=== PATIENT | male | born 1970 | race Caucasian/White ===

== ENCOUNTER → 2017-11-24 | Outpatient (CLI) | payer OTHER ==
--- NOTE | 2017-11-24 09:59 | CT ---
EXAMINATION TYPE: CT sinus wo con DATE OF EXAM: 11/24/2017 COMPARISON: NONE HISTORY: chronic sinusitis CT DLP: 610 mGycm CONTRAST: 0 mL of Omnipaque 350 The paranasal sinuses are examined in the axial plane at 2 mm thick sections. Reconstructed images i n the coronal plane were obtained. There is dental amalgam scatter artifact The maxillary sinuses are clear. There is very minimal mucosal thickening within an anterior left et hmoid air cell. The sphenoid sinuses are clear. The frontal sinuses are clear. The septum is evaluated. There is septal deviation to the left. The ostiomeatal units are patent. IMPRESSIONS: 1. Very minimal mucosal thickening within an anterior left ethmoid air cell. Paranasal sinuses are o therwise clear. 2. Left septal deviation.
== END | disposition home or self-care (01) ==
LOC: RADCTMAIN 08:39
PROVIDERS: ATTEND Otolaryngology
DX: J34.2 Deviated nasal septum (principal); J34.89 Other specified disorders of nose and nasal sinuses
CPT/HCPCS: 70486

== ENCOUNTER → 2019-01-30 | Outpatient (CLI) | payer OTHER ==
--- NOTE | 2019-01-30 08:45 | US ---
EXAMINATION TYPE: US liver DATE OF EXAM: 01/30/2019 COMPARISON: NONE CLINICAL HISTORY: R79.89 Other specified abnormal findings of blood. patient states pain under ribs, states weight gain EXAM MEASUREMENTS: Liver Length: 17.0 cm Gallbladder Wall: 0.3 cm CBD: 0.4 cm Right Kidney: 11.4 x 6.5 x 6.8 cm Pancreas: limited views Liver: coarse, difficult to penetrate, possible focal fatty sparing near vini hepatis = 1.8cm Gallbladder: wall appeared slightly contracted, patient states he took vitamins prior to exam only Evidence for sonographic Leung's sign: no CBD: wnl Right Kidney: medial cortical cyst seen 1.0cm IMPRESSION: 1. Coarsened echo pattern to the liver is nonspecific and be seen with fatty infiltration or hepatic steatosis. Hepatitis or diffuse hepatocellular disease in the differential diagnosis. 2 gallbladder wall measures 3 mm within the gallbladder is nondistended. This likely accounts for the finding. No definite gallstones. 3. Hypoechoic nodule right kidney too small to characterize.
== END | disposition home or self-care (01) ==
LOC: RADUSWWP 07:27
DX: R93.2 Abnormal findings on diagnostic imaging of liver and biliary tract (principal); R79.89 Other specified abnormal findings of blood chemistry; Z88.5 Allergy status to narcotic agent
CPT/HCPCS: 76705

== ENCOUNTER 2019-02-15 17:12 | Emergency (ER) | payer OTHER ==
[2019-02-15 17:32] VITALS: RESP 18
--- NOTE | 2019-02-15 18:08 | XR ---
EXAMINATION TYPE: XR elbow complete RT DATE OF EXAM: 02/15/2019 COMPARISON: NONE HISTORY: Pain and swelling TECHNIQUE: 3 views FINDINGS: There is soft tissue swelling over the olecranon process of the ulna. There is no sign of e lbow joint effusion. I see no fracture nor dislocation. There is some mild spurring on the coronoid p rocess of the ulna and of the distal humerus. IMPRESSION: Mild osteoarthritis. No fracture. Posterior moderate soft tissue swelling. This could rel ate to olecranon bursitis.
[2019-02-15 19:22] LABS: Basophils % (A) 1 %; Eosinophils # (A) 0.1 k/uL (0-0.7); Eosinophils % (A) 1 %; HCT 41.5 % (39.0-53.0); HGB 13.7 gm/dL (13.0-17.5); Lymphocytes # (A) 1.4 k/uL (1.0-4.8); Lymphocytes % (A) 19 %; MCH 28.6 pg (25.0-35.0); MCHC 32.9 g/dL (31.0-37.0); MCV 87.1 fL (80.0-100.0); Mean Platelet Volume 7.3; Monocytes # (A) 0.5 k/uL (0-1.0); Monocytes % (A) 7 %; Neutrophils # (A) 5.1 k/uL (1.3-7.7); Neutrophils % (A) 68 %; Platelet Count 246 k/uL (150-450); RBC 4.77 m/uL (4.30-5.90); RDW 15.3 % (11.5-15.5); WBC 7.5 k/uL (3.8-10.6)
--- NOTE | 2019-02-15 19:25 | ED ---
Extremity Problem HPI - General Chief complaint: Extremity Problem,Nontraumatic Stated complaint: R Elbow Pain Time Seen by Provider: 02/15/19 17:40 Source: patient Mode of arrival: ambulatory Limitations: no limitations - History of Present Illness Initial comments: 49-year-old male with no significant past nuchal history presents today for chief complaint of right elbow pain. Patient states he was working on building shelves over the weekend he states he was leaning on and using his right elbow a lot. Patient states he noticed some pain Wednesday and Wednesday as well as some mild swelling, patient states the pain and swelling increased after playing horseshoes yesterday. Patient has a fever chills night sweats. He denies any inability to range at the elbow. He states the swelling is mostly at the point. Remaining review of system negative, upon arrival patient appears well. - Related Data Previous Rx's Medication Instructions Recorded Sulfamethox-Tmp 800-160Mg [Bactrim 2 tab PO Q12HR 14 Days #56 tab 02/15/19 DS 800-160 mg] Allergies Allergy/AdvReac Type Severity Reaction Status Date / Time morphine Allergy Hallucinati Verified 02/15/19 17:32 ons Review of Systems ROS Statement: Those systems with pertinent positive or pertinent negative responses have been documented in the HPI. ROS Other: All systems not noted in ROS Statement are negative. Past Medical History Past Medical History: No Reported History History of Any Multi-Drug Resistant Organisms: None Reported Past Surgical History: Orthopedic Surgery Past Psychological History: No Psychological Hx Reported Smoking Status: Never smoker Past Alcohol Use History: Daily Past Drug Use History: None Reported General Exam - General Exam Comments Initial Comments: General: The patient is awake and alert, in no distress, and does not appear acutely ill. Eye: Pupils are equal, round and reactive to light, extra-ocular movements are intact. No nystagmus. There is normal conjunctiva bilaterally. No signs of icterus. Ears, nose, mouth and throat: There are moist mucous membranes and no oral les ions. Neck: The neck is supple, there is no tenderness or JVD. Cardiovascular: There is a regular rate and rhythm. No murmur, rub or gallop is appreciated. Respiratory: Lungs are clear to auscultation, respirations are non-labored, breath sounds are equal. No wheezes, stridor, rales, or rhonchi. Musculoskeletal: Upon inspection of the right elbow there is soft tissue swelling over the olecranon process. Normal ROM both actively and passively, no tenderness. Strength 5/5. Sensation intact both proximal and distal to injury site. Radial pulses equal bilaterally 2+. Neurological: A&O x 3. CN II-XII intact, There are no obvious motor or sensory deficits. Coordination appears grossly intact. Speech is normal. Skin: Skin is warm and dry and no rashes or lesions are noted. Psychiatric: Cooperative, appropriate mood & affect, normal judgment. Limitations: no limitations Course Vital Signs 02/15/19 02/15/19 02/15/19 17:29 18:30 20:06 Temperature 99.0 F 98.7 F Pulse Rate 95 87 83 Respiratory 18 18 Rate Blood Pressure 163/105 140/108 174/99 O2 Sat by Pulse 98 99 Oximetry Medical Decision Making - Medical Decision Making 49-year-old male presented for right elbow pain and swelling. Obvious or chronic bursitis. Mild warmth to palpation. Mild erythema. Patient states has been improving throughout the day today. He states he noticed the pain had increased after playing horseshoes. Patient has no significant leukocytosis on laboratory studies denies any constitutional symptoms. Patient appears well. He has no limitations in either active or passive range of motion. Mild tenderness to palpation. At this time I have low suspicion for septic bursitis however this is identical to diagnoses. There is no circumferential swelling or pain consistent with a septic joint. Patient was given antibiotics as there is possibility of infected olecranon bursitis. [facility] patient to follow up closely with orthopedic surgery for further recommendation and treatment. Patient is instructed to ice and elevate the area. As well as take NSAIDs. Patient's critical care plan. Return parameters which included any worsening of the redness pain or limitation to range of motion fever chills or night sweats--patient is to immediately return to the emergency department. Patient verbalizes understanding. Patient was discharged appearing well after I discussed the case with attending provider Dr. Somers. - Lab Data Result diagrams: 02/15/19 18:51 02/15/19 18:51 Lab Results 02/15/19 02/15/19 Range/Units 18:51 18:51 WBC 7.5 (3.8-10.6) k/uL RBC 4.77 (4.30-5.90) m/uL Hgb 13.7 (13.0-17.5) gm/dL Hct 41.5 (39.0-53.0) % MCV 87.1 (80.0-100.0) fL MCH 28.6 (25.0-35.0) pg MCHC 32.9 (31.0-37.0) g/dL RDW 15.3 (11.5-15.5) % Plt Count 246 (150-450) k/uL Neutrophils % 68 % Lymphocytes % 19 % Monocytes % 7 % Eosinophils % 1 % Basophils % 1 % Neutrophils # 5.1 (1.3-7.7) k/uL Lymphocytes # 1.4 (1.0-4.8) k/uL Monocytes # 0.5 (0-1.0) k/uL Eosinophils # 0.1 (0-0.7) k/uL Basophils # 0.0 (0-0.2) k/uL Sodium 141 (137-145) mmol/L Potassium 3.8 (3.5-5.1) mmol/L Chloride 108 H (98-107) mmol/L Carbon Dioxide 26 (22-30) mmol/L Anion Gap 7 mmol/L BUN 21 H (9-20) mg/dL Creatinine 0.84 (0.66-1.25) mg/dL Est GFR (CKD-EPI)AfAm >90 (>60 ml/min/1.73 sqM) Est GFR (CKD-EPI)NonAf >90 (>60 ml/min/1.73 sqM) Glucose 108 H (74-99) mg/dL Calcium 9.4 (8.4-10.2) mg/dL Total Bilirubin 0.9 (0.2-1.3) mg/dL AST 94 H (17-59) U/L ALT 163 H (21-72) U/L Alkaline Phosphatase 118 (38-126) U/L Total Protein 7.6 (6.3-8.2) g/dL Albumin 4.2 (3.5-5.0) g/dL Disposition Clinical Impression: Bursitis of elbow Disposition: HOME SELF-CARE Condition: Good Instructions (If sedation given, give patient instructions): Elbow Bursitis (ED) Additional Instructions: Please use medication as discussed. Please follow-up with orthopedic surgery within the next 2-3 days. Please follow-up with her primary care provider for elevated blood pressure. Please return to emergency room if the symptoms increase or worsen or for any other concerns. Prescriptions: Sulfamethox-Tmp 800-160Mg [Bactrim DS 800-160 mg] 2 tab PO Q12HR 14 Days #56 tab Is patient prescribed a controlled substance at d/c from ED?: No Referrals: [facility],Clinic [Primary Care Provider] - 1-2 days Jasper Craft DO [Doctor of Osteopathic Medicine] - 1-2 days Time of Disposition: 19:41
[2019-02-15 19:34] LABS: ALT 163 U/L (21-72); AST 94 U/L (17-59); Albumin 4.2 g/dL (3.5-5.0); Alkaline Phosphatase 118 U/L (38-126); Anion Gap 7 mmol/L; Blood Urea Nitrogen 21 mg/dL (9-20); Calcium 9.4 mg/dL (8.4-10.2); Carbon Dioxide 26 mmol/L (22-30); Chloride 108 mmol/L (98-107); Glucose 108 mg/dL (74-99); Potassium 3.8 mmol/L (3.5-5.1); Sodium 141 mmol/L (137-145); Total Bilirubin 0.9 mg/dL (0.2-1.3); Total Protein 7.6 g/dL (6.3-8.2)
[2019-02-15 20:08] VITALS: BP 174/99; PULSE 83; TEMP 98.7
== END 2019-02-15 20:08 | disposition home or self-care (01) ==
LOC: EC 17:12
DX: M70.31 Other bursitis of elbow, right elbow (principal); Z88.5 Allergy status to narcotic agent
CPT/HCPCS: 36415; 80053; 85025; 87040; 99283

== ENCOUNTER → 2019-03-23 | Outpatient (CLI) | payer OTHER ==
--- NOTE | 2019-03-23 09:49 | NM ---
EXAMINATION TYPE: NM hepatobiliary w EF DATE OF EXAM: 03/23/2019 COMPARISON: Liver ultrasound dated 01/30/2019 HISTORY: Abdominal pain TECHNIQUE: After the intravenous administration of 4.9 mCi Tc 99m Mebrofenin hepatobiliary scintigrap hy is performed. Immediate images post injection. FINDINGS: There is satisfactory initial accumulation of tracer by the liver. The gallbladder is visualized wit hin 24 minutes definitively. The small bowel activity is noted within 10 minutes. At one hour 8 oun vianey of oral ensure plus is given to mimic CCK and gallbladder ejection fraction is calculated at 62 % , in the normal range. Therefore there is no scintigraphic evidence of cystic or common bile duct ob struction to suggest acute cholecystitis or gallbladder dyskinesia. IMPRESSION: No scintigraphic evidence of acute cholecystitis, chronic cholecystitis nor biliary dyski nesia.
== END | disposition home or self-care (01) ==
LOC: RADNMMAIN 06:50
DX: R10.84 Generalized abdominal pain (principal)
CPT/HCPCS: 78226

== ENCOUNTER → 2019-06-05 | Outpatient (CLI) | payer OTHER ==
--- NOTE | 2019-06-05 12:18 | CT ---
EXAMINATION TYPE: CT sinus wo con DATE OF EXAM: 06/05/2019 COMPARISON: 11/24/2017 HISTORY: Sinus congestion and headaches. CT DLP: 679.3 mGycm CONTRAST: None The paranasal sinuses are examined in the axial plane at 2 mm thick sections. Reconstructed images i n the coronal plane were obtained. There is dental amalgam scatter artifact The maxillary sinuses are clear. The ethmoid air cells are clear. The sphenoid sinuses are clear. The frontal sinuses are clear. The septum is evaluated. There is septal deviation to the left. The ostiomeatal units are patent. IMPRESSIONS: 1. Normal paranasal sinus study
== END | disposition home or self-care (01) ==
LOC: RADCTMAIN 11:56
DX: J01.91 Acute recurrent sinusitis, unspecified (principal)
CPT/HCPCS: 70486

== ENCOUNTER 2019-06-07 07:48 | Day surgery (SDC) | payer OTHER ==
[2019-06-05 14:51] VITALS: BMI 32.3
[~2019-06-07 07:48] MED LIST: LACTATED RINGERS 1,000 ML IV SCH; LIDOCAINE 1% 20 ML VIAL (10MG/ML) FOR IV START INTRADERMA PRN
[2019-06-07 08:10] VITALS: RESP 16; TEMP 97.8
[2019-06-07] MEDS ORDERED: PROPOFOL 10 MG/ML 20 ML VIAL IV ONE (08:35)
[2019-06-07] MEDS ORDERED: LIDOCAINE 1% INJ 10MG/ML (20 ML MDV) ONE (08:35)
--- NOTE | 2019-06-07 09:04 | P.PCN ---
Date of Procedure: 06/07/19 Procedure(s) Performed: Brief history: Patient is a pleasant 49-year-old white male scheduled for an elective upper endoscopy as well as colonoscopy as a part of evaluation of epigastric pain for the last 6 months duration. He is also scheduled for a screening colonoscopy today. Procedure performed: Esophagogastroduodenoscopy with biopsy Colonoscopy Preoperative diagnosis: Epigastric pain and abdominal bloating Screening for colon cancer Anesthesia: MAC Procedure: After informed consent was obtained from the patient was brought into the endoscopy unit and IV sedation was administered by anesthesia under continuous monitoring. Initial digital rectal examination was normal. Olympus CF 160 video colonoscope was then inserted into the rectum and gradually advanced to the cecum without any difficulty. Careful examination was performed as the scope was gradually being withdrawn. The prep was excellent. The cecum, ascending colon, transverse colon, descending colon, sigmoid colon and rectum appeared normal. The left sided diverticulosis seen. Retroflexion was performed in the rectum and no lesions were noted. Patient tolerated the procedure well. Patient continued to remain sedated. At this time the Olympus GF 160 video endoscope was inserted inserted into the mouth and esophagus intubated without any difficulty and was gradually advanced into the stomach and duodenum and carefully examined. The bulb and second part of the duodenum appeared normal. The scope was then withdrawn into the stomach adequately insufflated with air and upon careful examination the antrum had mild gastritis and biopsies were done from this area. The body, cardia and fundus appeared normal. The scope was then withdrawn into the esophagus. small sliding type hiatal hernia noted. The GE junction was located at 40 cm to the incisors. It appeared regular but there were 2 superficial erosions consistent with LA grade B reflux esophagitis. . Rest of the esophagus appeared normal. Patient tolerated the procedure well. Impression: 1. Colonoscopy revealed scattered sigmoidal diverticulosis and no evidence of colitis or colorectal neoplasia 2. Upper endoscopy revealed mild antral gastritis, small hiatal hernia and LA grade B reflux esophagitis. Recommendations: Findings of this examination were discussed with the patient as well as his family. He was advised to follow with the biopsy results. he was advised to start on Prilosec 20 mg daily and follow antrum reflux measures. He can have a repeat screening colonoscopy in 10 years
[2019-06-07 09:22] VITALS: BP 124/90; PULSE 94
== END 2019-06-07 09:47 | disposition home or self-care (01) ==
LOC: ORWHC2ENDO 07:48
PROVIDERS: ATTEND Internal Medicine Gastroenterology
DX: Z12.11 Encounter for screening for malignant neoplasm of colon (principal); K44.9 Diaphragmatic hernia without obstruction or gangrene; K21.0 Gastro-esophageal reflux disease with esophagitis; K57.30 Diverticulosis of large intestine without perforation or abscess without bleeding; K29.50 Unspecified chronic gastritis without bleeding; Z88.5 Allergy status to narcotic agent
CPT/HCPCS: 88305; 43239; J2001; J2704; G0121

== ENCOUNTER 2019-07-21 09:02 | Emergency (ER) | payer OTHER ==
[2019-07-21] MEDS ORDERED: SODIUM CHLORIDE 0.9% 1,000 ML IV STA (09:33)
[2019-07-21] MEDS ORDERED: FAMOTIDINE 20 MG/2 ML VIAL IV STA (09:33)
[2019-07-21] MEDS ORDERED: methylPREDNISolone SOD SUCCI 125 MG/2 ML VIAL IV STA (09:33)
[2019-07-21] MEDS ORDERED: diphenhydrAMINE 50 MG/ML 1 ML VIAL IVP STA (09:33)
--- NOTE | 2019-07-21 09:37 | ED ---
Allergic Reaction HPI - General Chief complaint: Allergic Reaction Stated complaint: FACIAL SWELLING Time Seen by Provider: 07/21/19 09:11 Source: patient, family, RN notes reviewed Mode of arrival: ambulatory Limitations: no limitations - History of Present Illness Initial Comments: This is a 49-year-old male who presents with complaints of sudden onset of facial swelling with erythema some itching also he does have some of this happening to his hands. Medications no new foods oh Environmental encounters. He does state he's been recently evaluated for elevated liver enzymes some gallbladder disease or hiatal hernia. He states that 3 weeks ago also started developing some dizziness. The dizziness gets worse when he moves his head and especially looks up. He does have chronic sinus problems he does not have any other ears any runny nose cough sore throat at this time. No other modifying factors no trouble swallowing. Patient does state also has some abdominal bloating and some mild suprapubic and epigastric right upper quadrant tenderness. MD Complaint: hives, facial swelling - Related Data Home Medications Medication Instructions Recorded Confirmed Ibuprofen [Motrin Ib] 1,200 mg PO BID PRN 07/21/19 07/21/19 Omeprazole [PriLOSEC] 10 mg PO BID 07/21/19 07/21/19 Total-T Otc Supplement 1 tab PO DAILY 07/21/19 07/21/19 Previous Rx's Medication Instructions Recorded Famotidine [Pepcid] 20 mg PO BID #10 tablet 07/21/19 diphenhydrAMINE [Benadryl] 25 mg PO QID PRN #20 capsule 07/21/19 methylPREDNISolone Dose Pack 4 mg PO DIRECTED #21 package 07/21/19 [Medrol Dose Pack] Allergies Allergy/AdvReac Type Severity Reaction Status Date / Time morphine Allergy Rash/Hives Verified 07/21/19 09:22 Review of Systems ROS Statement: Those systems with pertinent positive or pertinent negative responses have been documented in the HPI. ROS Other: All systems not noted in ROS Statement are negative. Past Medical History Past Medical History: No Reported History History of Any Multi-Drug Resistant Organisms: None Reported Past Surgical History: Orthopedic Surgery Past Psychological History: No Psychological Hx Reported Smoking Status: Never smoker Past Alcohol Use History: Daily Past Drug Use History: None Reported General Exam - General Exam Comments Initial Comments: This is a well-developed well-nourished awake alert oriented times female who does demonstrate angioedema of the face bilaterally including the lips Limitations: no limitations General appearance: alert, in no apparent distress Head exam: Present: atraumatic, normocephalic, normal inspection Eye exam: Present: PERRL, EOMI, other (Some periorbital edema with erythematous skin noted also does include the face and lips). Absent: scleral icterus, conjunctival injection, periorbital swelling ENT exam: Present: normal exam, mucous membranes moist Neck exam: Present: normal inspection, full ROM, other (No stridor JVD or bruits). Absent: tenderness, meningismus, lymphadenopathy Respiratory exam: Present: normal lung sounds bilaterally. Absent: respiratory distress, wheezes, rales, rhonchi, stridor Cardiovascular Exam: Present: regular rate, normal rhythm, normal heart sounds. Absent: systolic murmur, diastolic murmur, rubs, gallop, clicks GI/Abdominal exam: Present: soft, distended, normal bowel sounds. Absent: tenderness, guarding, rebound, rigid, bruit, pulsatile mass Extremities exam: Present: normal inspection, full ROM, normal capillary refill. Absent: tenderness, pedal edema, joint swelling, calf tenderness Back exam: Present: normal inspection Neurological exam: Present: alert, oriented X3, CN II-XII intact Psychiatric exam: Present: normal affect, normal mood Skin exam: Present: warm, dry, intact, other (Erythema noted to the face and hands). Absent: rash Course Vital Signs 07/21/19 09:06 Temperature 97.8 F Pulse Rate 103 H Respiratory 20 Rate Blood Pressure 143/90 O2 Sat by Pulse 99 Oximetry Medical Decision Making - Medical Decision Making Patient is getting improvement after the medications were rendered. We did discuss his lab values she does have an appointment to see Dr. Avitia in 3 days in the office. Patient will return. I did caution him about exposure to heat he will be given prescriptions. - Lab Data Result diagrams: 07/21/19 09:42 07/21/19 09:42 Lab Results 07/21/19 07/21/19 07/21/19 Range/Units 09:42 09:42 11:30 WBC 5.7 (3.8-10.6) k/uL RBC 4.52 (4.30-5.90) m/uL Hgb 13.4 (13.0-17.5) gm/dL Hct 40.6 (39.0-53.0) % MCV 89.9 (80.0-100.0) fL MCH 29.7 (25.0-35.0) pg MCHC 33.1 (31.0-37.0) g/dL RDW 12.8 (11.5-15.5) % Plt Count 255 (150-450) k/uL Neutrophils % 67 % Lymphocytes % 20 % Monocytes % 6 % Eosinophils % 3 % Basophils % 1 % Neutrophils # 3.8 (1.3-7.7) k/uL Lymphocytes # 1.2 (1.0-4.8) k/uL Monocytes # 0.3 (0-1.0) k/uL Eosinophils # 0.1 (0-0.7) k/uL Basophils # 0.1 (0-0.2) k/uL Poikilocytosis Slight Sodium 141 (137-145) mmol/L Potassium 4.3 (3.5-5.1) mmol/L Chloride 108 H (98-107) mmol/L Carbon Dioxide 23 (22-30) mmol/L Anion Gap 10 mmol/L BUN 15 (9-20) mg/dL Creatinine 0.87 (0.66-1.25) mg/dL Est GFR (CKD-EPI)AfAm >90 (>60 ml/min/1.73 sqM) Est GFR (CKD-EPI)NonAf >90 (>60 ml/min/1.73 sqM) Glucose 125 H (74-99) mg/dL Calcium 8.9 (8.4-10.2) mg/dL Magnesium 1.9 (1.6-2.3) mg/dL Total Bilirubin 1.1 (0.2-1.3) mg/dL AST 152 H (17-59) U/L ALT 216 H (21-72) U/L Alkaline Phosphatase 94 (38-126) U/L Total Protein 7.5 (6.3-8.2) g/dL Albumin 4.0 (3.5-5.0) g/dL Urine Color Yellow Urine Appearance Clear (Clear) Urine pH 6.5 (5.0-8.0) Ur Specific [place] 1.014 (1.001-1.035) Urine Protein Negative (Negative) Urine Glucose (UA) Negative (Negative) Urine Ketones Negative (Negative) Urine Blood Negative (Negative) Urine Nitrite Negative (Negative) Urine Bilirubin Negative (Negative) Urine Urobilinogen <2.0 (<2.0) mg/dL Ur Leukocyte Esterase Negative (Negative) Disposition Clinical Impression: Urticaria, Angioedema Disposition: HOME SELF-CARE Condition: Good Instructions (If sedation given, give patient instructions): Urticaria (ED), Angioedema (ED) Additional Instructions: Medications prescription sent to your preferred pharmacy Prescriptions: diphenhydrAMINE [Benadryl] 25 mg PO QID PRN #20 capsule PRN Reason: Rash methylPREDNISolone Dose Pack [Medrol Dose Pack] 4 mg PO DIRECTED #21 package Famotidine [Pepcid] 20 mg PO BID #10 tablet Is patient prescribed a controlled substance at d/c from ED?: No Referrals: [facility],Clinic [Primary Care Provider] - 1-2 days
[2019-07-21 10:23] LABS: Basophils # (A) 0.1 k/uL (0-0.2); Basophils % (A) 1 %; Eosinophils # (A) 0.1 k/uL (0-0.7); Eosinophils % (A) 3 %; HCT 40.6 % (39.0-53.0); HGB 13.4 gm/dL (13.0-17.5); Lymphocytes # (A) 1.2 k/uL (1.0-4.8); Lymphocytes % (A) 20 %; MCH 29.7 pg (25.0-35.0); MCHC 33.1 g/dL (31.0-37.0); MCV 89.9 fL (80.0-100.0); Mean Platelet Volume 6.7; Monocytes # (A) 0.3 k/uL (0-1.0); Monocytes % (A) 6 %; Neutrophils # (A) 3.8 k/uL (1.3-7.7); Neutrophils % (A) 67 %; Platelet Count 255 k/uL (150-450); Poikilocytosis Slight; RBC 4.52 m/uL (4.30-5.90); RDW 12.8 % (11.5-15.5); WBC 5.7 k/uL (3.8-10.6)
[2019-07-21 10:33] LABS: ALT 216 U/L (21-72); AST 152 U/L (17-59); African American GFR (CKD) >90 (>60 ml/min/1.73 sqM); Alkaline Phosphatase 94 U/L (38-126); Anion Gap 10 mmol/L; Blood Urea Nitrogen 15 mg/dL (9-20); Calcium 8.9 mg/dL (8.4-10.2); Carbon Dioxide 23 mmol/L (22-30); Chloride 108 mmol/L (98-107); Glucose 125 mg/dL (74-99); Magnesium 1.9 mg/dL (1.6-2.3); Potassium 4.3 mmol/L (3.5-5.1); Sodium 141 mmol/L (137-145); Total Bilirubin 1.1 mg/dL (0.2-1.3); Total Protein 7.5 g/dL (6.3-8.2)
[2019-07-21 11:47] LABS: Appearance,Urine Clear (Clear); Bilirubin,Urine Negative (Negative); Blood,Urine Negative (Negative); Color,Urine Yellow; Glucose,Urine (UA) Negative (Negative); Ketones,Urine Negative (Negative); Leukocyte Esterase,Urine Negative (Negative); Nitrite,Urine Negative (Negative); PH, Urine 6.5 (5.0-8.0); Protein,Urine Negative (Negative); Specific Gravity,Urine 1.014 (1.001-1.035); Urobilinogen,Urine <2.0 mg/dL (<2.0)
[2019-07-21 12:22] VITALS: BP 146/98; PULSE 94; RESP 18; TEMP 98.9
== END 2019-07-21 12:21 | disposition home or self-care (01) ==
LOC: EC 09:02
DX: T78.3XXA Angioneurotic edema, initial encounter (principal); Z88.5 Allergy status to narcotic agent
CPT/HCPCS: 36415; 80053; 83735; 85025; 81003; 99284; 96374; 96375 ×2; 96361 ×3; J1200; J2930

== ENCOUNTER 2019-07-23 10:19 | Inpatient (IN) | payer OTHER ==
[2019-07-23] MEDS ORDERED: SODIUM CHLORIDE 0.9% 1,000 ML IV STA ×2 (10:38→11:51)
[2019-07-23] MEDS ORDERED: ONDANSETRON 4 MG/2 ML VIAL IVP STA (10:38)
[2019-07-23] MEDS ORDERED: KETOROLAC 30 MG/ML 1 ML VIAL IVP STA (10:38)
--- NOTE | 2019-07-23 10:51 | ED ---
Abdominal Pain HPI <SrinivasaYunior Aubree - Last Filed: 07/23/19 12:01> - General Source: patient Mode of arrival: ambulatory Limitations: no limitations <Alyssa Garcia - Last Filed: 07/23/19 12:39> - General Chief Complaint: Abdominal Pain Stated Complaint: hernia? Time Seen by Provider: 07/23/19 10:28 - History of Present Illness Initial Comments: Patient is a 49-year-old male presenting to the emergency Department with complaints of severe abdominal pain that started yesterday. Patient states he was moving a lot of boxes and items around and when he was through, he started having significant right lower quadrant pain. Patient states that pain has now progressed to his entire upper abdomen as well as the entire right abdomen. Patient states the pain is severe, constant and sharp in nature. There are no alleviating factors. Patient has history of small hiatal hernia as well as a f atty liver. Patient states he also had a mild temperature of 99.5 this morning which made him come in. Patient states he has tried to wait out the pain however the pain has been increasing. Patient denies any history of abdominal surgeries. Patient does admit to nausea, no vomiting, no diarrhea. Patient is also complaining of mid sternum pain that is radiating to his right shoulder. Patient states this pain started today. Patient does have an appointment with Dr. Avitia tomorrow regarding his elevated liver enzymes. Patient has had a recent HIDA scan as well as liver ultrasound with no acute findings. Patient has taken no pain medication today. Patient is currently on steroids for A LLERGIC reaction he had 2 days ago. Patient did not take the steroids this morning. Patient has no other complaints at this time. Upon arrival to the ER, temp is 99.0, pulse is 119, respiratory rate 18, BP is 149/89, 96% on room air. (Alyssa Garcia) - Related Data Home Medications Medication Instructions Recorded Confirmed Omeprazole [PriLOSEC] 10 mg PO BID 07/21/19 07/21/19 Allergies Allergy/AdvReac Type Severity Reaction Status Date / Time morphine Allergy Rash/Hives Verified 07/23/19 12:10 Review of Systems ROS Other: All systems not noted in ROS Statement are negative. <Yunior Bernabe - Last Filed: 07/23/19 12:01> ROS Other: All systems not noted in ROS Statement are negative. <Alyssa Garcia - Last Filed: 07/23/19 12:39> ROS Statement: Those systems with pertinent positive or pertinent negative responses have been documented in the HPI. Past Medical History Past Medical History: No Reported History Additional Past Medical History / Comment(s): hiatal hernia History of Any Multi-Drug Resistant Organisms: None Reported Past Surgical History: Orthopedic Surgery Past Psychological History: No Psychological Hx Reported Smoking Status: Never smoker Past Alcohol Use History: Daily Past Drug Use History: None Reported <Alyssa Garcia - Last Filed: 07/23/19 12:39> General Exam Limitations: no limitations <Alyssa Garcia - Last Filed: 07/23/19 12:39> - General Exam Comments Initial Comments: GENERAL: Well-nourished, in mild distress secondary to severe abdominal pain. Patient is slightly diaphoretic. HEAD: Atraumatic, normocephalic. EYES: Pupils equal round and reactive to light, extraocular movements intact, sclera anicteric, conjunctiva are normal. ENT: Nares patent, oropharynx clear without exudates. Moist mucous membranes. NECK: Normal range of motion, supple without lymphadenopathy or JVD. LUNGS: Breath sounds clear to auscultation bilaterally and equal. No wheezes rales or rhonchi. HEART: Tachycardic rate and rhythm without murmurs, rubs or gallops. ABDOMEN: Tenderness to palpation of the the entire upper and right side of abdomen. More severe in the right lower quadrant, right upper quadrant and epigastric area. Positive guarding and rebound. Normoactive bowel sounds. No masses appreciated. : Deferred EXTREMITIES: Normal range of motion, no pitting or edema. No clubbing or cyanosis. NEUROLOGICAL: Cranial nerves II through XII grossly intact. Normal speech. PSYCH: Normal mood, normal affect. SKIN: Warm, Dry, normal turgor, no rashes or lesions noted. (Alyssa Garcia) Course Vital Signs 07/23/19 07/23/19 10:22 12:17 Temperature 99.0 F 100.8 F H Pulse Rate 119 H 116 H Respiratory 18 16 Rate Blood Pressure 149/89 148/97 O2 Sat by Pulse 96 95 Oximetry Medical Decision Making - Lab Data Result diagrams: 07/23/19 10:53 11/10/19 10:53 <Yunior Bernabe - Last Filed: 07/23/19 12:01> - Lab Data Result diagrams: 07/23/19 10:53 07/23/19 10:53 <Alyssa Garcia - Last Filed: 07/23/19 12:39> - Medical Decision Making 49-year-old male with abdominal pain is probably generalized however he has focal tenderness in the right lower quadrant. CT is performed, shows diverticulitis with intra-abdominal free air. This is discussed with general surgery on-call Dr. Rosario, patient will be admitted for IV antibiotics IV fluids, urgent surgical evaluation. Admitted to internal medicine. Patient is kept nothing by mouth. (Yunior Bernabe) 49-year-old male presenting with severe abdominal pain [address] reveals acute diverticulitis with perforation. Patient will be admitted for IV fluids, antibiotics and surgical consultation. Case discussed with Dr. Bernabe. Patient will be admitted under Dr. hood with consult to Dr. Rosario. Patient is in agreement with this plan of care. (Alyssa Garcia) - Lab Data Lab Results 07/23/19 07/23/19 07/23/19 Range/Units 10:53 10:53 10:53 WBC 18.1 H (3.8-10.6) k/uL RBC 4.22 L (4.30-5.90) m/uL Hgb 12.7 L (13.0-17.5) gm/dL Hct 38.2 L (39.0-53.0) % MCV 90.4 (80.0-100.0) fL MCH 30.2 (25.0-35.0) pg MCHC 33.4 (31.0-37.0) g/dL RDW 13.3 (11.5-15.5) % Plt Count 244 (150-450) k/uL Neutrophils % 87 % Lymphocytes % 6 % Monocytes % 5 % Eosinophils % 0 % Basophils % 1 % Neutrophils # 15.8 H (1.3-7.7) k/uL Lymphocytes # 1.1 (1.0-4.8) k/uL Monocytes # 0.8 (0-1.0) k/uL Eosinophils # 0.0 (0-0.7) k/uL Basophils # 0.1 (0-0.2) k/uL PT (9.0-12.0) sec INR (<1.2) APTT (22.0-30.0) sec Sodium 141 (137-145) mmol/L Potassium 3.9 (3.5-5.1) mmol/L Chloride 107 (98-107) mmol/L Carbon Dioxide 27 (22-30) mmol/L Anion Gap 7 mmol/L BUN 16 (9-20) mg/dL Creatinine 0.87 (0.66-1.25) mg/dL Est GFR (CKD-EPI)AfAm >90 (>60 ml/min/1.73 sqM) Est GFR (CKD-EPI)NonAf >90 (>60 ml/min/1.73 sqM) Glucose 121 H (74-99) mg/dL Plasma Lactic Acid Eric 1.6 (0.7-2.0) mmol/L Calcium 8.8 (8.4-10.2) mg/dL Total Bilirubin 1.9 H (0.2-1.3) mg/dL AST 54 (17-59) U/L ALT 129 H (21-72) U/L Alkaline Phosphatase 90 (38-126) U/L Troponin I (0.000-0.034) ng/mL Total Protein 7.5 (6.3-8.2) g/dL Albumin 4.1 (3.5-5.0) g/dL Amylase 50 (30-110) U/L Lipase 56 (23-300) U/L 07/23/19 07/23/19 Range/Units 10:53 10:53 WBC (3.8-10.6) k/uL RBC (4.30-5.90) m/uL Hgb (13.0-17.5) gm/dL Hct (39.0-53.0) % MCV (80.0-100.0) fL MCH (25.0-35.0) pg MCHC (31.0-37.0) g/dL RDW (11.5-15.5) % Plt Count (150-450) k/uL Neutrophils % % Lymphocytes % % Monocytes % % Eosinophils % % Basophils % % Neutrophils # (1.3-7.7) k/uL Lymphocytes # (1.0-4.8) k/uL Monocytes # (0-1.0) k/uL Eosinophils # (0-0.7) k/uL Basophils # (0-0.2) k/uL PT 10.7 (9.0-12.0) sec INR 1.0 (<1.2) APTT 22.2 (22.0-30.0) sec Sodium (137-145) mmol/L Potassium (3.5-5.1) mmol/L Chloride (98-107) mmol/L Carbon Dioxide (22-30) mmol/L Anion Gap mmol/L BUN (9-20) mg/dL Creatinine (0.66-1.25) mg/dL Est GFR (CKD-EPI)AfAm (>60 ml/min/1.73 sqM) Est GFR (CKD-EPI)NonAf (>60 ml/min/1.73 sqM) Glucose (74-99) mg/dL Plasma Lactic Acid Eric (0.7-2.0) mmol/L Calcium (8.4-10.2) mg/dL Total Bilirubin (0.2-1.3) mg/dL AST (17-59) U/L ALT (21-72) U/L Alkaline Phosphatase (38-126) U/L Troponin I <0.012 (0.000-0.034) ng/mL Total Protein (6.3-8.2) g/dL Albumin (3.5-5.0) g/dL Amylase (30-110) U/L Lipase (23-300) U/L - EKG Data EKG Comments: Ventricular rate 118, P interval 144, QTC 445. Sinus tachycardia. Inferior infarct, age undetermined. Abnormal EKG. No acute ST segment changes. (Alyssa Garcia) Disposition <Yunior Bernabe - Last Filed: 07/23/19 12:01> Is patient prescribed a controlled substance at d/c from ED?: No Decision Date: 07/23/19 Decision Time: 11:55 <Alyssa Garcia - Last Filed: 07/23/19 12:39> Clinical Impression: Acute diverticulitis, Perforated bowel Disposition: ADMITTED IP TO THIS HOSP Condition: Stable Referrals: [facility],Clinic [Primary Care Provider] - 1-2 days
[2019-07-23 11:07] LABS: Basophils # (A) 0.1 k/uL (0-0.2); Basophils % (A) 1 %; Eosinophils % (A) 0 %; HCT 38.2 % (39.0-53.0); HGB 12.7 gm/dL (13.0-17.5); Lymphocytes # (A) 1.1 k/uL (1.0-4.8); Lymphocytes % (A) 6 %; MCH 30.2 pg (25.0-35.0); MCHC 33.4 g/dL (31.0-37.0); MCV 90.4 fL (80.0-100.0); Mean Platelet Volume 6.6; Monocytes # (A) 0.8 k/uL (0-1.0); Monocytes % (A) 5 %; Neutrophils # (A) 15.8 k/uL (1.3-7.7); Neutrophils % (A) 87 %; Platelet Count 244 k/uL (150-450); RBC 4.22 m/uL (4.30-5.90); RDW 13.3 % (11.5-15.5); WBC 18.1 k/uL (3.8-10.6)
[2019-07-23 11:19] LABS: ALT 129 U/L (21-72); AST 54 U/L (17-59); African American GFR (CKD) >90 (>60 ml/min/1.73 sqM); Albumin 4.1 g/dL (3.5-5.0); Alkaline Phosphatase 90 U/L (38-126); Amylase 50 U/L (30-110); Anion Gap 7 mmol/L; Blood Urea Nitrogen 16 mg/dL (9-20); Calcium 8.8 mg/dL (8.4-10.2); Carbon Dioxide 27 mmol/L (22-30); Chloride 107 mmol/L (98-107); Glucose 121 mg/dL (74-99); Potassium 3.9 mmol/L (3.5-5.1); Sodium 141 mmol/L (137-145); Total Bilirubin 1.9 mg/dL (0.2-1.3); Total Protein 7.5 g/dL (6.3-8.2)
[2019-07-23 11:22] LABS: Partial Thromboplastin Time 22.2 sec (22.0-30.0); Prothrombin Time 10.7 sec (9.0-12.0)
[2019-07-23] MEDS ORDERED: HYDROmorphone 0.5 MG/0.5 ML SYRINGE IVP STA (11:28)
--- NOTE | 2019-07-23 11:46 | CT ---
EXAMINATION TYPE: CT abdomen pelvis w con DATE OF EXAM: 07/23/2019 REFERENCE: NONE HISTORY: abdominal pain, hx of hiatal hernia HISTORY: Abdominal pain, hiatal hernia CT DLP: 1982.2 mGy Automated exposure control for dose reduction was used. TECHNIQUE: Helical acquisition through the abdomen and pelvis was obtained following the oral ingesti on of without Oral Contrast and following intravenous administration of 100 mL of Isovue 300. The timothy a was reformatted in axial, coronal and sagittal projections. FINDINGS: There is dependent atelectasis in the dependent portions of both lungs. There is a scant a mount of pleural fluid. There is no pericardial fluid. The heart is upper limits of normal in size. Within the abdomen, there are numerous small bubbles of free air particularly along the dome of the l iver. The liver is normal in size. The gallbladder is contracted. The spleen is normal. Both adrenal glands are normal. Both kidneys demonstrate function. There is a small, 1 cm hypodensity in the mid polar region of the right kidney. This likely represents a small cyst. The pancreas is unremarkable. There is a tiny hiatal hernia. There is no significant retroperitoneal, iliac or inguinal adenopathy. The bladder is unremarkable. There is inflammatory change adjacent to the proximal sigmoid colon and there is a: of air adjacent t o the colon in this region. No abscess is seen. The appendix is unremarkable. The middle portion of the small bowel is somewhat fluid-filled. This may be a reaction to the colonic inflammatory change. No definite free fluid is seen. There is degenerative disc disease throughout the lumbar spine. IMPRESSION: 1. EVIDENCE OF ACUTE DIVERTICULITIS WITH SOME FREE AIR OUTSIDE OF THE BOWEL SUGGESTING PERFORATION. 2. SMALL, BILATERAL PLEURAL EFFUSIONS. 3. MILDLY DILATED AND FLUID-FILLED LOOPS OF BOWEL ADJACENT TO THE SIGMOID. THIS MAY BE SECONDARY TO T HE SURROUNDING INFLAMMATION. 4. SMALL, SLIDING HIATAL HERNIA. 5. DEGENERATIVE CHANGES WITHIN THE SPINE.
[2019-07-23] MEDS ORDERED: PIPERACILLIN-TAZOBACTAM 3.375 GM in SODIUM CHLORIDE 0.9% 100 ML IVPB STA (11:52)
[2019-07-23] MEDS ORDERED: NALOXONE 0.4 MG/ML 1 ML VIAL IV PRN (11:54)
[2019-07-23] MEDS ORDERED: ACETAMINOPHEN TAB 325 MG TAB PO PRN (11:54)
[2019-07-23] MEDS ORDERED: traMADol 50 MG TAB PO PRN (11:54)
[2019-07-23] MEDS ORDERED: SODIUM CHLORIDE 0.9% 1,000 ML IV SCH ×2 (12:00→22:15)
--- NOTE | 2019-07-23 12:34 | P.HPIM ---
History of Present Illness This is a pleasant 49 years old male with past medical history of hiatal hernia. Presents because of abdominal pain. Patient states that yesterday he was lifting some heavy objects at his house upstairs like a dresser, he started having lower abdominal pain, mainly in the middle with separate to the surrounding area including the upper abdomen and to the left side. Hep-Lock shooting pains very severe 10/10, today he has to sit an incline or. With no associated nausea vomiting, he has about 3 bowel movement this morning they were dark and sticky as per patient. He has some chest tightness but no chest pain or dyspnea. He has right shoulder pain, could be from the irritation as there is some air bubbles found around the liver. He denies dizziness, no coughing, no respiratory difficulty. No back pain. He denies smoking and illicit drugs however he drinks about 2-3 cups of whiskey daily. Vitas looks stable except for tachycardia with heart rate of 119. WBC is showing 18.1 K, hemoglobin is 12.7, INR is within normal limits, BMP is unremarkable with normal electrolytes and creatinine 0.8, bilirubin is 1.9, ALT 129, however her AST is within normal limits. Troponin is negative. EKG showing sinus tachycardia at 118 with QTC of [address]-T changes CT of the abdomen and pelvis showing acute diverticulitis with some free air outside the bowel suggesting perforation with a small bilateral pleural effusion with mildly dilated sigmoid,, degenerative spinal disease And small hiatal hernia Surgical team has been contacted by ED staff, they recommended to admit the patient and her medicine and will see the patient on consult. Patient was started on Zosyn and Dilaudid and normal saline at 75 mg Per hour, also received 2 L of normal saline Review of Systems CONSTITUTIONAL: No fever, no malaise, no fatigue. HEENT: No recent visual problems or hearing problems. Denied any sore throat. CARDIOVASCULAR: No orthopnea, PND, no palpitations, no syncope. PULMONARY: No shortness of breath, no cough, no hemoptysis. GASTROINTESTINAL: No diarrhea, no nausea, no vomiting. NEUROLOGICAL: No headaches, no weakness, no numbness. HEMATOLOGICAL: Denies any bleeding or petechiae. GENITOURINARY: Denies any burning micturition, frequency, or urgency. MUSCULOSKELETAL/RHEUMATOLOGICAL: Denies any joint pain, swelling, or any muscle pain. ENDOCRINE: Denies any polyuria or polydipsia. Past Medical History Past Medical History: No Reported History Additional Past Medical History / Comment(s): hiatal hernia History of Any Multi-Drug Resistant Organisms: None Reported Past Surgical History: Orthopedic Surgery Past Psychological History: No Psychological Hx Reported Smoking Status: Never smoker Past Alcohol Use History: Daily Past Drug Use History: None Reported Medications and Allergies Home Medications Medication Instructions Recorded Confirmed Type Omeprazole [PriLOSEC] 10 mg PO BID 07/21/19 07/23/19 History Allergies Allergy/AdvReac Type Severity Reaction Status Date / Time morphine Allergy Rash/Hives Verified 07/23/19 12:10 Physical Exam Vitals: Vital Signs Temp Pulse Resp BP Pulse Ox 07/23/19 10:22 99.0 F 119 H 18 149/89 96 Intake and Output 07/22/19 07/23/19 07/23/19 22:59 06:59 14:59 Other: Weight 108.862 kg GENERAL: The patient is alert and oriented x3, not in any acute distress. Well developed, well nourished. HEENT: Pupils are round and equally reacting to light. EOMI. No scleral icterus. No conjunctival pallor. Normocephalic, atraumatic. No pharyngeal erythema. No thyromegaly. CARDIOVASCULAR: S1 and S2 present. No murmurs, rubs, or gallops. PULMONARY: Chest is clear to auscultation, no wheezing or crackles. -ABDOMEN: Soft, central lower abdominal tenderness with mild guarding but no rebound and tenderness, nondistended, normoactive bowel sounds. No palpable organomegaly. MUSCULOSKELETAL: No joint swelling or deformity. EXTREMITIES: No cyanosis, clubbing, or pedal edema. NEUROLOGICAL: Gross neurological examination did not reveal any focal deficits. SKIN: No rashes. No petechiae Results CBC & Chem 7: 07/23/19 10:53 07/23/19 10:53 Labs: Abnormal Lab Results - Last 24 Hours (Table) 07/23/19 07/23/19 Range/Units 10:53 10:53 WBC 18.1 H (3.8-10.6) k/uL RBC 4.22 L (4.30-5.90) m/uL Hgb 12.7 L (13.0-17.5) gm/dL Hct 38.2 L (39.0-53.0) % Neutrophils # 15.8 H (1.3-7.7) k/uL Glucose 121 H (74-99) mg/dL Total Bilirubin 1.9 H (0.2-1.3) mg/dL ALT 129 H (21-72) U/L Assessment and Plan Assessment: Acute diverticulitis with possible perforation Sigmoid colon Ileus, secondary to above Daily alcohol drinking at-risk of residual Small bilateral pleural effusion Degenerative spinal disease Small hiatal hernia Plan: This is a pleasant 49 years old male who presents with acute diverticulitis and possible perforation. We'll start and continue the patient on antibiotics with Zosyn. Continue with IV hydration. Keep nothing by mouth. Pain management. Surgical team consult and further recommendation. Possible place the patient on CIWA protocol and IV thiamine Labs and medication were reviewed.. Continue same treatment. Continue with symptomatic treatment. Resume home medication. Monitor lytes and vitals. DVT and GI prophylaxis. Further recommendations of the clinical course of the patient DVT prophylaxis: Subcutaneous heparin GI Prophylaxis: Pepcid Prognosis is guarded
[2019-07-23] MEDS ORDERED: LORazepam 2 MG/ML INJ IV PRN ×3 (13:22)
--- NOTE | 2019-07-23 13:46 | P.GSCN ---
History of Present Illness Consult date: 07/23/19 History of present illness: HPI: The patient is a 49-year-old male who reports over a 5+ year history of bilateral upper abdominal pain, epigastric abdominal pain. In fact, he recently had upper and lower endoscopy done by Dr. Avitia air tube releaser. He reports having multiple bowel movements more than 4 daily. He reports chronic abdominal distention. He has a strong family history of gallbladder disease in his mother including siblings. Recently he had a HIDA scan which was within normal limits. He reports fatty food intolerance. Earlier yesterday, he developed acute onset lower abdominal pain change after eating popcorn. As result of the moderate to severe lower abdominal pain, he presented to the emergency room with findings consistent with diverticulitis. General surgery is consulted for diverticulitis. FAMILY: History consistent with gallbladder disease in mother and siblings. ABDOMEN: Mildly distended. Soft. Tender along the lower abdomen above the bladder, left greater than right. Has pain with motion. Has reducible fat- containing STUDIES: CT of the abdomen and pelvis independently reviewed with patient and family at bedside demonstrates a large liver. The gallbladder severely contracted. Punctate free air identified along the anterior liver and left upper quadrant. Inflammation of the sigmoid colon and diverticulitis larry ntified. Features of pandiverticulosis also identified. Umbilical hernia fat- containing also identified. LABS: WBC elevated over 18,000. ASSESSMENT: 1. Perforated diverticulitis PLAN: 1. CT findings were reviewed with the patient including clinical features of abdominal pain and perforated diverticulitis. Possibility of surgical intervention was also reviewed with him including sigmoid colectomy colostomy creation. At this time he does not want surgical intervention. 2. Alternatively, IV antibiotics for at least 24 hours was reviewed to seal his perforation. I did review with him any clinical deterioration would warrant surgical exploration. 3. IV fluid hydration advised. Past Medical History Past Medical History: No Reported History Additional Past Medical History / Comment(s): hiatal hernia,colonoscopy History of Any Multi-Drug Resistant Organisms: None Reported Past Surgical History: Orthopedic Surgery Additional Past Surgical History / Comment(s): left foot Past Anesthesia/Blood Transfusion Reactions: No Reported Reaction Additional Past Anesthesia/Blood Transfusion Reaction / Comm: never had a blood transfusion Past Psychological History: No Psychological Hx Reported Smoking Status: Never smoker Past Alcohol Use History: Daily Past Drug Use History: None Reported - Past Family History Mother Family Medical History: No Reported History Medications and Allergies Home Medications Medication Instructions Recorded Confirmed Type Omeprazole [PriLOSEC] 10 mg PO BID 07/21/19 07/23/19 History Allergies Allergy/AdvReac Type Severity Reaction Status Date / Time morphine Allergy Rash/Hives Verified 07/23/19 12:10 Surgical - Exam Vital Signs Temp Pulse Resp BP Pulse Ox 99.0 F 119 H 18 149/89 96 07/23/19 10:22 07/23/19 10:22 07/23/19 10:22 07/23/19 10:22 07/23/19 10:22 Results - Labs 07/23/19 10:53 07/23/19 10:53 Abnormal Lab Results - Last 24 Hours (Table) 07/23/19 07/23/19 Range/Units 10:53 10:53 WBC 18.1 H (3.8-10.6) k/uL RBC 4.22 L (4.30-5.90) m/uL Hgb 12.7 L (13.0-17.5) gm/dL Hct 38.2 L (39.0-53.0) % Neutrophils # 15.8 H (1.3-7.7) k/uL Glucose 121 H (74-99) mg/dL Total Bilirubin 1.9 H (0.2-1.3) mg/dL ALT 129 H (21-72) U/L Diabetes panel 07/23/19 Range/Units 10:53 Sodium 141 (137-145) mmol/L Potassium 3.9 (3.5-5.1) mmol/L Chloride 107 (98-107) mmol/L Carbon Dioxide 27 (22-30) mmol/L BUN 16 (9-20) mg/dL Creatinine 0.87 (0.66-1.25) mg/dL Glucose 121 H (74-99) mg/dL Calcium 8.8 (8.4-10.2) mg/dL AST 54 (17-59) U/L ALT 129 H (21-72) U/L Alkaline Phosphatase 90 (38-126) U/L Total Protein 7.5 (6.3-8.2) g/dL Albumin 4.1 (3.5-5.0) g/dL Calcium panel 07/23/19 Range/Units 10:53 Calcium 8.8 (8.4-10.2) mg/dL Albumin 4.1 (3.5-5.0) g/dL Pituitary panel 07/23/19 Range/Units 10:53 Sodium 141 (137-145) mmol/L Potassium 3.9 (3.5-5.1) mmol/L Chloride 107 (98-107) mmol/L Carbon Dioxide 27 (22-30) mmol/L BUN 16 (9-20) mg/dL Creatinine 0.87 (0.66-1.25) mg/dL Glucose 121 H (74-99) mg/dL Calcium 8.8 (8.4-10.2) mg/dL Adrenal panel 07/23/19 Range/Units 10:53 Sodium 141 (137-145) mmol/L Potassium 3.9 (3.5-5.1) mmol/L Chloride 107 (98-107) mmol/L Carbon Dioxide 27 (22-30) mmol/L BUN 16 (9-20) mg/dL Creatinine 0.87 (0.66-1.25) mg/dL Glucose 121 H (74-99) mg/dL Calcium 8.8 (8.4-10.2) mg/dL Total Bilirubin 1.9 H (0.2-1.3) mg/dL AST 54 (17-59) U/L ALT 129 H (21-72) U/L Alkaline Phosphatase 90 (38-126) U/L Total Protein 7.5 (6.3-8.2) g/dL Albumin 4.1 (3.5-5.0) g/dL
[2019-07-23] MEDS ORDERED: SODIUM CHLORIDE 0.9% 1,000 ML IV ONE (13:48)
[2019-07-23 14:27] LABS: Appearance,Urine Clear (Clear); Bilirubin,Urine Negative (Negative); Blood,Urine Negative (Negative); Color,Urine Yellow; Glucose,Urine (UA) Negative (Negative); Ketones,Urine Negative (Negative); Leukocyte Esterase,Urine Negative (Negative); Nitrite,Urine Negative (Negative); Protein,Urine Trace (Negative)
[2019-07-23 14:38] LABS: Specific Gravity,Urine >1.050 (1.001-1.035)
[2019-07-23] MEDS: HYDROmorphone 1 MG/ML 1 ML SYRINGE IVP PRN ×3 (14:57→21:30)
[2019-07-23] MEDS: metroNIDAZOLE-NS PMX 500 MG in SALINE 1 100ML.BAG IVPB SCH ×2 (15:01→20:12)
--- NOTE | 2019-07-23 21:23 | XR ---
EXAMINATION TYPE: XR chest 1V portable DATE OF EXAM: 07/23/2019 COMPARISON: 12/05/2014 INDICATION: Congestion and cough TECHNIQUE: Single frontal view of the chest is obtained. FINDINGS: The heart size is normal. The pulmonary vasculature is normal. There is some streak opacity at the left base. Correlate for atelectasis. Developing pneumonia could be considered. Follow-up can be performed IMPRESSION: 1. Left basilar infiltrate most likely streak atelectasis but pneumonia is within the differential. F ollow-up exams can be performed.
[2019-07-23] MEDS: PIPERACILLIN-TAZOBACTAM 3.375 GM in SODIUM CHLORIDE 0.9% 100 ML IVPB SCH (21:29)
[2019-07-23] MEDS: HEPARIN SODIUM,PORCINE 5,000 UNIT/ML 1 ML VIAL SQ SCH (21:29)
[2019-07-23] MEDS: FAMOTIDINE 20 MG/2 ML VIAL IV SCH (21:30)
--- NOTE | 2019-07-23 22:45 | P.CONS ---
History of Present Illness - Reason for Consult Consult date: 07/23/19 Acute sigmoid diverticulitis with microperforation Requesting physician: Valentine Rosario - Chief Complaint Abdominal pain 1 day duration - History of Present Illness Patient is a 49 year old male presenting to the ER at [facility] with chief complaints of abdominal pain patient pain has been mostly in the right lower abdominal area going on for about a day before he presented to hospital. This time the pain to be almost 10 out of 10 in severity and sharp in nature and no significant radiation some associated nausea but no vomiting denies having any diarrhea or constipation patient did have some fever and chills with asymptomatic the patient was evaluated by the ER physician on arrival to the ER patient did have low-grade fever 100.8 white count was elevated at 18,000 patient had did have a CT of abdominal pelvis completed with evidence of sigmoid diverticulitis with microperforation but no evidence of any drainable abscess patient had been started on Zosyn and Flagyl admitted to the hospital surgery has seen the patient infectious disease was consulted for further recommendation regarding antibiotic therapy Review of Systems Positive point has been mentioned in the HPI rest of the systems are negative Past Medical History Past Medical History: No Reported History Additional Past Medical History / Comment(s): hiatal hernia,colonoscopy History of Any Multi-Drug Resistant Organisms: None Reported Past Surgical History: Orthopedic Surgery Additional Past Surgical History / Comment(s): left foot Past Anesthesia/Blood Transfusion Reactions: No Reported Reaction Additional Past Anesthesia/Blood Transfusion Reaction / Comm: never had a blood transfusion Past Psychological History: No Psychological Hx Reported Smoking Status: Never smoker Past Alcohol Use History: Daily Past Drug Use History: None Reported - Past Family History Mother Family Medical History: No Reported History Medications and Allergies Home Medications Medication Instructions Recorded Confirmed Type Omeprazole [PriLOSEC] 10 mg PO BID 07/21/19 07/23/19 History Allergies Allergy/AdvReac Type Severity Reaction Status Date / Time morphine Allergy Rash/Hives Verified 07/23/19 12:10 Physical Exam Vitals: Vital Signs Temp Pulse Pulse Resp BP BP Pulse Ox 07/23/19 15:00 98.5 F 111 H 19 138/84 07/23/19 12:48 99.0 F 115 H 20 147/93 94 L 07/23/19 12:17 100.8 F H 116 H 16 148/97 95 07/23/19 10:22 99.0 F 119 H 18 149/89 96 Intake and Output 07/23/19 07/23/19 07/23/19 06:59 14:59 22:59 Other: Voiding Method Urinal # Voids 1 Weight 108.862 kg GENERAL DESCRIPTION: Middle-aged male lying in bed, no distress. No tachypnea or accessory muscle of respiration use. HEENT: Shows Pallor , no scleral icterus. Oral mucous membrane is dry. No pharyngeal erythema or thrush NECK: Trachea central, no thyromegaly. LUNGS: Unlabored breathing. Clear to auscultation anteriorly. No wheeze or crackle. HEART: S1, S2, regular rate and rhythm. No loud murmur ABDOMEN: Soft, mild distention and right lower quadrant tenderness , no guarding or rigidity, no organomegaly EXTREMITIES: No edema of feet. SKIN: No rash, no masses palpable. NEUROLOGICAL: The patient is awake, alert, oriented x3, mood and affect normal. Results CBC & Chem 7: 07/23/19 10:53 07/23/19 10:53 Labs: Abnormal Lab Results - Last 24 Hours (Table) 07/23/19 07/23/19 07/23/19 Range/Units 10:53 10:53 13:10 WBC 18.1 H (3.8-10.6) k/uL RBC 4.22 L (4.30-5.90) m/uL Hgb 12.7 L (13.0-17.5) gm/dL Hct 38.2 L (39.0-53.0) % Neutrophils # 15.8 H (1.3-7.7) k/uL Glucose 121 H (74-99) mg/dL Total Bilirubin 1.9 H (0.2-1.3) mg/dL ALT 129 H (21-72) U/L Ur Specific [place] >1.050 H (1.001-1.035) Urine Protein Trace H (Negative) Assessment and Plan Assessment: 1-patient presented to the hospital with sepsis in this patient who did have a fever and elevated white count and tachycardia sources acute sigmoid diverticulitis with microperforation the likely organism that we need to cover will be enteric gram-negative both aerobes and anaerobes (1) Sepsis Current Visit: Yes Status: Acute Code(s): A41.9 - SEPSIS, UNSPECIFIED ORGANISM SNOMED Code(s): 47529970 (2) Acute diverticulitis Current Visit: Yes Status: Acute Code(s): K57.92 - DVTRCLI OF INTEST, PART UNSP, W/O PERF OR ABSCESS W/O BLEED SNOMED Code(s): 629717298 (3) Perforated bowel Current Visit: Yes Status: Acute Code(s): K63.1 - PERFORATION OF INTESTINE (NONTRAUMATIC) SNOMED Code(s): 47966264 Plan: 1-Zosyn 3.375 g every 8 hours report continued coverage for his underlying pathogen 2-and by mouth and IV fluids Depending upon his clinical response the next day or 2 will determine his discharge antibiotics We will follow on clinical condition and cultures to further adjust medication if needed Thank you for this consultation will follow this patient with you Time with Patient: Greater than 30
[2019-07-24] MEDS: metroNIDAZOLE-NS PMX 500 MG in SALINE 1 100ML.BAG IVPB SCH ×4 (01:45→19:50)
[2019-07-24] MEDS: PIPERACILLIN-TAZOBACTAM 3.375 GM in SODIUM CHLORIDE 0.9% 100 ML IVPB SCH ×3 (03:23→21:44)
[2019-07-24 06:55] LABS: Basophils # (A) 0.1 k/uL (0-0.2); Basophils % (A) 0 %; Eosinophils # (A) 0.1 k/uL (0-0.7); Eosinophils % (A) 0 %; HCT 37.3 % (39.0-53.0); HGB 11.8 gm/dL (13.0-17.5); Hypochromasia Slight; Lymphocytes # (A) 1.1 k/uL (1.0-4.8); Lymphocytes % (A) 7 %; MCH 29.3 pg (25.0-35.0); MCHC 31.6 g/dL (31.0-37.0); MCV 92.7 fL (80.0-100.0); Mean Platelet Volume 6.7; Monocytes # (A) 0.7 k/uL (0-1.0); Monocytes % (A) 4 %; Neutrophils # (A) 13.6 k/uL (1.3-7.7); Neutrophils % (A) 86 %; Platelet Count 208 k/uL (150-450); RBC 4.02 m/uL (4.30-5.90); WBC 15.7 k/uL (3.8-10.6)
[2019-07-24 07:05] LABS: ALT 96 U/L (21-72); AST 36 U/L (17-59); African American GFR (CKD) >90 (>60 ml/min/1.73 sqM); Albumin 3.6 g/dL (3.5-5.0); Alkaline Phosphatase 90 U/L (38-126); Anion Gap 7 mmol/L; Bilirubin, Delta 0.3 mg/dL (0.0-0.2); Blood Urea Nitrogen 17 mg/dL (9-20); Calcium 8.7 mg/dL (8.4-10.2); Carbon Dioxide 28 mmol/L (22-30); Chloride 103 mmol/L (98-107); Glucose 126 mg/dL (74-99); Potassium 4.2 mmol/L (3.5-5.1); Sodium 138 mmol/L (137-145); Total Bilirubin 2.3 mg/dL (0.2-1.3)
[2019-07-24] MEDS: SODIUM CHLORIDE 0.9% 1,000 ML IV SCH ×5 (07:15→19:52)
[2019-07-24] MEDS: HEPARIN SODIUM,PORCINE 5,000 UNIT/ML 1 ML VIAL SQ SCH ×2 (07:22→19:52)
[2019-07-24] MEDS: FAMOTIDINE 20 MG/2 ML VIAL IV SCH ×2 (07:22→19:52)
[2019-07-24] MEDS: KETOROLAC 30 MG/ML 1 ML VIAL IVP SCH ×3 (07:23→17:02)
--- NOTE | 2019-07-24 07:50 | P.PN ---
Subjective This is a pleasant 49 years old male with past medical history of hiatal hernia. Presents because of abdominal pain. Patient states that yesterday he was lifting some heavy objects at his house upstairs like a dresser, he started having lower abdominal pain, mainly in the middle with separate to the surrounding area including the upper abdomen and to the left side. Hep-Lock shooting pains very severe 10/10, today he has to sit an incline or. With no associated nausea vomiting, he has about 3 bowel movement this morning they were dark and sticky as per patient. He has some chest tightness but no chest pain or dyspnea. He has right shoulder pain, could be from the irritation as there is some air bubbles found around the liver. He denies dizziness, no coughing, no respiratory difficulty. No back pain. He denies smoking and illicit drugs however he drinks about 2-3 cups of whiskey daily. Vitas looks stable except for tachycardia with heart rate of 119. WBC is showing 18.1 K, hemoglobin is 12.7, INR is within normal limits, BMP is unremarkable with normal electrolytes and creatinine 0.8, bilirubin is 1.9, ALT 129, however her AST is within normal limits. Troponin is negative. EKG showing sinus tachycardia at 118 with QTC of [address]-T changes CT of the abdomen and pelvis showing acute diverticulitis with some free air outside the bowel suggesting perforation with a small bilateral pleural effusion with mildly dilated sigmoid,, degenerative spinal disease And small hiatal hernia Surgical team has been contacted by ED staff, they recommended to admit the patient and her medicine and will see the patient on consult. Patient was started on Zosyn and Dilaudid and normal saline at 75 mg Per hour, also received 2 L of normal saline 07/24/2019 Patient was fully awake and oriented, lying in bed with little movement which aggravates his abdominal pain. His pain looks controlled including lower ab dominal pain and right shoulder pain. Patient denies chest pain or dyspnea. No bowel movement, no vomiting. Patient is nothing by mouth. Yesterday he is been evaluated by surgical service but patient declined surgery and wants to continue with medical therapy. Vitas looks stable and patient is afebrile since yesterday. Leukocytosis is slightly improved from 18.1 down to 15.7 K, hemoglobin is stable as well as electrolytes. Review of systems CONSTITUTIONAL: No fever, no malaise, no fatigue. HEENT: No recent visual problems or hearing problems. Denied any sore throat. CARDIOVASCULAR: No orthopnea, PND, no palpitations, no syncope. PULMONARY: No shortness of breath, no cough, no hemoptysis. GASTROINTESTINAL: No diarrhea, no nausea, no vomiting. NEUROLOGICAL: No headaches, no weakness, no numbness. HEMATOLOGICAL: Denies any bleeding or petechiae. GENITOURINARY: Denies any burning micturition, frequency, or urgency. MUSCULOSKELETAL/RHEUMATOLOGICAL: Denies any joint pain, swelling, or any muscle pain. ENDOCRINE: Denies any polyuria or polydipsia. Objective - Vital Signs Vital signs: Vital Signs Temp 98.4 F 07/24/19 01:40 Pulse 106 H 07/24/19 01:40 Resp 18 07/24/19 03:38 BP 160/92 07/24/19 01:40 Pulse Ox 94 L 07/24/19 01:40 Intake & Output 07/23/19 07/24/19 07/24/19 18:59 06:59 18:59 Intake Total 1320 Balance 1320 Weight 108.862 kg Intake: Intake, IV Titration 1300 Amount Piperacillin-Tazobactam 3 200 .375 gm In Sodium Chloride 0.9% 100 ml @ 25 mls/hr IVPB Q8H [facility] Rx#: [id number] Sodium Chloride 0.9% 1, 900 000 ml @ 75 mls/hr IV . [id number] [facility] Rx#:[id number] metroNIDAZOLE-NS PMX 500 200 mg In Saline 1 100ml.bag @ 100 mls/hr IVPB Q6H [facility] Rx#:[id number] Oral 20 Other: Voiding Method Urinal Urinal # Voids 1 1 - Exam GENERAL: The patient is alert and oriented x3, not in any acute distress. Well developed, well nourished. HEENT: Pupils are round and equally reacting to light. EOMI. No scleral icterus. No conjunctival pallor. Normocephalic, atraumatic. No pharyngeal erythema. No thyromegaly. CARDIOVASCULAR: S1 and S2 present. No murmurs, rubs, or gallops. PULMONARY: Chest is clear to auscultation, no wheezing or crackles. -ABDOMEN: Soft, central lower abdominal tenderness with mild guarding but no rebound tenderness, nondistended, normoactive bowel sounds. No palpable organome miguelito. MUSCULOSKELETAL: No joint swelling or deformity. EXTREMITIES: No cyanosis, clubbing, or pedal edema. NEUROLOGICAL: Gross neurological examination did not reveal any focal deficits. SKIN: No rashes. No petechiae - Labs CBC & Chem 7: 07/24/19 06:32 07/24/19 06:32 Labs: Abnormal Lab Results - Last 24 Hours (Table) 07/23/19 07/23/19 07/23/19 Range/Units 10:53 10:53 13:10 WBC 18.1 H (3.8-10.6) k/uL RBC 4.22 L (4.30-5.90) m/uL Hgb 12.7 L (13.0-17.5) gm/dL Hct 38.2 L (39.0-53.0) % Neutrophils # 15.8 H (1.3-7.7) k/uL Glucose 121 H (74-99) mg/dL Total Bilirubin 1.9 H (0.2-1.3) mg/dL Unconjugated Bilirubin (0.0-1.1) mg/dL Delta Bilirubin (0.0-0.2) mg/dL ALT 129 H (21-72) U/L Ur Specific [place] >1.050 H (1.001-1.035) Urine Protein Trace H (Negative) 07/24/19 07/24/19 Range/Units 06:32 06:32 WBC 15.7 H (3.8-10.6) k/uL RBC 4.02 L (4.30-5.90) m/uL Hgb 11.8 L (13.0-17.5) gm/dL Hct 37.3 L (39.0-53.0) % Neutrophils # 13.6 H (1.3-7.7) k/uL Glucose 126 H (74-99) mg/dL Total Bilirubin 2.3 H (0.2-1.3) mg/dL Unconjugated Bilirubin 2.0 H (0.0-1.1) mg/dL Delta Bilirubin 0.3 H (0.0-0.2) mg/dL ALT 96 H (21-72) U/L Ur Specific [place] (1.001-1.035) Urine Protein (Negative) Assessment and Plan Assessment: Acute diverticulitis with possible perforation systemic inflammatory response with leukocytosis and fever and tachycardia. With sepsis secondary to both Sigmoid colon Ileus, secondary to above Daily alcohol drinking at-risk of residual Small bilateral pleural effusion Degenerative spinal disease Small hiatal hernia Plan: This is a pleasant 49 years old male who presents with acute diverticulitis and possible perforation. Appreciate input from ID team and will continue with Zosyn. Continue with IV hydration. Keep nothing by mouth. Pain management. Patient does not want surgery for now and surgical team are following the patient closely. recommendation. Continue with CIWA protocol and IV thiamine Labs and medication were reviewed.. Continue same treatment. Continue with symptomatic treatment. Resume home medication. Monitor lytes and vitals. DVT and GI prophylaxis. Further recommendations of the clinical course of the patient DVT prophylaxis: Subcutaneous heparin GI Prophylaxis: Pepcid Prognosis is guarded
[2019-07-24] MEDS ORDERED: HEPARIN SODIUM,PORCINE 5,000 UNIT/ML 1 ML VIAL SQ SCH (09:00)
[2019-07-24] MEDS: THIAMINE 100 MG in SODIUM CHLORIDE 0.9% 50 ML IVPB SCH (09:40)
--- NOTE | 2019-07-24 11:49 | P.PN ---
Subjective Progress Note Date: 07/24/19 CHIEF COMPLAINT: Abdominal pain HISTORY OF PRESENT ILLNESS: 49-year-old male who is in the hospital secondary to perforated diverticulitis. Patient examined this morning at the bedside. Spouse present. He appears to be feeling unwell. However, he reports improved abdominal pain. He is complaining of bilateral lower quadrant abdominal pain. He states he is tired because he did not sleep well overnight and is complaining of neck pain. He has ambulated to the bathroom but not in the hallways. Passing flatus. Reports BM yesterday. Denies abdominal bloating or distention. WBC 15.7 today. PHYSICAL EXAM: VITAL SIGNS: Currently stable. GENERAL: Well-developed in no acute distress. HEENT: No sclera icterus. Extraocular movements grossly intact. Moist buccal mucosa. Head is atraumatic, normocephalic. Hears conversational speech. No nasal drainage. NECK: Supple without lymphadenopathy. CHEST: Non-labored respirations and equal bilateral excursions. CARDIOVASCULAR: Regular rate with regular rhythm. Palpable 2+ radial pulses. ABDOMEN: Soft. Nondistended. Tenderness upon palpation of bilateral lower quadrants. MUSCULOSKELETAL: No clubbing, cyanosis or edema. NEUROLOGIC: No focal or lateralizing signs. Cranial nerves II through XII grossly intact. PSYCH: Appropriate affect. Alert and oriented to person, place and time. SKIN: Well perfused. Good skin turgor. ASSESSMENT: 1. Perforated diverticulitis PLAN: Continue NPO except for ice chips and popsicles Pain control Activity as tolerated Monitor WBC. Continue IV antibiotics Continue with conservative management. If patients condition declines, surgical intervention will be recommended. Nurse practitioner note has been reviewed by physician. Signing provider agrees with the documented findings, assessment, and plan of care. Objective - Vital Signs Vital signs: Vital Signs Temp 97.8 F 07/24/19 07:21 Pulse 68 07/24/19 07:21 Resp 18 07/24/19 07:21 BP 162/95 07/24/19 07:21 Pulse Ox 98 07/24/19 07:21 Intake & Output 07/23/19 07/24/19 07/24/19 18:59 06:59 18:59 Intake Total 1320 Balance 1320 Weight 108.862 kg Intake: Intake, IV Titration 1300 Amount Piperacillin-Tazobactam 3 200 .375 gm In Sodium Chloride 0.9% 100 ml @ 25 mls/hr IVPB Q8H [facility] Rx#: [id number] Sodium Chloride 0.9% 1, 900 000 ml @ 75 mls/hr IV . [id number] [facility] Rx#:[id number] metroNIDAZOLE-NS PMX 500 200 mg In Saline 1 100ml.bag @ 100 mls/hr IVPB Q6H [facility] Rx#:[id number] Oral 20 Other: Voiding Method Urinal Urinal # Voids 1 1 - Labs CBC & Chem 7: 07/24/19 06:32 07/24/19 06:32 Labs: Abnormal Lab Results - Last 24 Hours (Table) 07/23/19 07/24/19 07/24/19 Range/Units 13:10 06:32 06:32 WBC 15.7 H (3.8-10.6) k/uL RBC 4.02 L (4.30-5.90) m/uL Hgb 11.8 L (13.0-17.5) gm/dL Hct 37.3 L (39.0-53.0) % Neutrophils # 13.6 H (1.3-7.7) k/uL Glucose 126 H (74-99) mg/dL Total Bilirubin 2.3 H (0.2-1.3) mg/dL Unconjugated Bilirubin 2.0 H (0.0-1.1) mg/dL Delta Bilirubin 0.3 H (0.0-0.2) mg/dL ALT 96 H (21-72) U/L Ur Specific [place] >1.050 H (1.001-1.035) Urine Protein Trace H (Negative)
[2019-07-24] MEDS ORDERED: SUMAtriptan SUCCINATE 6 MG/0.5 ML VIAL SQ STA (15:02)
[2019-07-24] MEDS: DEXAMETHASONE SOD PHOSPHATE 4 MG/ML 1 ML VIAL IV SCH (17:02)
[2019-07-24] MEDS: ONDANSETRON 4 MG/2 ML VIAL IVP PRN (19:51)
--- NOTE | 2019-07-24 22:13 | PN ---
PROGRESS NOTE DATE OF SERVICE: 07/24/2019 REASON FOR FOLLOWUP: Acute sigmoid diverticulitis with microperforation. INTERVAL HISTORY: The patient is currently afebrile. The patient has been breathing comfortably. The patient has been complaining of feeling weak and tired; no energy. Abdominal pain has slightly decreased in intensity. No nausea, no vomiting and no diarrhea. PHYSICAL EXAMINATION: Blood pressure 152/94 with a pulse of 91, temperature 97.8. He is 99% on 2 L nasal cannula. General description is a middle-aged male up in the chair in no distress. RESPIRATORY SYSTEM: Unlabored breathing. Clear to auscultation anteriorly. HEART: S1, S2. Regular rate and rhythm. ABDOMEN: Soft. Mildly distended. No guarding or rigidity. EXTREMITIES: No edema of the feet. LABS: Hemoglobin 11.8, white count 15.7. Blood culture has been negative so far. DIAGNOSTIC IMPRESSION AND PLAN: Patient with sigmoid diverticulitis with microperforation. Patient is currently covered with Zosyn; to continue. White count has shown a downward trend. Will monitor the patient closely and continue supportive care. MMODL / IJN: [id number] /
[2019-07-25] MEDS: KETOROLAC 30 MG/ML 1 ML VIAL IVP SCH ×5 (00:16→23:42)
[2019-07-25] MEDS: DEXAMETHASONE SOD PHOSPHATE 4 MG/ML 1 ML VIAL IV SCH ×5 (00:16→23:43)
[2019-07-25] MEDS: metroNIDAZOLE-NS PMX 500 MG in SALINE 1 100ML.BAG IVPB SCH ×4 (02:53→21:00)
[2019-07-25] MEDS: PIPERACILLIN-TAZOBACTAM 3.375 GM in SODIUM CHLORIDE 0.9% 100 ML IVPB SCH ×3 (04:54→21:00)
[2019-07-25] MEDS: SODIUM CHLORIDE 0.9% 1,000 ML IV SCH ×2 (04:57→17:04)
[2019-07-25 06:55] LABS: ALT 77 U/L (21-72); AST 28 U/L (17-59); African American GFR (CKD) >90 (>60 ml/min/1.73 sqM); Albumin 3.3 g/dL (3.5-5.0); Alkaline Phosphatase 85 U/L (38-126); Anion Gap 9 mmol/L; Bilirubin, Delta 0.2 mg/dL (0.0-0.2); Bilirubin,Unconjugated 1.3 mg/dL (0.0-1.1); Blood Urea Nitrogen 18 mg/dL (9-20); Calcium 8.9 mg/dL (8.4-10.2); Carbon Dioxide 25 mmol/L (22-30); Chloride 106 mmol/L (98-107); Glucose 146 mg/dL (74-99); Potassium 4.3 mmol/L (3.5-5.1); Sodium 140 mmol/L (137-145); Total Bilirubin 1.5 mg/dL (0.2-1.3); Total Protein 6.5 g/dL (6.3-8.2)
[2019-07-25 07:15] LABS: Basophils # (A) 0.2 k/uL (0-0.2); Basophils % (A) 1 %; Eosinophils % (A) 0 %; HCT 36.4 % (39.0-53.0); HGB 11.5 gm/dL (13.0-17.5); Hypochromasia Slight; Lymphocytes # (A) 0.6 k/uL (1.0-4.8); Lymphocytes % (A) 5 %; MCH 28.8 pg (25.0-35.0); MCHC 31.5 g/dL (31.0-37.0); MCV 91.3 fL (80.0-100.0); Mean Platelet Volume 6.8; Monocytes # (A) 0.3 k/uL (0-1.0); Monocytes % (A) 3 %; Neutrophils # (A) 10.4 k/uL (1.3-7.7); Neutrophils % (A) 90 %; Platelet Count 212 k/uL (150-450); RBC 3.99 m/uL (4.30-5.90); RDW 12.7 % (11.5-15.5); WBC 11.5 k/uL (3.8-10.6)
[2019-07-25] MEDS: ONDANSETRON 4 MG/2 ML VIAL IVP PRN (07:40)
[2019-07-25] MEDS: FAMOTIDINE 20 MG/2 ML VIAL IV SCH ×2 (09:04→20:57)
[2019-07-25] MEDS: HEPARIN SODIUM,PORCINE 5,000 UNIT/ML 1 ML VIAL SQ SCH ×2 (09:05→20:59)
[2019-07-25] MEDS: THIAMINE 100 MG in SODIUM CHLORIDE 0.9% 50 ML IVPB SCH (10:41)
--- NOTE | 2019-07-25 11:58 | P.PN ---
Subjective Progress Note Date: 07/25/19 CHIEF COMPLAINT: Abdominal pain HISTORY OF PRESENT ILLNESS: Patient examined this morning at the bedside. He continues to report left lower quadrant abdominal pain. Tolerating ice chips and popsicles. WBC 11.5. Hemoglobin 11.5. PHYSICAL EXAM: VITAL SIGNS: Currently stable. GENERAL: Well-developed in no acute distress. HEENT: No sclera icterus. Extraocular movements grossly intact. Moist buccal mucosa. Head is atraumatic, normocephalic. Hears conversational speech. No nasal drainage. NECK: Supple without lymphadenopathy. CHEST: Non-labored respirations and equal bilateral excursions. CARDIOVASCULAR: Regular rate with regular rhythm. Palpable 2+ radial pulses. ABDOMEN: Soft. Nondistended. Tenderness upon palpation of bilateral lower quadrants. MUSCULOSKELETAL: No clubbing, cyanosis or edema. NEUROLOGIC: No focal or lateralizing signs. Cranial nerves II through XII grossly intact. PSYCH: Appropriate affect. Alert and oriented to person, place and time. SKIN: Well perfused. Good skin turgor. ASSESSMENT: 1. Perforated diverticulitis PLAN: Continue NPO except for ice chips and popsicles Pain control Activity as tolerated Monitor WBC. Continue IV antibiotics Continue with conservative management. If patients condition declines, surgical intervention will be recommended. Consult dietitian for diverticulitis education Anticipate starting clear liquid diet tomorrow. Possible discharge home within 24-48 hours Nurse practitioner note has been reviewed by physician. Signing provider agrees with the documented findings, assessment, and plan of care. Objective - Vital Signs Vital signs: Vital Signs Temp 98.1 F 07/25/19 07:00 Pulse 87 07/25/19 07:00 Resp 18 07/25/19 07:00 BP 150/93 07/25/19 07:00 Pulse Ox 95 07/25/19 07:00 Intake & Output 07/24/19 07/25/19 07/25/19 18:59 06:59 18:59 Intake Total 20 Balance 20 Intake: Oral 20 Other: Voiding Method Urinal Urinal # Voids 2 1 - Labs CBC & Chem 7: 07/25/19 06:13 07/25/19 06:13 Labs: Abnormal Lab Results - Last 24 Hours (Table) 07/25/19 07/25/19 Range/Units 06:13 06:13 WBC 11.5 H (3.8-10.6) k/uL RBC 3.99 L (4.30-5.90) m/uL Hgb 11.5 L (13.0-17.5) gm/dL Hct 36.4 L (39.0-53.0) % Neutrophils # 10.4 H (1.3-7.7) k/uL Lymphocytes # 0.6 L (1.0-4.8) k/uL Glucose 146 H (74-99) mg/dL Total Bilirubin 1.5 H (0.2-1.3) mg/dL Unconjugated Bilirubin 1.3 H (0.0-1.1) mg/dL ALT 77 H (21-72) U/L Albumin 3.3 L (3.5-5.0) g/dL Microbiology - Last 24 Hours (Table) 07/23/19 12:30 Blood Culture - Preliminary Blood No Growth after 24 hours
[2019-07-25 14:39] VITALS: BMI 31.6
--- NOTE | 2019-07-25 19:21 | P.PN ---
Subjective This is a pleasant 49 years old male with past medical history of hiatal hernia. Presents because of abdominal pain. Patient states that yesterday he was lifting some heavy objects at his house upstairs like a dresser, he started having lower abdominal pain, mainly in the middle with separate to the surrounding area including the upper abdomen and to the left side. Hep-Lock shooting pains very severe 10/10, today he has to sit an incline or. With no associated nausea vomiting, he has about 3 bowel movement this morning they were dark and sticky as per patient. He has some chest tightness but no chest pain or dyspnea. He has right shoulder pain, could be from the irritation as there is some air bubbles found around the liver. He denies dizziness, no coughing, no respiratory difficulty. No back pain. He denies smoking and illicit drugs however he drinks about 2-3 cups of whiskey daily. Vitas looks stable except for tachycardia with heart rate of 119. WBC is showing 18.1 K, hemoglobin is 12.7, INR is within normal limits, BMP is unremarkable with normal electrolytes and creatinine 0.8, bilirubin is 1.9, ALT 129, however her AST is within normal limits. Troponin is negative. EKG showing sinus tachycardia at 118 with QTC of [address]-T changes CT of the abdomen and pelvis showing acute diverticulitis with some free air outside the bowel suggesting perforation with a small bilateral pleural effusion with mildly dilated sigmoid,, degenerative spinal disease And small hiatal hernia Surgical team has been contacted by ED staff, they recommended to admit the patient and her medicine and will see the patient on consult. Patient was started on Zosyn and Dilaudid and normal saline at 75 mg Per hour, also received 2 L of normal saline 07/24/2019 Patient was fully awake and oriented, lying in bed with little movement which aggravates his abdominal pain. His pain looks controlled including lower ab dominal pain and right shoulder pain. Patient denies chest pain or dyspnea. No bowel movement, no vomiting. Patient is nothing by mouth. Yesterday he is been evaluated by surgical service but patient declined surgery and wants to continue with medical therapy. Vitas looks stable and patient is afebrile since yesterday. Leukocytosis is slightly improved from 18.1 down to 15.7 K, hemoglobin is stable as well as electrolytes. 07/25/2019 pt is awake , no new complaint, his abdominal pain is improving gradually , no bowel movement yet. he is still NPO except for ice chips and popsicles. no n/v. pt white cell count is trending down to 11.5k,bilirubin is coming down and liver enz as well. pt is overall looks stable and improving . we will keep monitoring . at bed and their questions were answered Objective - Vital Signs Vital signs: Vital Signs Temp 97.8 F 07/25/19 19:11 Pulse 76 07/25/19 19:11 Resp 18 07/25/19 19:11 BP 142/86 07/25/19 19:11 Pulse Ox 96 07/25/19 19:11 Intake & Output 07/25/19 07/25/19 07/26/19 06:59 18:59 06:59 Intake Total 20 Balance 20 Weight 108.862 kg Intake: Oral 20 Other: Voiding Method Urinal Urinal # Voids 1 1 - Exam GENERAL: The patient is alert and oriented x3, not in any acute distress. Well developed, well nourished. HEENT: Pupils are round and equally reacting to light. EOMI. No scleral icterus. No conjunctival pallor. Normocephalic, atraumatic. No pharyngeal erythema. No thyromegaly. CARDIOVASCULAR: S1 and S2 present. No murmurs, rubs, or gallops. PULMONARY: Chest is clear to auscultation, no wheezing or crackles. -ABDOMEN: Soft, central lower abdominal tenderness with mild guarding but no rebound tenderness, nondistended, normoactive bowel sounds. No palpable organomegaly. MUSCULOSKELETAL: No joint swelling or deformity. EXTREMITIES: No cyanosis, clubbing, or pedal edema. NEUROLOGICAL: Gross neurological examination did not reveal any focal deficits. SKIN: No rashes. No petechiae - Labs CBC & Chem 7: 07/25/19 06:13 07/25/19 06:13 Labs: Abnormal Lab Results - Last 24 Hours (Table) 07/25/19 07/25/19 Range/Units 06:13 06:13 WBC 11.5 H (3.8-10.6) k/uL RBC 3.99 L (4.30-5.90) m/uL Hgb 11.5 L (13.0-17.5) gm/dL Hct 36.4 L (39.0-53.0) % Neutrophils # 10.4 H (1.3-7.7) k/uL Lymphocytes # 0.6 L (1.0-4.8) k/uL Glucose 146 H (74-99) mg/dL Total Bilirubin 1.5 H (0.2-1.3) mg/dL Unconjugated Bilirubin 1.3 H (0.0-1.1) mg/dL ALT 77 H (21-72) U/L Albumin 3.3 L (3.5-5.0) g/dL Microbiology - Last 24 Hours (Table) 07/23/19 12:30 Blood Culture - Preliminary Blood No Growth after 48 hours Assessment and Plan Assessment: Acute diverticulitis with possible perforation systemic inflammatory response with leukocytosis and fever and tachycardia. With sepsis secondary to both Sigmoid colon Ileus, secondary to above Daily alcohol drinking at-risk of residual Small bilateral pleural effusion Degenerative spinal disease Small hiatal hernia Plan: This is a pleasant 49 years old male who presents with acute diverticulitis and possible perforation. Appreciate input from ID team and will continue with Z osyn. Continue with IV hydration. Keep nothing by mouth. Pain management. Patient does not want surgery for now and surgical team are following the patient closely. recommendation. Continue with CIWA protocol and IV thiamine Labs and medication were reviewed.. Continue same treatment. Continue with symptomatic treatment. Resume home medication. Monitor lytes and vitals. DVT and GI prophylaxis. Further recommendations of the clinical course of the patient DVT prophylaxis: Subcutaneous heparin GI Prophylaxis: Pepcid Prognosis is guarded
--- NOTE | 2019-07-25 23:32 | PN ---
PROGRESS NOTE DATE OF SERVICE: 07/25/2019 REASON FOR FOLLOWUP: Diverticulitis with microperforation. INTERVAL HISTORY: The patient is currently afebrile. The patient is breathing comfortably. The patient denies having any chest pain. No cough. No nausea, no vomiting. Abdominal pain has improved. No diarrhea. PHYSICAL EXAMINATION: Blood pressure 142/86 with a pulse of 76, temperature 97.8. He is 96% on room air. General description is a middle-aged male lying in chair in no distress. RESPIRATORY SYSTEM: Unlabored breathing. Clear to auscultation anteriorly. HEART: S1, S2. Regular rate and rhythm. ABDOMEN: Soft. No tenderness. EXTREMITIES: No edema of the feet. LABS: Hemoglobin is 11.5, white count 11.5. BUN of 18, creatinine 0.78. DIAGNOSTIC IMPRESSION AND PLAN: Patient with acute complicated sigmoid diverticulitis with microperforation. Patient at this time is covered with Zosyn. We will check his coverage for home IV antibiotic which, if positive, to get a midline for outpatient IV Rocephin in addition to the Flagyl for discharge. Monitor his clinical course closely. Continue with supportive care. MMODL / IJN: [id number] /
[2019-07-26] MEDS: metroNIDAZOLE-NS PMX 500 MG in SALINE 1 100ML.BAG IVPB SCH ×4 (03:01→19:17)
[2019-07-26] MEDS: SODIUM CHLORIDE 0.9% 1,000 ML IV SCH ×3 (03:04→16:33)
[2019-07-26] MEDS: PIPERACILLIN-TAZOBACTAM 3.375 GM in SODIUM CHLORIDE 0.9% 100 ML IVPB SCH ×3 (04:11→19:17)
[2019-07-26] MEDS: DEXAMETHASONE SOD PHOSPHATE 4 MG/ML 1 ML VIAL IV SCH ×3 (05:12→16:53)
[2019-07-26] MEDS: KETOROLAC 30 MG/ML 1 ML VIAL IVP SCH ×3 (05:12→16:54)
[2019-07-26 07:18] LABS: Basophils % (A) 0 %; Eosinophils % (A) 0 %; HCT 35.8 % (39.0-53.0); HGB 11.9 gm/dL (13.0-17.5); Lymphocytes # (A) 0.8 k/uL (1.0-4.8); Lymphocytes % (A) 7 %; MCH 29.9 pg (25.0-35.0); MCHC 33.2 g/dL (31.0-37.0); MCV 90.2 fL (80.0-100.0); Mean Platelet Volume 7.1; Monocytes # (A) 0.4 k/uL (0-1.0); Monocytes % (A) 3 %; Neutrophils % (A) 89 %; Platelet Count 272 k/uL (150-450); RBC 3.97 m/uL (4.30-5.90); RDW 12.9 % (11.5-15.5); WBC 12.3 k/uL (3.8-10.6)
[2019-07-26 07:27] LABS: ALT 64 U/L (21-72); AST 24 U/L (17-59); African American GFR (CKD) >90 (>60 ml/min/1.73 sqM); Albumin 3.3 g/dL (3.5-5.0); Alkaline Phosphatase 80 U/L (38-126); Anion Gap 8 mmol/L; Bilirubin, Delta 0.2 mg/dL (0.0-0.2); Bilirubin,Unconjugated 0.8 mg/dL (0.0-1.1); Blood Urea Nitrogen 28 mg/dL (9-20); Calcium 8.9 mg/dL (8.4-10.2); Carbon Dioxide 25 mmol/L (22-30); Chloride 107 mmol/L (98-107); Glucose 131 mg/dL (74-99); Potassium 4.4 mmol/L (3.5-5.1); Sodium 140 mmol/L (137-145); Total Protein 6.6 g/dL (6.3-8.2)
[2019-07-26] MEDS: FAMOTIDINE 20 MG/2 ML VIAL IV SCH ×2 (08:56→19:16)
[2019-07-26] MEDS: HEPARIN SODIUM,PORCINE 5,000 UNIT/ML 1 ML VIAL SQ SCH ×2 (08:56→19:16)
[2019-07-26] MEDS: THIAMINE 100 MG in SODIUM CHLORIDE 0.9% 50 ML IVPB SCH (10:42)
--- NOTE | 2019-07-26 12:56 | P.PN ---
<Sujatha King - Last Filed: 07/26/19 12:56> Subjective Progress Note Date: 07/26/19 CHIEF COMPLAINT: Abdominal pain HISTORY OF PRESENT ILLNESS: Patient examined this morning at the bedside. Patient reports improvement in abdominal pain. He is tolerating ice chips and popsicles. WBC 12.3. Patient has been afebrile. PHYSICAL EXAM: VITAL SIGNS: Currently stable. GENERAL: Well-developed in no acute distress. HEENT: No sclera icterus. Extraocular movements grossly intact. Moist buccal mucosa. Head is atraumatic, normocephalic. Hears conversational speech. No nasal drainage. NECK: Supple without lymphadenopathy. CHEST: Non-labored respirations and equal bilateral excursions. CARDIOVASCULAR: Regular rate with regular rhythm. Palpable 2+ radial pulses. ABDOMEN: Soft. Nondistended. Minimal enderness upon palpation of bilateral lower quadrants. MUSCULOSKELETAL: No clubbing, cyanosis or edema. NEUROLOGIC: No focal or lateralizing signs. Cranial nerves II through XII grossly intact. PSYCH: Appropriate affect. Alert and oriented to person, place and time. SKIN: Well perfused. Good skin turgor. ASSESSMENT: 1. Perforated diverticulitis PLAN: Begin clear liquid diet Pain control Activity as tolerated Monitor WBC. Continue IV antibiotics Patient may be discharged home today from a surgical standpoint if he tolerates clear liquid diet Patient to follow up with Dr. Rosario in 2 weeks Patient to continue full liquid diet at discharge for 24-48 hours Nurse practitioner note has been reviewed by physician. Signing provider agrees with the documented findings, assessment, and plan of care. Objective - Vital Signs Vital signs: Vital Signs Temp 97.9 F 07/26/19 07:20 Pulse 81 07/25/19 23:00 Resp 18 07/26/19 07:20 BP 153/99 07/26/19 07:20 Pulse Ox 97 07/26/19 07:20 Intake & Output 07/25/19 07/26/19 07/26/19 18:59 06:59 18:59 Intake Total 120 Balance 120 Weight 108.862 kg Intake: Oral 120 Other: Voiding Method Urinal Toilet Toilet Urinal Urinal # Voids 1 2 - Labs CBC & Chem 7: 07/26/19 06:32 07/26/19 06:32 Labs: Abnormal Lab Results - Last 24 Hours (Table) 07/26/19 07/26/19 Range/Units 06:32 06:32 WBC 12.3 H (3.8-10.6) k/uL RBC 3.97 L (4.30-5.90) m/uL Hgb 11.9 L (13.0-17.5) gm/dL Hct 35.8 L (39.0-53.0) % Neutrophils # 11.0 H (1.3-7.7) k/uL Lymphocytes # 0.8 L (1.0-4.8) k/uL BUN 28 H (9-20) mg/dL Glucose 131 H (74-99) mg/dL Albumin 3.3 L (3.5-5.0) g/dL Microbiology - Last 24 Hours (Table) 07/23/19 12:30 Blood Culture - Preliminary Blood No Growth after 48 hours <Valentine Rosario - Last Filed: 07/27/19 18:54> Subjective As above. Patient comes in with initially moderate abdominal pain now resolved. Recommend liquid diet upon discharge. Will need prolonged IV antibiotics per recommendations of infectious disease. Objective - Vital Signs Vital signs: Vital Signs Temp 98 F 07/27/19 07:00 Pulse 79 07/27/19 07:00 Resp 12 07/27/19 07:00 BP 154/100 07/27/19 07:00 Pulse Ox 97 07/27/19 07:00 Intake & Output 07/26/19 07/27/19 07/27/19 18:59 06:59 18:59 Weight 108.862 kg Other: Voiding Method Toilet Toilet Urinal Urinal # Voids 3 1 # Bowel Movements 1 - Labs CBC & Chem 7: 07/27/19 09:37 07/26/19 06:32 Labs: Abnormal Lab Results - Last 24 Hours (Table) 07/27/19 Range/Units 09:37 WBC 10.9 H (3.8-10.6) k/uL RBC 4.20 L (4.30-5.90) m/uL Hgb 12.3 L (13.0-17.5) gm/dL Hct 38.1 L (39.0-53.0) % Neutrophils # 9.4 H (1.3-7.7) k/uL Lymphocytes # 0.8 L (1.0-4.8) k/uL Microbiology - Last 24 Hours (Table) 07/23/19 12:30 Blood Culture - Preliminary Blood No Growth after 96 hours
--- NOTE | 2019-07-26 14:51 | PN ---
PROGRESS NOTE DATE OF SERVICE: 07/26/2019 REASON FOR FOLLOWUP: Acute sigmoid diverticulitis with microperforation. INTERVAL HISTORY: The patient is currently afebrile. The patient is breathing comfortably. The patient's abdominal pain has improved. Has been tolerating his ice chips. No nausea, vomiting and no diarrhea. PHYSICAL EXAMINATION: Blood pressure is 153/99 with a pulse of 81, temperature is 97.9, he is 97% on room air. General description is a middle-aged male, lying in bed in no distress. RESPIRATORY SYSTEM: Unlabored breathing, clear to auscultation anteriorly. HEART: S1, S2. Regular rate and rhythm. ABDOMEN: Soft, mildly distended. No guarding, no rigidity. LABS: Hemoglobin is 11.8, white count 12.3 with a BUN of 28, creatinine 0.84. DIAGNOSTIC IMPRESSION AND PLAN: Patient with acute sigmoid diverticulitis likely perforation. Patient did have slight jump in his white count today that will need to monitor very closely. Keep the patient on Zosyn at this point, adjusting further by clinical response. Continue supportive care. MMODL / IJN: [id number] /
[2019-07-27] MEDS: DEXAMETHASONE SOD PHOSPHATE 4 MG/ML 1 ML VIAL IV SCH ×3 (00:01→12:39)
[2019-07-27] MEDS: KETOROLAC 30 MG/ML 1 ML VIAL IVP SCH ×3 (00:02→12:39)
[2019-07-27] MEDS: metroNIDAZOLE-NS PMX 500 MG in SALINE 1 100ML.BAG IVPB SCH ×2 (03:06→07:42)
[2019-07-27] MEDS: PIPERACILLIN-TAZOBACTAM 3.375 GM in SODIUM CHLORIDE 0.9% 100 ML IVPB SCH ×2 (03:07→12:39)
[2019-07-27] MEDS: SODIUM CHLORIDE 0.9% 1,000 ML IV SCH ×2 (03:08→09:53)
[2019-07-27] MEDS: FAMOTIDINE 20 MG/2 ML VIAL IV SCH (07:42)
[2019-07-27] MEDS: HEPARIN SODIUM,PORCINE 5,000 UNIT/ML 1 ML VIAL SQ SCH (07:42)
[2019-07-27 07:48] VITALS: BP 154/100; PULSE 79; RESP 12; TEMP 98
--- NOTE | 2019-07-27 08:32 | P.PN ---
Subjective Progress Note Date: 07/26/19 Principal diagnosis: This is a pleasant 49 years old male with past medical history of hiatal hernia. Presents because of abdominal pain. Patient states that yesterday he was lif ting some heavy objects at his house upstairs like a dresser, he started having lower abdominal pain, mainly in the middle with separate to the surrounding area including the upper abdomen and to the left side. Hep-Lock shooting pains very severe 06/22, today he has to sit an incline or. With no associated nausea vomiting, he has about 3 bowel movement this morning they were dark and sticky as per patient. He has some chest tightness but no chest pain or dyspnea. He has right shoulder pain, could be from the irritation as there is some air bubbles found around the liver. He denies dizziness, no coughing, no respiratory difficulty. No back pain. He denies smoking and illicit drugs however he drinks about 2-3 cups of whiskey daily. Vitas looks stable except for tachycardia with heart rate of 119. WBC is showing 18.1 K, hemoglobin is 12.7, INR is within normal limits, BMP is unremarkable with normal electrolytes and creatinine 0.8, bilirubin is 1.9, ALT 129, however her AST is within normal limits. Troponin is negative. EKG showing sinus tachycardia at 118 with QTC of [address]-T changes CT of the abdomen and pelvis showing acute diverticulitis with some free air outside the bowel suggesting perforation with a small bilateral pleural effusion with mildly dilated sigmoid,, degenerative spinal disease And small hiatal hernia Surgical team has been contacted by ED staff, they recommended to admit the patient and her medicine and will see the patient on consult. Patient was started on Zosyn and Dilaudid and normal saline at 75 mg Per hour, also received 2 L of normal saline 07/24/2019 Patient was fully awake and oriented, lying in bed with little movement which aggravates his abdominal pain. His pain looks controlled including lower abdominal pain and right shoulder pain. Patient denies chest pain or dyspnea. No bowel movement, no vomiting. Patient is nothing by mouth. Yesterday he is been evaluated by surgical service but patient declined surgery and wants to continue with medical therapy. Vitas looks stable and patient is afebrile since yesterday. Leukocytosis is slightly improved from 18.1 down to 15.7 K, hemoglobin is stable as well as electrolytes. 07/25/2019 pt is awake , no new complaint, his abdominal pain is improving gradually , no bowel movement yet. he is still NPO except for ice chips and popsicles. no n/v. pt white cell count is trending down to 11.5k,bilirubin is coming down and liver enz as well. pt is overall looks stable and improving . we will keep monitoring . at bed and their questions were answered 07/26/2019 Patient is sitting up at the side of the bed in no acute distress. No acute overnight issues. Per nursing staff it was noted on his telemetry that he had two brief moments of a pause. Patient denies any chest pain, shortness of breath, or palpitations. Patient denies any nausea or vomiting and is been tolerating diet. Patient was started on clear liquids today. Patient states that he has been going to the bathroom with no issues and is passing gas. Patient states that he had a bowel movement today. Patient states that his pain of the right mid to lower abdomen has slightly improved and is manageable. He should has been afebrile. Patient is awaiting for [place] authorization to receive a midline to have IV antibiotics in the outpatient setting. Infectious disease is following. Will continue to monitor closely. Objective - Vital Signs Vital signs: Vital Signs Temp 97.6 F 07/26/19 15:00 Pulse 77 07/26/19 15:00 Resp 16 07/26/19 15:00 BP 163/92 07/26/19 15:00 Pulse Ox 95 07/26/19 15:00 Intake & Output 07/25/19 07/26/19 07/26/19 18:59 06:59 18:59 Intake Total 120 Balance 120 Weight 108.862 kg Intake: Oral 120 Other: Voiding Method Urinal Toilet Toilet Urinal Urinal # Voids 1 2 3 - Exam GENERAL: The patient is alert and oriented x3, not in any acute distress. Well developed, well nourished. HEENT: Pupils are round and equally reacting to light. EOMI. No scleral icterus. No conjunctival pallor. Normocephalic, atraumatic. No pharyngeal erythema. No thyromegaly. CARDIOVASCULAR: S1 and S2 present. No murmurs, rubs, or gallops. PULMONARY: Chest is clear to auscultation, no wheezing or crackles. -ABDOMEN: Soft, central lower abdominal tenderness with mild guarding but no rebound tenderness has slightly improved, nondistended, normoactive bowel sounds. No palpable organomegaly. MUSCULOSKELETAL: No joint swelling or deformity. EXTREMITIES: No cyanosis, clubbing, or pedal edema. NEUROLOGICAL: Gross neurological examination did not reveal any focal deficits. SKIN: No rashes. No petechiae - Labs CBC & Chem 7: 07/26/19 06:32 07/26/19 06:32 Labs: Abnormal Lab Results - Last 24 Hours (Table) 07/26/19 07/26/19 Range/Units 06:32 06:32 WBC 12.3 H (3.8-10.6) k/uL RBC 3.97 L (4.30-5.90) m/uL Hgb 11.9 L (13.0-17.5) gm/dL Hct 35.8 L (39.0-53.0) % Neutrophils # 11.0 H (1.3-7.7) k/uL Lymphocytes # 0.8 L (1.0-4.8) k/uL BUN 28 H (9-20) mg/dL Glucose 131 H (74-99) mg/dL Albumin 3.3 L (3.5-5.0) g/dL Microbiology - Last 24 Hours (Table) 07/23/19 12:30 Blood Culture - Preliminary Blood No Growth after 72 hours Assessment and Plan Assessment: -Acute diverticulitis with possible perforation -systemic inflammatory response with leukocytosis and fever and tachycardia. With sepsis secondary to both -Sigmoid colon Ileus, secondary to above -Daily alcohol drinking at-risk of residual -Small bilateral pleural effusion -Degenerative spinal disease -Small hiatal hernia -DVT prophylaxis: sub q heparin -GI prophylaxis: Pepcid Recommendations and discussion: Recommend to continue current medications, management, and symptomatic treatment. Will continue to monitor closely. Patient is awaiting a midline today continued IV antibiotic therapy in the outpatient setting. Patient was started on clear liquids today and tolerating thus far. Will continue to monitor closely. Case management and social work are following and arranging for home care in the outpatient setting. Guarded prognosis. Further recommendations to follow. Possible discharge in 24-48 hours.
[2019-07-27] MEDS: THIAMINE 100 MG in SODIUM CHLORIDE 0.9% 50 ML IVPB SCH (09:25)
[2019-07-27 11:13] LABS: Basophils % (A) 0 %; Eosinophils % (A) 0 %; HCT 38.1 % (39.0-53.0); HGB 12.3 gm/dL (13.0-17.5); Lymphocytes # (A) 0.8 k/uL (1.0-4.8); Lymphocytes % (A) 8 %; MCH 29.2 pg (25.0-35.0); MCHC 32.2 g/dL (31.0-37.0); MCV 90.6 fL (80.0-100.0); Mean Platelet Volume 7.2; Monocytes # (A) 0.5 k/uL (0-1.0); Monocytes % (A) 4 %; Neutrophils # (A) 9.4 k/uL (1.3-7.7); Neutrophils % (A) 87 %; Platelet Count 302 k/uL (150-450); RDW 12.9 % (11.5-15.5); WBC 10.9 k/uL (3.8-10.6)
--- NOTE | 2019-07-27 12:02 | PN ---
PROGRESS NOTE DATE OF SERVICE: 07/27/2019. REASON FOR FOLLOWUP: Sigmoid diverticulitis with mild perforation. INTERVAL HISTORY: The patient is currently afebrile. Patient is breathing comfortably. Patient denies having any chest pain, shortness of breath or cough. No nausea, no vomiting. No abdominal pain. Did have a bowel movement yesterday. On examination, his white count has been stable with a T-max of 98. General description is a middle-aged male, lying in bed in no distress. RESPIRATORY SYSTEM: Unlabored breathing and is clear to auscultation anteriorly. HEART: S1, S2. Regular rate and rhythm. ABDOMEN: Soft, no tenderness. LABS: White count normal at 10.90. DIAGNOSTIC IMPRESSION AND PLAN: Patient include sigmoid diverticulitis with microperforation. The patient did have some clinical response to the medical therapy. White count has normalized and his pain has resolved. We will finish therapy with Rocephin 2 g daily in addition to oral Flagyl for 2 weeks with close outpatient followup. MMODL / IJN: [id number] /
--- NOTE | 2019-07-27 12:04 | P.PN ---
<Sujatha King Barbi - Last Filed: 07/27/19 12:00> Subjective Progress Note Date: 07/27/19 CHIEF COMPLAINT: Abdominal pain HISTORY OF PRESENT ILLNESS: Patient examined this morning at the bedside this morning Dr. Rosario. Patient denies abdominal pain. He is tolerating liquid diet. Denies nausea or vomiting. WBC 10.9. PHYSICAL EXAM: VITAL SIGNS: Currently stable. GENERAL: Well-developed in no acute distress. HEENT: No sclera icterus. Extraocular movements grossly intact. Moist buccal mucosa. Head is atraumatic, normocephalic. Hears conversational speech. No nasal drainage. NECK: Supple without lymphadenopathy. CHEST: Non-labored respirations and equal bilateral excursions. CARDIOVASCULAR: Regular rate with regular rhythm. Palpable 2+ radial pulses. ABDOMEN: Soft. Nondistended. Nontender. No peritoneal signs. MUSCULOSKELETAL: No clubbing, cyanosis or edema. NEUROLOGIC: No focal or lateralizing signs. Cranial nerves II through XII grossly intact. PSYCH: Appropriate affect. Alert and oriented to person, place and time. SKIN: Well perfused. Good skin turgor. ASSESSMENT: 1. Perforated diverticulitis PLAN: Advanced to full liquids Continue antibiotics Patient is stable for discharge home today from a surgical standpoint. Nurse practitioner note has been reviewed by physician. Signing provider agrees with the documented findings, assessment, and plan of care. Objective - Vital Signs Vital signs: Vital Signs Temp 98 F 07/27/19 07:00 Pulse 79 07/27/19 07:00 Resp 12 07/27/19 07:00 BP 154/100 07/27/19 07:00 Pulse Ox 97 07/27/19 07:00 Intake & Output 07/26/19 07/27/19 07/27/19 18:59 06:59 18:59 Weight 108.862 kg Other: Voiding Method Toilet Toilet Urinal Urinal # Voids 3 1 # Bowel Movements 1 - Labs CBC & Chem 7: 07/27/19 09:37 07/26/19 06:32 Labs: Abnormal Lab Results - Last 24 Hours (Table) 07/27/19 Range/Units 09:37 WBC 10.9 H (3.8-10.6) k/uL RBC 4.20 L (4.30-5.90) m/uL Hgb 12.3 L (13.0-17.5) gm/dL Hct 38.1 L (39.0-53.0) % Neutrophils # 9.4 H (1.3-7.7) k/uL Lymphocytes # 0.8 L (1.0-4.8) k/uL Microbiology - Last 24 Hours (Table) 07/23/19 12:30 Blood Culture - Preliminary Blood No Growth after 72 hours <Valentine Rosario - Last Filed: 07/27/19 18:55> Subjective As above. Patient to follow-up in the office in 2 weeks regarding diverticulitis in the surgical office recommend liquid diet for 2 more days prior to low fiber diet. Objective - Vital Signs Vital signs: Vital Signs Temp 98 F 07/27/19 07:00 Pulse 79 07/27/19 07:00 Resp 12 07/27/19 07:00 BP 154/100 07/27/19 07:00 Pulse Ox 97 07/27/19 07:00 Intake & Output 07/26/19 07/27/19 07/27/19 18:59 06:59 18:59 Weight 108.862 kg Other: Voiding Method Toilet Toilet Urinal Urinal # Voids 3 1 # Bowel Movements 1 - Labs CBC & Chem 7: 07/27/19 09:37 07/26/19 06:32 Labs: Abnormal Lab Results - Last 24 Hours (Table) 07/27/19 Range/Units 09:37 WBC 10.9 H (3.8-10.6) k/uL RBC 4.20 L (4.30-5.90) m/uL Hgb 12.3 L (13.0-17.5) gm/dL Hct 38.1 L (39.0-53.0) % Neutrophils # 9.4 H (1.3-7.7) k/uL Lymphocytes # 0.8 L (1.0-4.8) k/uL Microbiology - Last 24 Hours (Table) 07/23/19 12:30 Blood Culture - Preliminary Blood No Growth after 96 hours
--- NOTE | 2019-07-27 15:47 | P.DS ---
Providers Date of admission: 07/23/19 11:58 Expected date of discharge: 07/27/19 Attending physician: Domenic Orozco MD Consults: 07/23/19 11:59 Consult Physician Stat Consulting Provider: Valentine Rosario Consult Reason/Comments: Acute diverticulitis with perforation Do you want consulting provider notified?: Already Contacted 07/23/19 15:41 Consult Physician Urgent Consulting Provider: Yenni Avila Consult Reason/Comments: diverticulitis Do you want consulting provider notified?: Yes Primary care physician: [facility] Course: Final diagnosis -Acute diverticulitis with possible perforation -systemic inflammatory response with leukocytosis and fever and tachycardia. With sepsis secondary to both -Sigmoid colon Ileus, secondary to above -Daily alcohol drinking at-risk of residual -Small bilateral pleural effusion -Degenerative spinal disease -Small hiatal hernia -DVT prophylaxis -GI prophylaxis Discharge disposition Patient is being discharged in a stable condition with guarded prognosis to home and will follow up with home care and infectious disease in the outpatient setting in one week. Patient will continue on IV antibiotics upon discharge. Patient will also follow-up with surgery in the outpatient setting in 1-2 weeks. Total time taken is 35 minutes. History of present illness This is a 49-year-old male with a past medical history of a hiatal hernia and was recently admitted for abdominal pain and was being closely monitored. Patient continued to have severe pain in the abdomen and a CT of the abdomen was done showing acute diverticulitis with some free air outside the bowel suggesting a perforation with a small bilateral pleural effusion with mildly dilated sigmoid diverticula, degenerative spinal disease, and a small hiatal hernia. Surgery is following. Patient will follow with surgery in the outpatient setting in 1-2 weeks. Infectious disease was following as well and has arranged for outpatient IV antibiotic therapy to be given by home care upon discharge. Patient received a midline prior to discharge. Currently patient's condition is stable with much improvement and would like to go home today. Patient denies any chest pain, shortness of breath, or palpitations at this time. Patient is afebrile. Patient denies any nausea or vomiting and has been tolerating a clear liquid diet. Patient was instructed to continue with full liquid diet for at least 24-48 hours and advance as tolerated. Patient states that his abdominal pain has subsided and there is no tenderness upon palpation. Patient will follow-up with primary care provider as well and the outpatient setting upon discharge. Patient will need repeat labs in 2-3 days to monitor the white blood count. Guarded prognosis. On exam vital signs are stable. Temp is 98 F, pulse is 79, respirations are 12, blood pressure 154/100, oxygen saturation is 97 % on room air. Cardio S1, S2 are present. Respiratory system shows diminished breath sounds at the bases with no wheezing or crackles noted. Abdomen is soft, obese, non-tender. Nervous system shows no focal deficits. Please refer to medication reconciliation sheet for a list of medications. Patient Condition at Discharge: Fair Plan - Discharge Summary Discharge Rx Participant: Yes New Discharge Prescriptions: New cefTRIAXone [Rocephin] 2,000 mg IVP Q24HR #14 vial metroNIDAZOLE [Flagyl] 500 mg PO TID #42 tab traMADol HCl [Ultram] 50 mg PO Q6H PRN #12 tab PRN Reason: Moderate Pain Continue Omeprazole [PriLOSEC] 10 mg PO BID Discharge Medication List Omeprazole [PriLOSEC] 10 mg PO BID 07/21/19 [History] cefTRIAXone [Rocephin] 2,000 mg IVP Q24HR #14 vial 07/25/19 [Rx] metroNIDAZOLE [Flagyl] 500 mg PO TID #42 tab 07/27/19 [Rx] traMADol HCl [Ultram] 50 mg PO Q6H PRN #12 tab 07/27/19 [Rx] Follow up Appointment(s)/Referral(s): Valentine Rosario MD [STAFF PHYSICIAN] - 08/08/19 9:00 am Yenni Avila MD [STAFF PHYSICIAN] - 08/07/19 10:15 am [facility] [Primary Care Provider] - 08/08/19 3:00 pm Ambulatory/Diagnostic Orders: Complete Blood Count w/diff [LAB.AMB] Time Frame: 2 Days, Location: None Selected Patient Instructions/Handouts: Diverticulitis (DC), Perforated Bowel (DC) Activity/Diet/Wound Care/Special Instructions: [facility] will meet patient on 07/28/19 to initiate at home IV antibiotics. Their phone #[phone]. [facility] will deliver supplies on: 07/28/19 by noon. Their phone #[phone]. Continue full liquid/soft diet for 48 hours then slowly advance as tolerated Follow-up with primary care provider upon discharge Follow-up with surgery in 1-2 weeks as discussed Repeat labs in 2-3 days Activity Limited until follow-up Discharge Disposition: HOME WITH HOME HEALTH SERVICES
== END 2019-07-27 12:45 | disposition home health service (06) | DRG 872 ==
LOC: EC 10:19 → 4SSUR 11:58
PROVIDERS: ADMIT Internal Medicine; ATTEND Internal Medicine
PROC: 05HD33Z Insertion of Infusion Device into Right Cephalic Vein, Percutaneous Approach (ICD-10-PCS; principal; 2019-07-26 08:25)
DX: A41.9 Sepsis, unspecified organism (principal); K56.7 Ileus, unspecified; K57.20 Diverticulitis of large intestine with perforation and abscess without bleeding; J90 Pleural effusion, not elsewhere classified; E66.9 Obesity, unspecified; K44.9 Diaphragmatic hernia without obstruction or gangrene; K76.0 Fatty (change of) liver, not elsewhere classified; Z68.31 Body mass index [BMI] 31.0-31.9, adult; Z88.5 Allergy status to narcotic agent
CPT/HCPCS: 36410; 36415; 71045; 74177; 76937; 80048; 80053; 80076; 81003; 82150; 83605; 83690; 84484; 85025; 85610; 85730; 87040; 93005; 96361; 96365; 96375; 99285

== ENCOUNTER → 2019-08-08 | Outpatient (CLI) | payer OTHER ==
--- NOTE | 2019-08-08 11:26 | CT ---
EXAMINATION TYPE: CT abdomen pelvis w con DATE OF EXAM: 08/08/2019 COMPARISON: 07/23/2019 HISTORY: 49-year-old male follow-up Diverticulitis TECHNIQUE: Contiguous axial scanning of the abdomen and pelvis following administration of 100 ml Iso ramona 300 IV contrast. Delayed images through the kidneys and coronal/sagittal reconstructions perform ed. CT DLP: 1692.6 mGycm Automated exposure control for dose reduction was used. FINDINGS: Heart normal size without pericardial effusion. Some mild strandy dependent atelectasis at the lung b ases without pleural effusion. Tiny hiatal hernia. Stable 7 mm hypodensity posterior right liver lobe too small for accurate CT characterization, likely cyst. No other focal liver lesion. No biliary ductal dilatation. Portal venous system is patent. Gallbladder, adrenal glands, left kidney, spleen, and pancreas appear within normal limits. A couple of subcentimeter hypodensities within the right kidney, too small fracture CT characterization, stabl e recent prior, likely tiny cortical cysts. Prominent 6 mm aortocaval lymph node unchanged. A few scattered prominent mesenteric lymph nodes mese nteric measuring up to 6 mm, unchanged. 1.1 cm soft tissue nodule within the anterior seventh cutaneous adipose right lower quadrant likely s econdary to injections. Normal appendix. No significant return. Contrast progressed to the rectum. No circumferential wall thickening with moderate surrounding inflammatory fat stranding along the mid sigmoid colon with early organizing abscess along the midline just above the level of the mid 6. Kathia sures 3.5 cm AP by 2.0 cm wide by 3.4 cm craniocaudal. The additional 6 scattered foci of free air have resolved. Sigmoid diverticulosis. Bladder partially distended. Mild circumferential bladder wall thickening. No pelvic lymphadenopathy. Bones: Degenerative changes of the hips. Focal area with some adjacent sclerosis along the posterior weightbearing aspect of the right femoral head. No subarticular collapse. Degenerative changes of SI joints. Mild multilevel degenerative disc disease in the lumbar spine. IMPRESSION: 1. ACUTE SIGMOID DIVERTICULITIS REDEMONSTRATED WITH SIMILAR MILD RESIDUAL INFLAMMATION. 2. AT THE SITE OF PREVIOUSLY SEEN LOCAL PERFORATION, ANTERIOR MID ABDOMEN JUST ABOVE THE LEVEL OF THE SIGMOID, THERE IS EARLY ORGANIZING ABSCESS MEASURING 3.5 X 2.0 X 3.4 CM. 3. INTERVAL RESOLUTION OF THE PREVIOUS GENERALIZED ILEUS AND ADDITIONAL SCATTERED FOCI OF FREE AIR. 4. MILD CIRCUMFERENTIAL BLADDER WALL THICKENING. CORRELATE TO EXCLUDE CYSTITIS.
== END | disposition home or self-care (01) ==
LOC: RADCTMAIN 09:09
PROVIDERS: ATTEND Internal Medicine Infectious Disease
DX: K57.20 Diverticulitis of large intestine with perforation and abscess without bleeding (principal); K52.9 Noninfective gastroenteritis and colitis, unspecified; R93.41 Abnormal radiologic findings on diagnostic imaging of renal pelvis, ureter, or bladder; Z88.5 Allergy status to narcotic agent
CPT/HCPCS: 74177; Q9967

== ENCOUNTER → 2019-09-09 | Outpatient (CLI) | payer OTHER ==
--- NOTE | 2019-09-09 12:00 | CT ---
EXAMINATION TYPE: CT abdomen pelvis w con DATE OF EXAM: 09/09/2019 COMPARISON: CT abdomen and pelvis August 08, 2019 and older studies. HISTORY: Follow up from diverticular abscess. Patient also having right lower quadrant pain. CT DLP: 1608.2 mGycm, Automated Exposure Control for Dose Reduction was Utilized. CONTRAST: CT scan of the abdomen and pelvis is performed with oral and with IV Contrast, patient injected with 100 mL of Isovue 300. FINDINGS: LUNG BASES: No significant abnormality is appreciated. LIVER/GB: Liver remains diffusely low dense consistent with diffuse fatty infiltration. PANCREAS: No significant abnormality is seen. SPLEEN: No significant abnormality is seen. ADRENALS: No significant abnormality is seen. KIDNEYS: No significant abnormality is seen. BOWEL: Oral contrast reaches sigmoid rectal colon. There is no suspicious small or large bowel dilata tion on current study. There is mild wall thickening distal one half of the left colon. This extends into the proximal two thirds of the sigmoid colon. There are some diverticula in the proximal one marino f sigmoid colon. There is persistent abnormal outpouching along the anterior aspect measuring 1.4 cm significantly improved from most recent prior. No new suspicious fluid collections.. PROSTATE/SEMINAL VESICLES: No gross abnormality seen. LYMPH NODES: No greater than 1cm abdominal or pelvic lymph nodes are appreciated. OSSEOUS STRUCTURES: Straightening of spine with mild multilevel spurring. OTHER: No significant additional abnormality is seen. IMPRESSION: Interval near complete resolution of ill-defined fluid and fat stranding proximal to mid sigmoid colon extending anteriorly. Marked improvement in abnormal irregular fluid collection with ti ny residual collection containing intraluminal air consistent with improving abscess. No new inflamma tion noted.
== END | disposition home or self-care (01) ==
LOC: RADCTMAIN 09:26
PROVIDERS: ATTEND Internal Medicine Infectious Disease
DX: K65.1 Peritoneal abscess (principal)
CPT/HCPCS: 74177; Q9967 ×2

== ENCOUNTER 2019-10-12 11:13 | Day surgery (SDC) | payer OTHER ==
[2019-10-09 13:22] VITALS: BMI 32.3
[~2019-10-12 11:13] MED LIST changes: +DEXAMETHASONE SOD PHOSPHATE 10 MG/ML 1 ML VIAL IV ONE; +HEPARIN SODIUM,PORCINE 5,000 UNIT/ML 1 ML VIAL SQ ONE; +ONDANSETRON 4 MG/2 ML VIAL IVP ONE; +SCOPOLAMINE 1.5MG/72HR PATCH TRANSDERM ONE
[2019-10-12] MEDS ORDERED: GABAPENTIN 300 MG CAP PO STA (12:05)
[2019-10-12] MEDS ORDERED: ACETAMINOPHEN TAB 500 MG TAB PO STA (12:05)
[2019-10-12] MEDS ORDERED: TAMSULOSIN 0.4 MG CAP.ER.24H PO STA (12:06)
--- NOTE | 2019-10-12 12:10 | P.GSHP ---
History of Present Illness H&P Date: 10/12/19 CHIEF COMPLAINT: Cholecystitis HISTORY OF PRESENT ILLNESS: The patient is a 49-year-old male who presents with history of epigastric including right upper quadrant abdominal pain. He underwent diagnostic studies for the gallbladder. Separately his clinical picture was consistent with cholecystitis. Now he presents for surgical intervention. PAST MEDICAL HISTORY: Please see list PAST SURGICAL HISTORY: Please see list MEDICATIONS: Please see list ALLERGIES: Please see list SOCIAL HISTORY: Please see list FAMILY HISTORY: Pertinent for gallbladder disease REVIEW OF ORGAN SYSTEMS: CONSTITUTIONAL: No reports of fevers or chills. HEENT: Denies any troubles with the vision or hearing. PHYSICAL EXAM: VITAL SIGNS: Afebrile vital signs stable GENERAL: Well-developed pleasant male in no acute distress. HEENT: No scleral icterus. Extraocular movements grossly intact. Moist buccal mucosa. NECK: Supple without lymphadenopathy. CHEST: Unlabored respirations. Equal bilateral excursions. CARDIOVASCULAR: Regular rate regular rhythm rhythm. Distal 2+ pulses. ABDOMEN: Soft, nondistended. Tender along the epigastrium and right upper quadrant. MUSCULOSKELETAL: No clubbing, cyanosis, or edema. NEURO : No focal or lateralizing signs. Cranial nerves II-12 within normal [place]a its. PSYCH: Alert and oriented to person, place and time. SKIN: Well perfused. Good skin turgor. ASSESSMENT: 1. Epigastric and right upper quadrant abdominal pain 2. Chronic cholecystitis PLAN: 1. Will need a robotic cholecystectomy possible open. Benefits and risks were described. 2. Heparin for DVT prophylaxis 5000 units. 3. Antibiotic prophylaxis. Past Medical History Past Medical History: GERD/Reflux Additional Past Medical History / Comment(s): hiatal hernia, diverticulitis, History of Any Multi-Drug Resistant Organisms: None Reported Past Surgical History: Orthopedic Surgery Additional Past Surgical History / Comment(s): surgeries for rt elbow, rt wrist and left foot fractures Past Anesthesia/Blood Transfusion Reactions: No Reported Reaction Additional Past Anesthesia/Blood Transfusion Reaction / Comment(s): never had a blood transfusion Smoking Status: Never smoker - Past Family History Mother Family Medical History: No Reported History Medications and Allergies Home Medications Medication Instructions Recorded Confirmed Type Omeprazole [PriLOSEC] 10 mg PO BID PRN 07/21/19 10/12/19 History Calcium Carbonate [Tums] 500 mg PO DAILY PRN 10/09/19 10/12/19 History Ibuprofen [Advil] 1,200 mg PO DIRECTED PRN 10/09/19 10/12/19 History Multivitamins, Thera [Multivitamin 1 tab PO DAILY 10/09/19 10/12/19 History (formulary)] Allergies Allergy/AdvReac Type Severity Reaction Status Date / Time morphine Allergy Itching Verified 10/12/19 11:28 Surgical - Exam Vital Signs Temp Pulse Resp BP Pulse Ox 97.4 F L 84 18 149/98 99 10/12/19 11:45 10/12/19 11:45 10/12/19 11:45 10/12/19 11:45 10/12/19 11:45
[2019-10-12] MEDS ORDERED: INDOCYANINE GREEN 25 MG VIAL IV STA (12:34)
[2019-10-12] MEDS ORDERED: NEOSTIGMINE 1 MG/ML 10 ML VIAL ONE (12:54)
[2019-10-12] MEDS ORDERED: fentaNYL (PF) 50 MCG/ML 2 ML AMP ONE (12:54)
[2019-10-12] MEDS ORDERED: GLYCOPYRROLATE 0.2 MG/ML 2 ML VIAL ONE (12:54)
[2019-10-12] MEDS ORDERED: ROCURONIUM BROMIDE 10 MG/ML 10 ML VIAL IV ONE (12:54)
[2019-10-12] MEDS ORDERED: PROPOFOL 10 MG/ML 20 ML VIAL IV ONE (12:54)
[2019-10-12] MEDS ORDERED: SUCCINYLCHOLINE CHLORIDE 100 MG/5 ML SYR IV ONE (12:54)
[2019-10-12] MEDS ORDERED: LIDOCAINE 1% INJ 10MG/ML (20 ML MDV) ONE (12:54)
[2019-10-12] MEDS ORDERED: KETOROLAC 30 MG/ML 1 ML VIAL ONE (12:54)
[2019-10-12] MEDS ORDERED: MIDAZOLAM 2 MG/2 ML VIAL ONE (12:54)
[2019-10-12] MEDS ORDERED: LIDOCAINE 1%-EPI 1:100,000 20 ML VIAL SQ ONE (13:24)
[2019-10-12] MEDS ORDERED: LACTATED RINGERS 1,000 ML IV ONE (14:12)
[2019-10-12 14:29] VITALS: TEMP 97.2
--- NOTE | 2019-10-12 14:42 | P.OP ---
Date of Procedure: 10/12/19 Description of Procedure: SURGEON: VALENTINE ROSARIO MD PREOPERATIVE DIAGNOSES: 1. Chronic cholecystitis 2. Family history gallbladder cancer 3. History of perforated diverticulitis 4. Obesity due to excess calories, BMI 33.1 5. Gastroesophageal reflux disease POSTOPERATIVE DIAGNOSES: 1. Chronic cholecystitis 2. Family history gallbladder cancer 3. History of perforated diverticulitis 4. Obesity due to excess calories, BMI 33.1 5. Gastroesophageal reflux disease 6. Fatty liver disease OPERATION: Robotic-assisted da Tammi Xi laparoscopic cholecystectomy, multiport with FIREFLY ESTIMATED BLOOD LOSS: 5 mL. SPECIMENS REMOVED: Gallbladder. COMPLICATIONS: None. OPERATIVE FINDINGS: 1. Chronic cholecystitis 2. Console time 26 minutes INDICATIONS: The patient is a 49-year-old male who presents with cholelcystitis. Surgical intervention with a laparoscopic cholecystectomy was described at length including injury to the biliary tree, bleeding, infection, need for further surgery. Informed consent was obtained. Robotic assisted laparoscopic approach was described. Benefits and risks of the procedure including but not limited to bleeding, infection, injury to the biliary tree was described. Informed consent was obtained. DESCRIPTION OF PROCEDURE: Patient was brought to the operating room, placed in supine position. After general induction, the abdomen had been prepped and draped in standard sterile fashion. The robotic da Tammi XI system was primed. After a timeout protocol was performed, the patient had been prepped and draped in standard sterile fashion. The patient was injected with indocyanine green. A 5 mm 0 degrees laparoscopic trocar entry was performed along the left upper quadrant. The abdomen insufflated to 15 mmHg pressure which was tolerated well. Diagnostic laparoscopy demonstrated no injury to bowel viscera or mesentery. The liver surface was unremarkable. Next, two 8 mm robotic ports were placed along the right upper abdomen. The camera 8-mm port was maintained along the epigastrium. Another 8 mm port was placed along the left upper abdominal wall after exchanging the 5 mm port. Please note that the ports were placed at least 10 to 15 cm away from the target anatomy of the gallbladder. The robot was docked along the left lateral abdomen. The patient was repositioned in reverse Trendelenburg position. Using a grasper for arm 3, a grasper for arm 4, including hook cautery for arm 1, the robotic system was docked and primed as described. Instruments were interchanged by the child development assistant including hook cautery, Bovie cautery and clip appliers. I had sat at the console. The gallbladder fundus was retracted over the dome of the liver. Initial attention was brought to the infundibulum which was gently retracted in the inferior lateral approach. Using a grasper, the cystic duct including the cystic artery was carefully skeletonized. FIREFLY was used to identify the cystic artery and cystic structures. A critical view of safety was obtained. Large PLASTIC clips were used throughout the entire case. Using a clip fashion illustrator 2 clips were placed proximally, and 1 clip was placed between the infundibulum and cystic duct and divided using cautery. Next, the cystic artery was similarly clipped and cauterized. Electro-Bovie cautery was used to remove the gallbladder from the hepatic fossa. Hemostasis was checked and found to be adequate. The robot was undocked. I re-scrubbed into the case. Using a 10 mm Endo Catch bag via the left upper quadrant incision, the specimen was removed from the abdominal cavity. The incision was widened and oversewn using 0 Vicryl and Jorge Oliver. All pneumoperitoneum instruments were evacuated from the abdominal cavity. The incisions were reapproximated using 4-0 Monocryl in an interrupted subcuticular fashion. Fascial defects were less than 8 mm in size. Please note along the trocar sites, local anesthetic was placed as a field block prior to insertion of all instruments. Liquid glue was applied to the skin. At the end of the procedure needle, sponge, and instrument count had been verified correct by the electronics repair technician. The patient was transferred to postanesthesia care unit in stable condition. Intraoperative films were shared with the patient's family who were very pleased with the level of care. Plan - Discharge Summary New Discharge Prescriptions: New Naproxen [Naprosyn] 500 mg PO Q12HR PRN #30 tab PRN Reason: Pain Omeprazole [PriLOSEC] 40 mg PO DAILY #30 cap Discontinued Omeprazole [PriLOSEC] 10 mg PO BID PRN PRN Reason: Heartburn Ibuprofen [Advil] 1,200 mg PO DIRECTED PRN PRN Reason: Pain No Action Multivitamins, Thera [Multivitamin (formulary)] 1 tab PO DAILY Calcium Carbonate [Tums] 500 mg PO DAILY PRN PRN Reason: Heartburn Discharge Medication List Calcium Carbonate [Tums] 500 mg PO DAILY PRN 10/09/19 [History] Multivitamins, Thera [Multivitamin (formulary)] 1 tab PO DAILY 10/09/19 [History] Naproxen [Naprosyn] 500 mg PO Q12HR PRN #30 tab 10/12/19 [Rx] Omeprazole [PriLOSEC] 40 mg PO DAILY #30 cap 10/12/19 [Rx] Follow up Appointment(s)/Referral(s): Valentine Rosario MD [STAFF PHYSICIAN] - 10/17/19 Patient Instructions/Handouts: Laparoscopic Cholecystectomy (DC) Activity/Diet/Wound Care/Special Instructions: No lifting over 10 pounds in 2 weeks until Oct 26. May shower. No bath tub soaks for two weeks until Oct 26 Diet as tolerated. Use Tylenol and ibuprofen or Aleve scheduled for the next 24-48 hours for best pain relief. Use ice along incisions for the today to prevent swelling. Discharge Disposition: HOME SELF-CARE
[2019-10-12] MEDS: fentaNYL (PF) 50 MCG/ML 2 ML AMP IV PRN ×2 (14:55→15:05)
[2019-10-12] MEDS ORDERED: hydrALAZINE HCL 20 MG/ML 1 ML VIAL IVP ONE (15:39)
[2019-10-12 16:03] VITALS: RESP 16
[2019-10-12 16:30] VITALS: BP 139/92; PULSE 100
== END 2019-10-12 17:07 | disposition home or self-care (01) ==
LOC: OR 11:13
PROVIDERS: ATTEND Surgery Plastic and Reconstructive Surgery
DX: K81.1 Chronic cholecystitis (principal); K76.0 Fatty (change of) liver, not elsewhere classified; K21.9 Gastro-esophageal reflux disease without esophagitis; E66.09 Other obesity due to excess calories; Z87.19 Personal history of other diseases of the digestive system; Z88.5 Allergy status to narcotic agent; Z68.33 Body mass index [BMI] 33.0-33.9, adult; Z91.018 Allergy to other foods; Z98.890 Other specified postprocedural states; Z80.0 Family history of malignant neoplasm of digestive organs
CPT/HCPCS: 47562; J2250; J0360; J1644; J1100; J2710; J0690; J2405; J2001; J3010; J1885; J0330; J2704; 88304

== ENCOUNTER 2019-11-06 10:05 | Emergency (ER) | payer OTHER ==
[2019-11-06 10:30] VITALS: TEMP 98.5
[2019-11-06 10:52] LABS: Basophils % (A) 0 %; Eosinophils # (A) 0.1 k/uL (0-0.7); Eosinophils % (A) 1 %; HCT 45.6 % (39.0-53.0); HGB 15.1 gm/dL (13.0-17.5); Lymphocytes # (A) 2.1 k/uL (1.0-4.8); Lymphocytes % (A) 22 %; MCH 28.1 pg (25.0-35.0); MCV 85.1 fL (80.0-100.0); Mean Platelet Volume 7.3; Monocytes # (A) 0.7 k/uL (0-1.0); Monocytes % (A) 7 %; Neutrophils # (A) 6.4 k/uL (1.3-7.7); Neutrophils % (A) 67 %; Platelet Count 226 k/uL (150-450); RBC 5.36 m/uL (4.30-5.90); RDW 15.4 % (11.5-15.5); WBC 9.6 k/uL (3.8-10.6)
[2019-11-06 10:53] LABS: Appearance,Urine Clear (Clear); Bilirubin,Urine Negative (Negative); Blood,Urine Negative (Negative); Color,Urine Yellow; Glucose,Urine (UA) Negative (Negative); Ketones,Urine Negative (Negative); Leukocyte Esterase,Urine Negative (Negative); Nitrite,Urine Negative (Negative); Protein,Urine Negative (Negative); Specific Gravity,Urine 1.017 (1.001-1.035); Urobilinogen,Urine <2.0 mg/dL (<2.0)
--- NOTE | 2019-11-06 10:55 | ED ---
General Adult HPI - General Chief complaint: Abdominal Pain Stated complaint: hx burst colon, pain Time Seen by Provider: 11/06/19 10:33 Source: patient, RN notes reviewed, old records reviewed Mode of arrival: ambulatory Limitations: no limitations - History of Present Illness Initial comments: 49-year-old male presents for evaluation of left lower quadrant abdominal pain. Pain is been present for 3 days. He has previous history of colonic perforation and is concerned that he may be developing a perforation. He has had normal bowel movements, passing gas. No vomiting. No fever. Pain localized to the left lower quadrant. Patient had robotic-assisted laparoscopic cholecystectomy 3 weeks ago. He denies right upper quadrant pain. - Related Data Home Medications Medication Instructions Recorded Confirmed Calcium Carbonate [Tums] 500 mg PO DAILY PRN 10/09/19 10/12/19 Multivitamins, Thera [Multivitamin 1 tab PO DAILY 10/09/19 10/12/19 (formulary)] Previous Rx's Medication Instructions Recorded Naproxen [Naprosyn] 500 mg PO Q12HR PRN #30 tab 10/12/19 Omeprazole [PriLOSEC] 40 mg PO DAILY #30 cap 10/12/19 Ciprofloxacin [Cipro Susp] 500 mg PO BID #20 ml 11/06/19 metroNIDAZOLE [Flagyl] 500 mg PO TID #30 tab 11/06/19 Allergies Allergy/AdvReac Type Severity Reaction Status Date / Time morphine Allergy Itching Verified 11/06/19 10:27 Review of Systems ROS Statement: Those systems with pertinent positive or pertinent negative responses have been documented in the HPI. ROS Other: All systems not noted in ROS Statement are negative. Past Medical History Past Medical History: No Reported History Additional Past Medical History / Comment(s): hiatal hernia,colonoscopy History of Any Multi-Drug Resistant Organisms: None Reported Past Surgical History: Cholecystectomy Additional Past Surgical History / Comment(s): left foot surgery Past Anesthesia/Blood Transfusion Reactions: No Reported Reaction Additional Past Anesthesia/Blood Transfusion Reaction / Comment(s): never had a blood transfusion Past Psychological History: No Psychological Hx Reported Smoking Status: Never smoker Past Alcohol Use History: Daily Past Drug Use History: None Reported - Past Family History Mother Family Medical History: No Reported History General Exam Limitations: no limitations General appearance: alert, in no apparent distress Head exam: Present: atraumatic, normocephalic Eye exam: Present: normal appearance, PERRL ENT exam: Present: normal exam Neck exam: Present: normal inspection. Absent: tenderness Respiratory exam: Present: normal lung sounds bilaterally. Absent: respiratory distress, wheezes Cardiovascular Exam: Present: regular rate, normal rhythm GI/Abdominal exam: Present: soft, tenderness (Minimal left lower quadrant tenderness). Absent: distended, guarding, rebound Extremities exam: Present: normal inspection, normal capillary refill. Absent: pedal edema Neurological exam: Present: alert, oriented X3, CN II-XII intact. Absent: motor sensory deficit Psychiatric exam: Present: normal affect, normal mood Skin exam: Present: warm, dry, intact. Absent: cyanosis, diaphoretic Course Vital Signs 11/06/19 11/06/19 10:27 11:55 Temperature 98.5 F Pulse Rate 92 80 Respiratory 18 19 Rate Blood Pressure 133/91 134/89 O2 Sat by Pulse 98 97 Oximetry Medical Decision Making - Medical Decision Making CT shows on [facility] diverticulitis. Patient given a dose of Zosyn emergency department. He is evaluated by his surgeon Dr. Rosario who is very familiar with this patient. She recommends Cipro Flagyl and outpatient follow-up. He has an appointment on Wednesday of next week. Patient comfortable with discharge and will return with worsening or changing symptoms. Laboratory studies are within normal limits, no leukocytosis, normal lactic, no signs of urinary infection. - Lab Data Result diagrams: 11/06/19 10:40 11/06/19 10:40 Lab Results 11/06/19 11/06/19 11/06/19 Range/Units 10:40 10:40 10:40 WBC 9.6 (3.8-10.6) k/uL RBC 5.36 (4.30-5.90) m/uL Hgb 15.1 (13.0-17.5) gm/dL Hct 45.6 (39.0-53.0) % MCV 85.1 (80.0-100.0) fL MCH 28.1 (25.0-35.0) pg MCHC 33.0 (31.0-37.0) g/dL RDW 15.4 (11.5-15.5) % Plt Count 226 (150-450) k/uL Neutrophils % 67 % Lymphocytes % 22 % Monocytes % 7 % Eosinophils % 1 % Basophils % 0 % Neutrophils # 6.4 (1.3-7.7) k/uL Lymphocytes # 2.1 (1.0-4.8) k/uL Monocytes # 0.7 (0-1.0) k/uL Eosinophils # 0.1 (0-0.7) k/uL Basophils # 0.0 (0-0.2) k/uL Sodium 139 (137-145) mmol/L Potassium 4.4 (3.5-5.1) mmol/L Chloride 106 (98-107) mmol/L Carbon Dioxide 24 (22-30) mmol/L Anion Gap 9 mmol/L BUN 22 H (9-20) mg/dL Creatinine 0.85 (0.66-1.25) mg/dL Est GFR (CKD-EPI)AfAm >90 (>60 ml/min/1.73 sqM) Est GFR (CKD-EPI)NonAf >90 (>60 ml/min/1.73 sqM) Glucose 120 H (74-99) mg/dL Plasma Lactic Acid Eric (0.7-2.0) mmol/L Calcium 9.5 (8.4-10.2) mg/dL Total Bilirubin 1.5 H (0.2-1.3) mg/dL AST 37 (17-59) U/L ALT 43 (4-49) U/L Alkaline Phosphatase 103 (38-126) U/L Total Protein 7.8 (6.3-8.2) g/dL Albumin 4.5 (3.5-5.0) g/dL Amylase 64 (30-110) U/L Lipase 95 (23-300) U/L Urine Color Yellow Urine Appearance Clear (Clear) Urine pH 6.0 (5.0-8.0) Ur Specific [place] 1.017 (1.001-1.035) Urine Protein Negative (Negative) Urine Glucose (UA) Negative (Negative) Urine Ketones Negative (Negative) Urine Blood Negative (Negative) Urine Nitrite Negative (Negative) Urine Bilirubin Negative (Negative) Urine Urobilinogen <2.0 (<2.0) mg/dL Ur Leukocyte Esterase Negative (Negative) 11/06/19 Range/Units 10:40 WBC (3.8-10.6) k/uL RBC (4.30-5.90) m/uL Hgb (13.0-17.5) gm/dL Hct (39.0-53.0) % MCV (80.0-100.0) fL MCH (25.0-35.0) pg MCHC (31.0-37.0) g/dL RDW (11.5-15.5) % Plt Count (150-450) k/uL Neutrophils % % Lymphocytes % % Monocytes % % Eosinophils % % Basophils % % Neutrophils # (1.3-7.7) k/uL Lymphocytes # (1.0-4.8) k/uL Monocytes # (0-1.0) k/uL Eosinophils # (0-0.7) k/uL Basophils # (0-0.2) k/uL Sodium (137-145) mmol/L Potassium (3.5-5.1) mmol/L Chloride (98-107) mmol/L Carbon Dioxide (22-30) mmol/L Anion Gap mmol/L BUN (9-20) mg/dL Creatinine (0.66-1.25) mg/dL Est GFR (CKD-EPI)AfAm (>60 ml/min/1.73 sqM) Est GFR (CKD-EPI)NonAf (>60 ml/min/1.73 sqM) Glucose (74-99) mg/dL Plasma Lactic Acid Eric 0.8 (0.7-2.0) mmol/L Calcium (8.4-10.2) mg/dL Total Bilirubin (0.2-1.3) mg/dL AST (17-59) U/L ALT (4-49) U/L Alkaline Phosphatase (38-126) U/L Total Protein (6.3-8.2) g/dL Albumin (3.5-5.0) g/dL Amylase (30-110) U/L Lipase (23-300) U/L Urine Color Urine Appearance (Clear) Urine pH (5.0-8.0) Ur Specific [place] (1.001-1.035) Urine Protein (Negative) Urine Glucose (UA) (Negative) Urine Ketones (Negative) Urine Blood (Negative) Urine Nitrite (Negative) Urine Bilirubin (Negative) Urine Urobilinogen (<2.0) mg/dL Ur Leukocyte Esterase (Negative) Disposition Clinical Impression: Acute diverticulitis Disposition: HOME SELF-CARE Condition: Good Instructions (If sedation given, give patient instructions): Diverticulitis (ED) Prescriptions: Ciprofloxacin [Cipro Susp] 500 mg PO BID #20 ml metroNIDAZOLE [Flagyl] 500 mg PO TID #30 tab Is patient prescribed a controlled substance at d/c from ED?: No Referrals: [facility]inic [Primary Care Provider] - 1-2 days Valentine Rosario MD [STAFF PHYSICIAN] - 1-2 days Time of Disposition: 12:10
[2019-11-06 11:02] LABS: ALT 43 U/L (4-49); AST 37 U/L (17-59); African American GFR (CKD) >90 (>60 ml/min/1.73 sqM); Albumin 4.5 g/dL (3.5-5.0); Alkaline Phosphatase 103 U/L (38-126); Amylase 64 U/L (30-110); Anion Gap 9 mmol/L; Blood Urea Nitrogen 22 mg/dL (9-20); Calcium 9.5 mg/dL (8.4-10.2); Carbon Dioxide 24 mmol/L (22-30); Chloride 106 mmol/L (98-107); Glucose 120 mg/dL (74-99); Non-African American GFR(CKD) >90 (>60 ml/min/1.73 sqM); Potassium 4.4 mmol/L (3.5-5.1); Sodium 139 mmol/L (137-145); Total Bilirubin 1.5 mg/dL (0.2-1.3); Total Protein 7.8 g/dL (6.3-8.2)
--- NOTE | 2019-11-06 11:40 | CT ---
EXAMINATION TYPE: CT abdomen pelvis w con DATE OF EXAM: 11/06/2019 COMPARISON: 09/09/2019 HISTORY: Left sided abdominal pain CT DLP: 1684.5 mGycm CONTRAST: CT scan of the abdomen and pelvis is performed without Oral Contrast and with IV Contrast, patient in jected with 100 mL of Isovue 300. FINDINGS: LUNG BASES-: No visible nodule. No infiltrate. LIVER/GB: No calcified gallstones. No space occupying hepatic lesion. Biliary tree is of normal ca liber. PANCREAS: No inflammation. No distinct mass. SPLEEN: No splenic enlargement. No lesion seen. ADRENALS: No nodule. No thickening. KIDNEYS/BLADDER: No hydronephrosis. No nephrolithiasis. No distinct renal mass. Urinary bladder g rossly unremarkable. BOWEL: Normal appendix. Normal bowel caliber. Mild inflammatory change noted at the descending colon ic/sigmoid colonic junction compatible with mild diverticulitis. No evidence for abscess or perforati on. GENITAL ORGANS: No gross abnormality. LYMPH NODES: No greater than 1cm abdominal or pelvic lymph nodes are appreciated. AORTA: No significant abnormality. OSSEOUS STRUCTURES: No significant abnormality is seen. OTHER: No significant additional abnormality is seen. IMPRESSION: 1. Mild uncomplicated diverticulitis of the descending colonic/sigmoid colonic junction.
[2019-11-06] MEDS ORDERED: PIPERACILLIN-TAZOBACTAM 3.375 GM in SODIUM CHLORIDE 0.9% 100 ML IVPB STA (11:45)
[2019-11-06 11:56] VITALS: BP 134/89; PULSE 80; RESP 19
--- NOTE | 2019-11-06 12:52 | P.CONS ---
History of Present Illness - History of Present Illness 49-year-old pleasant gentleman with history of multiple episodes of diabetic c olitis and the daughter liver abscess in the past and perforation the past came in with complaints of similar abdominal pain left lower quadrant denied any fever chills denied any nausea vomiting. Patient doesn't have any fever. I evaluated the patient in ER subsequently ER physician discussed the patient with urgent surgery and they recommended Cipro and Flagyl and patient will be discharged. Patient is wishing to go home. I believe this is appropriate since patient doesn't have any significant fever. Minimal tenderness in the left lower quadrant. Probably to watch him on oral antibiotics and patient was asked to come back to hospital if his symptoms get worse. Review of Systems REVIEW OF SYSTEMS: CONSTITUTIONAL: No fever, no malaise, no fatigue. HEENT: No recent visual problems or hearing problems. Denied any sore throat. CARDIOVASCULAR: No chest pain, orthopnea, PND, no palpitations, no syncope. PULMONARY: No shortness of breath, no cough, no hemoptysis. GASTROINTESTINAL: As mentioned in HPI NEUROLOGICAL: No headaches, no weakness, no numbness. HEMATOLOGICAL: Denies any bleeding or petechiae. GENITOURINARY: Denies any burning micturition, frequency, or urgency. MUSCULOSKELETAL/RHEUMATOLOGICAL: Denies any joint pain, swelling, or any muscle pain. ENDOCRINE: Denies any polyuria or polydipsia. The rest of the 14-point review of systems is negative. Past Medical History Past Medical History: No Reported History Additional Past Medical History / Comment(s): hiatal hernia,colonoscopy History of Any Multi-Drug Resistant Organisms: None Reported Past Surgical History: Cholecystectomy Additional Past Surgical History / Comment(s): left foot surgery Past Anesthesia/Blood Transfusion Reactions: No Reported Reaction Additional Past Anesthesia/Blood Transfusion Reaction / Comm: never had a blood transfusion Past Psychological History: No Psychological Hx Reported Smoking Status: Never smoker Past Alcohol Use History: Daily Past Drug Use History: None Reported - Past Family History Mother Family Medical History: No Reported History Medications and Allergies Home Medications Medication Instructions Recorded Confirmed Type Calcium Carbonate [Tums] 500 mg PO DAILY PRN 10/09/19 11/06/19 History Multivitamins, Thera [Multivitamin 1 tab PO DAILY 10/09/19 11/06/19 History (formulary)] Naproxen [Naprosyn] 500 mg PO Q12HR PRN #30 tab 10/12/19 11/06/19 Rx Ciprofloxacin [Cipro Susp] 500 mg PO BID #20 ml 11/06/19 Rx Liver Md Supplement 1 tab PO DAILY 11/06/19 11/06/19 History Nugenix Total T Supplement 1 tab PO DAILY 11/06/19 11/06/19 History metroNIDAZOLE [Flagyl] 500 mg PO TID #30 tab 11/06/19 Rx Allergies Allergy/AdvReac Type Severity Reaction Status Date / Time morphine Allergy Itching Verified 11/06/19 10:27 Physical Exam Vitals: Vital Signs Temp Pulse Resp BP Pulse Ox 11/06/19 11:55 80 19 134/89 97 11/06/19 10:27 98.5 F 92 18 133/91 98 Intake and Output 11/05/19 11/06/19 11/06/19 22:59 06:59 14:59 Other: Weight 111.13 kg PHYSICAL EXAMINATION: GENERAL: The patient is alert and oriented x3, not in any acute distress. Obese HEENT: Pupils are round and equally reacting to light. EOMI. No scleral icterus. No conjunctival pallor. Normocephalic, atraumatic. No pharyngeal erythema. No thyromegaly. CARDIOVASCULAR: S1 and S2 present. No murmurs, rubs, or gallops. PULMONARY: Chest is clear to auscultation, no wheezing or crackles. ABDOMEN: Soft, very minimal tenderness in the left lower quadrant, nondistended, normoactive bowel sounds. No palpable organomegaly. MUSCULOSKELETAL: No joint swelling or deformity. EXTREMITIES: No cyanosis, clubbing, or pedal edema. NEUROLOGICAL: Gross neurological examination did not reveal any focal deficits. SKIN: No rashes. Results CBC & Chem 7: 11/06/19 10:40 11/06/19 10:40 Labs: Abnormal Lab Results - Last 24 Hours (Table) 11/06/19 Range/Units 10:40 BUN 22 H (9-20) mg/dL Glucose 120 H (74-99) mg/dL Total Bilirubin 1.5 H (0.2-1.3) mg/dL Assessment and Plan Plan: -Mild uncomplicated recurrent sigmoid diverticulitis: Since patient is afebrile and since patient is not septic. Appropriate the patient the is discharged from ER with oral antibiotics. Patient is being discharged on Cipro and Flagyl at this time.
--- NOTE | 2019-11-06 15:02 | P.GSCN ---
History of Present Illness Consult date: 11/06/19 History of present illness: CHIEF COMPLAINT: Left lower quadrant abdominal pain HISTORY OF PRESENT ILLNESS: The patient is a 49-year-old male who presents with history of diverticulitis. His last diverticulitis attack was less than 6 months ago warranting inpatient hospitalization for presentation of sepsis. He is 3 weeks status post laparoscopic cholecystectomy for which he had done well. He reports developing new constipation over the weekend. He also had chili including chips and sausages. He reports progressive left lower quadrant abdominal pain starting yesterday hence his presentation today. General surgery is consulted for diverticulitis. PAST MEDICAL HISTORY: See list. PAST SURGICAL HISTORY: See list. MEDICATIONS: See list. ALLERGIES: See list. SOCIAL HISTORY: See list. FAMILY HISTORY: See list. REVIEW OF ORGAN SYSTEMS: CONSTITUTIONAL: No fevers or chills. No recent weight loss. EYES: Denies any trouble with vision. No glasses. HEENT: No difficulties with hearing. No nosebleeds. No difficulty swallowing. RESPIRATORY: Denies pneumonia. Denies any troubles with breathing or dyspnea on exertion. CARDIOVASCULAR: Denies any chest pain, palpitations, or recent heart attacks. GASTROINTESTINAL: Last colonoscopy over year ago. Previous history of diverticulitis attack 6 months ago. Status post cholecystectomy 3 weeks ago. GENITOURINARY: Denies any blood in urine or increased urinary frequency. NEUROLOGICAL: Denies any numbness or tingling along the distal extremities. No seizure disorders or headaches. MUSCULOSKELETAL: Has back pain, stiffness or joint arthritis. SKIN: No current skin cancer. No rash. PSYCHIATRIC: Denies current depression or suicidal thoughts. ENDOCRINE: Denies current thyroid disorders. Denies any blood sugar glucose intolerance. HEME/LYMPHATIC: Denies any lumps and bumps around the neck. No recent deep venous thrombosis. ALLERGY/IMMUNOLOGY: No immunoglobulin therapy. No immune deficiencies. BREAST: Denies current breast lumps, pain or nipple discharge. PHYSICAL EXAM: VITALS: Reviewed CONSTITUTIONAL: Well developed and in no acute distress. EYES: Conjuctivae without sclera icterus. Pupils are equally round and reactive to light. Extraocular movements grossly intact. HEAD, EARS, NOSE, THROAT: Moist buccal mucosa. Head is atraumatic, normocephalic. Hears conversational speech. No nasal drainage. NECK: Supple. No JV distention. No thyroidomegaly. RESPIRATORY: Non-labored respirations and equal bilateral excursions. No gross wheezes. CARDIOVASCULAR: Regular rate and rhythm. Extremities without moderate edema. Palpable 2+ radial pulses. ABDOMEN: Soft. Tender left lower quadrant. No peritonitis. LYMPH: No neck lymphadenopathy. No axillary lymphadenopathy. MUSCULOSKELETAL: Nail and fingers with good capillary refill. SKIN: Warm and well perfused with good skin turgor. NEUROLOGIC: Cranial nerves I through XII grossly intact. Sensation upper and extremities intact. No focal or lateralizing signs. PSYCH: Appropriate affect. Alert and oriented to person, place and time. Displays appropriate insight. CLINCAL LABS: Reviewed. WBC normal. IMAGING: Independently reviewed demonstrating inflammatory changes along the sigmoid colon without diffuse free air. No small bowel obstruction. RADIOLOGY: Report reviewed. Consistent with inflammation localized diverticulitis of the sigmoid colon ASSESSMENT: 1. Sigmoid diverticulitis PLAN: 1. Overall, patient had not started antibiotics for which he was advised to take for another diverticulitis attack. Recommend oral ciprofloxacin including Flagyl for at least 7 days with refill. 2. Follow-up in the office in one week or sooner. Thank you for this kind consultation. Past Medical History Past Medical History: No Reported History Additional Past Medical History / Comment(s): hiatal hernia,colonoscopy History of Any Multi-Drug Resistant Organisms: None Reported Past Surgical History: Cholecystectomy Additional Past Surgical History / Comment(s): left foot surgery Past Anesthesia/Blood Transfusion Reactions: No Reported Reaction Additional Past Anesthesia/Blood Transfusion Reaction / Comm: never had a blood transfusion Past Psychological History: No Psychological Hx Reported Smoking Status: Never smoker Past Alcohol Use History: Daily Past Drug Use History: None Reported - Past Family History Mother Family Medical History: No Reported History Medications and Allergies Home Medications Medication Instructions Recorded Confirmed Type Calcium Carbonate [Tums] 500 mg PO DAILY PRN 10/09/19 11/06/19 History Multivitamins, Thera [Multivitamin 1 tab PO DAILY 10/09/19 11/06/19 History (formulary)] Naproxen [Naprosyn] 500 mg PO Q12HR PRN #30 tab 10/12/19 11/06/19 Rx Ciprofloxacin [Cipro Susp] 500 mg PO BID #20 ml 11/06/19 Rx Liver Md Supplement 1 tab PO DAILY 11/06/19 11/06/19 History Nugenix Total T Supplement 1 tab PO DAILY 11/06/19 11/06/19 History metroNIDAZOLE [Flagyl] 500 mg PO TID #30 tab 11/06/19 Rx Allergies Allergy/AdvReac Type Severity Reaction Status Date / Time morphine Allergy Itching Verified 11/06/19 10:27 Surgical - Exam Vital Signs Temp Pulse Resp BP Pulse Ox 98.5 F 92 18 133/91 98 11/06/19 10:27 11/06/19 10:27 11/06/19 10:27 11/06/19 10:27 11/06/19 10:27 Results - Labs 11/06/19 10:40 11/06/19 10:40 Abnormal Lab Results - Last 24 Hours (Table) 11/06/19 Range/Units 10:40 BUN 22 H (9-20) mg/dL Glucose 120 H (74-99) mg/dL Total Bilirubin 1.5 H (0.2-1.3) mg/dL Diabetes panel 11/06/19 Range/Units 10:40 Sodium 139 (137-145) mmol/L Potassium 4.4 (3.5-5.1) mmol/L Chloride 106 (98-107) mmol/L Carbon Dioxide 24 (22-30) mmol/L BUN 22 H (9-20) mg/dL Creatinine 0.85 (0.66-1.25) mg/dL Glucose 120 H (74-99) mg/dL Calcium 9.5 (8.4-10.2) mg/dL AST 37 (17-59) U/L ALT 43 (4-49) U/L Alkaline Phosphatase 103 (38-126) U/L Total Protein 7.8 (6.3-8.2) g/dL Albumin 4.5 (3.5-5.0) g/dL Calcium panel 11/06/19 Range/Units 10:40 Calcium 9.5 (8.4-10.2) mg/dL Albumin 4.5 (3.5-5.0) g/dL Pituitary panel 11/06/19 Range/Units 10:40 Sodium 139 (137-145) mmol/L Potassium 4.4 (3.5-5.1) mmol/L Chloride 106 (98-107) mmol/L Carbon Dioxide 24 (22-30) mmol/L BUN 22 H (9-20) mg/dL Creatinine 0.85 (0.66-1.25) mg/dL Glucose 120 H (74-99) mg/dL Calcium 9.5 (8.4-10.2) mg/dL Adrenal panel 11/06/19 Range/Units 10:40 Sodium 139 (137-145) mmol/L Potassium 4.4 (3.5-5.1) mmol/L Chloride 106 (98-107) mmol/L Carbon Dioxide 24 (22-30) mmol/L BUN 22 H (9-20) mg/dL Creatinine 0.85 (0.66-1.25) mg/dL Glucose 120 H (74-99) mg/dL Calcium 9.5 (8.4-10.2) mg/dL Total Bilirubin 1.5 H (0.2-1.3) mg/dL AST 37 (17-59) U/L ALT 43 (4-49) U/L Alkaline Phosphatase 103 (38-126) U/L Total Protein 7.8 (6.3-8.2) g/dL Albumin 4.5 (3.5-5.0) g/dL Assessment and Plan (1) Sigmoid diverticulitis Status: Acute Code(s): K57.32 - DVTRCLI OF LG INT W/O PERFORATION OR ABSCESS W/O BLEEDING SNOMED Code(s): 966185227 (2) Acute diverticulitis Status: Acute Code(s): K57.92 - DVTRCLI OF INTEST, PART UNSP, W/O PERF OR ABSCESS W/O BLEED SNOMED Code(s): 974685636
== END 2019-11-06 12:30 | disposition home or self-care (01) ==
LOC: EC 10:05
DX: K57.32 Diverticulitis of large intestine without perforation or abscess without bleeding (principal); Z88.5 Allergy status to narcotic agent; Z87.19 Personal history of other diseases of the digestive system; Z90.49 Acquired absence of other specified parts of digestive tract
CPT/HCPCS: 36415; 80053; 82150; 83605; 83690; 85025; 81003; 74177; 99285; 96365; J2543; Q9967

== ENCOUNTER → 2020-01-26 | Outpatient (CLI) | payer OTHER | END | disposition home or self-care (01) | LOC: LABWHC1 10:27 | PROVIDERS: ATTEND Surgery Plastic and Reconstructive Surgery | DX: Z01.818 Encounter for other preprocedural examination (principal) | CPT/HCPCS: 36415; 80053; 85027; 86850; 86900; 86901; 87635 ==

== ENCOUNTER 2020-01-29 07:30 | Inpatient (IN) | payer OTHER ==
[2020-01-25 11:51] VITALS: BMI 32.3
[2020-01-26 11:43] LABS: HCT 48.6 % (39.0-53.0); HGB 15.8 gm/dL (13.0-17.5); MCH 29.6 pg (25.0-35.0); MCHC 32.5 g/dL (31.0-37.0); MCV 91.3 fL (80.0-100.0); Mean Platelet Volume 7.4; Platelet Count 237 k/uL (150-450); RBC 5.32 m/uL (4.30-5.90); RDW 13.9 % (11.5-15.5); WBC 7.5 k/uL (3.8-10.6)
[2020-01-26 15:45] LABS: African American GFR (CKD) 119.9 (60.0-200.0); Albumin 4.4 g/dL (3.80-4.90); Albumin/Globulin Ratio 1.69 (1.60-3.17); Anion Gap 8.1 mmol/L (4.00-12.00); BUN/Creat Ratio 28.75 Ratio (12.00-20.00); Calcium 9.5 mg/dL (8.7-10.3); Carbon Dioxide 21.9 mmol/L (21.6-31.8); Globulin 2.6 g/dL (1.6-3.3); Non-African American GFR(CKD) 103.4 (60.0-200.0); Potassium 4.5 mmol/L (3.5-5.5); Total Bilirubin 1.6 mg/dL (0.2-1.2)
--- NOTE | 2020-01-28 21:26 | P.GSHP ---
History of Present Illness H&P Date: 01/29/20 CHIEF COMPLAINT: History of sigmoid diverticulitis HISTORY OF PRESENT ILLNESS: The patient is a 49-year-old male with long-standing history of sigmoid diverticulitis. He completed a colonoscopy which excluded underlying neoplasm. Now he presents for sigmoid colon resection. PAST MEDICAL HISTORY: Please see list. PAST SURGICAL HISTORY: Please see list. MEDICATIONS: Please see list. ALLERGIES: Please see list. SOCIAL HISTORY: No illicit drug use FAMILY HISTORY: No reports of Crohn disease or ulcerative colitis. REVIEW OF ORGAN SYSTEMS: Additionally reports: CONSTITUTIONAL: No fevers or chills. No recent weight loss. EYES: Denies any trouble with vision. No glasses. HEENT: No difficulties with hearing. No nosebleeds. No difficulty swallowing. RESPIRATORY: Denies pneumonia. Denies any troubles with breathing or dyspnea on exertion. Has asthma. CARDIOVASCULAR: Denies any chest pain, palpitations, or recent heart attacks. GASTROINTESTINAL: Has fatty food intolerance. Has change in bowel habits and gas bloat. Has gastroesophageal reflux disease. GENITOURINARY: Denies any blood in urine or increased urinary frequency. NEUROLOGICAL: Denies any numbness or tingling along the distal extremities. No seizure disorders or headaches. MUSCULOSKELETAL: Denies any back pain, stiffness or joint arthritis. SKIN: No current skin cancer. No rash. PSYCHIATRIC: Denies current depression or suicidal thoughts. ENDOCRINE: Denies current thyroid disorders. Denies any blood sugar glucose intolerance. HEME/LYMPHATIC: Denies any lumps and bumps around the neck. No recent deep venous thrombosis. ALLERGY/IMMUNOLOGY: No immunoglobulin therapy. No immune deficiencies. BREAST: Denies current breast lumps, pain or nipple discharge. PHYSICAL EXAM: Patient is a 49-year-old male. CONSTITUTIONAL: Well developed and in no acute distress. Vitals reviewed. EYES: Conjuctivae without sclera icterus. Pupils are equally round and reactive to light. Extraocular movements grossly intact. HEAD, EARS, NOSE, THROAT: Moist buccal mucosa. Head is atraumatic, normocephalic. Hears conversational speech. No nasal drainage. NECK: Supple. No JV distention. No thyroidomegaly. RESPIRATORY: Non-labored respirations and equal bilateral excursions. No gross wheezes. CARDIOVASCULAR: Regular rate and rhythm. Extremities without moderate edema. Palpable 2+ radial pulses. ABDOMEN: No hepatomegaly. Soft. Non-tender. Nondistended. LYMPH: No neck lymphadenopathy. No axillary lymphadenopathy. MUSCULOSKELETAL: Nail and fingers with good capillary refill. SKIN: Warm and well perfused with good skin turgor. NEUROLOGIC: Cranial nerves I through XII grossly intact. Sensation upper and extremities intact. No focal or lateralizing signs. PSYCH: Appropriate affect. Alert and oriented to person, place and time. Displays appropriate insight. STUDIES: CT scan of the abdomen/pelvis from the ER was reviewed in detail and showed consistent focal area of inflammation along the sigmoid colon of the left lower quadrant. No diffuse free air. ASSESSMENT: 1. Recurrent diverticulitis. PLAN: 1. Prescription for Cipro and Flagyl were written on his behalf for any future attacks. 2. Recommend robotic sigmoid colectomy. Possibility of colostomy creation was described as he has history of recurrent diverticulitis. 3. Inpatient hospitalization over 2-3 nights was reviewed. 4. Enhanced colon recovery program was described. 5. Low carb/high protein diet was reviewed. 6. Suprep as a prep kit was also described. Past Medical History Past Medical History: Hearing Disorder / Deafness, Musculoskeletal Disorder Additional Past Medical History / Comment(s): Sinus issues. Hx diverticulitis; Hiatal hernia. Pain in knees, hx injuries. Varicose veins. History of Any Multi-Drug Resistant Organisms: None Reported Past Surgical History: Cholecystectomy, Orthopedic Surgery Additional Past Surgical History / Comment(s): Rt Elbow dislocation procedure. Left foot surgery. Colonoscopy. Past Anesthesia/Blood Transfusion Reactions: No Reported Reaction Additional Past Anesthesia/Blood Transfusion Reaction / Comment(s): never had a blood transfusion Smoking Status: Never smoker - Past Family History Mother Family Medical History: No Reported History Medications and Allergies Home Medications Medication Instructions Recorded Confirmed Type Multivitamins, Thera [Multivitamin 1 tab PO DAILY 10/09/19 01/25/20 History (formulary)] Liver Md Supplement 1 tab PO DAILY 11/06/19 01/25/20 History Nugenix Total T Supplement 1 tab PO BID 11/06/19 01/25/20 History Ibuprofen [Motrin Ib] 1,000 mg PO Q8H PRN 01/25/20 01/25/20 History Allergies Allergy/AdvReac Type Severity Reaction Status Date / Time morphine Allergy Itching Verified 01/25/20 11:14 Results - Labs 01/26/20 10:51
[~2020-01-29 07:30] MED LIST changes: +ACETAMINOPHEN TAB 500 MG TAB PO ONE; +ALVIMOPAN 12 MG CAPSULE PO ONE; +Antibiotics per Pharmacy 1 EACH MISC MISCELLANE PRN; +GABAPENTIN 300 MG CAP PO STA; +HYDROmorphone 0.5 MG/0.5 ML SYRINGE IVP PRN; -LACTATED RINGERS 1,000 ML IV SCH; -LIDOCAINE 1% 20 ML VIAL (10MG/ML) FOR IV START INTRADERMA PRN; +MELOXICAM 7.5 MG TAB PO ONE; -ONDANSETRON 4 MG/2 ML VIAL IVP ONE; -SCOPOLAMINE 1.5MG/72HR PATCH TRANSDERM ONE; +TAMSULOSIN 0.4 MG CAP.ER.24H PO STA; +metroNIDAZOLE-NS PMX 500 MG in SALINE 1 100ML.BAG IVPB ONE
[2020-01-29] MEDS: LACTATED RINGERS 1,000 ML IV SCH (10:47)
[2020-01-29 10:56] LABS: Basophils % (A) 0 %; Eosinophils # (A) 0.1 k/uL (0-0.7); Eosinophils % (A) 1 %; HGB 15.4 gm/dL (13.0-17.5); Lymphocytes % (A) 18 %; MCH 30.6 pg (25.0-35.0); MCHC 34.3 g/dL (31.0-37.0); MCV 89.3 fL (80.0-100.0); Mean Platelet Volume 7.6; Monocytes # (A) 0.4 k/uL (0-1.0); Monocytes % (A) 7 %; Neutrophils % (A) 71 %; Platelet Count 199 k/uL (150-450); RBC 5.04 m/uL (4.30-5.90); RDW 13.5 % (11.5-15.5); WBC 5.6 k/uL (3.8-10.6)
[2020-01-29] MEDS ORDERED: ONDANSETRON 4 MG/2 ML VIAL IVP ONE (10:58)
[2020-01-29 11:05] LABS: ALT 72 U/L (4-49); AST 56 U/L (17-59); African American GFR (CKD) >90 (>60 ml/min/1.73 sqM); Albumin 4.3 g/dL (3.5-5.0); Alkaline Phosphatase 96 U/L (38-126); Anion Gap 12 mmol/L; Blood Urea Nitrogen 17 mg/dL (9-20); Calcium 9.3 mg/dL (8.4-10.2); Carbon Dioxide 22 mmol/L (22-30); Chloride 104 mmol/L (98-107); Glucose 165 mg/dL (74-99); Non-African American GFR(CKD) >90 (>60 ml/min/1.73 sqM); Potassium 4.3 mmol/L (3.5-5.1); Sodium 138 mmol/L (137-145); Total Bilirubin 1.7 mg/dL (0.2-1.3); Total Protein 7.7 g/dL (6.3-8.2)
[2020-01-29 11:09] LABS: INR 1.1 (<1.2); Prothrombin Time 11.3 sec (9.0-12.0)
[2020-01-29] MEDS ORDERED: NALOXONE 0.4 MG/ML 1 ML VIAL IV PRN (11:44)
[2020-01-29] MEDS ORDERED: diphenhydrAMINE 50 MG/ML 1 ML VIAL IVP PRN (11:44)
[2020-01-29] MEDS ORDERED: ONDANSETRON 4 MG/2 ML VIAL IVP PRN ×2 (11:44→18:09)
[2020-01-29] MEDS ORDERED: HYDROmorphone 0.5 MG/0.5 ML SYRINGE IVP PRN (11:47)
[2020-01-29] MEDS ORDERED: ROPIVACAINE 250 MG, fentaNYL (PF) 1,250 MCG in SODIUM CHLORIDE 0.9% 175 ML EPIDURAL PRN (12:00)
[2020-01-29] MEDS ORDERED: NEOSTIGMINE 1 MG/ML 10 ML VIAL ONE (13:12)
[2020-01-29] MEDS ORDERED: HYDROmorphone (PF) 1 MG/ML ONE (13:12)
[2020-01-29] MEDS ORDERED: KETAMINE 10 MG/ML 20 ML VIAL ONE (13:12)
[2020-01-29] MEDS ORDERED: LIDOCAINE 1% INJ 10MG/ML (20 ML MDV) ONE (13:12)
[2020-01-29] MEDS ORDERED: fentaNYL (PF) 50 MCG/ML 2 ML AMP ONE (13:12)
[2020-01-29] MEDS ORDERED: GLYCOPYRROLATE 0.2 MG/ML 2 ML VIAL ONE (13:12)
[2020-01-29] MEDS ORDERED: MIDAZOLAM 2 MG/2 ML VIAL ONE (13:12)
[2020-01-29] MEDS ORDERED: ROCURONIUM BROMIDE 10 MG/ML 5 ML VIAL IV ONE (13:12)
[2020-01-29] MEDS ORDERED: PROPOFOL 10 MG/ML 20 ML VIAL IV ONE (13:12)
[2020-01-29] MEDS ORDERED: SUCCINYLCHOLINE CHLORIDE 100 MG/5 ML SYR IV ONE (13:12)
[2020-01-29] MEDS ORDERED: BUPIVACAIN-EPI 0.25%-1:200,000 30 ML VIAL SQ ONE (13:55)
[2020-01-29] MEDS ORDERED: LACTATED RINGERS 1,000 ML IV ONE ×3 (14:11→16:45)
[2020-01-29] MEDS ORDERED: SODIUM CHLORIDE 0.9% 1,000 ML IV ONE (18:11)
--- NOTE | 2020-01-29 18:21 | P.OP ---
Date of Procedure: 01/29/20 Description of Procedure: SURGEON: MAYKEL CHAVES MD PREOPERATIVE DIAGNOSES: 1. Sigmoid diverticulitis 2. Left lower quadrant abdominal pain 3. Obesity due to excess calories, BMI 32.4 POSTOPERATIVE DIAGNOSES: 1. Sigmoid diverticulitis 2. Left lower quadrant abdominal pain 3. Obesity due to excess calories, BMI 32.4 OPERATION: 1. Robotic-assisted daVinci Xi sigmoid colectomy with low anterior resection using Ethicon powered 29 mm ILS 2. Placement of round #19 drain pelvis 3. Intraoperative colonoscopy for sigmoidoscope Anesthesia: GETA, local, epidural Estimated Blood Loss (ml): 20 Pathology: other (Sigmoid diverticulitis) Condition: stable Disposition: floor COMPLICATIONS: None. Operative Findings: 1. Sigmoid diverticulitis with adhesion of the sigmoid colon to the dome of bladder 2. Anastomosis with EEA stapler 29 mm 3. No tension or torsion along the anastomosis 4. Negative leak test INDICATIONS: The patient is a 49-year-old male who presents with symptomatic sigmoid diverticulitis. Additionally he reports left lower quadrant abdominal pain. Benefits and risks of surgical intervention was described in detail including infection, injury to the ureter, colostomy creation, possibility for additional surgery was discussed at length. Informed consent was obtained. All questions of the patient and family were answered. DESCRIPTION: Earlier the patient had undergone a bowel prep using the enhanced colon recovery program. The patient was transferred to the operating room and placed supine. After general induction, the abdomen was prepped and draped in standard sterile fashion. Ioban was placed along the abdomen to minimize any contamination of skin floor. A Thacker catheter was placed. After a timeout protocol was performed, attention was then brought to the left upper quadrant whereby a 0 degree 5 mm laparoscopic trocar entry was performed. The abdominal cavity was entered and insufflated to 15 mmHg pressure, which she tolerated well. Diagnostic laparoscopy confirmed moderately adhesion to the dome of the bladder by the colon. The liver surface was unremarkable. The small bowel was unremarkable. Next a robotic 12-mm trocar was placed along the right lateral abdominal wall 20 cm superior from the pelvis including along the left lateral abdominal wall. Two 8 mm ports were placed along the upper abdomen after exchanging the 5 mm trocar at the left upper quadrant. Ports were placed 8 to 10 cm apart from each other including 15-20 cm away from the target anatomy of the left pelvis. The robot was docked along the left lateral abdomen. The patient was positioned in steep Trendelenburg position. Using atraumatic graspers and vessel sealer, the robotic system was docked and primed as described. Instruments were interchanged by the professional nursing assistant including scissors, needle hydraulic lift driver, robotic stapler and vessel sealer. The robot stapler was prepared along the right lateral abdominal wall. The stapler 12-mm port was arranged along the right lateral abdominal wall. Next, attention was brought to identify the sigmoid colon. A stay suture using 3- 0 silk was placed along the anterior serosa of the sigmoid colon. Additional adhesions were taken down from the dome of the liver without injury. The sigmoid mesentery was mobilized using a vessel sealer whereby the descending colon was marked and tagged. Using multiple fires of the robot stapler 60 mm black load, the distal sigmoid colon was divided. The mesentery of the sigmoid colon was mobilized towards the pelvic brim and sacral promontory using a vessel sealer. Next, the sigmoid colon was divided using the robotic stapler 60 mm black load. The rest of the sigmoid colon mesentery was mobilized using vessel sealer. Additionally, the sigmoid colon was mobilized onto the colon to minimize injury to the ureters. I re-scrubbed into the case. The robotic arms were undocked. A 29-mm anvil was positioned after placing a suture along the anvil head batcher. The shaft of the anvil was exited via the staple line and the anvil head batcher was removed. I went to the foot of the bed to place the ILS stapler via the rectum. The anvil and stapler were mated for 1 minute. The doughnuts were thick on the proximal side and thin at the rectal side. I went to the foot of the bed where a colonoscope was inserted along the rectum. At bedside, normal saline was placed in the pelvis by the professional nursing assistant. The scope was advanced beyond the anastomosis which was intact without leaks. The scope was discontinued. All needles were removed from the abdominal cavity. The robot was undocked. I re-scrubbed into the case. Via the left upper quadrant port, the sigmoid colon was removed using a 10-mm Endo Catch bag. All sponges were removed from the abdominal cavity. The left upper quadrant incision was widened to 3-cm. No contamination had occurred throughout the case. The fascial defect was oversewn using 0 Vicryl and a Jorge Oliver. A round #19 drain was placed anterior to the anastomosis along the pelvis and exited via the right lateral abdominal wall. A 2-0 nylon stitch was placed. Next all pneumoperitoneum was evacuated from the abdominal cavity. The 8-mm trocar sites were reapproximated using 4-0 Monocryl in an interrupted subcuticular fashion. Local anesthetic was infiltrated to all wounds for postop analgesia. All incisions were also cleansed with diluted hydrogen peroxide. An Optifoam surgical dressing was placed over the epigastrium of the colon extraction site and drain site. A suction bulb was placed along the tubing. Liquid glue was applied to the rest of the skin incisions. The patient had tolerated the procedure well. The patient was extubated successfully. Intraoperative photos were reviewed with the patient's family who were overall pleased with the level of care. The patient was transferred to the postanesthesia care unit in stable condition.
[2020-01-29] MEDS: metroNIDAZOLE-NS PMX 500 MG in SALINE 1 100ML.BAG IVPB SCH (21:08)
[2020-01-29] MEDS: HEPARIN SODIUM,PORCINE 5,000 UNIT/ML 1 ML VIAL SQ SCH (22:05)
[2020-01-29] MEDS: TAMSULOSIN 0.4 MG CAP.ER.24H PO SCH (22:05)
[2020-01-29] MEDS: SODIUM CHLORIDE 0.9% 1,000 ML IV SCH (22:16)
[2020-01-29] MEDS: diphenhydrAMINE 50 MG/ML 1 ML VIAL IVP PRN (23:33)
[2020-01-29] MEDS: METOCLOPRAMIDE 5 MG/ML 2 ML VIAL IVP SCH (23:36)
[2020-01-30] MEDS: metroNIDAZOLE-NS PMX 500 MG in SALINE 1 100ML.BAG IVPB SCH ×3 (03:12→13:18)
[2020-01-30] MEDS: SODIUM CHLORIDE 0.9% 1,000 ML IV SCH ×3 (03:13→17:34)
[2020-01-30] MEDS: LACTATED RINGERS 1,000 ML IV SCH (05:07)
[2020-01-30] MEDS: METOCLOPRAMIDE 5 MG/ML 2 ML VIAL IVP SCH ×3 (05:27→17:33)
[2020-01-30] MEDS: diphenhydrAMINE 50 MG/ML 1 ML VIAL IVP PRN (06:05)
[2020-01-30 07:22] LABS: Basophils % (A) 0 %; Eosinophils % (A) 0 %; HCT 37.6 % (39.0-53.0); HGB 12.7 gm/dL (13.0-17.5); Lymphocytes # (A) 1.1 k/uL (1.0-4.8); Lymphocytes % (A) 13 %; MCH 30.9 pg (25.0-35.0); MCHC 33.8 g/dL (31.0-37.0); MCV 91.3 fL (80.0-100.0); Mean Platelet Volume 7.8; Monocytes # (A) 0.5 k/uL (0-1.0); Monocytes % (A) 6 %; Neutrophils # (A) 6.7 k/uL (1.3-7.7); Neutrophils % (A) 79 %; Platelet Count 175 k/uL (150-450); RBC 4.12 m/uL (4.30-5.90); RDW 13.5 % (11.5-15.5); WBC 8.4 k/uL (3.8-10.6)
[2020-01-30] MEDS: HEPARIN SODIUM,PORCINE 5,000 UNIT/ML 1 ML VIAL SQ SCH ×2 (08:39→20:05)
[2020-01-30] MEDS: ALVIMOPAN 12 MG CAPSULE PO SCH ×2 (08:39→20:06)
--- NOTE | 2020-01-30 10:35 | P.PN ---
Subjective Progress Note Date: 01/30/20 CHIEF COMPLAINT: Diverticulitis HISTORY OF PRESENT ILLNESS: 49-year-old male who is status post robotic- assisted sigmoid colectomy with low anterior resection with Dr. Rosario. Postop day #1. Patient examined this morning at the bedside. Epidural is currently infusing. Patient states his pain is tolerable. Tolerating clear liquid diet. Denies nausea or vomiting. Denies passing flatus. PHYSICAL EXAM: VITAL SIGNS: Reviewed GENERAL: Well-developed in no acute distress. HEENT: No sclera icterus. Extraocular movements grossly intact. Moist buccal mucosa. Head is atraumatic, normocephalic. Hears conversational speech. No nasal drainage. NECK: Supple without lymphadenopathy. CHEST: Non-labored respirations and equal bilateral excursions. CARDIOVASCULAR: Regular rate with regular rhythm. Palpable 2+ radial pulses. ABDOMEN: Soft. Nondistended. Appropriate surgical tenderness. Surgical sites clean dry and intact without drainage or erythema. ZANDRA drain to right lower quadrant with serosanguineous drainage. MUSCULOSKELETAL: No clubbing or cyanosis. NEUROLOGIC: No focal or lateralizing signs. Cranial nerves II through XII grossly intact. PSYCH: Appropriate affect. Alert and oriented to person, place and time. SKIN: Well perfused. Good skin turgor. ASSESSMENT: 1. Sigmoid diverticulitis, status post robotic-assisted sigmoid colectomy with low anterior resection PLAN: -Continue clear liquid diet. Await bowel function -Continue epidural -Incentive spirometer every -Increase activity as tolerated. Patient encouraged to be up in the chair today. Nurse practitioner note has been reviewed by physician. Signing provider agrees with the documented findings, assessment, and plan of care. Objective - Vital Signs Vital signs: Vital Signs Temp 98.5 F 01/30/20 05:01 Pulse 100 01/30/20 05:01 Resp 20 01/30/20 05:01 BP 111/68 01/30/20 05:01 Pulse Ox 97 01/30/20 05:01 Intake & Output 01/29/20 01/30/20 01/30/20 18:59 06:59 18:59 Intake Total 4850 990 Output Total 280 1250 Balance 4570 -260 Weight 111.5 kg Intake: IV 4850 Intake, IV Titration 990 Amount Lactated Ringers 1,000 ml 40 @ 20 mls/hr IV .Q24H [facility] Rx#:[id number] Sodium Chloride 0.9% 1, 650 000 ml @ 130 mls/hr IV . Q7H42M [facility] Rx#:[id number] ceFAZolin 2 gm In Sodium 100 Chloride 0.9% 50 ml @ 100 mls/hr IVPB Q8H [facility] Rx#: [id number] metroNIDAZOLE-NS PMX 500 200 mg In Saline 1 100ml.bag @ 100 mls/hr IVPB Q6H [facility] Rx#:[id number] Output: Drainage 50 Abdomen 50 Urine 260 1200 Stool 0 0 Estimated Blood Loss 20 Other: Voiding Method Indwelling Catheter # Voids 0 # Bowel Movements 0 0 - Labs CBC & Chem 7: 01/30/20 06:31 01/29/20 10:40 Labs: Abnormal Lab Results - Last 24 Hours (Table) 01/26/20 01/29/20 01/30/20 Range/Units 10:51 10:40 06:31 RBC 4.12 L (4.30-5.90) m/uL Hgb 12.7 L (13.0-17.5) gm/dL Hct 37.6 L (39.0-53.0) % BUN/Creatinine Ratio 28.75 H (12.00-20.00) Ratio Glucose 115 H 165 H (70-110) mg/dL Total Bilirubin 1.6 H 1.7 H (0.2-1.2) mg/dL AST 57 H (14-35) U/L ALT 90 H 72 H (10-49) U/L
[2020-01-30 10:42] LABS: ALT 45 U/L (4-49); AST 33 U/L (17-59); African American GFR (CKD) >90 (>60 ml/min/1.73 sqM); Alkaline Phosphatase 73 U/L (38-126); Anion Gap 8 mmol/L; Blood Urea Nitrogen 11 mg/dL (9-20); Calcium 8.1 mg/dL (8.4-10.2); Carbon Dioxide 23 mmol/L (22-30); Chloride 105 mmol/L (98-107); Glucose 101 mg/dL (74-99); Non-African American GFR(CKD) >90 (>60 ml/min/1.73 sqM); Potassium 4.1 mmol/L (3.5-5.1); Sodium 136 mmol/L (137-145); Total Protein 5.9 g/dL (6.3-8.2)
[2020-01-30] MEDS: HYDROmorphone 1 MG/ML 1 ML SYRINGE IVP PRN ×3 (11:47→19:21)
--- NOTE | 2020-01-30 12:46 | P.PN ---
Progress Note - Text Progress Note Date: 01/30/20 Status post postoperative day 1 : Robotic-assisted daVinci Xi sigmoid colectomy with low anterior resection. RN called to evaluate the epidural catheter was disconnected at the alligator clamp area. Patient was seen and evaluated at bedside. The catheter tip was touching the bed. " Epidural catheter removed in total. Sterile dressing applied over the catheter entry area. Patient has no weakness in his lower extremities, no tenderness over the epidural insertion area. Patient is hemo dynamically stable. Plan: Patient had Dilaudid 1 mg IV every 3 hours as needed when the patient VAS 8-10/ 10 in severity recommended RN to continue Dilaudid 0.5 mg IV every 3 hours as needed when the patient VAS 5-7 /10 in severity recommended RN to continue [place] 10/325 by mouth every 4 hours as needed. Do not give combined Dilaudid and [place] medication within 1 hour duration. Please call anesthesia as needed.
[2020-01-30] MEDS: HYDROcodone/APAP 10-325MG 1 EACH TAB PO PRN ×2 (13:19→17:33)
[2020-01-30] MEDS: TAMSULOSIN 0.4 MG CAP.ER.24H PO SCH (17:33)
[2020-01-30] MEDS ORDERED: PANTOPRAZOLE 40 MG/10 ML VIAL IVP SCH (19:30)
[2020-01-30] MEDS: KETOROLAC 30 MG/ML 1 ML VIAL IVP SCH (20:03)
[2020-01-30] MEDS: ACETAMINOPHEN TAB 500 MG TAB PO SCH (20:05)
[2020-01-30 21:06] VITALS: RESP 18
[2020-01-31] MEDS: ACETAMINOPHEN TAB 500 MG TAB PO SCH ×2 (00:49→05:35)
[2020-01-31] MEDS: METOCLOPRAMIDE 5 MG/ML 2 ML VIAL IVP SCH ×2 (00:49→05:35)
[2020-01-31] MEDS: KETOROLAC 30 MG/ML 1 ML VIAL IVP SCH ×2 (00:50→05:35)
[2020-01-31] MEDS: SODIUM CHLORIDE 0.9% 1,000 ML IV SCH ×2 (00:55→10:05)
[2020-01-31 04:46] VITALS: BP 116/78; PULSE 93; TEMP 98.4
[2020-01-31 06:13] LABS: Basophils % (A) 0 %; Eosinophils # (A) 0.1 k/uL (0-0.7); Eosinophils % (A) 2 %; HCT 38.8 % (39.0-53.0); HGB 12.8 gm/dL (13.0-17.5); Lymphocytes # (A) 1.3 k/uL (1.0-4.8); Lymphocytes % (A) 20 %; MCH 30.6 pg (25.0-35.0); MCV 92.7 fL (80.0-100.0); Monocytes # (A) 0.4 k/uL (0-1.0); Monocytes % (A) 6 %; Neutrophils # (A) 4.6 k/uL (1.3-7.7); Neutrophils % (A) 71 %; Platelet Count 155 k/uL (150-450); RBC 4.19 m/uL (4.30-5.90); RDW 13.7 % (11.5-15.5); WBC 6.6 k/uL (3.8-10.6)
[2020-01-31] MEDS: HEPARIN SODIUM,PORCINE 5,000 UNIT/ML 1 ML VIAL SQ SCH (08:46)
[2020-01-31] MEDS: ALVIMOPAN 12 MG CAPSULE PO SCH (08:46)
[2020-01-31] MEDS: LACTATED RINGERS 1,000 ML IV SCH (09:18)
--- NOTE | 2020-01-31 10:16 | P.DS ---
Providers Date of admission: 01/29/20 10:11 Expected date of discharge: 01/31/20 Attending physician: Valentine Rosario Primary care physician: [facility] Hospital Course: 49-year-old male who underwent robotic-assisted sigmoid colectomy with low anterior resection with Dr. Rosario. Patient is doing well postoperatively without any immediate complications. He is tolerating liquid diet. Passing flatus and having bowel movements. Pain is controlled on oral medications. Vital signs are stable. He was deemed stable for discharge home today with ZANDRA drain per Dr. Rosario. Please see EMR for further hospital course details. Discharge Diagnosis: 1. Sigmoid diverticulitis, status post robotic-assisted sigmoid colectomy with low anterior resection Nurse practitioner note has been reviewed by physician. Signing provider agrees with the documented findings, assessment, and plan of care. Plan - Discharge Summary Discharge Rx Participant: No New Discharge Prescriptions: New Ibuprofen [Motrin] 600 mg PO Q8HR PRN #30 tab PRN Reason: Pain Acetaminophen Tab [Tylenol Tab] 650 mg PO Q4H PRN #30 tablet PRN Reason: Pain No Action Multivitamins, Thera [Multivitamin (formulary)] 1 tab PO DAILY Nugenix Total T Supplement 1 tab PO BID Liver Md Supplement 1 tab PO DAILY Ibuprofen [Motrin Ib] 1,000 mg PO Q8H PRN PRN Reason: Pain Discharge Medication List Multivitamins, Thera [Multivitamin (formulary)] 1 tab PO DAILY 10/09/19 [History] Liver Md Supplement 1 tab PO DAILY 11/06/19 [History] Nugenix Total T Supplement 1 tab PO BID 11/06/19 [History] Ibuprofen [Motrin Ib] 1,000 mg PO Q8H PRN 01/25/20 [History] Acetaminophen Tab [Tylenol Tab] 650 mg PO Q4H PRN #30 tablet 01/31/20 [Rx] Ibuprofen [Motrin] 600 mg PO Q8HR PRN #30 tab 01/31/20 [Rx] Follow up Appointment(s)/Referral(s): Valentine Rosario MD [STAFF PHYSICIAN] - 02/13/20 Activity/Diet/Wound Care/Special Instructions: Alternate Tylenol and Motrin for pain as needed No lifting over 10 pounds You may shower. No soaking or tub baths Very light activity until you are reevaluated at your follow up appointment with your surgeon Keep a log of ZANDRA drain output and bring with you to your follow-up appointment You may remove left-sided abdominal dressing on 02/03/2020 Continue full liquid diet until you see Dr. Rosario at your follow-up appointment Attempt to consume 70-90 g of protein a day
== END 2020-01-31 11:53 | disposition home or self-care (01) | DRG 331 ==
LOC: 2ORMAIN 10:11 → 5NMEDONC 18:20
PROVIDERS: ADMIT Surgery Plastic and Reconstructive Surgery; ATTEND Surgery Plastic and Reconstructive Surgery
PROC: 0DTN0ZZ Resection of Sigmoid Colon, Open Approach (ICD-10-PCS; principal; 2020-01-29 12:10)
PROC: 0DJD8ZZ Inspection of Lower Intestinal Tract, Via Natural or Artificial Opening Endoscopic (ICD-10-PCS; principal; 2020-01-29 12:10)
PROC: 8E0W4CZ Robotic Assisted Procedure of Trunk Region, Percutaneous Endoscopic Approach (ICD-10-PCS; principal; 2020-01-29 12:10)
DX: K57.32 Diverticulitis of large intestine without perforation or abscess without bleeding (principal); E66.09 Other obesity due to excess calories; Z11.59 Encounter for screening for other viral diseases; K66.0 Peritoneal adhesions (postprocedural) (postinfection); J45.909 Unspecified asthma, uncomplicated; K21.9 Gastro-esophageal reflux disease without esophagitis; H91.90 Unspecified hearing loss, unspecified ear; K44.9 Diaphragmatic hernia without obstruction or gangrene; I83.90 Asymptomatic varicose veins of unspecified lower extremity; Z68.32 Body mass index [BMI] 32.0-32.9, adult; Z79.899 Other long term (current) drug therapy; Z90.49 Acquired absence of other specified parts of digestive tract; Z98.890 Other specified postprocedural states; Z88.5 Allergy status to narcotic agent
CPT/HCPCS: 36415; 80053; 85025; 85027; 85610; 86850; 86900; 86901; 87635; 88307; 94760

== ENCOUNTER 2021-08-06 22:09 | Inpatient (IN) | payer OTHER ==
[2021-08-06] MEDS ORDERED: ACETAMINOPHEN TAB 500 MG TAB PO STA (22:29)
[2021-08-06] MEDS ORDERED: ALBUTEROL HFA INHALER INHALATION STA (22:29)
[2021-08-06] MEDS ORDERED: DEXAMETHASONE SOD PHOSPHATE 10 MG/ML 1 ML VIAL IVP STA (22:29)
[2021-08-06] MEDS ORDERED: SODIUM CHLORIDE 0.9% 1,000 ML IV STA ×2 (22:29)
[2021-08-06] MEDS ORDERED: KETOROLAC 30 MG/ML 1 ML VIAL IVP STA (22:29)
--- NOTE | 2021-08-06 22:31 | ED ---
SOB HPI - General Chief Complaint: Shortness of Breath Stated Complaint: Diff Breathing Time Seen by Provider: 08/06/21 22:20 Source: patient, RN notes reviewed, old records reviewed Mode of arrival: wheelchair Limitations: no limitations - History of Present Illness Initial Comments: This is a 51-year-old male to the emergency room today. Patient presents today for evaluation of severe and significant shortness of breath. Patient as well as that without the recently right upper respiratory infection patient symptoms are progressively worsened with significant cough and congestion fever weakness bodyaches and pains. MD Complaint: shortness of breath, cough, chest pain, anxiety -: days(s) Severity: severe Severity scale (1-10): 9 Quality: dull, aching Consistency: constant Improves With: nothing Worsens With: nothing Context: recent URI, recent illness Associated Symptoms: chest pain Treatments Prior to Arrival: none - Related Data Home Medications Medication Instructions Recorded Confirmed Ibuprofen [Motrin Ib] 800 mg PO Q8H PRN 01/25/20 08/06/21 Albuterol Sulfate [Ventolin HFA] 1 - 2 puff INHALATION RT-Q6H PRN 08/06/21 Cholecalciferol [Vitamin D3 (25 50 mcg PO DAILY 08/06/21 08/06/21 Mcg = 1000 Iu)] Fluticasone Nasal [place] [Flonase 1 spray EA NOSTRIL DAILY 08/06/21 08/06/21 Nasal [place]] Montelukast [Singulair] 10 mg PO DAILY 08/06/21 08/06/21 Zinc 50 mg PO DAILY 08/06/21 08/06/21 Allergies Allergy/AdvReac Type Severity Reaction Status Date / Time morphine Allergy Itching Verified 01/25/20 11:14 Review of Systems ROS Statement: Those systems with pertinent positive or pertinent negative responses have been documented in the HPI. ROS Other: All systems not noted in ROS Statement are negative. Past Medical History Past Medical History: Hearing Disorder / Deafness, Musculoskeletal Disorder Additional Past Medical History / Comment(s): Sinus issues. Hx diverticulitis; Hiatal hernia. Pain in knees, hx injuries. Varicose veins. History of Any Multi-Drug Resistant Organisms: None Reported Past Surgical History: Cholecystectomy, Orthopedic Surgery Additional Past Surgical History / Comment(s): Rt Elbow dislocation procedure. Left foot surgery. Colonoscopy. Past Anesthesia/Blood Transfusion Reactions: No Reported Reaction Additional Past Anesthesia/Blood Transfusion Reaction / Comment(s): never had a blood transfusion Past Psychological History: No Psychological Hx Reported Smoking Status: Never smoker Past Alcohol Use History: Occasional Past Drug Use History: None Reported - Past Family History Mother Family Medical History: No Reported History General Exam Limitations: no limitations General appearance: anxious, in distress Head exam: Present: atraumatic, normocephalic, normal inspection Eye exam: Present: normal appearance, PERRL, EOMI. Absent: scleral icterus, conjunctival injection, periorbital swelling ENT exam: Present: normal exam, mucous membranes moist Neck exam: Present: normal inspection. Absent: tenderness, meningismus, lymphadenopathy Respiratory exam: Present: respiratory distress, wheezes, rhonchi, decreased breath sounds, prolonged expiratory. Absent: rales, stridor Cardiovascular Exam: Present: normal rhythm, tachycardia, normal heart sounds. Absent: systolic murmur, diastolic murmur, rubs, gallop, clicks GI/Abdominal exam: Present: soft, normal bowel sounds. Absent: distended, tenderness, guarding, rebound, rigid Extremities exam: Present: normal inspection, full ROM, normal capillary refill. Absent: tenderness, pedal edema, joint swelling, calf tenderness Back exam: Present: normal inspection Neurological exam: Present: alert, oriented X3, CN II-XII intact Psychiatric exam: Present: normal affect, normal mood Skin exam: Present: warm, dry, intact, normal color. Absent: rash Course Vital Signs 08/06/21 08/06/21 08/06/21 22:11 22:15 22:48 Temperature 99.3 F 101.9 F H Pulse Rate 131 H 124 H Respiratory 28 H 30 H Rate Blood Pressure 130/74 132/85 O2 Sat by Pulse 82 L 67 L 91 L Oximetry 08/06/21 08/06/21 08/06/21 22:50 23:00 23:54 Temperature Pulse Rate 113 H Respiratory 36 H 25 H Rate Blood Pressure 146/86 O2 Sat by Pulse 88 L 92 L Oximetry 08/07/21 08/07/21 08/07/21 00:00 01:02 06:00 Temperature 99.0 F Pulse Rate 92 Respiratory 30 H Rate Blood Pressure 138/58 O2 Sat by Pulse 92 L 89 L Oximetry 08/07/21 09:37 Temperature 98.7 F Pulse Rate 92 Respiratory 22 Rate Blood Pressure 147/89 O2 Sat by Pulse 89 L Oximetry - Reevaluation(s) Reevaluation #1: 08/07/21 03:08 Medical record is reviewed Reevaluation #2: 08/07/21 03:08 Patient has no significant improvement in symptoms Reevaluation #3: 08/07/21 03:08 Patient informed results and questions answered - Consultations Consultation #1: Spoke with [facility] will agree to admit this patient Medical Decision Making - Medical Decision Making 51 male with severe shortness of breath significant COPD with hypoxia. Patient to be admitted for significant cardiopulmonary support - Lab Data Result diagrams: 08/07/21 15:33 08/07/21 15:33 Lab Results 08/06/21 08/06/21 08/06/21 Range/Units 22:17 22:35 22:35 WBC 5.5 (3.8-10.6) k/uL RBC 5.22 (4.30-5.90) m/uL Hgb 16.2 (13.0-17.5) gm/dL Hct 47.8 (39.0-53.0) % MCV 91.5 (80.0-100.0) fL MCH 31.1 (25.0-35.0) pg MCHC 34.0 (31.0-37.0) g/dL RDW 12.5 (11.5-15.5) % Plt Count 133 L (150-450) k/uL MPV 8.0 Neutrophils % 83 % Lymphocytes % 10 % Monocytes % 5 % Eosinophils % 0 % Basophils % 0 % Neutrophils # 4.6 (1.3-7.7) k/uL Lymphocytes # 0.6 L (1.0-4.8) k/uL Monocytes # 0.3 (0-1.0) k/uL Eosinophils # 0.0 (0-0.7) k/uL Basophils # 0.0 (0-0.2) k/uL PT 10.4 (9.0-12.0) sec INR 1.0 (<1.2) APTT 26.0 (22.0-30.0) sec Sodium (137-145) mmol/L Potassium (3.5-5.1) mmol/L Chloride (98-107) mmol/L Carbon Dioxide (22-30) mmol/L Anion Gap mmol/L BUN (9-20) mg/dL Creatinine (0.66-1.25) mg/dL Est GFR (CKD-EPI)AfAm (>60 ml/min/1.73 sqM) Est GFR (CKD-EPI)NonAf (>60 ml/min/1.73 sqM) Glucose (74-99) mg/dL Plasma Lactic Acid Eric (0.7-2.0) mmol/L Calcium (8.4-10.2) mg/dL Magnesium (1.6-2.3) mg/dL Ferritin (22.0-322.0) ng/mL Total Bilirubin (0.2-1.3) mg/dL AST (17-59) U/L ALT (4-49) U/L Alkaline Phosphatase (38-126) U/L Lactate Dehydrogenase (313-618) U/L Troponin I (0.000-0.034) ng/mL C-Reactive Protein (<1.0) mg/dL NT-Pro-B Natriuret Pep pg/mL Total Protein (6.3-8.2) g/dL Albumin (3.5-5.0) g/dL Coronavirus (PCR) Detected A (Not Detectd) 08/06/21 08/06/21 08/06/21 Range/Units 22:35 22:35 22:35 WBC (3.8-10.6) k/uL RBC (4.30-5.90) m/uL Hgb (13.0-17.5) gm/dL Hct (39.0-53.0) % MCV (80.0-100.0) fL MCH (25.0-35.0) pg MCHC (31.0-37.0) g/dL RDW (11.5-15.5) % Plt Count (150-450) k/uL MPV Neutrophils % % Lymphocytes % % Monocytes % % Eosinophils % % Basophils % % Neutrophils # (1.3-7.7) k/uL Lymphocytes # (1.0-4.8) k/uL Monocytes # (0-1.0) k/uL Eosinophils # (0-0.7) k/uL Basophils # (0-0.2) k/uL PT (9.0-12.0) sec INR (<1.2) APTT (22.0-30.0) sec Sodium 137 (137-145) mmol/L Potassium 3.6 (3.5-5.1) mmol/L Chloride 105 (98-107) mmol/L Carbon Dioxide 19 L (22-30) mmol/L Anion Gap 13 mmol/L BUN 23 H (9-20) mg/dL Creatinine 1.16 (0.66-1.25) mg/dL Est GFR (CKD-EPI)AfAm 83 (>60 ml/min/1.73 sqM) Est GFR (CKD-EPI)NonAf 72 (>60 ml/min/1.73 sqM) Glucose 155 H (74-99) mg/dL Plasma Lactic Acid Eric (0.7-2.0) mmol/L Calcium 8.8 (8.4-10.2) mg/dL Magnesium 1.7 (1.6-2.3) mg/dL Ferritin 546.0 H (22.0-322.0) ng/mL Total Bilirubin 1.1 (0.2-1.3) mg/dL AST 275 H (17-59) U/L ALT 192 H (4-49) U/L Alkaline Phosphatase 214 H (38-126) U/L Lactate Dehydrogenase 1508 H (313-618) U/L Troponin I <0.012 (0.000-0.034) ng/mL C-Reactive Protein 6.9 H (<1.0) mg/dL NT-Pro-B Natriuret Pep 23 pg/mL Total Protein 7.7 (6.3-8.2) g/dL Albumin 4.0 (3.5-5.0) g/dL Coronavirus (PCR) (Not Detectd) 08/06/21 Range/Units 23:45 WBC (3.8-10.6) k/uL RBC (4.30-5.90) m/uL Hgb (13.0-17.5) gm/dL Hct (39.0-53.0) % MCV (80.0-100.0) fL MCH (25.0-35.0) pg MCHC (31.0-37.0) g/dL RDW (11.5-15.5) % Plt Count (150-450) k/uL MPV Neutrophils % % Lymphocytes % % Monocytes % % Eosinophils % % Basophils % % Neutrophils # (1.3-7.7) k/uL Lymphocytes # (1.0-4.8) k/uL Monocytes # (0-1.0) k/uL Eosinophils # (0-0.7) k/uL Basophils # (0-0.2) k/uL PT (9.0-12.0) sec INR (<1.2) APTT (22.0-30.0) sec Sodium (137-145) mmol/L Potassium (3.5-5.1) mmol/L Chloride (98-107) mmol/L Carbon Dioxide (22-30) mmol/L Anion Gap mmol/L BUN (9-20) mg/dL Creatinine (0.66-1.25) mg/dL Est GFR (CKD-EPI)AfAm (>60 ml/min/1.73 sqM) Est GFR (CKD-EPI)NonAf (>60 ml/min/1.73 sqM) Glucose (74-99) mg/dL Plasma Lactic Acid Eric 1.2 (0.7-2.0) mmol/L Calcium (8.4-10.2) mg/dL Magnesium (1.6-2.3) mg/dL Ferritin (22.0-322.0) ng/mL Total Bilirubin (0.2-1.3) mg/dL AST (17-59) U/L ALT (4-49) U/L Alkaline Phosphatase (38-126) U/L Lactate Dehydrogenase (313-618) U/L Troponin I (0.000-0.034) ng/mL C-Reactive Protein (<1.0) mg/dL NT-Pro-B Natriuret Pep pg/mL Total Protein (6.3-8.2) g/dL Albumin (3.5-5.0) g/dL Coronavirus (PCR) (Not Detectd) - Radiology Data Radiology results: report reviewed (Chest x-rays positive for coronavirus with pneumonia), image reviewed Critical Care Time Critical Care Time: Yes Total Critical Care Time: 31 Disposition Clinical Impression: Acute respiratory failure with hypoxia, Coronavirus infection, Fever, COVID-19 Disposition: ADMITTED IP TO THIS HOSP Condition: Serious Is patient prescribed a controlled substance at d/c from ED?: No
[2021-08-06 23:01] LABS: Basophils % (A) 0 %; Eosinophils % (A) 0 %; HCT 47.8 % (39.0-53.0); HGB 16.2 gm/dL (13.0-17.5); Lymphocytes # (A) 0.6 k/uL (1.0-4.8); Lymphocytes % (A) 10 %; MCH 31.1 pg (25.0-35.0); MCV 91.5 fL (80.0-100.0); Monocytes # (A) 0.3 k/uL (0-1.0); Monocytes % (A) 5 %; Neutrophils # (A) 4.6 k/uL (1.3-7.7); Neutrophils % (A) 83 %; Platelet Count 133 k/uL (150-450); RBC 5.22 m/uL (4.30-5.90); RDW 12.5 % (11.5-15.5); WBC 5.5 k/uL (3.8-10.6)
--- NOTE | 2021-08-06 23:04 | XR ---
EXAMINATION TYPE: XR chest 1V portable DATE OF EXAM: 08/06/2021 COMPARISON: 07/23/2019 HISTORY: Cough and congestion. Pneumonia. TECHNIQUE: Single view FINDINGS: There is some bilateral interstitial infiltrate in the mid and lower lung antonio. Heart siz e is fairly normal. There is no obvious heart failure. There are chest leads. IMPRESSION: There is new Pulmonary interstitial infiltrates in the mid and lower lung antonio compared to old exam and consiste nt with pneumonia.
[2021-08-06 23:09] LABS: Prothrombin Time 10.4 sec (9.0-12.0)
[2021-08-06 23:32] LABS: C Reactive Protein 6.9 mg/dL (<1.0); Calcium 8.8 mg/dL (8.4-10.2); Magnesium 1.7 mg/dL (1.6-2.3); Potassium 3.6 mmol/L (3.5-5.1); Total Bilirubin 1.1 mg/dL (0.2-1.3); Total Protein 7.7 g/dL (6.3-8.2)
[2021-08-06] MEDS ORDERED: ONDANSETRON 4 MG/2 ML VIAL IVP PRN (23:57)
[2021-08-06] MEDS ORDERED: LORazepam 2 MG/ML INJ IV PRN (23:57)
[2021-08-06] MEDS ORDERED: NALOXONE 0.4 MG/ML 1 ML VIAL IV PRN (23:57)
[2021-08-06] MEDS ORDERED: IBUPROFEN 400 MG TAB PO PRN (23:57)
[2021-08-07] MEDS ORDERED: HYDROmorphone 1 MG/ML 1 ML SYRINGE IVP STA
[2021-08-07] MEDS: DEXAMETHASONE SOD PHOSPHATE 4 MG/ML 1 ML VIAL IVP SCH ×2 (00:07→06:44)
[2021-08-07] MEDS: SODIUM CHLORIDE 0.9% 1,000 ML IV SCH ×4 (06:01→19:56)
--- NOTE | 2021-08-07 07:44 | XR ---
EXAMINATION TYPE: XR chest 1V DATE OF EXAM: 08/07/2021 CLINICAL HISTORY: Difficulty breathing and hypoxia progress study. TECHNIQUE: Single AP portable upright view of the chest is obtained. COMPARISON: Chest x-ray from one day earlier and older studies FINDINGS: Persistent low lung volumes with reticular increased markings bilaterally and more conflue nt left greater than right bibasilar opacities. Cardiac blood size stable and upper limits of normal. Osseous structures are intact. Lateral left lung base not entirely imaged on current study. IMPRESSION: Low lung volumes with mild bilateral diffuse interstitial edema and/or infiltrates and mo re focal left greater than right bibasilar infiltrates are all redemonstrated. No significant change from one day earlier.
[2021-08-07] MEDS: ASCORBIC ACID 500 MG TAB PO SCH (09:28)
[2021-08-07] MEDS: CHOLECALCIFEROL 25 MCG (1000 IU) TABLET PO SCH (09:28)
[2021-08-07] MEDS: DEXAMETHASONE SOD PHOSPHATE 10 MG/ML 1 ML VIAL IVP SCH (11:06)
--- NOTE | 2021-08-07 11:06 | P.CNPUL ---
History of Present Illness Consult date: 08/07/21 Requesting physician: Ambreen Murray Reason for consult: dyspnea, cough, hypoxemia, pneumonia, abnormal CXR/CT Chief complaint: Shortness of breath and cough. History of present illness: Pulmonary consult dated 08/07/2021. 51-year-old male, who seen in the emergency department, in room 3. He perla arently has a history of a hearing deficit, sinus issues, and diverticular disease. The patient has not been feeling well for at least 8 days. The patient is unfortunately on vaccinated. He did test positive for coronavirus infection, and appears to have coronavirus associated pneumonia. The patient is on 15 L high flow nasal O2 and not getting any IV fluids. He is a very poor historian, but apparently he's been complaining of progressive shortness of breath, and painful cough. He denies any fever or chills. No chest pain or chest discomfort. Again, it was very difficult getting any history from this gentleman. He apparently is a lifelong nonsmoker. He appears quite short of breath. Based on his history, we believe he is a good candidate for Lovenox, Decadron, vitamins, and MARYSOL. White count 5.5, with a normal hemoglobin, and hematocrit. Platelet count a little low at 133,000. Coagulation studies are normal. There is no d-dimer, and it was ordered. Sodium 137, potassium 3.6, chlorides 105, CO2 19, anion gap 13, BUN 23, with a creatinine of 1.16. AST 275, ALT 192, alkaline phosphatase 214. LDH 1508. C-reactive protein is 6.9. Coronavirus testing was positive on August 06. Chest x-ray shows low lung volumes, with bilateral diffuse interstitial infiltrates. The abnormalities are greater on the left lung than on the right. Review of Systems REVIEW OF SYSTEMS: CONSTITUTIONAL: Weakness and fatigue. NEUROLOGIC: [ Negative.] HEENT: [ Negative.] CARDIAC: [Negative.] PULMONARY: Shortness of breath, chest congestion, and painful cough. GI: [Negative.] : [Negative.] RHEUMATOLOGIC: [ Negative.] IMMUNOLOGIC: [ Negative.] ENDOCRINE: [Negative. ] DERMATOLOGIC: [Negative.] Past Medical History Past Medical History: Hearing Disorder / Deafness, Musculoskeletal Disorder Additional Past Medical History / Comment(s): Sinus issues. Hx diverticulitis; Hiatal hernia. Pain in knees, hx injuries. Varicose veins. History of Any Multi-Drug Resistant Organisms: None Reported Past Surgical History: Cholecystectomy, Orthopedic Surgery Additional Past Surgical History / Comment(s): Rt Elbow dislocation procedure. Left foot surgery. Colonoscopy. Past Anesthesia/Blood Transfusion Reactions: No Reported Reaction Additional Past Anesthesia/Blood Transfusion Reaction / Comment(s): never had a blood transfusion Past Psychological History: No Psychological Hx Reported Smoking Status: Never smoker Past Alcohol Use History: Occasional Past Drug Use History: None Reported - Past Family History Mother Family Medical History: No Reported History Medications and Allergies Home Medications Medication Instructions Recorded Confirmed Type Ibuprofen [Motrin Ib] 800 mg PO Q8H PRN 01/25/20 08/06/21 History Albuterol Sulfate [Ventolin HFA] 1 - 2 puff INHALATION RT-Q6H PRN 08/06/21 08/06/21 History Cholecalciferol [Vitamin D3 (25 50 mcg PO DAILY 08/06/21 08/06/21 History Mcg = 1000 Iu)] Fluticasone Nasal [place] [Flonase 1 spray EA NOSTRIL DAILY 08/06/21 08/06/21 History Nasal [place]] Montelukast [Singulair] 10 mg PO DAILY 08/06/21 08/06/21 History Zinc 50 mg PO DAILY 08/06/21 08/06/21 History Allergies Allergy/AdvReac Type Severity Reaction Status Date / Time morphine Allergy Itching Verified 01/25/20 11:14 Physical Exam Osteopathic Statement: *. No significant issues noted on an osteopathic structural exam other than those noted in the History and Physical/Consult. Vitals: Vital Signs Temp Pulse Resp BP Pulse Ox 08/07/21 09:37 98.7 F 92 22 147/89 89 L 08/07/21 06:00 92 30 H 138/58 89 L 08/07/21 01:02 92 L 08/07/21 00:00 99.0 F 08/06/21 23:54 113 H 25 H 146/86 92 L 08/06/21 23:00 36 H 08/06/21 22:50 88 L 08/06/21 22:48 101.9 F H 124 H 30 H 132/85 91 L 08/06/21 22:15 67 L 08/06/21 22:11 99.3 F 131 H 28 H 130/74 82 L Intake and Output 08/06/21 08/07/21 08/07/21 22:59 06:59 14:59 Other: Weight 115.666 kg A bit lethargic, but arouses, currently on 15 L high flow oxygen. The patient does have some conversational dyspnea. No use of accessory muscles. No audible wheezing. Saturations are 89%. HEENT examination is grossly unremarkable. Neck supple. Full range of motion. No adenopathy thyromegaly or neck vein distention. Cardiovascular examination reveals regular rhythm rate. S1-S2 normal. No S3 or S4. No discernible murmur noted. Heart sounds are distant. Heart rate 92 bpm. Lungs reveal coarse bilateral rhonchi. Bibasilar crackles are noted. He does not take deep breaths. He coughs on deep inspiration. No crackles. Breath sounds are equal bilaterally. Abdomen soft bowel sounds are heard. No masses or tenderness. Extremities are intact. No cyanosis clubbing or edema. Skin is without rash or lesion. Neurologic examination is brief but nonfocal. Results - Laboratory Findings CBC and BMP: 08/06/21 22:35 08/06/21 22:35 PT/INR, D-dimer PT 10.4 sec (9.0-12.0) 08/06/21 22:35 INR 1.0 (<1.2) 08/06/21 22:35 Abnormal lab findings: Abnormal Labs 08/06/21 08/06/21 08/06/21 22:17 22:35 22:35 Plt Count 133 L Lymphocytes # 0.6 L Carbon Dioxide 19 L BUN 23 H Glucose 155 H AST 275 H ALT 192 H Alkaline Phosphatase 214 H Lactate Dehydrogenase 1508 H C-Reactive Protein 6.9 H Coronavirus (PCR) Detected A - Diagnostic Findings Chest x-ray: image reviewed Assessment and Plan Assessment: Acute hypoxemic respiratory failure secondary to coronavirus associated pneumonia. History of hearing disorder. History of diverticular disease. History of hiatal hernia. History of chronic sinus disease. History of varicose veins. Plan: Plan dated 08/05/2021. The patient is seen in ER room 3. He's quite ill. On 15 L high flow nasal cannula, saturations are hovering in the high 80s low 90s. The patient is quite tachypnea. The patient is a candidate for Lovenox, Decadron, vitamin C, vi tamin D3, zinc, and MARYSOL. There is certainly a chance that he'll get worse, and end up in the intensive care unit, and even prone core intubation and mechanical ventilation. We ordered D-dimer test. He may benefit from a CT angiogram. Additional recommendations and suggestions are forthcoming. His medications have been appropriately adjusted. Time with Patient: Greater than 30
[2021-08-07] MEDS: ENOXAPARIN 40 MG/0.4 ML SYRINGE SQ SCH (11:07)
--- NOTE | 2021-08-07 11:40 | P.HPIM ---
History of Present Illness H&P Date: 08/07/21 This 51-year-old male who presents to the with symptoms of shortness of breath and cough ongoing since last Wednesday. Patient states that Wednesday he started feeling short of breath, Wednesday his symptoms worsened and then on Wednesday he said that he began to feel the worst. He is having difficulty catching his breath and attributed this to his chronic sinus problems that he has. On Wednesday he went to the [facility] and was given some medication for his sinuses but did not help him, so he came to the ER. Patient was positive for Covid in the . He is not vaccinated. Home medications include zinc, vitamin D3, Singulair, Flonase, albuterol inhaler, and ibuprofen. Past medical history significant for sinus issues ongoing, diverticulitis, hernia, cholecystectomy, hard of hearing. Patient is a never smoker, reports occasional alcohol use nothing daily, no drug use. Chest x-ray in the shows diffuse bilateral interstitial edema and/or infiltrates left greater than right. Labs today show a white count of 5.5, platelet 133, sodium 137, potassium 3.6, mag 1.7, lactic acid 1.2. Vitals show a temp of 98.7, heart rate 92, blood pressure 147/90 on 15L HF, 15L NRB. Discussed with patient the next step would be BiPAP and possibly intubation. Patient is very claustrophobic and is having difficulty even with the nonrebreather. REVIEW OF SYSTEMS: CONSTITUTIONAL: Reports fatigue, malaise HEENT: No recent visual problems or hearing problems. Denied any sore throat. CARDIOVASCULAR: No chest pain, orthopnea, PND, no palpitations, no syncope. PULMONARY: No shortness of breath, no cough, no hemoptysis. GASTROINTESTINAL: No diarrhea, no nausea, no vomiting, no abdominal pain. NEUROLOGICAL: No headaches, no weakness, no numbness. HEMATOLOGICAL: Denies any bleeding or petechiae. GENITOURINARY: Denies any burning micturition, frequency, or urgency. MUSCULOSKELETAL/RHEUMATOLOGICAL: Denies any joint pain, swelling, or any muscle pain. ENDOCRINE: Denies any polyuria or polydipsia. The rest of the 14-point review of systems is negative. PHYSICAL EXAMINATION: GENERAL: The patient is alert and oriented x3, appears in respiratory distress, tachypneic HEENT: Pupils are round and equally reacting to light. Blueish hue to lips. CARDIOVASCULAR: S1 and S2 present. No murmurs, rubs, or gallops. PULMONARY: Chest is tight, decreased aeration, coarse scattered rhonchi, dy spneic with talking and at rest. ABDOMEN: Soft, nontender, nondistended, normoactive bowel sounds. No palpable organomegaly. Obese. MUSCULOSKELETAL: No joint swelling or deformity. EXTREMITIES: No cyanosis, clubbing, or pedal edema. NEUROLOGICAL: Gross neurological examination did not reveal any focal deficits. SKIN: No rashes. Assessment and plan Assessment Acute hypoxic respiratory failure secondary to COVID-19 pneumonia Elevated liver enzymes due to systemic inflammation History of chronic sinus issues History of diverticulitis History of cholecystitis GI Prophylaxis: Protonix DVT Prophylaxis: Lovenox FULL CODE Plan Pulmonary Consult Continue Decadron, Covid vitamins, MARYSOL Check DDimer recommended by pulmonary Possible CTA Continue all other supportive care Labs in the AM Prognosis is guarded for this patient. Past Medical History Past Medical History: Hearing Disorder / Deafness, Musculoskeletal Disorder Additional Past Medical History / Comment(s): Sinus issues. Hx diverticulitis; Hiatal hernia. Pain in knees, hx injuries. Varicose veins. History of Any Multi-Drug Resistant Organisms: None Reported Past Surgical History: Cholecystectomy, Orthopedic Surgery Additional Past Surgical History / Comment(s): Rt Elbow dislocation procedure. Left foot surgery. Colonoscopy. Past Anesthesia/Blood Transfusion Reactions: No Reported Reaction Additional Past Anesthesia/Blood Transfusion Reaction / Comment(s): never had a blood transfusion Past Psychological History: No Psychological Hx Reported Smoking Status: Never smoker Past Alcohol Use History: Occasional Past Drug Use History: None Reported - Past Family History Mother Family Medical History: No Reported History Medications and Allergies Home Medications Medication Instructions Recorded Confirmed Type Ibuprofen [Motrin Ib] 800 mg PO Q8H PRN 01/25/20 08/06/21 History Albuterol Sulfate [Ventolin HFA] 1 - 2 puff INHALATION RT-Q6H PRN 08/06/21 08/06/21 History Cholecalciferol [Vitamin D3 (25 50 mcg PO DAILY 08/06/21 08/06/21 History Mcg = 1000 Iu)] Fluticasone Nasal [place] [Flonase 1 spray EA NOSTRIL DAILY 08/06/21 08/06/21 History Nasal [place]] Montelukast [Singulair] 10 mg PO DAILY 08/06/21 08/06/21 History Zinc 50 mg PO DAILY 08/06/21 08/06/21 History Allergies Allergy/AdvReac Type Severity Reaction Status Date / Time morphine Allergy Itching Verified 01/25/20 11:14 Physical Exam Vitals: Vital Signs Temp Pulse Resp BP Pulse Ox 08/07/21 06:00 92 30 H 138/58 89 L 08/07/21 01:02 92 L 08/07/21 00:00 99.0 F 08/06/21 23:54 113 H 25 H 146/86 92 L 08/06/21 23:00 36 H 08/06/21 22:50 88 L 08/06/21 22:48 101.9 F H 124 H 30 H 132/85 91 L 08/06/21 22:15 67 L 08/06/21 22:11 99.3 F 131 H 28 H 130/74 82 L Intake and Output 08/06/21 08/07/21 08/07/21 22:59 06:59 14:59 Other: Weight 115.666 kg Results CBC & Chem 7: 08/06/21 22:35 08/06/21 22:35 Labs: Abnormal Lab Results - Last 24 Hours (Table) 08/06/21 08/06/21 08/06/21 Range/Units 22:17 22:35 22:35 Plt Count 133 L (150-450) k/uL Lymphocytes # 0.6 L (1.0-4.8) k/uL Carbon Dioxide 19 L (22-30) mmol/L BUN 23 H (9-20) mg/dL Glucose 155 H (74-99) mg/dL AST 275 H (17-59) U/L ALT 192 H (4-49) U/L Alkaline Phosphatase 214 H (38-126) U/L Lactate Dehydrogenase 1508 H (313-618) U/L C-Reactive Protein 6.9 H (<1.0) mg/dL Coronavirus (PCR) Detected A (Not Detectd) Assessment and Plan Time with Patient: Greater than 30
[2021-08-07] MEDS: BARICITINIB 2 MG TABLET PO SCH (14:37)
[2021-08-07] MEDS ORDERED: ALBUTEROL HFA INHALER INHALATION PRN (15:29)
[2021-08-07] MEDS: ALBUTEROL HFA INHALER INHALATION SCH ×2 (15:43→21:18)
[2021-08-07 16:54] LABS: ALT 168 U/L (4-49); AST 219 U/L (17-59); African American GFR (CKD) >90 (>60 ml/min/1.73 sqM); Albumin 3.6 g/dL (3.5-5.0); Alkaline Phosphatase 185 U/L (38-126); Anion Gap 12 mmol/L; Blood Urea Nitrogen 19 mg/dL (9-20); Carbon Dioxide 19 mmol/L (22-30); Chloride 108 mmol/L (98-107); Glucose 142 mg/dL (74-99); LDH 1700 U/L (313-618); Magnesium 1.9 mg/dL (1.6-2.3); Non-African American GFR(CKD) >90 (>60 ml/min/1.73 sqM); Phosphorus 2.4 mg/dL (2.5-4.5); Potassium 3.9 mmol/L (3.5-5.1); Sodium 139 mmol/L (137-145); Total Bilirubin 0.9 mg/dL (0.2-1.3); Total Protein 7.4 g/dL (6.3-8.2)
[2021-08-07 17:03] LABS: Basophils % (A) 1 %; Eosinophils % (A) 0 %; HCT 47.6 % (39.0-53.0); Lymphocytes # (A) 0.7 k/uL (1.0-4.8); Lymphocytes % (A) 15 %; MCH 31.1 pg (25.0-35.0); MCHC 33.6 g/dL (31.0-37.0); MCV 92.3 fL (80.0-100.0); Mean Platelet Volume 8.4; Monocytes # (A) 0.3 k/uL (0-1.0); Monocytes % (A) 5 %; Neutrophils # (A) 3.8 k/uL (1.3-7.7); Neutrophils % (A) 78 %; Platelet Count 138 k/uL (150-450); RBC 5.15 m/uL (4.30-5.90); RDW 12.6 % (11.5-15.5); WBC 4.9 k/uL (3.8-10.6)
[2021-08-08] MEDS: SODIUM CHLORIDE 0.9% 1,000 ML IV SCH ×3 (04:32→21:05)
[2021-08-08 06:37] LABS: Glucose,Whole Blood 114 mg/dL (75-99)
[2021-08-08] MEDS: INSULIN ASPART (NovoLOG) 100 UNIT/ML VIAL SQ SCH ×4 (06:44→20:28)
[2021-08-08] MEDS: ALBUTEROL HFA INHALER INHALATION SCH ×4 (07:28→20:15)
[2021-08-08] MEDS: DEXAMETHASONE SOD PHOSPHATE 10 MG/ML 1 ML VIAL IVP SCH (09:00)
[2021-08-08] MEDS: CHOLECALCIFEROL 25 MCG (1000 IU) TABLET PO SCH (09:01)
[2021-08-08] MEDS: ASCORBIC ACID 500 MG TAB PO SCH (09:01)
[2021-08-08] MEDS: BARICITINIB 2 MG TABLET PO SCH (09:01)
[2021-08-08] MEDS: ENOXAPARIN 40 MG/0.4 ML SYRINGE SQ SCH (09:01)
[2021-08-08] MEDS: ZINC SULFATE 220 MG CAP PO SCH (09:01)
[2021-08-08 09:53] LABS: Basophils % (A) 0 %; Eosinophils % (A) 0 %; HCT 44.4 % (39.0-53.0); HGB 15.4 gm/dL (13.0-17.5); Lymphocytes # (A) 0.7 k/uL (1.0-4.8); Lymphocytes % (A) 9 %; MCH 31.5 pg (25.0-35.0); MCHC 34.6 g/dL (31.0-37.0); Mean Platelet Volume 7.8; Monocytes # (A) 0.4 k/uL (0-1.0); Monocytes % (A) 5 %; Neutrophils # (A) 6.3 k/uL (1.3-7.7); Neutrophils % (A) 83 %; Platelet Count 171 k/uL (150-450); RBC 4.88 m/uL (4.30-5.90); RDW 12.9 % (11.5-15.5); WBC 7.6 k/uL (3.8-10.6)
[2021-08-08 10:18] LABS: ALT 141 U/L (4-49); AST 191 U/L (17-59); African American GFR (CKD) >90 (>60 ml/min/1.73 sqM); Albumin 3.3 g/dL (3.5-5.0); Alkaline Phosphatase 159 U/L (38-126); Anion Gap 8 mmol/L; Blood Urea Nitrogen 23 mg/dL (9-20); Calcium 8.6 mg/dL (8.4-10.2); Carbon Dioxide 23 mmol/L (22-30); Chloride 111 mmol/L (98-107); Glucose 117 mg/dL (74-99); Non-African American GFR(CKD) >90 (>60 ml/min/1.73 sqM); Potassium 3.9 mmol/L (3.5-5.1); Sodium 142 mmol/L (137-145); Total Bilirubin 0.9 mg/dL (0.2-1.3); Total Protein 6.9 g/dL (6.3-8.2)
[2021-08-08 11:55] LABS: Glucose,Whole Blood 119 mg/dL (75-99)
--- NOTE | 2021-08-08 14:54 | P.PN ---
Subjective Progress Note Date: 08/08/21 Principal diagnosis: COVID-19 pneumonia 51-year-old male, who seen in the emergency department, in room 3. He apparently has a history of a hearing deficit, sinus issues, and diverticular disease. The patient has not been feeling well for at least 8 days. The patient is unfortunately on vaccinated. He did test positive for coronavirus infection, and appears to have coronavirus associated pneumonia. The patient is on 15 L high flow nasal O2 and not getting any IV fluids. He is a very poor historian, but apparently he's been complaining of progressive shortness of audra th, and painful cough. He denies any fever or chills. No chest pain or chest discomfort. Again, it was very difficult getting any history from this gentleman. He apparently is a lifelong nonsmoker. He appears quite short of breath. Based on his history, we believe he is a good candidate for Lovenox, Decadron, vitamins, and MARYSOL. White count 5.5, with a normal hemoglobin, and hematocrit. Platelet count a little low at 133,000. Coagulation studies are normal. There is no d-dimer, and it was ordered. Sodium 137, potassium 3.6, chlorides 105, CO2 19, anion gap 13, BUN 23, with a creatinine of 1.16. AST 275, ALT 192, alkaline phosphatase 214. LDH 1508. C-reactive protein is 6.9. Coronavirus testing was positive on August 06. Chest x-ray shows low lung volumes, with bilateral diffuse interstitial infiltrates. The abnormalities are greater on the left lung than on the right. The patient is seen today 08/08/2021 in follow-up in the intensive care unit. He was brought down from the regular floor earlier this morning with worsening shortness of breath and oxygen desaturations. He is now on the AirVo at 55 L and 93% FiO2 plus a nonrebreather mask. He is pronating himself in bed. He is currently oxygenating at 90%. He remains on Decadron, Lovenox, Baricitinib and vitamin supplements. White count 7.6. Hemoglobin 15.4. Lymphocytes 0.7. Sodium 142. Potassium 3.9. Creatinine 0.79. AST 191. ALT 141. Alk phos 159. Objective - Vital Signs Vital signs: Vital Signs Temp 98.0 F 08/08/21 09:05 Pulse 87 08/08/21 09:05 Resp 26 H 08/08/21 09:05 BP 137/89 08/08/21 09:05 Pulse Ox 90 L 08/08/21 03:38 Intake & Output 08/07/21 08/08/21 08/08/21 18:59 06:59 18:59 Output Total 500 300 Balance -500 -300 Weight 114 kg Output: Urine 500 Stool 300 Other: Voiding Method Urinal Urinal # Voids 1 # Bowel Movements 1 - Exam GENERAL EXAM: Alert, pleasant 51-year-old gentleman, currently on AirVo at 55 L and 93% FiO2, in mild respiratory distress. HEAD: Normocephalic. EYES: Normal reaction of pupils, equal size. NOSE: Clear with pink turbinates. THROAT: No erythema or exudates. NECK: No masses, no JVD. CHEST: No chest wall deformity. LUNGS: Equal air entry with coarse crackles in the bilateral bases. CVS: S1 and S2 normal with no audible murmur, regular rhythm. ABDOMEN: No hepatosplenomegaly, normal bowel sounds, no guarding or rigidity. SPINE: No scoliosis or deformity SKIN: No rashes CENTRAL NERVOUS SYSTEM: No focal deficits, tone is normal in all 4 extremities. EXTREMITIES: There is no peripheral edema. No clubbing, no cyanosis. Peripheral pulses are intact. - Labs CBC & Chem 7: 08/08/21 08:54 08/08/21 08:54 Labs: Abnormal Lab Results - Last 24 Hours (Table) 08/07/21 08/07/21 08/07/21 Range/Units 15:33 15:33 15:33 Plt Count 138 L (150-450) k/uL Lymphocytes # 0.7 L (1.0-4.8) k/uL D-Dimer 0.78 H (<0.60) mg/L FEU Chloride 108 H (98-107) mmol/L Carbon Dioxide 19 L (22-30) mmol/L BUN (9-20) mg/dL Glucose 142 H (74-99) mg/dL POC Glucose (mg/dL) (75-99) mg/dL Phosphorus 2.4 L (2.5-4.5) mg/dL AST 219 H (17-59) U/L ALT 168 H (4-49) U/L Alkaline Phosphatase 185 H (38-126) U/L Lactate Dehydrogenase 1700 H (313-618) U/L Albumin (3.5-5.0) g/dL Procalcitonin (0.02-0.09) ng/mL 08/07/21 08/08/21 08/08/21 Range/Units 15:33 06:34 08:54 Plt Count (150-450) k/uL Lymphocytes # 0.7 L (1.0-4.8) k/uL D-Dimer (<0.60) mg/L FEU Chloride (98-107) mmol/L Carbon Dioxide (22-30) mmol/L BUN (9-20) mg/dL Glucose (74-99) mg/dL POC Glucose (mg/dL) 114 H (75-99) mg/dL Phosphorus (2.5-4.5) mg/dL AST (17-59) U/L ALT (4-49) U/L Alkaline Phosphatase (38-126) U/L Lactate Dehydrogenase (313-618) U/L Albumin (3.5-5.0) g/dL Procalcitonin 0.47 H (0.02-0.09) ng/mL 08/08/21 08/08/21 Range/Units 08:54 11:54 Plt Count (150-450) k/uL Lymphocytes # (1.0-4.8) k/uL D-Dimer (<0.60) mg/L FEU Chloride 111 H (98-107) mmol/L Carbon Dioxide (22-30) mmol/L BUN 23 H (9-20) mg/dL Glucose 117 H (74-99) mg/dL POC Glucose (mg/dL) 119 H (75-99) mg/dL Phosphorus (2.5-4.5) mg/dL AST 191 H (17-59) U/L ALT 141 H (4-49) U/L Alkaline Phosphatase 159 H (38-126) U/L Lactate Dehydrogenase (313-618) U/L Albumin 3.3 L (3.5-5.0) g/dL Procalcitonin (0.02-0.09) ng/mL Assessment and Plan Assessment: 1 Acute hypoxemic respiratory failure secondary to COVID-19 pneumonia. Not vaccinated. Currently on AirVo high flow oxygen and transferred to the ICU on 08/08/2021 2 Transaminitis secondary to above 3 Elevated inflammatory markers secondary to above 4 Hearing disorder 5 Hiatal hernia 6 History of chronic sinus disease 7 History of varicose veins Plan: The patient was seen and evaluated by Dr. Lora Continue to titrate the FiO2 as tolerated Continue Baricitinib, Lovenox, Decadron Prone as much as possible Prognosis is guarded Continue to monitor him closely in the ICU We will continue to follow and make further recommendations based on his clinical status Critical care time 36 minutes I, the cosigning physician, performed a history & physical examination of the patient. Lungs sounds are with coarse crackles in the bilateral bases. Maintaining O2 saturations in the 90s on AirVo high flow oxygen at 55 L and 93% FiO2 plus a nonrebreather mask.. I discussed the assessment and plan of care with my nurse practitioner, Digna Fontaine. I attest to the above note as dictated by her.
[2021-08-08 18:58] LABS: Glucose,Whole Blood 109 mg/dL (75-99)
[2021-08-08] MEDS: DEXMEDETOMIDINE/0.9% NACL(PMX) 400 MCG in EMPTY BAG 1 BAG IV SCH (22:06)
[2021-08-09] MEDS: DEXMEDETOMIDINE/0.9% NACL(PMX) 400 MCG in EMPTY BAG 1 BAG IV SCH (04:27)
[2021-08-09] MEDS: SODIUM CHLORIDE 0.9% 1,000 ML IV SCH ×3 (04:28→21:06)
[2021-08-09 04:36] LABS: Basophils % (A) 0 %; Eosinophils % (A) 0 %; HCT 42.5 % (39.0-53.0); HGB 15.3 gm/dL (13.0-17.5); Lymphocytes # (A) 0.6 k/uL (1.0-4.8); Lymphocytes % (A) 10 %; MCH 33.2 pg (25.0-35.0); MCHC 36.1 g/dL (31.0-37.0); MCV 91.9 fL (80.0-100.0); Mean Platelet Volume 8.1; Monocytes # (A) 0.4 k/uL (0-1.0); Monocytes % (A) 6 %; Neutrophils # (A) 5.2 k/uL (1.3-7.7); Neutrophils % (A) 82 %; Platelet Count 169 k/uL (150-450); RBC 4.62 m/uL (4.30-5.90); RDW 12.9 % (11.5-15.5); WBC 6.3 k/uL (3.8-10.6)
[2021-08-09 05:16] LABS: ALT 135 U/L (4-49); AST 167 U/L (17-59); African American GFR (CKD) >90 (>60 ml/min/1.73 sqM); Albumin 3.2 g/dL (3.5-5.0); Alkaline Phosphatase 150 U/L (38-126); Anion Gap 7 mmol/L; Blood Urea Nitrogen 25 mg/dL (9-20); Calcium 8.4 mg/dL (8.4-10.2); Carbon Dioxide 21 mmol/L (22-30); Chloride 112 mmol/L (98-107); Glucose 126 mg/dL (74-99); Non-African American GFR(CKD) >90 (>60 ml/min/1.73 sqM); Potassium 3.9 mmol/L (3.5-5.1); Sodium 140 mmol/L (137-145); Total Bilirubin 1.3 mg/dL (0.2-1.3); Total Protein 6.7 g/dL (6.3-8.2)
[2021-08-09 05:33] LABS: ABG Base Excess -1.4 mmol/L; ABG HCO3 22 mmol/L (21-25); ABG Oxygen Saturation 91.6 % (94-97); ABG PCO2 30 mmHg (35-45); ABG PH 7.47 (7.35-7.45); ABG PO2 60 mmHg (83-108); ABG TCO2 23 mmol/L (19-24); Allen Test Performed? Yes
[2021-08-09] MEDS: INSULIN ASPART (NovoLOG) 100 UNIT/ML VIAL SQ SCH ×3 (06:45→23:59)
[2021-08-09] MEDS: ALBUTEROL HFA INHALER INHALATION SCH ×4 (08:10→20:08)
[2021-08-09] MEDS: CHOLECALCIFEROL 25 MCG (1000 IU) TABLET PO SCH (09:10)
[2021-08-09] MEDS: ASCORBIC ACID 500 MG TAB PO SCH (09:10)
[2021-08-09] MEDS: DEXAMETHASONE SOD PHOSPHATE 10 MG/ML 1 ML VIAL IVP SCH (09:10)
[2021-08-09] MEDS: BARICITINIB 2 MG TABLET PO SCH (09:10)
[2021-08-09] MEDS: ZINC SULFATE 220 MG CAP PO SCH (09:10)
[2021-08-09] MEDS: ENOXAPARIN 40 MG/0.4 ML SYRINGE SQ SCH (09:10)
[2021-08-09 11:14] LABS: Glucose,Whole Blood 106 mg/dL (75-99)
[2021-08-09] MEDS ORDERED: CISATRACURIUM 2 MG/ML 5 ML VIAL IV ONE ×2 (11:46→12:09)
--- NOTE | 2021-08-09 11:47 | P.PN ---
Subjective Progress Note Date: 08/08/21 Principal diagnosis: Acute hypoxic respiratory failure secondary to COVID-19 pneumonia Elevated liver enzymes due to systemic inflammation 51-year-old male who presents to the [facility] with symptoms of shortness of breath and cough ongoing since last Wednesday. Patient states that Wednesday he started feeling short of breath, Wednesday his symptoms worsened and then on Wednesday he sa id that he began to feel the worst. He is having difficulty catching his breath and attributed this to his chronic sinus problems that he has. On Wednesday he went to the [facility] and was given some medication for his sinuses but did not help him, so he came to the ER. Patient was positive for Covid in the [facility]. He is not vaccinated. Home medications include zinc, vitamin D3, Singulair, Flonase, albuterol inhaler, and ibuprofen. Past medical history significant for sinus issues ongoing, diverticulitis, hernia, cholecystectomy, hard of hearing. Patient is a never smoker, reports occasional alcohol use nothing daily, no drug use. Chest x-ray in the [facility] shows diffuse bilateral interstitial edema and/or infiltrates left greater than right. Labs today show a white count of 5.5, platelet 133, sodium 137, potassium 3.6, mag 1.7, lactic acid 1.2. Vitals show a temp of 98.7, heart rate 92, blood pressure 147/90 on 15L HF, 15L NRB. Discussed with patient the next step would be BiPAP and possibly intubation. Patient is very claustrophobic and is having difficulty even with the nonrebreather. 08/08/2021 Patient is seen and evaluated in room at bedside; reports worsening breathing and has been desaturating down to low 80s; pulmonary service on board and recommending patient be transferred to ICU Vital signs reviewed temperature 98.0 pulse 87 respiration 26 and blood pressure 137 with 89 Lab review shows diffuse he 7.6, hemoglobin 15.4 and platelet count of 171, sodium 142, potassium 3.9, BUN/creatinine of 23/0.7; d-dimer of 0.78 We will continue to titrate FiO2; self-propelling is encouraged; patient remains on Baricitinib, Lovenox, Decadron for Covid 19 protocol Objective - Vital Signs Vital signs: Vital Signs Temp 98.0 F 08/08/21 09:05 Pulse 87 08/08/21 09:05 Resp 26 H 08/08/21 09:05 BP 137/89 08/08/21 09:05 Pulse Ox 90 L 08/08/21 03:38 Intake & Output 08/07/21 08/08/21 08/08/21 18:59 06:59 18:59 Output Total 500 Balance -500 Weight 114 kg Output: Urine 500 Other: Voiding Method Urinal Urinal # Voids 1 # Bowel Movements 1 - Exam GENERAL: The patient is alert and oriented x3, appears in respiratory distress, tachypneic HEENT: Pupils are round and equally reacting to light. Blueish hue to lips. CARDIOVASCULAR: S1 and S2 present. No murmurs, rubs, or gallops. PULMONARY: Chest is tight, decreased aeration, coarse scattered rhonchi, dyspneic with talking and at rest. ABDOMEN: Soft, nontender, nondistended, normoactive bowel sounds. No palpable organomegaly. Obese. MUSCULOSKELETAL: No joint swelling or deformity. EXTREMITIES: No cyanosis, clubbing, or pedal edema. NEUROLOGICAL: Gross neurological examination did not reveal any focal deficits. SKIN: No rashes. - Labs CBC & Chem 7: 08/09/21 04:06 08/09/21 04:06 Labs: Abnormal Lab Results - Last 24 Hours (Table) 08/06/21 08/07/21 08/07/21 Range/Units 22:35 15:33 15:33 Plt Count 138 L (150-450) k/uL Lymphocytes # 0.7 L (1.0-4.8) k/uL D-Dimer (<0.60) mg/L FEU Chloride 108 H (98-107) mmol/L Carbon Dioxide 19 L (22-30) mmol/L BUN (9-20) mg/dL Glucose 142 H (74-99) mg/dL POC Glucose (mg/dL) (75-99) mg/dL Phosphorus 2.4 L (2.5-4.5) mg/dL Ferritin 546.0 H (22.0-322.0) ng/mL AST 219 H (17-59) U/L ALT 168 H (4-49) U/L Alkaline Phosphatase 185 H (38-126) U/L Lactate Dehydrogenase 1700 H (313-618) U/L Albumin (3.5-5.0) g/dL Procalcitonin (0.02-0.09) ng/mL 08/07/21 08/07/21 08/08/21 Range/Units 15:33 15:33 06:34 Plt Count (150-450) k/uL Lymphocytes # (1.0-4.8) k/uL D-Dimer 0.78 H (<0.60) mg/L FEU Chloride (98-107) mmol/L Carbon Dioxide (22-30) mmol/L BUN (9-20) mg/dL Glucose (74-99) mg/dL POC Glucose (mg/dL) 114 H (75-99) mg/dL Phosphorus (2.5-4.5) mg/dL Ferritin (22.0-322.0) ng/mL AST (17-59) U/L ALT (4-49) U/L Alkaline Phosphatase (38-126) U/L Lactate Dehydrogenase (313-618) U/L Albumin (3.5-5.0) g/dL Procalcitonin 0.47 H (0.02-0.09) ng/mL 08/08/21 08/08/21 Range/Units 08:54 08:54 Plt Count (150-450) k/uL Lymphocytes # 0.7 L (1.0-4.8) k/uL D-Dimer (<0.60) mg/L FEU Chloride 111 H (98-107) mmol/L Carbon Dioxide (22-30) mmol/L BUN 23 H (9-20) mg/dL Glucose 117 H (74-99) mg/dL POC Glucose (mg/dL) (75-99) mg/dL Phosphorus (2.5-4.5) mg/dL Ferritin (22.0-322.0) ng/mL AST 191 H (17-59) U/L ALT 141 H (4-49) U/L Alkaline Phosphatase 159 H (38-126) U/L Lactate Dehydrogenase (313-618) U/L Albumin 3.3 L (3.5-5.0) g/dL Procalcitonin (0.02-0.09) ng/mL Assessment and Plan Assessment: Acute hypoxic respiratory failure secondary to COVID-19 pneumonia Elevated liver enzymes due to systemic inflammation History of chronic sinus issues History of diverticulitis History of cholecystitis GI Prophylaxis: Protonix DVT Prophylaxis: Lovenox FULL CODE Plan Pulmonary Consult Continue Decadron, Covid vitamins, MARYSOL Check DDimer recommended by pulmonary Possible CTA Continue all other supportive care Labs in the AM Prognosis is guarded for this patient.
--- NOTE | 2021-08-09 12:49 | P.PN ---
Subjective Progress Note Date: 08/09/21 Principal diagnosis: COVID-19 pneumonia 51-year-old male, who seen in the emergency department, in room 3. He apparently has a history of a hearing deficit, sinus issues, and diverticular disease. The patient has not been feeling well for at least 8 days. The patient is unfortunately on vaccinated. He did test positive for coronavirus infection, and appears to have coronavirus associated pneumonia. The patient is on 15 L high flow nasal O2 and not getting any IV fluids. He is a very poor historian, but apparently he's been complaining of progressive shortness of audra th, and painful cough. He denies any fever or chills. No chest pain or chest discomfort. Again, it was very difficult getting any history from this gentleman. He apparently is a lifelong nonsmoker. He appears quite short of breath. Based on his history, we believe he is a good candidate for Lovenox, Decadron, vitamins, and MARYSOL. White count 5.5, with a normal hemoglobin, and hematocrit. Platelet count a little low at 133,000. Coagulation studies are normal. There is no d-dimer, and it was ordered. Sodium 137, potassium 3.6, chlorides 105, CO2 19, anion gap 13, BUN 23, with a creatinine of 1.16. AST 275, ALT 192, alkaline phosphatase 214. LDH 1508. C-reactive protein is 6.9. Coronavirus testing was positive on August 06. Chest x-ray shows low lung volumes, with bilateral diffuse interstitial infiltrates. The abnormalities are greater on the left lung than on the right. The patient is seen today 08/08/2021 in follow-up in the intensive care unit. He was brought down from the regular floor earlier this morning with worsening shortness of breath and oxygen desaturations. He is now on the AirVo at 55 L and 93% FiO2 plus a nonrebreather mask. He is pronating himself in bed. He is currently oxygenating at 90%. He remains on Decadron, Lovenox, Baricitinib and vitamin supplements. White count 7.6. Hemoglobin 15.4. Lymphocytes 0.7. Sodium 142. Potassium 3.9. Creatinine 0.79. AST 191. ALT 141. Alk phos 159. The patient is seen today 08/09/2021 in follow-up in the intensive care unit. His condition had to deteriorate. He was unable to tolerate BiPAP. Was initially still on AirVo at 60 L/m and 90% FiO2 plus a nonrebreather mask. 0.9 normal saline at 130 ML's per hour. Precedex 0.8 mg/kg per hour. His oxygen saturations were decreasing and his respiratory rate was increasing. He subsequently required intubation and mechanical ventilatory support today. He was intubated per [employer] RENTAL CLERK. On the mechanical ventilator with current settings assist control mode at a rate of 30, tidal volume 450, FiO2 100% and a PEEP of 10. He is sedated with propofol. A left-sided subclavian triple-lumen catheter was placed. A right radial arterial line was placed. The patient is currently hypertensive and may require clevidipine drip. Oxygen saturations have improved. Arterial blood gases are pending. WBC 6.3. Hemoglobin 15.3. Platelets 169. Lymphocytes 0.6. Sodium 140. Potassium 3.9. Bicarb 21. BUN 25. Creatinine 0.76. AST 167. ALT 135. He remains on Decadron, Lovenox, Baricitinib and vitamin supplements. Objective - Vital Signs Vital signs: Vital Signs Temp 97.8 F 08/09/21 00:00 Pulse 68 08/09/21 09:00 Resp 45 H 08/09/21 09:00 BP 118/70 08/09/21 09:00 Pulse Ox 86 L 08/09/21 09:00 Intake & Output 08/08/21 08/09/21 08/09/21 18:59 06:59 18:59 Intake Total 375 2187.39 390 Output Total 425 1010 185 Balance -50 1177.39 205 Intake: IV 375 1395 390 0.9 375 1395 390 Intake, IV Titration 72.39 Amount Dexmedetomidine/0.9% NaCl 72.39 (Pmx) 400 mcg In Empty Bag 1 bag @ 0.2 MCG/KG/HR 5.7 mls/hr IV .[id number] [facility] Rx#:[id number] Oral 720 Output: Urine 125 1010 185 Stool 300 Other: Voiding Method Urinal Indwelling Catheter Indwelling Catheter - Exam GENERAL EXAM: Intubated, sedated pleasant 51-year-old gentleman, currently on a ventilator on 100% FiO2 and a PEEP of 10. HEAD: Normocephalic. EYES: Normal reaction of pupils, equal size. NOSE: Clear with pink turbinates. THROAT: Oral endotracheal and gastric tube secured in place. No erythema or exudates. NECK: No masses, no JVD. CHEST: No chest wall deformity. LUNGS: Equal air entry with coarse crackles in the bilateral bases. CVS: S1 and S2 normal with no audible murmur, regular rhythm. ABDOMEN: No hepatosplenomegaly, normal bowel sounds, no guarding or rigidity. SPINE: No scoliosis or deformity SKIN: No rashes CENTRAL NERVOUS SYSTEM: Sedated and paralyzed, tone is normal in all 4 extremities. EXTREMITIES: There is no peripheral edema. No clubbing, no cyanosis. Peripheral pulses are intact. - Labs CBC & Chem 7: 08/09/21 04:06 08/09/21 04:06 Labs: Abnormal Lab Results - Last 24 Hours (Table) 08/08/21 08/09/21 08/09/21 Range/Units 18:57 04:06 04:06 Lymphocytes # 0.6 L (1.0-4.8) k/uL ABG pH (7.35-7.45) ABG pCO2 (35-45) mmHg ABG pO2 (83-108) mmHg ABG O2 Saturation (94-97) % Chloride 112 H (98-107) mmol/L Carbon Dioxide 21 L (22-30) mmol/L BUN 25 H (9-20) mg/dL Glucose 126 H (74-99) mg/dL POC Glucose (mg/dL) 109 H (75-99) mg/dL AST 167 H (17-59) U/L ALT 135 H (4-49) U/L Alkaline Phosphatase 150 H (38-126) U/L Albumin 3.2 L (3.5-5.0) g/dL 08/09/21 08/09/21 Range/Units 05:24 11:13 Lymphocytes # (1.0-4.8) k/uL ABG pH 7.47 H (7.35-7.45) ABG pCO2 30 L (35-45) mmHg ABG pO2 60 L (83-108) mmHg ABG O2 Saturation 91.6 L (94-97) % Chloride (98-107) mmol/L Carbon Dioxide (22-30) mmol/L BUN (9-20) mg/dL Glucose (74-99) mg/dL POC Glucose (mg/dL) 106 H (75-99) mg/dL AST (17-59) U/L ALT (4-49) U/L Alkaline Phosphatase (38-126) U/L Albumin (3.5-5.0) g/dL Assessment and Plan Assessment: 1 Acute hypoxemic respiratory failure secondary to COVID-19 pneumonia. Not vaccinated. Currently on AirVo high flow oxygen and transferred to the ICU on 08/08/2021. Subsequently required intubation and mechanical ventilatory support on 08/09/2021. 2 Transaminitis secondary to above 3 Elevated inflammatory markers secondary to above 4 Hearing disorder 5 Hiatal hernia 6 History of chronic sinus disease 7 History of varicose veins Plan: The patient was seen and evaluated by Dr. Lora The patient's condition deteriorated and he was intubated today Currently on 100% FiO2 and a PEEP of 10 Currently on propofol and Nimbex May require clevidipine for hypertension Follow-up chest x-ray and ABGs are pending Continue Baricitinib, Lovenox, Decadron Prone if possible Prognosis is guarded We will continue to follow and make further recommendations based on his clinical status Critical care time 38 minutes not including procedures I, the cosigning physician, performed a history & physical examination of the patient. Lungs sounds are with coarse crackles in the bilateral bases. Maintaining O2 saturations in the 90s on 100% FiO2 and a PEEP of 10 via the mechanical ventilator.. I discussed the assessment and plan of care with my nurse practitioner, Digna Fontaine. I attest to the above note as dictated by her.
--- NOTE | 2021-08-09 12:58 | XR ---
EXAMINATION TYPE: XR chest 1V portable DATE OF EXAM: 08/09/2021 CLINICAL HISTORY: Difficulty breathing had to be intubated. TECHNIQUE: Single AP portable supine view of the chest is obtained. COMPARISON: Chest x-ray from 2 days earlier FINDINGS: New Endotracheal tube terminating at aortic knob level approximately 3.0 cm above autumn. New orogastric tube projecting below diaphragm. New left subclavian central venous catheter terminati ng in SVC. Persistent low lung volumes with bilateral reticular multifocal and confluent opacities show more pro minence from most recent prior. Cardiac silhouette size stable and within normal limits. Osseous stru ctures are intact. IMPRESSION: 1. Satisfactory positioning of new orogastric and endotracheal tubes. 2. New left subclavian central venous catheter terminating in SVC, no pneumothorax. 3. Worsening bilateral multifocal and confluent opacities consistent with covid-19 infection progress ion and/or developing ARDS.
[2021-08-09] MEDS: CISATRACURIUM 200 MG in SODIUM CHLORIDE 0.9% 180 ML IV SCH (13:06)
[2021-08-09 13:09] LABS: ABG Base Excess -4.5 mmol/L; ABG HCO3 23 mmol/L (21-25); ABG Oxygen Saturation 97.8 % (94-97); ABG PCO2 54 mmHg (35-45); ABG PH 7.24 (7.35-7.45); ABG PO2 129 mmHg (83-108); ABG TCO2 25 mmol/L (19-24)
[2021-08-09 13:13] LABS: Allen Test Performed? no
--- NOTE | 2021-08-09 15:29 | PCN ---
PROCEDURE NOTE TRIPLE LUMEN CATHETER PLACEMENT: Indication: Hemodynamic monitoring/Intravenous access. PREOP DIAGNOSIS: Administration of fluids and pressors. POSTOP DIAGNOSIS: Administration of fluids and pressors. OPERATORS: Dr. Lora, Dr. Fontaine A time-out was completed verifying correct patient, procedure, site, positioning, and implant(s) or special equipment if applicable. The patient was placed in a dependent position appropriate for triple lumen catheter placement based on the vein to be cannulated. The patient's left shoulder was prepped and draped in sterile fashion. 1% Lidocaine was used to anesthetize the surrounding skin area. A triple lumen 9F Cordis catheter was introduced into the subclavian vein using Seldinger technique. The catheter was threaded smoothly over the guide wire and appropriate blood return was obtained. Each lumen of the catheter was evacuated of air and flushed with sterile saline. The catheter was then sutured in place to the skin and a sterile dressing applied. Perfusion to the extremity distal to the point of catheter insertion was checked and found to be adequate. There was informed consent and universal timeout. We used the left subclavian site. There was no immediate complication. The there was good blood return from all 3 ports. The catheter was sutured in place. A sterile dressing was applied by the nurse. There was no immediate complication. A chest x-ray was ordered to check placement and rule out pneumothorax. MMODL / IJN: [id number] /
--- NOTE | 2021-08-09 15:29 | PCN ---
PROCEDURE NOTE RIGHT RADIAL ART LINE: PREOP DIAGNOSIS: Frequent blood draws and blood gas monitoring. POSTOP DIAGNOSIS: Frequent blood draws and blood gas monitoring. OPERATORS: Dr. Lora, and Dr. Fontaine. ARTERIAL LINE PLACEMENT: Indications: Hemodynamic monitoring. A time-out was completed verifying correct patient, procedure, site, positioning, and implant(s) or special equipment if applicable. Ishan's test was performed to ensure adequate perfusion. The patient's right wrist was prepped and draped in sterile fashion. 1% Lidocaine was used to anesthetize the area. An 18G Arrow arterial line was introduced into the radial artery. The catheter was threaded over the guide wire and the needle was removed with appropriate pulsatile blood return. Blood loss was minimal. The catheter was then sutured in place to the skin and a sterile dressing applied. Perfusion to the extremity distal to the point of catheter insertion was checked and found to be adequate. The patient tolerated the procedure well and there were no complications. There was informed consent and universal timeout. We used the right radial artery. There was no immediate complication. There was good blood return and waveform. The catheter was sutured in place and a sterile dressing was applied by the nurse. MMODL / IJN: [id number] /
[2021-08-09 18:23] LABS: Glucose,Whole Blood 132 mg/dL (75-99)
[2021-08-09] MEDS: CHLORHEXIDINE GLUCONATE 15 ML CUP MUCOUS MEM SCH (21:06)
[2021-08-09 23:56] LABS: Glucose,Whole Blood 110 mg/dL (75-99)
[2021-08-10] MEDS: CISATRACURIUM 200 MG in SODIUM CHLORIDE 0.9% 180 ML IV SCH (02:46)
[2021-08-10] MEDS: HYDROmorphone 1 MG/ML 1 ML SYRINGE IVP PRN ×6 (04:27→23:45)
[2021-08-10 04:53] LABS: Basophils % (A) 0 %; Eosinophils % (A) 0 %; HGB 14.7 gm/dL (13.0-17.5); Lymphocytes # (A) 0.5 k/uL (1.0-4.8); Lymphocytes % (A) 4 %; MCH 31.1 pg (25.0-35.0); MCHC 33.5 g/dL (31.0-37.0); MCV 92.7 fL (80.0-100.0); Mean Platelet Volume 7.7; Monocytes # (A) 0.6 k/uL (0-1.0); Monocytes % (A) 5 %; Neutrophils # (A) 9.6 k/uL (1.3-7.7); Neutrophils % (A) 89 %; Platelet Count 197 k/uL (150-450); RBC 4.74 m/uL (4.30-5.90); RDW 12.5 % (11.5-15.5); WBC 10.8 k/uL (3.8-10.6)
[2021-08-10 05:09] LABS: ALT 184 U/L (4-49); AST 176 U/L (17-59); African American GFR (CKD) >90 (>60 ml/min/1.73 sqM); Albumin 2.9 g/dL (3.5-5.0); Alkaline Phosphatase 156 U/L (38-126); Anion Gap 3 mmol/L; Blood Urea Nitrogen 23 mg/dL (9-20); Calcium 8.1 mg/dL (8.4-10.2); Carbon Dioxide 25 mmol/L (22-30); Chloride 113 mmol/L (98-107); Glucose 109 mg/dL (74-99); Non-African American GFR(CKD) >90 (>60 ml/min/1.73 sqM); Potassium 4.2 mmol/L (3.5-5.1); Sodium 141 mmol/L (137-145); Total Bilirubin 1.1 mg/dL (0.2-1.3); Total Protein 6.4 g/dL (6.3-8.2)
[2021-08-10 06:10] LABS: ABG Base Excess -1.1 mmol/L; ABG HCO3 25 mmol/L (21-25); ABG Oxygen Saturation 97.4 % (94-97); ABG PCO2 46 mmHg (35-45); ABG PH 7.34 (7.35-7.45); ABG PO2 95 mmHg (83-108); ABG TCO2 26 mmol/L (19-24); Allen Test Performed? Yes
[2021-08-10] MEDS: INSULIN ASPART (NovoLOG) 100 UNIT/ML VIAL SQ SCH ×4 (06:38→23:44)
[2021-08-10] MEDS: SODIUM CHLORIDE 0.9% 1,000 ML IV SCH ×3 (06:39→20:20)
[2021-08-10] MEDS: ALBUTEROL HFA INHALER INHALATION SCH ×4 (08:18→20:59)
[2021-08-10] MEDS: ASCORBIC ACID 500 MG TAB PO SCH (10:26)
[2021-08-10] MEDS: ZINC SULFATE 220 MG CAP PO SCH (10:26)
[2021-08-10] MEDS: ENOXAPARIN 40 MG/0.4 ML SYRINGE SQ SCH (10:26)
[2021-08-10] MEDS: CHLORHEXIDINE GLUCONATE 15 ML CUP MUCOUS MEM SCH ×2 (10:26→19:42)
[2021-08-10] MEDS: CHOLECALCIFEROL 25 MCG (1000 IU) TABLET PO SCH (10:26)
[2021-08-10] MEDS: DEXAMETHASONE SOD PHOSPHATE 10 MG/ML 1 ML VIAL IVP SCH (10:27)
--- NOTE | 2021-08-10 11:27 | XR ---
EXAMINATION TYPE: XR chest 1V portable DATE OF EXAM: 08/10/2021 COMPARISON: 08/09/2021 HISTORY: 51 years Male. STUDY INDICATION GIVEN: Tube placement . TECHNIQUE: AP chest radiograph IMPRESSION: The endotracheal tube at the level of the clavicles. Enteric tube courses into the stomach. Left CVC tip in the SVC. Decreased bilateral interstitial and airspace opacities which are likely on the basis of multifocal p neumonia and/or atelectasis. No pneumothorax or large effusion. Nonenlarged cardiomediastinal silhouette. Stable osseous structures.
[2021-08-10 11:49] LABS: Glucose,Whole Blood 98 mg/dL (75-99)
--- NOTE | 2021-08-10 12:38 | P.PN ---
Subjective Progress Note Date: 08/10/21 Principal diagnosis: COVID-19 pneumonia 51-year-old male, who seen in the emergency department, in room 3. He apparently has a history of a hearing deficit, sinus issues, and diverticular disease. The patient has not been feeling well for at least 8 days. The patient is unfortunately on vaccinated. He did test positive for coronavirus infection, and appears to have coronavirus associated pneumonia. The patient is on 15 L high flow nasal O2 and not getting any IV fluids. He is a very poor historian, but apparently he's been complaining of progressive shortness of audra th, and painful cough. He denies any fever or chills. No chest pain or chest discomfort. Again, it was very difficult getting any history from this gentleman. He apparently is a lifelong nonsmoker. He appears quite short of breath. Based on his history, we believe he is a good candidate for Lovenox, Decadron, vitamins, and MARYSOL. White count 5.5, with a normal hemoglobin, and hematocrit. Platelet count a little low at 133,000. Coagulation studies are normal. There is no d-dimer, and it was ordered. Sodium 137, potassium 3.6, chlorides 105, CO2 19, anion gap 13, BUN 23, with a creatinine of 1.16. AST 275, ALT 192, alkaline phosphatase 214. LDH 1508. C-reactive protein is 6.9. Coronavirus testing was positive on August 06. Chest x-ray shows low lung volumes, with bilateral diffuse interstitial infiltrates. The abnormalities are greater on the left lung than on the right. The patient is seen today 08/08/2021 in follow-up in the intensive care unit. He was brought down from the regular floor earlier this morning with worsening shortness of breath and oxygen desaturations. He is now on the AirVo at 55 L and 93% FiO2 plus a nonrebreather mask. He is pronating himself in bed. He is currently oxygenating at 90%. He remains on Decadron, Lovenox, Baricitinib and vitamin supplements. White count 7.6. Hemoglobin 15.4. Lymphocytes 0.7. Sodium 142. Potassium 3.9. Creatinine 0.79. AST 191. ALT 141. Alk phos 159. The patient is seen today 08/09/2021 in follow-up in the intensive care unit. His condition had to deteriorate. He was unable to tolerate BiPAP. Was initially still on AirVo at 60 L/m and 90% FiO2 plus a nonrebreather mask. 0.9 normal saline at 130 ML's per hour. Precedex 0.8 mg/kg per hour. His oxygen saturations were decreasing and his respiratory rate was increasing. He subsequently required intubation and mechanical ventilatory support today. He was intubated per PRODUCT REPRESENTATIVE. On the mechanical ventilator with current settings assist control mode at a rate of 30, tidal volume 450, FiO2 100% and a PEEP of 10. He is sedated with propofol. A left-sided subclavian triple-lumen catheter was placed. A right radial arterial line was placed. The patient is currently hypertensive and may require clevidipine drip. Oxygen saturations have improved. Arterial blood gases are pending. WBC 6.3. Hemoglobin 15.3. Platelets 169. Lymphocytes 0.6. Sodium 140. Potassium 3.9. Bicarb 21. BUN 25. Creatinine 0.76. AST 167. ALT 135. He remains on Decadron, Lovenox, Baricitinib and vitamin supplements. The patient is seen today 08/10/2021 in follow-up in the intensive care unit. He remains intubated and on mechanical ventilator. Current settings are assist- control mode at a rate of 30, tidal volume 450, FiO2 50% and a PEEP of 15. Morning blood gases revealed a PaO2 of 95, pCO2 46, pH 7.34. He remains sedated on propofol 50 mcg/kg/m, paralyzed Nimbex at 2 mcg/kg/m. 0.9 normal saline at 130 ML's per hour. He is being nourished with vital 1.2 at 20 ML's per hour, awaiting dietary accommodations for goal. Chest x-ray is revealing bilateral interstitial and airspace opacities consistent with COVID-19 pneumonia. No p neumothorax or large effusions. White count 10.8. Hemoglobin 14.7. Sodium 141. Potassium 4.2. Creatinine 0.72. Glucose 109. AST 176. ALT 184. Alk phos 156. He is continued on Baricitinib, Decadron, Lovenox, vitamin supplements. Objective - Vital Signs Vital signs: Vital Signs Temp 98.3 F 08/10/21 04:00 Pulse 86 08/10/21 07:00 Resp 30 H 08/10/21 07:00 BP 223/118 08/09/21 13:00 Pulse Ox 94 L 08/10/21 07:00 Intake & Output 08/09/21 08/10/21 08/10/21 18:59 06:59 18:59 Intake Total 1034.226 3019.26 217.78 Output Total 785 1100 60 Balance 975.000 983.26 157.78 Weight 113.6 kg Intake: IV 1560 1560 130 0.9 1560 1560 130 Intake, IV Titration 200.000 523.26 87.78 Amount Cisatracurium 200 mg In 186.96 Sodium Chloride 0.9% 180 ml @ 1 MCG/KG/MIN 6.84 mls/hr IV .Q24H [facility] Rx#: [id number] Dexmedetomidine/0.9% NaCl 100 (Pmx) 400 mcg In Empty Bag 1 bag @ 0.2 MCG/KG/HR 5.7 mls/hr IV .[id number] [facility] Rx#:[id number] propofoL 1,000 mg In 100.000 336.30 87.78 Empty Bag 1 bag @ Titrate IV .Q0M [facility] Rx#: [id number] Output: Urine 785 1100 60 Other: Voiding Method Indwelling Catheter Indwelling Catheter ABP, PAP, CO, CI - Last Documented Arterial Blood Pressure 106/54 - Exam GENERAL EXAM: Intubated, sedated and paralyzed 51-year-old gentleman, currently on a ventilator on 50% FiO2 and a PEEP of 15. HEAD: Normocephalic. EYES: Normal reaction of pupils, equal size. NOSE: Clear with pink turbinates. THROAT: Oral endotracheal and gastric tube secured in place. No erythema or exudates. NECK: No masses, no JVD. CHEST: No chest wall deformity. LUNGS: Equal air entry with coarse crackles in the bilateral bases. CVS: S1 and S2 normal with no audible murmur, regular rhythm. ABDOMEN: No hepatosplenomegaly, normal bowel sounds, no guarding or rigidity. SPINE: No scoliosis or deformity SKIN: No rashes CENTRAL NERVOUS SYSTEM: Sedated and paralyzed, tone is normal in all 4 extremities. EXTREMITIES: There is trace peripheral edema. No clubbing, no cyanosis. Peripheral pulses are intact. - Labs CBC & Chem 7: 08/10/21 04:40 08/10/21 04:40 Labs: Abnormal Lab Results - Last 24 Hours (Table) 08/09/21 08/09/21 08/09/21 Range/Units 13:07 18:22 23:54 WBC (3.8-10.6) k/uL Neutrophils # (1.3-7.7) k/uL Lymphocytes # (1.0-4.8) k/uL ABG pH 7.24 L (7.35-7.45) ABG pCO2 54 H (35-45) mmHg ABG pO2 129 H (83-108) mmHg ABG Total CO2 25 H (19-24) mmol/L ABG O2 Saturation 97.8 H (94-97) % Chloride (98-107) mmol/L BUN (9-20) mg/dL Glucose (74-99) mg/dL POC Glucose (mg/dL) 132 H 110 H (75-99) mg/dL Calcium (8.4-10.2) mg/dL AST (17-59) U/L ALT (4-49) U/L Alkaline Phosphatase (38-126) U/L Albumin (3.5-5.0) g/dL 08/10/21 08/10/21 08/10/21 Range/Units 04:40 04:40 06:06 WBC 10.8 H (3.8-10.6) k/uL Neutrophils # 9.6 H (1.3-7.7) k/uL Lymphocytes # 0.5 L (1.0-4.8) k/uL ABG pH 7.34 L (7.35-7.45) ABG pCO2 46 H (35-45) mmHg ABG pO2 (83-108) mmHg ABG Total CO2 26 H (19-24) mmol/L ABG O2 Saturation 97.4 H (94-97) % Chloride 113 H (98-107) mmol/L BUN 23 H (9-20) mg/dL Glucose 109 H (74-99) mg/dL POC Glucose (mg/dL) (75-99) mg/dL Calcium 8.1 L (8.4-10.2) mg/dL AST 176 H (17-59) U/L ALT 184 H (4-49) U/L Alkaline Phosphatase 156 H (38-126) U/L Albumin 2.9 L (3.5-5.0) g/dL Assessment and Plan Assessment: 1 Acute hypoxemic respiratory failure secondary to COVID-19 pneumonia. Not vaccinated. Initiated on Baricitinib, Decadron, Lovenox. Transferred to the ICU on 08/08/2021. Subsequently required intubation and mechanical ventilatory support on 08/09/2021. 2 Transaminitis secondary to above 3 Elevated inflammatory markers secondary to above 4 Hearing disorder 5 Hiatal hernia 6 History of chronic sinus disease 7 History of varicose veins Plan: The patient was seen and evaluated by Dr. Lora Chest x-ray, ABGs and labs reviewed No ventilator changes this morning Remains on 50% FiO2 with a PEEP of 15 Remains sedated, paralyzed Initiated tube feedings for nutritional support Continue Baricitinib, Lovenox, Decadron Prone if possible Prognosis is guarded Follow-up chest x-ray and labs in a.m. We will continue to follow and make further recommendations based on his clinical status Critical care time 36 minutes I, the cosigning physician, performed a history & physical examination of the patient. Lungs sounds are with coarse crackles in the bilateral bases. Maintaining O2 saturations in the 90s on 50% FiO2 and a PEEP of 15 via the mechanical ventilator.. I discussed the assessment and plan of care with my nurse practitioner, Digna Fontaine. I attest to the above note as dictated by her.
[2021-08-10] MEDS: BARICITINIB 2 MG TABLET PO SCH (14:25)
--- NOTE | 2021-08-10 16:18 | P.PN ---
Subjective Progress Note Date: 08/09/21 Principal diagnosis: Acute hypoxic respiratory failure secondary to COVID-19 pneumonia Elevated liver enzymes due to systemic inflammation 51-year-old male who presents to the EC with symptoms of shortness of breath and cough ongoing since last Wednesday. Patient states that Wednesday he started feeling short of breath, Wednesday his symptoms worsened and then on Wednesday he sa id that he began to feel the worst. He is having difficulty catching his breath and attributed this to his chronic sinus problems that he has. On Wednesday he went to the [facility] and was given some medication for his sinuses but did not help him, so he came to the ER. Patient was positive for Covid in the EC. He is not vaccinated. Home medications include zinc, vitamin D3, Singulair, Flonase, albuterol inhaler, and ibuprofen. Past medical history significant for sinus issues ongoing, diverticulitis, hernia, cholecystectomy, hard of hearing. Patient is a never smoker, reports occasional alcohol use nothing daily, no drug use. Chest x-ray in the EC shows diffuse bilateral interstitial edema and/or infiltrates left greater than right. Labs today show a white count of 5.5, platelet 133, sodium 137, potassium 3.6, mag 1.7, lactic acid 1.2. Vitals show a temp of 98.7, heart rate 92, blood pressure 147/90 on 15L HF, 15L NRB. Discussed with patient the next step would be BiPAP and possibly intubation. Patient is very claustrophobic and is having difficulty even with the nonrebreather. 08/08/2021 Patient is seen and evaluated in room at bedside; reports worsening breathing and has been desaturating down to low 80s; pulmonary service on board and recommending patient be transferred to ICU Vital signs reviewed temperature 98.0 pulse 87 respiration 26 and blood pressure 137 with 89 Lab review shows diffuse he 7.6, hemoglobin 15.4 and platelet count of 171, sodium 142, potassium 3.9, BUN/creatinine of 23/0.7; d-dimer of 0.78 We will continue to titrate FiO2; self-propelling is encouraged; patient remains on Baricitinib, Lovenox, Decadron for Covid 19 protocol 08/09/2021 Patient seen for follow-up in ICU; nursing staff patient desaturated. In the day and was placed on BiPAP; patient was unable to tolerate BiPAP and oxygen saturation continued to drop with worsening respiratory rate; patient was subsequently intubated and mechanically ventilated Vital signs review shows temperature 97.8, pulse 68, respiration 45 and blood pressure of 118/70 Laboratory; WBC 6.3. Hemoglobin 15.3. Platelets 169. Lymphocytes 0.6. Sodium 140. Potassium 3.9. Bicarb 21. BUN 25. Creatinine 0.76. AST 167. ALT 135. He remains on Decadron, Lovenox, Baricitinib and vitamin supplements. Objective - Vital Signs Vital signs: Vital Signs Temp 97.8 F 08/09/21 00:00 Pulse 68 08/09/21 09:00 Resp 45 H 08/09/21 09:00 BP 118/70 08/09/21 09:00 Pulse Ox 86 L 08/09/21 09:00 Intake & Output 08/08/21 08/09/21 08/09/21 18:59 06:59 18:59 Intake Total 375 2187.39 390 Output Total 425 1010 185 Balance -50 1177.39 205 Intake: IV 375 1395 390 0.9 375 1395 390 Intake, IV Titration 72.39 Amount Dexmedetomidine/0.9% NaCl 72.39 (Pmx) 400 mcg In Empty Bag 1 bag @ 0.2 MCG/KG/HR 5.7 mls/hr IV .[id number] [facility] Rx#:[id number] Oral 720 Output: Urine 125 1010 185 Stool 300 Other: Voiding Method Urinal Indwelling Catheter Indwelling Catheter - Exam GENERAL: The patient is alert and oriented x3, appears in respiratory distress, tachypneic HEENT: Pupils are round and equally reacting to light. Blueish hue to lips. CARDIOVASCULAR: S1 and S2 present. No murmurs, rubs, or gallops. PULMONARY: Chest is tight, decreased aeration, coarse scattered rhonchi, dyspneic with talking and at rest. ABDOMEN: Soft, nontender, nondistended, normoactive bowel sounds. No palpable organomegaly. Obese. MUSCULOSKELETAL: No joint swelling or deformity. EXTREMITIES: No cyanosis, clubbing, or pedal edema. NEUROLOGICAL: Gross neurological examination did not reveal any focal deficits. SKIN: No rashes. - Labs CBC & Chem 7: 08/10/21 04:40 08/10/21 04:40 Labs: Abnormal Lab Results - Last 24 Hours (Table) 08/08/21 08/08/21 08/09/21 Range/Units 11:54 18:57 04:06 Lymphocytes # 0.6 L (1.0-4.8) k/uL ABG pH (7.35-7.45) ABG pCO2 (35-45) mmHg ABG pO2 (83-108) mmHg ABG O2 Saturation (94-97) % Chloride (98-107) mmol/L Carbon Dioxide (22-30) mmol/L BUN (9-20) mg/dL Glucose (74-99) mg/dL POC Glucose (mg/dL) 119 H 109 H (75-99) mg/dL AST (17-59) U/L ALT (4-49) U/L Alkaline Phosphatase (38-126) U/L Albumin (3.5-5.0) g/dL 08/09/21 08/09/21 08/09/21 Range/Units 04:06 05:24 11:13 Lymphocytes # (1.0-4.8) k/uL ABG pH 7.47 H (7.35-7.45) ABG pCO2 30 L (35-45) mmHg ABG pO2 60 L (83-108) mmHg ABG O2 Saturation 91.6 L (94-97) % Chloride 112 H (98-107) mmol/L Carbon Dioxide 21 L (22-30) mmol/L BUN 25 H (9-20) mg/dL Glucose 126 H (74-99) mg/dL POC Glucose (mg/dL) 106 H (75-99) mg/dL AST 167 H (17-59) U/L ALT 135 H (4-49) U/L Alkaline Phosphatase 150 H (38-126) U/L Albumin 3.2 L (3.5-5.0) g/dL Assessment and Plan Assessment: Acute hypoxic respiratory failure secondary to COVID-19 pneumonia Elevated liver enzymes due to systemic inflammation History of chronic sinus issues History of diverticulitis History of cholecystitis GI Prophylaxis: Protonix DVT Prophylaxis: Lovenox FULL CODE Plan Pulmonary Consult Continue Decadron, Covid vitamins, MARYSOL Check DDimer recommended by pulmonary Possible CTA Continue all other supportive care Labs in the AM Prognosis is guarded for this patient.
--- NOTE | 2021-08-10 16:29 | P.PN ---
Subjective Progress Note Date: 08/10/21 Principal diagnosis: Acute hypoxic respiratory failure secondary to COVID-19 pneumonia Elevated liver enzymes due to systemic inflammation 51-year-old male who presents to the EC with symptoms of shortness of breath and cough ongoing since last Wednesday. Patient states that Wednesday he started feeling short of breath, Wednesday his symptoms worsened and then on Wednesday he sa id that he began to feel the worst. He is having difficulty catching his breath and attributed this to his chronic sinus problems that he has. On Wednesday he went to the [facility] and was given some medication for his sinuses but did not help him, so he came to the ER. Patient was positive for Covid in the EC. He is not vaccinated. Home medications include zinc, vitamin D3, Singulair, Flonase, albuterol inhaler, and ibuprofen. Past medical history significant for sinus issues ongoing, diverticulitis, hernia, cholecystectomy, hard of hearing. Patient is a never smoker, reports occasional alcohol use nothing daily, no drug use. Chest x-ray in the EC shows diffuse bilateral interstitial edema and/or infiltrates left greater than right. Labs today show a white count of 5.5, platelet 133, sodium 137, potassium 3.6, mag 1.7, lactic acid 1.2. Vitals show a temp of 98.7, heart rate 92, blood pressure 147/90 on 15L HF, 15L NRB. Discussed with patient the next step would be BiPAP and possibly intubation. Patient is very claustrophobic and is having difficulty even with the nonrebreather. 08/08/2021 Patient is seen and evaluated in room at bedside; reports worsening breathing and has been desaturating down to low 80s; pulmonary service on board and recommending patient be transferred to ICU Vital signs reviewed temperature 98.0 pulse 87 respiration 26 and blood pressure 137 with 89 Lab review shows diffuse he 7.6, hemoglobin 15.4 and platelet count of 171, sodium 142, potassium 3.9, BUN/creatinine of 23/0.7; d-dimer of 0.78 We will continue to titrate FiO2; self-propelling is encouraged; patient remains on Baricitinib, Lovenox, Decadron for Covid 19 protocol 08/09/2021 Patient seen for follow-up in ICU; nursing staff patient desaturated. In the day and was placed on BiPAP; patient was unable to tolerate BiPAP and oxygen saturation continued to drop with worsening respiratory rate; patient was subsequently intubated and mechanically ventilated Vital signs review shows temperature 97.8, pulse 68, respiration 45 and blood pressure of 118/70 Laboratory; WBC 6.3. Hemoglobin 15.3. Platelets 169. Lymphocytes 0.6. Sodium 140. Potassium 3.9. Bicarb 21. BUN 25. Creatinine 0.76. AST 167. ALT 135. He remains on Decadron, Lovenox, Baricitinib and vitamin supplements. 08/10/2021 Patient remains in ICU and remains intubated and mechanically ventilated; remains on sedation with propofol and Nimbex blood gases from this morning revealed PaO2 of 95, pCO2 46, pH 7.34. Chest x- ray is revealing bilateral interstitial and airspace opacities consistent with COVID-19 pneumonia. No pneumothorax or large effusions. White count 10.8. Hemoglobin 14.7. Sodium 141. Potassium 4.2. Creatinine 0.72. Glucose 109. AST 176. ALT 184. Alk phos 156. He is continued on Baricitinib, Decadron, Lovenox, vitamin supplements. Initiated tube feedings for nutritional support; Continue Baricitinib, Lovenox, Decadron Prone if possible Prognosis is guarded Objective - Vital Signs Vital signs: Vital Signs Temp 98.3 F 08/10/21 04:00 Pulse 86 08/10/21 07:00 Resp 30 H 08/10/21 07:00 BP 223/118 08/09/21 13:00 Pulse Ox 94 L 08/10/21 07:00 Intake & Output 08/09/21 08/10/21 08/10/21 18:59 06:59 18:59 Intake Total 0213.882 3000.26 217.78 Output Total 785 1100 60 Balance 975.000 983.26 157.78 Weight 113.6 kg Intake: IV 1560 1560 130 0.9 1560 1560 130 Intake, IV Titration 200.000 523.26 87.78 Amount Cisatracurium 200 mg In 186.96 Sodium Chloride 0.9% 180 ml @ 1 MCG/KG/MIN 6.84 mls/hr IV .Q24H [facility] Rx#: [id number] Dexmedetomidine/0.9% NaCl 100 (Pmx) 400 mcg In Empty Bag 1 bag @ 0.2 MCG/KG/HR 5.7 mls/hr IV .[id number] [facility] Rx#:[id number] propofoL 1,000 mg In 100.000 336.30 87.78 Empty Bag 1 bag @ Titrate IV .Q0M [facility] Rx#: [id number] Output: Urine 785 1100 60 Other: Voiding Method Indwelling Catheter Indwelling Catheter ABP, PAP, CO, CI - Last Documented Arterial Blood Pressure 106/54 - Exam GENERAL: The patient is alert and oriented x3, appears in respiratory distress, tachypneic HEENT: Pupils are round and equally reacting to light. Blueish hue to lips. CARDIOVASCULAR: S1 and S2 present. No murmurs, rubs, or gallops. PULMONARY: Chest is tight, decreased aeration, coarse scattered rhonchi, dyspneic with talking and at rest. ABDOMEN: Soft, nontender, nondistended, normoactive bowel sounds. No palpable organomegaly. Obese. MUSCULOSKELETAL: No joint swelling or deformity. EXTREMITIES: No cyanosis, clubbing, or pedal edema. NEUROLOGICAL: Gross neurological examination did not reveal any focal deficits. SKIN: No rashes. - Labs CBC & Chem 7: 08/10/21 04:40 08/10/21 04:40 Labs: Abnormal Lab Results - Last 24 Hours (Table) 08/09/21 08/09/21 08/09/21 Range/Units 11:13 13:07 18:22 WBC (3.8-10.6) k/uL Neutrophils # (1.3-7.7) k/uL Lymphocytes # (1.0-4.8) k/uL ABG pH 7.24 L (7.35-7.45) ABG pCO2 54 H (35-45) mmHg ABG pO2 129 H (83-108) mmHg ABG Total CO2 25 H (19-24) mmol/L ABG O2 Saturation 97.8 H (94-97) % Chloride (98-107) mmol/L BUN (9-20) mg/dL Glucose (74-99) mg/dL POC Glucose (mg/dL) 106 H 132 H (75-99) mg/dL Calcium (8.4-10.2) mg/dL AST (17-59) U/L ALT (4-49) U/L Alkaline Phosphatase (38-126) U/L Albumin (3.5-5.0) g/dL 08/09/21 08/10/21 08/10/21 Range/Units 23:54 04:40 04:40 WBC 10.8 H (3.8-10.6) k/uL Neutrophils # 9.6 H (1.3-7.7) k/uL Lymphocytes # 0.5 L (1.0-4.8) k/uL ABG pH (7.35-7.45) ABG pCO2 (35-45) mmHg ABG pO2 (83-108) mmHg ABG Total CO2 (19-24) mmol/L ABG O2 Saturation (94-97) % Chloride 113 H (98-107) mmol/L BUN 23 H (9-20) mg/dL Glucose 109 H (74-99) mg/dL POC Glucose (mg/dL) 110 H (75-99) mg/dL Calcium 8.1 L (8.4-10.2) mg/dL AST 176 H (17-59) U/L ALT 184 H (4-49) U/L Alkaline Phosphatase 156 H (38-126) U/L Albumin 2.9 L (3.5-5.0) g/dL 08/10/21 Range/Units 06:06 WBC (3.8-10.6) k/uL Neutrophils # (1.3-7.7) k/uL Lymphocytes # (1.0-4.8) k/uL ABG pH 7.34 L (7.35-7.45) ABG pCO2 46 H (35-45) mmHg ABG pO2 (83-108) mmHg ABG Total CO2 26 H (19-24) mmol/L ABG O2 Saturation 97.4 H (94-97) % Chloride (98-107) mmol/L BUN (9-20) mg/dL Glucose (74-99) mg/dL POC Glucose (mg/dL) (75-99) mg/dL Calcium (8.4-10.2) mg/dL AST (17-59) U/L ALT (4-49) U/L Alkaline Phosphatase (38-126) U/L Albumin (3.5-5.0) g/dL Assessment and Plan Assessment: Acute hypoxic respiratory failure secondary to COVID-19 pneumonia Elevated liver enzymes due to systemic inflammation History of chronic sinus issues History of diverticulitis History of cholecystitis GI Prophylaxis: Protonix DVT Prophylaxis: Lovenox FULL CODE Plan Pulmonary Consult Continue Decadron, Covid vitamins, MARYSLO Check DDimer recommended by pulmonary Possible CTA Continue all other supportive care Labs in the AM Prognosis is guarded for this patient.
[2021-08-10 17:44] LABS: Glucose,Whole Blood 88 mg/dL (75-99)
[2021-08-10] MEDS: ACETAMINOPHEN TAB 325 MG TAB PO PRN (19:42)
[2021-08-10 23:45] LABS: Glucose,Whole Blood 102 mg/dL (75-99)
[2021-08-11] MEDS: HYDROmorphone 1 MG/ML 1 ML SYRINGE IVP PRN ×6 (02:00→22:19)
[2021-08-11] MEDS: SODIUM CHLORIDE 0.9% 1,000 ML IV SCH ×3 (03:47→12:04)
[2021-08-11] MEDS: ACETAMINOPHEN TAB 325 MG TAB PO PRN (03:59)
[2021-08-11 04:35] LABS: Basophils % (A) 0 %; Eosinophils % (A) 0 %; HCT 41.6 % (39.0-53.0); HGB 13.7 gm/dL (13.0-17.5); Lymphocytes # (A) 0.4 k/uL (1.0-4.8); Lymphocytes % (A) 4 %; MCH 31.2 pg (25.0-35.0); MCHC 32.8 g/dL (31.0-37.0); MCV 95.1 fL (80.0-100.0); Mean Platelet Volume 7.9; Monocytes # (A) 0.3 k/uL (0-1.0); Monocytes % (A) 3 %; Neutrophils # (A) 8.8 k/uL (1.3-7.7); Neutrophils % (A) 91 %; Platelet Count 189 k/uL (150-450); RBC 4.37 m/uL (4.30-5.90); WBC 9.7 k/uL (3.8-10.6)
[2021-08-11 04:52] LABS: ALT 168 U/L (4-49); AST 128 U/L (17-59); African American GFR (CKD) >90 (>60 ml/min/1.73 sqM); Albumin 2.6 g/dL (3.5-5.0); Alkaline Phosphatase 139 U/L (38-126); Anion Gap 3 mmol/L; Blood Urea Nitrogen 23 mg/dL (9-20); Calcium 7.9 mg/dL (8.4-10.2); Carbon Dioxide 25 mmol/L (22-30); Chloride 113 mmol/L (98-107); Glucose 120 mg/dL (74-99); LDH 1118 U/L (313-618); Non-African American GFR(CKD) >90 (>60 ml/min/1.73 sqM); Sodium 141 mmol/L (137-145); Total Bilirubin 1.1 mg/dL (0.2-1.3); Total Protein 5.8 g/dL (6.3-8.2)
[2021-08-11 05:05] LABS: C Reactive Protein 16.6 mg/dL (<1.0)
[2021-08-11] MEDS: INSULIN ASPART (NovoLOG) 100 UNIT/ML VIAL SQ SCH ×4 (05:40→23:08)
[2021-08-11 05:54] LABS: ABG HCO3 27 mmol/L (21-25); ABG Oxygen Saturation 92.8 % (94-97); ABG PCO2 53 mmHg (35-45); ABG PH 7.32 (7.35-7.45); ABG PO2 66 mmHg (83-108); ABG TCO2 29 mmol/L (19-24)
[2021-08-11 06:10] LABS: Glucose,Whole Blood 130 mg/dL (75-99)
--- NOTE | 2021-08-11 07:50 | XR ---
EXAMINATION TYPE: XR chest 1V portable DATE OF EXAM: 08/11/2021 COMPARISON: 08/10/2021 HISTORY: SOB, Follow Up FINDINGS: Indwelling tubes and catheters are unchanged. Bilateral airspace infiltrates with increasing consolidation at the lung bases. Stable appearance of the cardio-mediastinal structures at this time. Pleural effusion unchanged. IMPRESSION: 1. Bilateral airspace infiltrates with increasing consolidation at the lung bases.
[2021-08-11] MEDS: ASCORBIC ACID 500 MG TAB PO SCH (08:13)
[2021-08-11] MEDS: DEXAMETHASONE SOD PHOSPHATE 10 MG/ML 1 ML VIAL IVP SCH (08:13)
[2021-08-11] MEDS: ZINC SULFATE 220 MG CAP PO SCH (08:13)
[2021-08-11] MEDS: CHOLECALCIFEROL 25 MCG (1000 IU) TABLET PO SCH (08:13)
[2021-08-11] MEDS: CHLORHEXIDINE GLUCONATE 15 ML CUP MUCOUS MEM SCH ×2 (08:13→20:24)
[2021-08-11] MEDS: ENOXAPARIN 40 MG/0.4 ML SYRINGE SQ SCH (08:14)
[2021-08-11] MEDS: ARTIFICIAL TEARS-HYPROMELLOSE DROPS 15 ML BTL BOTH EYES SCH ×5 (08:15→23:07)
[2021-08-11] MEDS: BARICITINIB 2 MG TABLET PO SCH (08:19)
[2021-08-11] MEDS ORDERED: FUROSEMIDE 10 MG/ML 4 ML VIAL IV STA (08:50)
--- NOTE | 2021-08-11 08:51 | P.PN ---
Subjective Progress Note Date: 08/11/21 51-year-old male patient currently intubated on a mechanical ventilator due to COVID-19 related to pneumonia with secondary respiratory failure. The patient is non-vaccinated for COVID-19. The patient was sick approximately 10 days prior to him coming into the hospital. He did test positive for COVID-19. Initially he was hypoxic and he was on high flow oxygen at 15 L. The patient was started on a combination of treatment including Decadron, Baricitinib, Lovenox for DVT prophylaxis and multivitamins. LDH level was quite elevated at time of admission and was 1508 with a CRP of 6.9. The chest x-ray shows smaller lung volumes, diffuse bilateral pulmonary infiltrates. Subsequently, the patient was brought into the ICU where the patient was placed on high flow oxygen plus a nonrebreather facemask and the patient was also using high flow. The patient was kept on the same treatment and ultimately the patient had to be intubated and 08/09/2021 where the patient was also placed on a mechanical ventilator. This morning, the patient is an assist-control mode of mechanical ventilation at the rate of 30 with a tidal volume of 450 and FiO2 of 50% with a PEEP of 15. The patient is on propofol running at 65 mcg/kg per minute and the patient is also Nimbex at 1.5 mcg/kg per minute. The chest x-ray from today was reviewed and compared to the one that was done yesterday. ET tube is in a good location. The patient continues to have diffuse bilateral pulmonary infiltrates consistent with COVID 19 related pneumonia and infiltrates more in the lung bases more so on the right. ET tube is in a good location. The patient has a triple lumen catheter in the left subclavian vein. There may be some limited improvement in the infiltration of the left lung compared to the earlier chest x-ray. Meanwhile, the blood gases showed a pH of 7.32 with a pCO2 of 53 and pO2 of 66. Inflammatory markers shows an LDH level of 1001 on a seen which is obviously improved compared to a few days back and the CRP level is down to 16.6. D-dimer is at 13.4 and the patient Hb +9.7 with hemoglobin of 13.7. The patient remains on Lovenox 40 mg subcu for DVT prophylaxis. The patient is on a combination of Decadron on Baricitinib per protocol. The patient is started on enteral feeding for nutritional support, the patient is currently at the rate of 20 mL an hour vital AF Objective - Vital Signs Vital signs: Vital Signs Temp 100.7 F H 08/11/21 04:00 Pulse 101 H 08/11/21 07:00 Resp 30 H 08/11/21 07:00 BP 223/118 08/09/21 13:00 Pulse Ox 91 L 08/11/21 07:00 Intake & Output 08/10/21 08/11/21 08/11/21 18:59 06:59 18:59 Intake Total 1827.78 2162.909 107.592 Output Total 785 985 Balance 1042.78 1177.909 107.592 Weight 116.8 kg 116.8 kg Intake: IV 1560 1560 0.9 1560 1560 Intake, IV Titration 187.78 272.909 107.592 Amount propofoL 1,000 mg In 187.78 272.909 107.592 Empty Bag 1 bag @ Titrate IV .Q0M [facility] Rx#: [id number] Tube Feeding 80 240 Other 90 Output: Urine 785 985 Other: Voiding Method Indwelling Catheter Indwelling Catheter ABP, PAP, CO, CI - Last Documented Arterial Blood Pressure 124/55 - Exam GENERAL EXAM: Intubated, sedated and paralyzed 51-year-old gentleman, currently on a ventilator on 50% FiO2 and a PEEP of 15. HEAD: Normocephalic. EYES: Normal reaction of pupils, equal size. NOSE: Clear with pink turbinates. THROAT: Oral endotracheal and gastric tube secured in place. No erythema or exudates. NECK: No masses, no JVD. CHEST: No chest wall deformity. LUNGS: Equal air entry with coarse crackles in the bilateral bases. CVS: S1 and S2 normal with no audible murmur, regular rhythm. ABDOMEN: No hepatosplenomegaly, normal bowel sounds, no guarding or rigidity. SPINE: No scoliosis or deformity SKIN: No rashes CENTRAL NERVOUS SYSTEM: Sedated and paralyzed, tone is normal in all 4 extremities. EXTREMITIES: There is trace peripheral edema. No clubbing, no cyanosis. Peripheral pulses are intact. - Labs CBC & Chem 7: 08/11/21 04:05 08/11/21 04:05 Labs: Abnormal Lab Results - Last 24 Hours (Table) 08/10/21 08/11/21 08/11/21 Range/Units 23:43 04:05 04:05 Neutrophils # 8.8 H (1.3-7.7) k/uL Lymphocytes # 0.4 L (1.0-4.8) k/uL D-Dimer (<0.60) mg/L FEU ABG pH (7.35-7.45) ABG pCO2 (35-45) mmHg ABG pO2 (83-108) mmHg ABG HCO3 (21-25) mmol/L ABG Total CO2 (19-24) mmol/L ABG O2 Saturation (94-97) % Chloride 113 H (98-107) mmol/L BUN 23 H (9-20) mg/dL Glucose 120 H (74-99) mg/dL POC Glucose (mg/dL) 102 H (75-99) mg/dL Calcium 7.9 L (8.4-10.2) mg/dL AST 128 H (17-59) U/L ALT 168 H (4-49) U/L Alkaline Phosphatase 139 H (38-126) U/L Lactate Dehydrogenase 1118 H (313-618) U/L C-Reactive Protein 16.6 H (<1.0) mg/dL Total Protein 5.8 L (6.3-8.2) g/dL Albumin 2.6 L (3.5-5.0) g/dL 08/11/21 08/11/21 08/11/21 Range/Units 04:05 05:47 06:08 Neutrophils # (1.3-7.7) k/uL Lymphocytes # (1.0-4.8) k/uL D-Dimer 13.46 H (<0.60) mg/L FEU ABG pH 7.32 L (7.35-7.45) ABG pCO2 53 H (35-45) mmHg ABG pO2 66 L (83-108) mmHg ABG HCO3 27 H (21-25) mmol/L ABG Total CO2 29 H (19-24) mmol/L ABG O2 Saturation 92.8 L (94-97) % Chloride (98-107) mmol/L BUN (9-20) mg/dL Glucose (74-99) mg/dL POC Glucose (mg/dL) 130 H (75-99) mg/dL Calcium (8.4-10.2) mg/dL AST (17-59) U/L ALT (4-49) U/L Alkaline Phosphatase (38-126) U/L Lactate Dehydrogenase (313-618) U/L C-Reactive Protein (<1.0) mg/dL Total Protein (6.3-8.2) g/dL Albumin (3.5-5.0) g/dL Assessment and Plan Plan: 1 Acute hypoxemic respiratory failure secondary to COVID-19 pneumonia. Not vaccinated. Initiated on Baricitinib, Decadron, Lovenox. Transferred to the ICU on 08/08/2021. Subsequently required intubation and mechanical ventilatory support on 08/09/2021. The patient currently being mechanically ventilated. Chest x-ray was noted. Blood gas was noted. Patient is covered with a combination of Decadron on Baricitinib and the patient is also on Lovenox for the prophylaxis. The d-dimer is at 13.4. The patient had a follow-up chest x- ray that showed some limited improvement of the infiltration of the left lung. Otherwise, the patient remains sedated and paralyzed on a mechanical ventilator. Patient is also on Lovenox for prophylaxis. I noted that the peak airway pressures around 28. Static airway pressure is 26. The patient is still having issues with oxygenation on a 15 of PEEP and the current saturations around 89-90%. 2 Transaminitis secondary to above 3 Elevated inflammatory markers secondary to above, elevated d-dimer 4 Hearing disorder 5 Hiatal hernia 6 History of chronic sinus disease 7 History of varicose veins Plan: Continue ventilator support, no ventilator changes to be done today. IV fluids to KVO Give the patient is 40 mg IV push Chest x-ray, ABGs and labs reviewed Remains on 50% FiO2 with a PEEP of 15 Remains sedated Give the patient paralytic holiday and discontinue the paralytics if not needed Tube feedings for nutritional support Continue Baricitinib, Lovenox, Decadron Prognosis is guarded Follow-up chest x-ray and labs in a.m. that her mother markers and generally improving including LDH, d-dimer remains elevated and the patient remains on Lovenox for DVT prophylaxis We will continue to follow and make further recommendations based on his clinical status, and continue enteral feeding for nutritional support, condition remains extremity critical. We'll continue to follow make further recommendations based on his progress. Critically care evaluation, more than 30 minutes. Time with Patient: Greater than 30
[2021-08-11] MEDS: ALBUTEROL HFA INHALER INHALATION SCH ×4 (09:07→19:12)
[2021-08-11 11:34] LABS: Glucose,Whole Blood 131 mg/dL (75-99)
[2021-08-11] MEDS: CISATRACURIUM 200 MG in SODIUM CHLORIDE 0.9% 180 ML IV SCH ×2 (12:23→22:52)
[2021-08-11 19:05] LABS: Glucose,Whole Blood 137 mg/dL (75-99)
[2021-08-11] MEDS ORDERED: SODIUM CHLORIDE 0.9% IV SCH (19:30)
[2021-08-11] MEDS ORDERED: fentaNYL (PF). 1,000 MCG in SODIUM CHLORIDE 0.9% 80 ML IV SCH (19:30)
[2021-08-11] MEDS ORDERED: FENTANYL IV SCH (19:30)
[2021-08-11] MEDS: fentaNYL (PF) 2,500 MCG in SODIUM CHLORIDE 0.9% 200 ML IV SCH (19:47)
[2021-08-11 23:04] LABS: Glucose,Whole Blood 112 mg/dL (75-99)
--- NOTE | 2021-08-11 23:08 | P.PN ---
Subjective Progress Note Date: 08/11/21 Acute hypoxic respiratory failure secondary to COVID-19 pneumonia Elevated liver enzymes due to systemic inflammation 51-year-old male who presents to the with symptoms of shortness of breath and cough ongoing since last Wednesday. Patient states that Wednesday he started feeling short of breath, Wednesday his symptoms worsened and then on Wednesday he said that he began to feel the worst. He is having difficulty catching his breath and attributed this to his chronic sinus problems that he has. On Wednesday he went to the [facility] and was given some medication for his sinuses but did not help him, so he came to the ER. Patient was positive for Covid in the EC. He is not vaccinated. Home medications include zinc, vitamin D3, Singulair, Flonase, albuterol inhaler, and ibuprofen. Past medical history significant for sinus issues ongoing, diverticulitis, hernia, cholecystectomy, hard of hearing. Patient is a never smoker, reports occasional alcohol use nothing daily, no drug use. Chest x-ray in the EC shows diffuse bilateral interstitial edema and/or infiltrates left greater than right. Labs today show a white count of 5.5, platelet 133, sodium 137, potassium 3.6, mag 1.7, lactic aci d 1.2. Vitals show a temp of 98.7, heart rate 92, blood pressure 147/90 on 15L HF, 15L NRB. Discussed with patient the next step would be BiPAP and possibly intubation. Patient is very claustrophobic and is having difficulty even with the nonrebreather. 08/08/2021 Patient is seen and evaluated in room at bedside; reports worsening breathing and has been desaturating down to low 80s; pulmonary service on board and recommending patient be transferred to ICU Vital signs reviewed temperature 98.0 pulse 87 respiration 26 and blood pressure 137 with 89 Lab review shows diffuse he 7.6, hemoglobin 15.4 and platelet count of 171, sodium 142, potassium 3.9, BUN/creatinine of 23/0.7; d-dimer of 0.78 We will continue to titrate FiO2; self-propelling is encouraged; patient remains on Baricitinib, Lovenox, Decadron for Covid 19 protocol 08/09/2021 Patient seen for follow-up in ICU; nursing staff patient desaturated. In the day and was placed on BiPAP; patient was unable to tolerate BiPAP and oxygen saturation continued to drop with worsening respiratory rate; patient was subsequently intubated and mechanically ventilated Vital signs review shows temperature 97.8, pulse 68, respiration 45 and blood pressure of 118/70 Laboratory; WBC 6.3. Hemoglobin 15.3. Platelets 169. Lymphocytes 0.6. Sodium 140. Potassium 3.9. Bicarb 21. BUN 25. Creatinine 0.76. AST 167. ALT 135. He remains on Decadron, Lovenox, Baricitinib and vitamin supplements. 08/10/2021 Patient remains in ICU and remains intubated and mechanically ventilated; remains on sedation with propofol and Nimbex blood gases from this morning revealed PaO2 of 95, pCO2 46, pH 7.34. Chest x- ray is revealing bilateral interstitial and airspace opacities consistent with COVID-19 pneumonia. No pneumothorax or large effusions. White count 10.8. Hemoglobin 14.7. Sodium 141. Potassium 4.2. Creatinine 0.72. Glucose 109. AST 176. ALT 184. Alk phos 156. He is continued on Baricitinib, Decadron, Lovenox, vitamin supplements. Initiated tube feedings for nutritional support; Continue Baricitinib, Lovenox, Decadron Prone if possible Prognosis is guarded 08/11/2021 Patient is seen in follow up this morning and continues to be on mechanical ventilation and pulmonary kettle firer following closely. Patient tolerating current settings of 50% FI02 and a peep of 15. Patient continues on IV dexamethasone, lovenox, vitamin and zinc supplements. D dimer today is 13.46, inflammatory markers elevated. Slight worsening noted on the chest xray this morning. Patient is also receiving Baricitinib. Review of systems: unable to obtain as patient is intubated and sedated Medications have been reviewed. Active Medications Acetaminophen (Acetaminophen Tab 325 Mg Tab) 650 mg PO Q6HR PRN PRN Reason: Mild Pain or Fever > 100.5 Last Admin: 08/11/21 03:59 Dose: 650 mg Documented by: Albuterol Sulfate (Albuterol Hfa Inhaler) 2 puff INHALATION RT-QID PRN PRN Reason: Shortness Of Breath Or Wheezing Albuterol Sulfate (Albuterol Hfa Inhaler) 2 puff INHALATION RT-QID [facility] Last Admin: 08/11/21 19:12 Dose: 2 puff Documented by: Artificial Tears (Artificial Tears-Hypromellose Drops 15 Ml Btl) 1 drops BOTH E YES Q4H [facility] Last Admin: 08/11/21 20:24 Dose: 1 drops Documented by: Ascorbic Acid (Ascorbic Acid 500 Mg Tab) 1,000 mg PO DAILY [facility] Last Admin: 08/11/21 08:13 Dose: 1,000 mg Documented by: Baricitinib (Baricitinib 2 Mg Tablet) 4 mg PO DAILY@1000 [facility] Stop: 08/20/21 10:01 Last Admin: 08/11/21 08:19 Dose: 4 mg Documented by: Chlorhexidine Gluconate (Chlorhexidine Gluconate 15 Ml Cup) 15 ml MUCOUS MEM BID [facility] Last Admin: 08/11/21 20:24 Dose: 15 ml Documented by: Cholecalciferol (Cholecalciferol 25 Mcg (1000 Iu) Tablet) 125 mcg PO DAILY [facility] Last Admin: 08/11/21 08:13 Dose: 125 mcg Documented by: Dexamethasone Sodium Phosphate (Dexamethasone Sod Phosphate 10 Mg/Ml 1 Ml Vial) 6 mg IVP DAILY [facility] Last Admin: 08/11/21 08:13 Dose: 6 mg Documented by: Enoxaparin Sodium (Enoxaparin 40 Mg/0.4 Ml Syringe) 40 mg SQ DAILY [facility] Last Admin: 08/11/21 08:14 Dose: 40 mg Documented by: Hydromorphone HCl (Hydromorphone 1 Mg/Ml 1 Ml Syringe) 1 mg IVP Q2HR PRN PRN Reason: Pain Last Admin: 08/11/21 22:19 Dose: 1 mg Documented by: Sodium Chloride (Saline 0.9%) 1,000 mls @ 50 mls/hr IV .Q20H [facility] Last Admin: 08/11/21 12:04 Dose: 50 mls/hr Documented by: Propofol 1,000 mg/ IV Solution 100 mls @ 0 mls/hr IV .Q0M [facility]; Protocol Last Admin: 08/11/21 22:19 Dose: 60 mcg/kg/min, 42.048 mls/hr Documented by: Fentanyl Citrate 2,500 mcg/ (Sodium Chloride) 250 mls @ 5.84 mls/hr IV .Q24H [facility]; Protocol Last Titration: 08/11/21 20:59 Dose: 2 mcg/kg/hr, 23.36 mls/hr Documented by: Cisatracurium Besylate 200 mg/ (Sodium Chloride) 200 mls @ 7.008 mls/hr IV .Q24H [facility]; Protocol Last Admin: 08/11/21 22:52 Dose: 1 mcg/kg/min, 7.008 mls/hr Documented by: Ibuprofen (Ibuprofen 400 Mg Tab) 400 mg PO Q6HR PRN PRN Reason: Mild Pain or Fever > 100.5 Insulin Aspart (Insulin Aspart (Novolog) 100 Unit/Ml Vial) 0 unit SQ Q6H [facility]; Protocol Last Admin: 08/11/21 19:15 Dose: 1 unit Documented by: Lorazepam (Lorazepam 2 Mg/Ml Inj) 0.5 mg IV Q6HR PRN PRN Reason: Anxiety Last Admin: 08/07/21 21:04 Dose: 0.5 mg Documented by: Naloxone HCl (Naloxone 0.4 Mg/Ml 1 Ml Vial) 0.2 mg IV Q2M PRN PRN Reason: Opioid Reversal Ondansetron HCl (Ondansetron 4 Mg/2 Ml Vial) 4 mg IVP Q8HR PRN PRN Reason: Nausea And Vomiting Zinc Sulfate (Zinc Sulfate 220 Mg Cap) 220 mg PO DAILY [facility] Last Admin: 08/11/21 08:13 Dose: 220 mg Documented by: Physical exam: GENERAL: The patient is currently intubated and sedated. HEENT: Pupils are round and equally reacting to light. CARDIOVASCULAR: S1 and S2 present. No murmurs, rubs, or gallops. PULMONARY: Diminished breath sounds bilaterally with coarse scattered rhonchi noted ABDOMEN: Soft, nontender, non-distended, normoactive bowel sounds. No palpable organomegaly. Obese. MUSCULOSKELETAL: No joint swelling or deformity. EXTREMITIES: No cyanosis, clubbing, or pedal edema. NEUROLOGICAL: Gross neurological examination did not reveal any focal deficits. SKIN: No rashes. Assessment: Acute hypoxic respiratory failure secondary to COVID-19 pneumonia requiring mechanical ventilation Elevated liver enzymes due to systemic inflammation Elevated D-dimer History of chronic sinus issues History of diverticulitis History of cholecystitis GI Prophylaxis: Protonix DVT Prophylaxis: Lovenox FULL CODE Plan: Continue to closely monitor in the ICU and pulmonary following. Per [place] weaning of paralytics being started. Patient is maintained on Baricitinib along with lovenox, vitamin, and zinc supplements. Patient continues on vent settings of 50% FI02 and peep of 15. Patient d-dimer is elevated at 13 and will increase lovenox and discuss with pulmonary about possible CTA. Prognosis is guarded. Objective - Vital Signs Vital signs: Vital Signs Temp 100.7 F H 08/11/21 04:00 Pulse 101 H 08/11/21 07:00 Resp 30 H 08/11/21 07:00 BP 223/118 08/09/21 13:00 Pulse Ox 91 L 08/11/21 07:00 Intake & Output 08/10/21 08/11/21 08/11/21 18:59 06:59 18:59 Intake Total 1827.78 2162.909 647.592 Output Total 785 985 190 Balance 1042.78 1177.909 457.592 Weight 116.8 kg 116.8 kg Intake: IV 1560 1560 390 0.9 1560 1560 390 Intake, IV Titration 187.78 272.909 107.592 Amount propofoL 1,000 mg In 187.78 272.909 107.592 Empty Bag 1 bag @ Titrate IV .Q0M [facility] Rx#: [id number] Tube Feeding 80 240 60 Other 90 90 Output: Urine 785 985 190 Other: Voiding Method Indwelling Catheter Indwelling Catheter ABP, PAP, CO, CI - Last Documented Arterial Blood Pressure 124/55 - Labs CBC & Chem 7: 08/11/21 04:05 08/11/21 04:05 Labs: Abnormal Lab Results - Last 24 Hours (Table) 08/10/21 08/11/21 08/11/21 Range/Units 23:43 04:05 04:05 Neutrophils # 8.8 H (1.3-7.7) k/uL Lymphocytes # 0.4 L (1.0-4.8) k/uL D-Dimer (<0.60) mg/L FEU ABG pH (7.35-7.45) ABG pCO2 (35-45) mmHg ABG pO2 (83-108) mmHg ABG HCO3 (21-25) mmol/L ABG Total CO2 (19-24) mmol/L ABG O2 Saturation (94-97) % Chloride 113 H (98-107) mmol/L BUN 23 H (9-20) mg/dL Glucose 120 H (74-99) mg/dL POC Glucose (mg/dL) 102 H (75-99) mg/dL Calcium 7.9 L (8.4-10.2) mg/dL AST 128 H (17-59) U/L ALT 168 H (4-49) U/L Alkaline Phosphatase 139 H (38-126) U/L Lactate Dehydrogenase 1118 H (313-618) U/L C-Reactive Protein 16.6 H (<1.0) mg/dL Total Protein 5.8 L (6.3-8.2) g/dL Albumin 2.6 L (3.5-5.0) g/dL 08/11/21 08/11/21 08/11/21 Range/Units 04:05 05:47 06:08 Neutrophils # (1.3-7.7) k/uL Lymphocytes # (1.0-4.8) k/uL D-Dimer 13.46 H (<0.60) mg/L FEU ABG pH 7.32 L (7.35-7.45) ABG pCO2 53 H (35-45) mmHg ABG pO2 66 L (83-108) mmHg ABG HCO3 27 H (21-25) mmol/L ABG Total CO2 29 H (19-24) mmol/L ABG O2 Saturation 92.8 L (94-97) % Chloride (98-107) mmol/L BUN (9-20) mg/dL Glucose (74-99) mg/dL POC Glucose (mg/dL) 130 H (75-99) mg/dL Calcium (8.4-10.2) mg/dL AST (17-59) U/L ALT (4-49) U/L Alkaline Phosphatase (38-126) U/L Lactate Dehydrogenase (313-618) U/L C-Reactive Protein (<1.0) mg/dL Total Protein (6.3-8.2) g/dL Albumin (3.5-5.0) g/dL
[2021-08-12] MEDS: HYDROmorphone 1 MG/ML 1 ML SYRINGE IVP PRN ×3 (00:34→06:45)
[2021-08-12] MEDS: ARTIFICIAL TEARS-HYPROMELLOSE DROPS 15 ML BTL BOTH EYES SCH ×5 (03:37→23:40)
[2021-08-12] MEDS: fentaNYL (PF) 2,500 MCG in SODIUM CHLORIDE 0.9% 200 ML IV SCH ×3 (04:32→18:15)
[2021-08-12] MEDS: ACETAMINOPHEN TAB 325 MG TAB PO PRN (04:32)
[2021-08-12 04:55] LABS: Basophils % (A) 0 %; Eosinophils % (A) 0 %; HCT 37.9 % (39.0-53.0); HGB 12.3 gm/dL (13.0-17.5); Lymphocytes # (A) 0.4 k/uL (1.0-4.8); Lymphocytes % (A) 3 %; MCH 30.5 pg (25.0-35.0); MCHC 32.4 g/dL (31.0-37.0); MCV 94.2 fL (80.0-100.0); Mean Platelet Volume 8.4; Monocytes # (A) 0.5 k/uL (0-1.0); Monocytes % (A) 4 %; Neutrophils # (A) 11.5 k/uL (1.3-7.7); Neutrophils % (A) 92 %; Platelet Count 215 k/uL (150-450); RBC 4.03 m/uL (4.30-5.90); RDW 12.4 % (11.5-15.5); WBC 12.5 k/uL (3.8-10.6)
[2021-08-12 05:21] LABS: ALT 123 U/L (4-49); AST 72 U/L (17-59); African American GFR (CKD) >90 (>60 ml/min/1.73 sqM); Albumin 2.6 g/dL (3.5-5.0); Alkaline Phosphatase 121 U/L (38-126); Anion Gap 1 mmol/L; Blood Urea Nitrogen 24 mg/dL (9-20); Calcium 8.2 mg/dL (8.4-10.2); Carbon Dioxide 28 mmol/L (22-30); Chloride 112 mmol/L (98-107); Glucose 123 mg/dL (74-99); Non-African American GFR(CKD) >90 (>60 ml/min/1.73 sqM); Potassium 4.4 mmol/L (3.5-5.1); Sodium 141 mmol/L (137-145); Total Bilirubin 0.8 mg/dL (0.2-1.3); Total Protein 5.8 g/dL (6.3-8.2)
[2021-08-12 06:00] LABS: ABG Base Excess 3.3 mmol/L; ABG HCO3 30 mmol/L (21-25); ABG Oxygen Saturation 93.7 % (94-97); ABG PCO2 64 mmHg (35-45); ABG PH 7.28 (7.35-7.45); ABG PO2 71 mmHg (83-108); ABG TCO2 32 mmol/L (19-24); Allen Test Performed? Yes
[2021-08-12] MEDS: INSULIN ASPART (NovoLOG) 100 UNIT/ML VIAL SQ SCH ×4 (06:47→23:41)
[2021-08-12] MEDS: BARICITINIB 2 MG TABLET PO SCH (08:14)
[2021-08-12] MEDS: ASCORBIC ACID 500 MG TAB PO SCH (08:15)
[2021-08-12] MEDS: ENOXAPARIN 40 MG/0.4 ML SYRINGE SQ SCH ×2 (08:15→20:18)
[2021-08-12] MEDS: CHOLECALCIFEROL 25 MCG (1000 IU) TABLET PO SCH (08:15)
[2021-08-12] MEDS: ZINC SULFATE 220 MG CAP PO SCH (08:15)
[2021-08-12] MEDS: DEXAMETHASONE SOD PHOSPHATE 10 MG/ML 1 ML VIAL IVP SCH (08:15)
[2021-08-12] MEDS: CHLORHEXIDINE GLUCONATE 15 ML CUP MUCOUS MEM SCH ×2 (08:15→20:18)
[2021-08-12] MEDS: ALBUTEROL HFA INHALER INHALATION SCH ×4 (08:33→20:01)
[2021-08-12] MEDS ORDERED: FUROSEMIDE 10 MG/ML 4 ML VIAL IV STA (08:36)
--- NOTE | 2021-08-12 08:38 | P.PN ---
Subjective Progress Note Date: 08/12/21 51-year-old male patient currently intubated on a mechanical ventilator due to COVID-19 related to pneumonia with secondary respiratory failure. The patient is non-vaccinated for COVID-19. The patient was sick approximately 10 days prior to him coming into the hospital. He did test positive for COVID-19. Initially he was hypoxic and he was on high flow oxygen at 15 L. The patient was started on a combination of treatment including Decadron, Baricitinib, Lovenox for DVT prophylaxis and multivitamins. LDH level was quite elevated at time of admission and was 1508 with a CRP of 6.9. The chest x-ray shows smaller lung volumes, diffuse bilateral pulmonary infiltrates. Subsequently, the patien t was brought into the ICU where the patient was placed on high flow oxygen plus a nonrebreather facemask and the patient was also using high flow. The patient was kept on the same treatment and ultimately the patient had to be intubated and 08/09/2021 where the patient was also placed on a mechanical ventilator. This morning, the patient is an assist-control mode of mechanical ventilation at the rate of 30 with a tidal volume of 450 and FiO2 of 50% with a PEEP of 15. The patient is on propofol running at 65 mcg/kg per minute and the patient is also Nimbex at 1.5 mcg/kg per minute. The chest x-ray from today was reviewed and compared to the one that was done yesterday. ET tube is in a good location. The patient continues to have diffuse bilateral pulmonary infiltrates consistent with COVID 19 related pneumonia and infiltrates more in the lung bases more so on the right. ET tube is in a good location. The patient has a triple lumen catheter in the left subclavian vein. There may be some limited improvement in the infiltration of the left lung compared to the earlier chest x-ray. Meanwhile, the blood gases showed a pH of 7.32 with a pCO2 of 53 and pO2 of 66. Inflammatory markers shows an LDH level of 1001 on a seen which is obviously improved compared to a few days back and the CRP level is down to 16.6. D-dimer is at 13.4 and the patient Hb +9.7 with hemoglobin of 13.7. The patient remains on Lovenox 40 mg subcu for DVT prophylaxis. The patient is on a combination of Decadron on Baricitinib per protocol. The patient is started on enteral feeding for nutritional support, the patient is currently at the rate of 20 mL an hour vital AF On today's evaluation of 08/12/2021, seeing the patient for a follow-up. The patient this morning is on a combination of sedation and paralysis. Note that the paralytic agents had to be restarted yesterday as the patient was unable to breathe comfortably once of Nimbex. This morning, the patient remains sedated and the patient is currently on propofol running at 60 mcg/kg per minute and the patient is also on fentanyl at 3 mcg/kg/h. The patient is also Nimbex running at 1.5 mcg/kg per minute. The patient is adequately sedated and paralyzed this point in time. The patient remains on a mechanical ventilator. The patient is currently on assist control mode with a tidal volume of 450, FiO2 of 80%, PEEP of 15 and the rate of 30. The patient had a follow-up blood gases today that showed a pH of 7.27 with a pCO2 of 64 and pO2 of 71. The peak airway pressure is 32. This is slightly higher compared to yesterday. The chest x-ray from today is showing bilateral pulmonary infiltrates consistent with COVID 19 re lated pneumonia. ET tube is in a good location. No major interval change in terms of the chest x-ray findings compared to yesterday. The patient remains on a combination of Decadron and Baricitinib per protocol. The patient is also on Lovenox for DVT prophylaxis. In terms of the inflammatory markers, the patient's had elevated levels yesterday and follow-up levels are still pending from today. Meanwhile, the patient has spiked a temperature of 102.7. He was having episodes of fever earlier. Off course this is a concern under the chest x-ray findings is also getting worse and there is always a concern of a superinfection. For that reason, I'm going to suggest. The Baricitinib for now and check a progesterone level and cover this patient with empiric antibiotics. Meanwhile, the patient remains on Decadron. The patient is hemodynamically stable. The patient is on no pressors. The white cell count is slightly higher today at 12.5. The net fluid balance over the past 24 hours has been also +2.2 L in the patient's weight has been gradually going up and it's up by at least 4 kg over the past 48 hours. Objective - Vital Signs Vital signs: Vital Signs Temp 102.7 F H 08/12/21 04:00 Pulse 114 H 08/12/21 07:00 Resp 30 H 08/12/21 07:00 BP 131/67 08/11/21 20:00 Pulse Ox 92 L 08/12/21 07:00 Intake & Output 08/11/21 08/12/21 08/12/21 18:59 06:59 18:59 Intake Total 7987.152 0133.738 157.096 Output Total 1690 1105 100 Balance 137.683 456.738 57.096 Weight 116.8 kg Intake: IV 840 600 50 0.9 840 600 50 Intake, IV Titration 516.683 595.738 84.096 Amount Cisatracurium 200 mg In 200 Sodium Chloride 0.9% 180 ml @ 1 MCG/KG/MIN 6.84 mls/hr IV .Q24H [facility] Rx#: [id number] fentaNYL (PF) 2,500 mcg 217.735 In Sodium Chloride 0.9% 200 ml @ 0.5 MCG/KG/HR 5. 84 mls/hr IV .Q24H [facility] Rx #:[id number] propofoL 1,000 mg In 107.592 Empty Bag 1 bag @ Titrate IV .Q0M [facility] Rx#: [id number] propofoL 1,000 mg In 209.091 378.003 84.096 Empty Bag 1 bag @ Titrate IV .Q0M [facility] Rx#: [id number] Tube Feeding 261 276 23 Other 210 90 Output: Urine 1690 1105 100 Other: Voiding Method Indwelling Catheter Indwelling Catheter ABP, PAP, CO, CI - Last Documented Arterial Blood Pressure 165/53 - Exam GENERAL EXAM: Intubated, sedated and paralyzed 51-year-old gentleman, currently on a ventilator on 80% FiO2 and a PEEP of 15. HEAD: Normocephalic. EYES: Normal reaction of pupils, equal size. NOSE: Clear with pink turbinates. THROAT: Oral endotracheal and gastric tube secured in place. No erythema or exudates. NECK: No masses, no JVD. CHEST: No chest wall deformity. LUNGS: Equal air entry with coarse crackles in the bilateral bases. CVS: S1 and S2 normal with no audible murmur, regular rhythm. ABDOMEN: No hepatosplenomegaly, normal bowel sounds, no guarding or rigidity. SPINE: No scoliosis or deformity SKIN: No rashes CENTRAL NERVOUS SYSTEM: Sedated and paralyzed, tone is normal in all 4 extremities. EXTREMITIES: There is trace peripheral edema. No clubbing, no cyanosis. Peripheral pulses are intact. - Labs CBC & Chem 7: 08/12/21 04:05 08/12/21 04:05 Labs: Abnormal Lab Results - Last 24 Hours (Table) 08/11/21 08/11/21 08/11/21 Range/Units 11:32 19:04 23:02 WBC (3.8-10.6) k/uL RBC (4.30-5.90) m/uL Hgb (13.0-17.5) gm/dL Hct (39.0-53.0) % Neutrophils # (1.3-7.7) k/uL Lymphocytes # (1.0-4.8) k/uL ABG pH (7.35-7.45) ABG pCO2 (35-45) mmHg ABG pO2 (83-108) mmHg ABG HCO3 (21-25) mmol/L ABG Total CO2 (19-24) mmol/L ABG O2 Saturation (94-97) % Chloride (98-107) mmol/L BUN (9-20) mg/dL Glucose (74-99) mg/dL POC Glucose (mg/dL) 131 H 137 H 112 H (75-99) mg/dL Calcium (8.4-10.2) mg/dL AST (17-59) U/L ALT (4-49) U/L Total Protein (6.3-8.2) g/dL Albumin (3.5-5.0) g/dL 08/12/21 08/12/21 08/12/21 Range/Units 04:05 04:05 05:55 WBC 12.5 H (3.8-10.6) k/uL RBC 4.03 L (4.30-5.90) m/uL Hgb 12.3 L (13.0-17.5) gm/dL Hct 37.9 L (39.0-53.0) % Neutrophils # 11.5 H (1.3-7.7) k/uL Lymphocytes # 0.4 L (1.0-4.8) k/uL ABG pH 7.28 L (7.35-7.45) ABG pCO2 64 H (35-45) mmHg ABG pO2 71 L (83-108) mmHg ABG HCO3 30 H (21-25) mmol/L ABG Total CO2 32 H (19-24) mmol/L ABG O2 Saturation 93.7 L (94-97) % Chloride 112 H (98-107) mmol/L BUN 24 H (9-20) mg/dL Glucose 123 H (74-99) mg/dL POC Glucose (mg/dL) (75-99) mg/dL Calcium 8.2 L (8.4-10.2) mg/dL AST 72 H (17-59) U/L ALT 123 H (4-49) U/L Total Protein 5.8 L (6.3-8.2) g/dL Albumin 2.6 L (3.5-5.0) g/dL Assessment and Plan Plan: 1 Acute hypoxemic respiratory failure secondary to COVID-19 pneumonia. Not vaccinated. Initiated on Baricitinib, Decadron, Lovenox. Transferred to the ICU on 08/08/2021. Subsequently required intubation and mechanical ventilatory support on 08/09/2021. The patient currently being mechanically ventilated. Chest x-ray was noted. Blood gas was noted. Patient is covered with a combination of Decadron on Baricitinib and the patient is also on Lovenox for th e prophylaxis. On today's evaluation, the chest x-ray showing some worsening in lower lobe, infiltrates more so on the right and the patient is running episodes of fever. There is obvious concern for superinfection at this point in time. Note that the patient has been receiving a combination of Decadron and Baricitinib. 2 fever, could be related to COVID 19 versus pulmonary superinfection as the patient has developed worsening in bilateral pulmonary infiltrates more so on the right 3 Elevated inflammatory markers secondary to above 4 Hearing disorder 5 Hiatal hernia 6 History of chronic sinus disease 7 History of varicose veins Plan: Continue ventilator support, no ventilator changes to be done today. Check sputum Gram stain and culture Stop the Baricitinib for now Cover the patient IV cefepime 2 g every 12 hours Obtain blood cultures Monitor fever pattern Keep the patient on a combination of sadation and paralytics IV fluids to KVO Give the patient additional dose of Lasix 40 mg IV push Recheck markers and generally improving including LDH, d-dimer remains elevated and the patient remains on Lovenox for DVT prophylaxis We will continue to follow and make further recommendations based on his clinical status, and continue enteral feeding for nutritional support, condition remains extremity critical. We'll continue to follow make further recommendations based on his progress. Critically care evaluation, more than 30 minutes.
[2021-08-12] MEDS: CEFEPIME 2 GM in SODIUM CHLORIDE 0.9% 100 ML IVPB SCH ×2 (09:02→20:18)
--- NOTE | 2021-08-12 10:55 | XR ---
EXAMINATION TYPE: XR chest 1V portable DATE OF EXAM: 08/12/2021 COMPARISON: 08/11/2021 INDICATION: Tube placement TECHNIQUE: Single frontal view of the chest is obtained. FINDINGS: The heart size is upper limits of normal. The pulmonary vasculature is indistinct. Diffuse increased lung markings at the mid and lower lung antonio previously greater in the right lowe r lobe. Findings are similar to comparison. Continued follow-up is recommended Endotracheal tube tip is above the autumn. Nasogastric tube transverses the thorax. Left central veno us catheter tip is in the distal superior vena cava region. IMPRESSION: 1. Diffuse increased lung markings greater at the lung bases and continued follow-up is recommended. 2. Lines and catheters discussed above.
[2021-08-12 12:16] LABS: Glucose,Whole Blood 123 mg/dL (75-99)
[2021-08-12] MEDS: CISATRACURIUM 200 MG in SODIUM CHLORIDE 0.9% 180 ML IV SCH (13:04)
[2021-08-12] MEDS ORDERED: bisacodyL 10 MG SUPP RECTAL STA (13:05)
--- NOTE | 2021-08-12 15:55 | P.PN ---
Subjective Progress Note Date: 08/12/21 Acute hypoxic respiratory failure secondary to COVID-19 pneumonia Elevated liver enzymes due to systemic inflammation 51-year-old male who presents to the with symptoms of shortness of breath and cough ongoing since last Wednesday. Patient states that Wednesday he started feeling short of breath, Wednesday his symptoms worsened and then on Wednesday he said that he began to feel the worst. He is having difficulty catching his breath and attributed this to his chronic sinus problems that he has. On Wednesday he went to the [facility] and was given some medication for his sinuses but did not help him, so he came to the ER. Patient was positive for Covid in the [facility]. He is not vaccinated. Home medications include zinc, vitamin D3, Singulair, Flonase, albuterol inhaler, and ibuprofen. Past medical history significant for sinus issues ongoing, diverticulitis, hernia, cholecystectomy, hard of hearing. Patient is a never smoker, reports occasional alcohol use nothing daily, no drug use. Chest x-ray in the [facility] shows diffuse bilateral interstitial edema and/or infiltrates left greater than right. Labs today show a white count of 5.5, platelet 133, sodium 137, potassium 3.6, mag 1.7, lactic aci d 1.2. Vitals show a temp of 98.7, heart rate 92, blood pressure 147/90 on 15L HF, 15L NRB. Discussed with patient the next step would be BiPAP and possibly intubation. Patient is very claustrophobic and is having difficulty even with the nonrebreather. 08/08/2021 Patient is seen and evaluated in room at bedside; reports worsening breathing and has been desaturating down to low 80s; pulmonary service on board and recommending patient be transferred to ICU Vital signs reviewed temperature 98.0 pulse 87 respiration 26 and blood pressure 137 with 89 Lab review shows diffuse he 7.6, hemoglobin 15.4 and platelet count of 171, sodium 142, potassium 3.9, BUN/creatinine of 23/0.7; d-dimer of 0.78 We will continue to titrate FiO2; self-propelling is encouraged; patient remains on Baricitinib, Lovenox, Decadron for Covid 19 protocol 08/09/2021 Patient seen for follow-up in ICU; nursing staff patient desaturated. In the day and was placed on BiPAP; patient was unable to tolerate BiPAP and oxygen saturation continued to drop with worsening respiratory rate; patient was subsequently intubated and mechanically ventilated Vital signs review shows temperature 97.8, pulse 68, respiration 45 and blood pressure of 118/70 Laboratory; WBC 6.3. Hemoglobin 15.3. Platelets 169. Lymphocytes 0.6. Sodium 140. Potassium 3.9. Bicarb 21. BUN 25. Creatinine 0.76. AST 167. ALT 135. He remains on Decadron, Lovenox, Baricitinib and vitamin supplements. 08/10/2021 Patient remains in ICU and remains intubated and mechanically ventilated; remains on sedation with propofol and Nimbex blood gases from this morning revealed PaO2 of 95, pCO2 46, pH 7.34. Chest x- ray is revealing bilateral interstitial and airspace opacities consistent with COVID-19 pneumonia. No pneumothorax or large effusions. White count 10.8. Hemoglobin 14.7. Sodium 141. Potassium 4.2. Creatinine 0.72. Glucose 109. AST 176. ALT 184. Alk phos 156. He is continued on Baricitinib, Decadron, Lovenox, vitamin supplements. Initiated tube feedings for nutritional support; Continue Baricitinib, Lovenox, Decadron Prone if possible Prognosis is guarded 08/11/2021 Patient is seen in follow up this morning and continues to be on mechanical ventilation and pulmonary bed and breakfast innkeeper following closely. Patient respiratory status worsening and current settings of 50% FI02 and a peep of 15. Patient continues on IV dexamethasone, lovenox, vitamin and zinc supplements. D dimer today is 13.46, inflammatory markers elevated. Slight worsening noted on the chest xray this morning. Patient is also receiving Baricitinib. 08/12/2021 Patient is seen in follow-up today continues to be in the ICU being closely monitored. Patient continues on mechanical vent and Nimbex has been resumed and patient is also maintained on propofol and fentanyl for sedation. Patient respiratory status worsening and current settings are 80% FiO2 with a PEEP of 1 5. Patient started on IV cefepime with a mildly elevated white blood count and baricitinib has been discontinued. Patient continues on IV dexamethasone along with Lovenox twice daily vitamin and zinc supplements and will continue. Review of systems: unable to obtain as patient is intubated and sedated Medications have been reviewed. Active Medications Acetaminophen (Acetaminophen Tab 325 Mg Tab) 650 mg PO Q6HR PRN PRN Reason: Mild Pain or Fever > 100.5 Last Admin: 08/12/21 04:32 Dose: 650 mg Documented by: Albuterol Sulfate (Albuterol Hfa Inhaler) 2 puff INHALATION RT-QID PRN PRN Reason: Shortness Of Breath Or Wheezing Albuterol Sulfate (Albuterol Hfa Inhaler) 2 puff INHALATION RT-QID [facility] Last Admin: 08/12/21 12:09 Dose: 2 puff Documented by: Artificial Tears (Artificial Tears-Hypromellose Drops 15 Ml Btl) 1 drops BOTH EYES Q4H [facility] Last Admin: 08/12/21 12:41 Dose: 1 drops Documented by: Ascorbic Acid (Ascorbic Acid 500 Mg Tab) 1,000 mg PO DAILY [facility] Last Admin: 08/12/21 08:15 Dose: 1,000 mg Documented by: Chlorhexidine Gluconate (Chlorhexidine Gluconate 15 Ml Cup) 15 ml MUCOUS MEM BID [facility] Last Admin: 08/12/21 08:15 Dose: 15 ml Documented by: Cholecalciferol (Cholecalciferol 25 Mcg (1000 Iu) Tablet) 125 mcg PO DAILY [facility] Last Admin: 08/12/21 08:15 Dose: 125 mcg Documented by: Dexamethasone Sodium Phosphate (Dexamethasone Sod Phosphate 10 Mg/Ml 1 Ml Vial) 6 mg IVP DAILY [facility] Last Admin: 08/12/21 08:15 Dose: 6 mg Documented by: Enoxaparin Sodium (Enoxaparin 40 Mg/0.4 Ml Syringe) 40 mg SQ BID [facility] Last Admin: 08/12/21 08:15 Dose: 40 mg Documented by: Hydromorphone HCl (Hydromorphone 1 Mg/Ml 1 Ml Syringe) 1 mg IVP Q2HR PRN PRN Reason: Pain Last Admin: 08/12/21 06:45 Dose: 1 mg Documented by: Sodium Chloride (Saline 0.9%) 1,000 mls @ 50 mls/hr IV .Q20H [facility] Last Admin: 08/11/21 12:04 Dose: 50 mls/hr Documented by: Propofol 1,000 mg/ IV Solution 100 mls @ 0 mls/hr IV .Q0M [facility]; Protocol Last Admin: 08/12/21 13:12 Dose: 60 mcg/kg/min, 42.048 mls/hr Documented by: Fentanyl Citrate 2,500 mcg/ (Sodium Chloride) 250 mls @ 5.84 mls/hr IV .Q24H [facility]; Protocol Last Titration: 08/12/21 14:22 Dose: 2.5 mcg/kg/hr, 29.2 mls/hr Documented by: Cisatracurium Besylate 200 mg/ (Sodium Chloride) 200 mls @ 7.008 mls/hr IV .Q24H [facility]; Protocol Last Admin: 08/12/21 13:04 Dose: 1.5 mcg/kg/min, 10.512 mls/hr Documented by: Cefepime HCl 2 gm/ Sodium (Chloride) 100 mls @ 25 mls/hr IVPB Q12HR [facility] Last Admin: 08/12/21 09:02 Dose: 25 mls/hr Documented by: Ibuprofen (Ibuprofen 400 Mg Tab) 400 mg PO Q6HR PRN PRN Reason: Mild Pain or Fever > 100.5 Insulin Aspart (Insulin Aspart (Novolog) 100 Unit/Ml Vial) 0 unit SQ Q6H [facility]; Protocol Last Admin: 08/12/21 12:33 Dose: Not Given Documented by: Lorazepam (Lorazepam 2 Mg/Ml Inj) 0.5 mg IV Q6HR PRN PRN Reason: Anxiety Last Admin: 08/07/21 21:04 Dose: 0.5 mg Documented by: Naloxone HCl (Naloxone 0.4 Mg/Ml 1 Ml Vial) 0.2 mg IV Q2M PRN PRN Reason: Opioid Reversal Ondansetron HCl (Ondansetron 4 Mg/2 Ml Vial) 4 mg IVP Q8HR PRN PRN Reason: Nausea And Vomiting Zinc Sulfate (Zinc Sulfate 220 Mg Cap) 220 mg PO DAILY [facility] Last Admin: 08/12/21 08:15 Dose: 220 mg Documented by: Physical exam: GENERAL: The patient is currently intubated and sedated. HEENT: Pupils are round and equally reacting to light. CARDIOVASCULAR: S1 and S2 present. No murmurs, rubs, or gallops. PULMONARY: Diminished breath sounds bilaterally with coarse scattered rhonchi noted ABDOMEN: Soft, nontender, non-distended, normoactive bowel sounds. No palpable organomegaly. Obese. MUSCULOSKELETAL: No joint swelling or deformity. EXTREMITIES: No cyanosis, clubbing, or pedal edema. NEUROLOGICAL: Gross neurological examination did not reveal any focal deficits. SKIN: No rashes. Assessment: Acute hypoxic respiratory failure secondary to COVID-19 pneumonia requiring mechanical ventilation Elevated liver enzymes due to systemic inflammation Elevated D-dimer History of chronic sinus issues History of diverticulitis History of cholecystitis GI Prophylaxis: Protonix DVT Prophylaxis: Lovenox FULL CODE Plan: Continue to closely monitor in the ICU and pulmonary following. Per staff midwife/apprenticeship director patient is back on Nimbex and sedated on fentanyl and propofol. Pulminary bed and breakfast innkeeper following closely. Patient started on IV cefepime and white blood count is mildly elevated at 12.5. Patient is maintained on lovenox twice daily, vitamin, and zinc supplements. Baricitinib has been discontinued. Patient continues on vent settings of 80% FI02 and peep of 15. Chest x-ray today shows diffuse increased lung markings greater at the lung bases and continued follow- up is recommended. Prognosis is guarded. Objective - Vital Signs Vital signs: Vital Signs Temp 102.7 F H 08/12/21 04:00 Pulse 114 H 08/12/21 07:00 Resp 30 H 08/12/21 07:00 BP 131/67 08/11/21 20:00 Pulse Ox 92 L 08/12/21 07:00 Intake & Output 08/11/21 08/12/21 08/12/21 18:59 06:59 18:59 Intake Total 7043.259 0113.738 157.096 Output Total 1690 1105 100 Balance 137.683 456.738 57.096 Weight 116.8 kg Intake: IV 840 600 50 0.9 840 600 50 Intake, IV Titration 516.683 595.738 84.096 Amount Cisatracurium 200 mg In 200 Sodium Chloride 0.9% 180 ml @ 1 MCG/KG/MIN 6.84 mls/hr IV .Q24H [facility] Rx#: [id number] fentaNYL (PF) 2,500 mcg 217.735 In Sodium Chloride 0.9% 200 ml @ 0.5 MCG/KG/HR 5. 84 mls/hr IV .Q24H [facility] Rx #:[id number] propofoL 1,000 mg In 107.592 Empty Bag 1 bag @ Titrate IV .Q0M [facility] Rx#: [id number] propofoL 1,000 mg In 209.091 378.003 84.096 Empty Bag 1 bag @ Titrate IV .Q0M [facility] Rx#: [id number] Tube Feeding 261 276 23 Other 210 90 Output: Urine 1690 1105 100 Other: Voiding Method Indwelling Catheter Indwelling Catheter ABP, PAP, CO, CI - Last Documented Arterial Blood Pressure 165/53 - Labs CBC & Chem 7: 08/12/21 04:05 08/12/21 04:05 Labs: Abnormal Lab Results - Last 24 Hours (Table) 08/11/21 08/11/21 08/11/21 Range/Units 11:32 19:04 23:02 WBC (3.8-10.6) k/uL RBC (4.30-5.90) m/uL Hgb (13.0-17.5) gm/dL Hct (39.0-53.0) % Neutrophils # (1.3-7.7) k/uL Lymphocytes # (1.0-4.8) k/uL ABG pH (7.35-7.45) ABG pCO2 (35-45) mmHg ABG pO2 (83-108) mmHg ABG HCO3 (21-25) mmol/L ABG Total CO2 (19-24) mmol/L ABG O2 Saturation (94-97) % Chloride (98-107) mmol/L BUN (9-20) mg/dL Glucose (74-99) mg/dL POC Glucose (mg/dL) 131 H 137 H 112 H (75-99) mg/dL Calcium (8.4-10.2) mg/dL AST (17-59) U/L ALT (4-49) U/L Total Protein (6.3-8.2) g/dL Albumin (3.5-5.0) g/dL 08/12/21 08/12/21 08/12/21 Range/Units 04:05 04:05 05:55 WBC 12.5 H (3.8-10.6) k/uL RBC 4.03 L (4.30-5.90) m/uL Hgb 12.3 L (13.0-17.5) gm/dL Hct 37.9 L (39.0-53.0) % Neutrophils # 11.5 H (1.3-7.7) k/uL Lymphocytes # 0.4 L (1.0-4.8) k/uL ABG pH 7.28 L (7.35-7.45) ABG pCO2 64 H (35-45) mmHg ABG pO2 71 L (83-108) mmHg ABG HCO3 30 H (21-25) mmol/L ABG Total CO2 32 H (19-24) mmol/L ABG O2 Saturation 93.7 L (94-97) % Chloride 112 H (98-107) mmol/L BUN 24 H (9-20) mg/dL Glucose 123 H (74-99) mg/dL POC Glucose (mg/dL) (75-99) mg/dL Calcium 8.2 L (8.4-10.2) mg/dL AST 72 H (17-59) U/L ALT 123 H (4-49) U/L Total Protein 5.8 L (6.3-8.2) g/dL Albumin 2.6 L (3.5-5.0) g/dL
[2021-08-12 17:46] LABS: Glucose,Whole Blood 127 mg/dL (75-99)
[2021-08-12 23:27] LABS: Glucose,Whole Blood 147 mg/dL (75-99)
[2021-08-12 23:36] LABS: Glucose,Whole Blood 158 mg/dL (75-99)
[2021-08-13] MEDS: ARTIFICIAL TEARS-HYPROMELLOSE DROPS 15 ML BTL BOTH EYES SCH ×6 (04:20→23:57)
[2021-08-13 05:53] LABS: ABG Base Excess 3.4 mmol/L; ABG HCO3 30 mmol/L (21-25); ABG Oxygen Saturation 94.3 % (94-97); ABG PCO2 64 mmHg (35-45); ABG PH 7.28 (7.35-7.45); ABG PO2 73 mmHg (83-108); ABG TCO2 32 mmol/L (19-24)
[2021-08-13 05:57] LABS: Basophils % (A) 0 %; Eosinophils % (A) 0 %; HGB 11.5 gm/dL (13.0-17.5); Hypochromasia Slight; Lymphocytes # (A) 0.4 k/uL (1.0-4.8); Lymphocytes % (A) 5 %; MCH 30.6 pg (25.0-35.0); MCHC 31.8 g/dL (31.0-37.0); MCV 96.3 fL (80.0-100.0); Mean Platelet Volume 8.5; Monocytes # (A) 0.3 k/uL (0-1.0); Monocytes % (A) 4 %; Neutrophils # (A) 7.5 k/uL (1.3-7.7); Neutrophils % (A) 90 %; Platelet Count 211 k/uL (150-450); RBC 3.74 m/uL (4.30-5.90); RDW 12.3 % (11.5-15.5); WBC 8.4 k/uL (3.8-10.6)
[2021-08-13 06:15] LABS: Allen Test Performed? no
[2021-08-13] MEDS: SODIUM CHLORIDE 0.9% 1,000 ML IV SCH ×2 (06:21→23:51)
[2021-08-13 06:24] LABS: ALT 83 U/L (4-49); AST 37 U/L (17-59); African American GFR (CKD) >90 (>60 ml/min/1.73 sqM); Albumin 2.5 g/dL (3.5-5.0); Alkaline Phosphatase 105 U/L (38-126); Anion Gap 3 mmol/L; Blood Urea Nitrogen 36 mg/dL (9-20); Calcium 8.5 mg/dL (8.4-10.2); Carbon Dioxide 30 mmol/L (22-30); Chloride 112 mmol/L (98-107); Glucose 146 mg/dL (74-99); Non-African American GFR(CKD) 83 (>60 ml/min/1.73 sqM); Sodium 145 mmol/L (137-145); Total Bilirubin 0.7 mg/dL (0.2-1.3); Total Protein 5.9 g/dL (6.3-8.2)
[2021-08-13 06:41] LABS: Glucose,Whole Blood 146 mg/dL (75-99)
[2021-08-13] MEDS: INSULIN ASPART (NovoLOG) 100 UNIT/ML VIAL SQ SCH ×4 (06:42→23:57)
--- NOTE | 2021-08-13 07:49 | XR ---
EXAMINATION TYPE: XR chest 1V portable DATE OF EXAM: 08/13/2021 COMPARISON: 08/12/2021 INDICATION: Tube placement TECHNIQUE: Single frontal view of the chest is obtained. FINDINGS: The heart size is normal. The pulmonary vasculature is normal. Bibasilar infiltrates are present. There is a consolidation at the left lung base. Endotracheal tube tip is 8.7 cm above the autumn. This could be advanced 4 cm. Left central venous ca theter tip is in the superior vena cava region. Nasogastric tube transverse the thorax. IMPRESSION: 1. Bibasilar infiltrates worsening on the left. 2. Lines and catheters discussed above. 3. The endotracheal tube could be advanced 4 cm.
[2021-08-13] MEDS: ENOXAPARIN 40 MG/0.4 ML SYRINGE SQ SCH ×2 (08:03→20:18)
[2021-08-13] MEDS: CEFEPIME 2 GM in SODIUM CHLORIDE 0.9% 100 ML IVPB SCH ×2 (08:03→20:18)
[2021-08-13] MEDS: ZINC SULFATE 220 MG CAP PO SCH (08:03)
[2021-08-13] MEDS: CHOLECALCIFEROL 25 MCG (1000 IU) TABLET PO SCH (08:03)
[2021-08-13] MEDS: ASCORBIC ACID 500 MG TAB PO SCH (08:03)
[2021-08-13] MEDS: CHLORHEXIDINE GLUCONATE 15 ML CUP MUCOUS MEM SCH ×2 (08:03→20:04)
[2021-08-13] MEDS: DEXAMETHASONE SOD PHOSPHATE 10 MG/ML 1 ML VIAL IVP SCH (08:20)
--- NOTE | 2021-08-13 08:48 | P.PN ---
Subjective Progress Note Date: 08/13/21 51-year-old male patient currently intubated on a mechanical ventilator due to COVID-19 related to pneumonia with secondary respiratory failure. The patient is non-vaccinated for COVID-19. The patient was sick approximately 10 days prior to him coming into the hospital. He did test positive for COVID-19. Initially he was hypoxic and he was on high flow oxygen at 15 L. The patient was started on a combination of treatment including Decadron, Baricitinib, Lovenox for DVT prophylaxis and multivitamins. LDH level was quite elevated at time of admission and was 1508 with a CRP of 6.9. The chest x-ray shows smaller lung volumes, diffuse bilateral pulmonary infiltrates. Subsequently, the patien t was brought into the ICU where the patient was placed on high flow oxygen plus a nonrebreather facemask and the patient was also using high flow. The patient was kept on the same treatment and ultimately the patient had to be intubated and 08/09/2021 where the patient was also placed on a mechanical ventilator. This morning, the patient is an assist-control mode of mechanical ventilation at the rate of 30 with a tidal volume of 450 and FiO2 of 50% with a PEEP of 15. The patient is on propofol running at 65 mcg/kg per minute and the patient is also Nimbex at 1.5 mcg/kg per minute. The chest x-ray from today was reviewed and compared to the one that was done yesterday. ET tube is in a good location. The patient continues to have diffuse bilateral pulmonary infiltrates consistent with COVID 19 related pneumonia and infiltrates more in the lung bases more so on the right. ET tube is in a good location. The patient has a triple lumen catheter in the left subclavian vein. There may be some limited improvement in the infiltration of the left lung compared to the earlier chest x-ray. Meanwhile, the blood gases showed a pH of 7.32 with a pCO2 of 53 and pO2 of 66. Inflammatory markers shows an LDH level of 1001 on a seen which is obviously improved compared to a few days back and the CRP level is down to 16.6. D-dimer is at 13.4 and the patient Hb +9.7 with hemoglobin of 13.7. The patient remains on Lovenox 40 mg subcu for DVT prophylaxis. The patient is on a combination of Decadron on Baricitinib per protocol. The patient is started on enteral feeding for nutritional support, the patient is currently at the rate of 20 mL an hour vital AF On today's evaluation of 08/12/2021, seeing the patient for a follow-up. The patient this morning is on a combination of sedation and paralysis. Note that the paralytic agents had to be restarted yesterday as the patient was unable to breathe comfortably once of Nimbex. This morning, the patient remains sedated and the patient is currently on propofol running at 60 mcg/kg per minute and the patient is also on fentanyl at 3 mcg/kg/h. The patient is also Nimbex running at 1.5 mcg/kg per minute. The patient is adequately sedated and paralyzed this point in time. The patient remains on a mechanical ventilator. The patient is currently on assist control mode with a tidal volume of 450, FiO2 of 80%, PEEP of 15 and the rate of 30. The patient had a follow-up blood gases today that showed a pH of 7.27 with a pCO2 of 64 and pO2 of 71. The peak airway pressure is 32. This is slightly higher compared to yesterday. The chest x-ray from today is showing bilateral pulmonary infiltrates consistent with COVID 19 re lated pneumonia. ET tube is in a good location. No major interval change in terms of the chest x-ray findings compared to yesterday. The patient remains on a combination of Decadron and Baricitinib per protocol. The patient is also on Lovenox for DVT prophylaxis. In terms of the inflammatory markers, the patient's had elevated levels yesterday and follow-up levels are still pending from today. Meanwhile, the patient has spiked a temperature of 102.7. He was having episodes of fever earlier. Off course this is a concern under the chest x-ray findings is also getting worse and there is always a concern of a superinfection. For that reason, I'm going to suggest. The Baricitinib for now and check a progesterone level and cover this patient with empiric antibiotics. Meanwhile, the patient remains on Decadron. The patient is hemodynamically stable. The patient is on no pressors. The white cell count is slightly higher today at 12.5. The net fluid balance over the past 24 hours has been also +2.2 L in the patient's weight has been gradually going up and it's up by at least 4 kg over the past 48 hours. 08/13/2021, the patient remains sedated and paralyzed on a mechanical ventilator for COVID 19 related pneumonia. This morning he is on a propofol at 60 mg/kg per minute and fentanyl is also at 2 mcg/kg/h. Nimbex is running at 1.5 mg/kg/m. On a mechanical ventilator, assist control mode volume cycle with a tidal volume of 450 with an FiO2 of 80% and PEEP of 15 and a respiratory rate of 30. He is currently on Decadron. Baricitinib was discontinued yesterday due to concern of superinfection. The patient was also started on enteric antibiotic coverage and IV cefepime. Sepsis workup was also initiated. In terms of his vascular status, the pH today is at 7.28 with a pCO2 of 64 and pO2 of 73. Chest x-ray from today showing bilateral pulmonary infiltrates. I would state infiltration last in the lung bases compared to yesterday. ET tube is high in the trachea and [place] first and by another 2 cm. OG tube is also in place. The patient is currently afebrile. His white cell count today that 8.4 which is improved compared to yesterday. He remains on IV cefepime. Sputum Gram stain and cultures showing gram-positive cocci. Blood cultures still pending. The overall fluid balance over the past 24 hours has been in the order of +900 mL. Urine output is adequate for now. The patient remains on enteral feeding for nutritional support and the patient is receiving vital AF at the rate of 20 disease an hour which is currently at goal. The peak airway pressure is approximately 30 cm of water the study, pressure of 20 on today's evaluation. ET tube was adjusted at the bedside. He was pushed by around 2 cm. The air leak that was noted earlier has completely subsided. Objective - Vital Signs Vital signs: Vital Signs Temp 98.8 F 08/13/21 04:00 Pulse 84 08/13/21 07:00 Resp 30 H 08/13/21 07:00 BP 131/67 08/13/21 07:00 Pulse Ox 92 L 08/13/21 07:00 Intake & Output 08/12/21 08/13/21 08/13/21 18:59 06:59 18:59 Intake Total 2041.289 933 43 Output Total 1065 1000 125 Balance 976.289 -67 -82 Weight 117 kg Intake: IV 515 220 20 0.9 515 220 20 Intake, IV Titration 1017.289 400 Amount Cefepime 2 gm In Sodium 100 Chloride 0.9% 100 ml @ 25 mls/hr IVPB Q12HR [facility] Rx #:[id number] Cisatracurium 200 mg In 110.376 Sodium Chloride 0.9% 180 ml @ 1 MCG/KG/MIN 7.008 mls/hr IV .Q24H [facility] Rx#: [id number] fentaNYL (PF) 2,500 mcg 447.831 In Sodium Chloride 0.9% 200 ml @ 0.5 MCG/KG/HR 5. 84 mls/hr IV .Q24H [facility] Rx #:[id number] propofoL 1,000 mg In 459.082 300 Empty Bag 1 bag @ Titrate IV .Q0M [facility] Rx#: [id number] Tube Feeding 299 253 23 Other 210 60 Output: Urine 1065 1000 125 Other: Voiding Method Indwelling Catheter Indwelling Catheter ABP, PAP, CO, CI - Last Documented Arterial Blood Pressure 113/56 - Exam GENERAL EXAM: Intubated, sedated and paralyzed 51-year-old gentleman, currently on a ventilator on 80% FiO2 and a PEEP of 15. HEAD: Normocephalic. EYES: Normal reaction of pupils, equal size. NOSE: Clear with pink turbinates. THROAT: Oral endotracheal and gastric tube secured in place. No erythema or exudates. NECK: No masses, no JVD. CHEST: No chest wall deformity. LUNGS: Equal air entry with coarse crackles in the bilateral bases. CVS: S1 and S2 normal with no audible murmur, regular rhythm. ABDOMEN: No hepatosplenomegaly, normal bowel sounds, no guarding or rigidity. SPINE: No scoliosis or deformity SKIN: No rashes CENTRAL NERVOUS SYSTEM: Sedated and paralyzed, tone is normal in all 4 extre mities. EXTREMITIES: There is trace peripheral edema. No clubbing, no cyanosis. Peripheral pulses are intact. - Labs CBC & Chem 7: 08/13/21 04:55 08/13/21 04:55 Labs: Abnormal Lab Results - Last 24 Hours (Table) 08/12/21 08/12/21 08/12/21 Range/Units 12:14 17:44 23:25 RBC (4.30-5.90) m/uL Hgb (13.0-17.5) gm/dL Hct (39.0-53.0) % Lymphocytes # (1.0-4.8) k/uL ABG pH (7.35-7.45) ABG pCO2 (35-45) mmHg ABG pO2 (83-108) mmHg ABG HCO3 (21-25) mmol/L ABG Total CO2 (19-24) mmol/L Chloride (98-107) mmol/L BUN (9-20) mg/dL Glucose (74-99) mg/dL POC Glucose (mg/dL) 123 H 127 H 147 H (75-99) mg/dL ALT (4-49) U/L Total Protein (6.3-8.2) g/dL Albumin (3.5-5.0) g/dL 08/12/21 08/13/21 08/13/21 Range/Units 23:34 04:55 04:55 RBC 3.74 L (4.30-5.90) m/uL Hgb 11.5 L (13.0-17.5) gm/dL Hct 36.0 L (39.0-53.0) % Lymphocytes # 0.4 L (1.0-4.8) k/uL ABG pH (7.35-7.45) ABG pCO2 (35-45) mmHg ABG pO2 (83-108) mmHg ABG HCO3 (21-25) mmol/L ABG Total CO2 (19-24) mmol/L Chloride 112 H (98-107) mmol/L BUN 36 H (9-20) mg/dL Glucose 146 H (74-99) mg/dL POC Glucose (mg/dL) 158 H (75-99) mg/dL ALT 83 H (4-49) U/L Total Protein 5.9 L (6.3-8.2) g/dL Albumin 2.5 L (3.5-5.0) g/dL 08/13/21 08/13/21 Range/Units 05:51 06:40 RBC (4.30-5.90) m/uL Hgb (13.0-17.5) gm/dL Hct (39.0-53.0) % Lymphocytes # (1.0-4.8) k/uL ABG pH 7.28 L (7.35-7.45) ABG pCO2 64 H (35-45) mmHg ABG pO2 73 L (83-108) mmHg ABG HCO3 30 H (21-25) mmol/L ABG Total CO2 32 H (19-24) mmol/L Chloride (98-107) mmol/L BUN (9-20) mg/dL Glucose (74-99) mg/dL POC Glucose (mg/dL) 146 H (75-99) mg/dL ALT (4-49) U/L Total Protein (6.3-8.2) g/dL Albumin (3.5-5.0) g/dL Microbiology - Last 24 Hours (Table) 08/12/21 09:24 Blood Culture Gram Stain - Preliminary Blood 08/12/21 09:24 Blood Culture - Final Blood Assessment and Plan Plan: 1 Acute hypoxemic respiratory failure secondary to COVID-19 pneumonia. Not vaccinated. Initiated on Baricitinib, Decadron, Lovenox. Transferred to the ICU on 08/08/2021. Subsequently required intubation and mechanical ventilatory support on 08/09/2021. The patient currently being mechanically ventilated. Chest x-ray was noted. Blood gas was noted. Patient is covered with a combination of Decadron on Baricitinib and the patient is also on Lovenox for the prophylaxis. On today's evaluation, the chest x-ray showing some worsening in lower lobe, infiltrates more so on the right and the patient is running episodes of fever. There is obvious concern for superinfection at this point in time. Note that the patient has been receiving a combination of Decadron and Baricitinib. The Baricitinib was discontinued yesterday and there was a concern of superinfection. Culture is still pending. The patient is currently afebrile. Chest x-ray findings are stable and the patient is persistent infiltration of the lung bases, slightly improved compared to yesterday. 2 fever, could be related to COVID 19 versus pulmonary superinfection as the patient has developed worsening in bilateral pulmonary infiltrates more so on the right , culture are still pending and the patient is currently on empiric antibiotic coverage with IV cefepime 3 Elevated inflammatory markers secondary to above 4 Hearing disorder 5 Hiatal hernia 6 History of chronic sinus disease 7 History of varicose veins Plan: Continue ventilator support, the I'm going to reduce the tidal volume down to 4 ounces, review states FiO2 down to 70%, advanced 82 by an ultrasound meter and ultimately I'm going to discuss with the family the possibility of a PEG and trach at a later stage as the patient may end up being on a mechanical ventila tor for an extended period of time. He was intubated on . Check sputum Gram stain and culture Keep the Baricitinib on hold today Cover the patient IV cefepime 2 g every 12 hours Obtain blood cultures and these are pending Monitor fever pattern , currently afebrile Keep the patient on a combination of sadation and give the patient paralytic holiday IV fluids to KVO Give the patient additional dose of Lasix 20 mg IV every 12 hours Recheck markers and generally improving including LDH, d-dimer remains elevated and the patient remains on Lovenox for DVT prophylaxis We will continue to follow and make further recommendations based on his clinical status, and continue enteral feeding for nutritional support, condition remains extremity critical. We'll continue to follow make further recommendations based on his progress. Critically care evaluation, more than 30 minutes. Time with Patient: Greater than 30
[2021-08-13] MEDS: CISATRACURIUM 200 MG in SODIUM CHLORIDE 0.9% 180 ML IV SCH (08:56)
[2021-08-13] MEDS: FUROSEMIDE 10 MG/ML 2 ML VIAL IV SCH ×2 (08:58→20:18)
[2021-08-13] MEDS: ALBUTEROL HFA INHALER INHALATION SCH ×4 (09:10→19:36)
[2021-08-13] MEDS: fentaNYL (PF) 2,500 MCG in SODIUM CHLORIDE 0.9% 200 ML IV SCH ×2 (09:58→20:14)
[2021-08-13 12:10] LABS: Glucose,Whole Blood 149 mg/dL (75-99)
[2021-08-13 17:40] LABS: Glucose,Whole Blood 155 mg/dL (75-99)
--- NOTE | 2021-08-13 22:59 | P.PN ---
Subjective Progress Note Date: 08/13/21 Acute hypoxic respiratory failure secondary to COVID-19 pneumonia Elevated liver enzymes due to systemic inflammation 51-year-old male who presents to the with symptoms of shortness of breath and cough ongoing since last Wednesday. Patient states that Wednesday he started feeling short of breath, Wednesday his symptoms worsened and then on Wednesday he said that he began to feel the worst. He is having difficulty catching his breath and attributed this to his chronic sinus problems that he has. On Wednesday he went to the [facility] and was given some medication for his sinuses but did not help him, so he came to the ER. Patient was positive for Covid in the [facility]. He is not vaccinated. Home medications include zinc, vitamin D3, Singulair, Flonase, albuterol inhaler, and ibuprofen. Past medical history significant for sinus issues ongoing, diverticulitis, hernia, cholecystectomy, hard of hearing. Patient is a never smoker, reports occasional alcohol use nothing daily, no drug use. Chest x-ray in the [facility] shows diffuse bilateral interstitial edema and/or infiltrates left greater than right. Labs today show a white count of 5.5, platelet 133, sodium 137, potassium 3.6, mag 1.7, lactic aci d 1.2. Vitals show a temp of 98.7, heart rate 92, blood pressure 147/90 on 15L HF, 15L NRB. Discussed with patient the next step would be BiPAP and possibly intubation. Patient is very claustrophobic and is having difficulty even with the nonrebreather. 08/08/2021 Patient is seen and evaluated in room at bedside; reports worsening breathing and has been desaturating down to low 80s; pulmonary service on board and recommending patient be transferred to ICU Vital signs reviewed temperature 98.0 pulse 87 respiration 26 and blood pressure 137 with 89 Lab review shows diffuse he 7.6, hemoglobin 15.4 and platelet count of 171, sodium 142, potassium 3.9, BUN/creatinine of 23/0.7; d-dimer of 0.78 We will continue to titrate FiO2; self-propelling is encouraged; patient remains on Baricitinib, Lovenox, Decadron for Covid 19 protocol 08/09/2021 Patient seen for follow-up in ICU; nursing staff patient desaturated. In the day and was placed on BiPAP; patient was unable to tolerate BiPAP and oxygen saturation continued to drop with worsening respiratory rate; patient was subsequently intubated and mechanically ventilated Vital signs review shows temperature 97.8, pulse 68, respiration 45 and blood pressure of 118/70 Laboratory; WBC 6.3. Hemoglobin 15.3. Platelets 169. Lymphocytes 0.6. Sodium 140. Potassium 3.9. Bicarb 21. BUN 25. Creatinine 0.76. AST 167. ALT 135. He remains on Decadron, Lovenox, Baricitinib and vitamin supplements. 08/10/2021 Patient remains in ICU and remains intubated and mechanically ventilated; remains on sedation with propofol and Nimbex blood gases from this morning revealed PaO2 of 95, pCO2 46, pH 7.34. Chest x- ray is revealing bilateral interstitial and airspace opacities consistent with COVID-19 pneumonia. No pneumothorax or large effusions. White count 10.8. Hemoglobin 14.7. Sodium 141. Potassium 4.2. Creatinine 0.72. Glucose 109. AST 176. ALT 184. Alk phos 156. He is continued on Baricitinib, Decadron, Lovenox, vitamin supplements. Initiated tube feedings for nutritional support; Continue Baricitinib, Lovenox, Decadron Prone if possible Prognosis is guarded 08/11/2021 Patient is seen in follow up this morning and continues to be on mechanical ventilation and pulmonary supervisor rubber covering following closely. Patient respiratory status worsening and current settings of 50% FI02 and a peep of 15. Patient continues on IV dexamethasone, lovenox, vitamin and zinc supplements. D dimer today is 13.46, inflammatory markers elevated. Slight worsening noted on the chest xray this morning. Patient is also receiving Baricitinib. 08/12/2021 Patient is seen in follow-up today continues to be in the ICU being closely monitored. Patient continues on mechanical vent and Nimbex has been resumed and patient is also maintained on propofol and fentanyl for sedation. Patient respiratory status worsening and current settings are 80% FiO2 with a PEEP of 1 5. Patient started on IV cefepime with a mildly elevated white blood count and baricitinib has been discontinued. Patient continues on IV dexamethasone along with Lovenox twice daily vitamin and zinc supplements and will continue. 08/13/2021 Patient is seen in follow up today in the ICU and continues with sedation and mechanical ventilation. Continued on covid supplements and dexamethasone, lo venox, and IV cefepime. Pulmonary following. sputum culture ordered. Blood culture preliminary showing staph aureus and will repeat. WBC is 8.4, Afebrile. Chest xray shows bibasilar infiltrated worsening of the left. ET tube could be advanced 4cm. Review of systems: unable to obtain as patient is intubated and sedated Medications have been reviewed. Active Medications Acetaminophen (Acetaminophen Tab 325 Mg Tab) 650 mg PO Q6HR PRN PRN Reason: Mild Pain or Fever > 100.5 Last Admin: 08/12/21 04:32 Dose: 650 mg Documented by: Albuterol Sulfate (Albuterol Hfa Inhaler) 2 puff INHALATION RT-QID PRN PRN Reason: Shortness Of Breath Or Wheezing Albuterol Sulfate (Albuterol Hfa Inhaler) 2 puff INHALATION RT-QID [facility] Last Admin: 08/13/21 19:36 Dose: 2 puff Documented by: Artificial Tears (Artificial Tears-Hypromellose Drops 15 Ml Btl) 1 drops BOTH EYES Q4H [facility] Last Admin: 08/13/21 20:03 Dose: 1 drops Documented by: Ascorbic Acid (Ascorbic Acid 500 Mg Tab) 1,000 mg PO DAILY [facility] Last Admin: 08/13/21 08:03 Dose: 1,000 mg Documented by: Chlorhexidine Gluconate (Chlorhexidine Gluconate 15 Ml Cup) 15 ml MUCOUS MEM BID [facility] Last Admin: 08/13/21 20:04 Dose: 15 ml Documented by: Cholecalciferol (Cholecalciferol 25 Mcg (1000 Iu) Tablet) 125 mcg PO DAILY [facility] Last Admin: 08/13/21 08:03 Dose: 125 mcg Documented by: Dexamethasone Sodium Phosphate (Dexamethasone Sod Phosphate 10 Mg/Ml 1 Ml Vial) 6 mg IVP DAILY [facility] Last Admin: 08/13/21 08:20 Dose: 6 mg Documented by: Enoxaparin Sodium (Enoxaparin 40 Mg/0.4 Ml Syringe) 40 mg SQ BID [facility] Last Admin: 08/13/21 20:18 Dose: 40 mg Documented by: Furosemide (Furosemide 10 Mg/Ml 2 Ml Vial) 20 mg IV Q12HR [facility] Last Admin: 08/13/21 20:18 Dose: 20 mg Documented by: Hydromorphone HCl (Hydromorphone 1 Mg/Ml 1 Ml Syringe) 1 mg IVP Q2HR PRN PRN Reason: Pain Last Admin: 08/12/21 06:45 Dose: 1 mg Documented by: Sodium Chloride (Saline 0.9%) 1,000 mls @ 50 mls/hr IV .Q20H [facility] Last Admin: 08/13/21 06:21 Dose: 50 mls/hr Documented by: Propofol 1,000 mg/ IV Solution 100 mls @ 0 mls/hr IV .Q0M [facility]; Protocol Last Admin: 08/13/21 22:10 Dose: 70 mcg/kg/min, 49.056 mls/hr Documented by: Fentanyl Citrate 2,500 mcg/ (Sodium Chloride) 250 mls @ 5.84 mls/hr IV .Q24H [facility]; Protocol Last Admin: 08/13/21 20:14 Dose: 3 mcg/kg/hr, 35.04 mls/hr Documented by: Cisatracurium Besylate 200 mg/ (Sodium Chloride) 200 mls @ 7.008 mls/hr IV .Q24H [facility]; Protocol Last Admin: 08/13/21 08:56 Dose: 1.5 mcg/kg/min, 10.512 mls/hr Documented by: Cefepime HCl 2 gm/ Sodium (Chloride) 100 mls @ 25 mls/hr IVPB Q12HR [facility] Last Admin: 08/13/21 20:18 Dose: 25 mls/hr Documented by: Ibuprofen (Ibuprofen 400 Mg Tab) 400 mg PO Q6HR PRN PRN Reason: Mild Pain or Fever > 100.5 Insulin Aspart (Insulin Aspart (Novolog) 100 Unit/Ml Vial) 0 unit SQ Q6H [facility]; Protocol Last Admin: 08/13/21 18:23 Dose: 2 unit Documented by: Lorazepam (Lorazepam 2 Mg/Ml Inj) 0.5 mg IV Q6HR PRN PRN Reason: Anxiety Last Admin: 08/07/21 21:04 Dose: 0.5 mg Documented by: Naloxone HCl (Naloxone 0.4 Mg/Ml 1 Ml Vial) 0.2 mg IV Q2M PRN PRN Reason: Opioid Reversal Ondansetron HCl (Ondansetron 4 Mg/2 Ml Vial) 4 mg IVP Q8HR PRN PRN Reason: Nausea And Vomiting Zinc Sulfate (Zinc Sulfate 220 Mg Cap) 220 mg PO DAILY [facility] Last Admin: 08/13/21 08:03 Dose: 220 mg Documented by: Physical exam: GENERAL: The patient is currently intubated and sedated. HEENT: Pupils are round and equally reacting to light. CARDIOVASCULAR: S1 and S2 present. No murmurs, rubs, or gallops. PULMONARY: Diminished breath sounds bilaterally with coarse scattered rhonchi noted ABDOMEN: Soft, nontender, non-distended, normoactive bowel sounds. No palpable organomegaly. Obese. MUSCULOSKELETAL: No joint swelling or deformity. EXTREMITIES: No cyanosis, clubbing, or pedal edema. NEUROLOGICAL: Gross neurological examination did not reveal any focal deficits. SKIN: No rashes. Assessment: Acute hypoxic respiratory failure secondary to COVID-19 pneumonia requiring mechanical ventilation Elevated liver enzymes due to systemic inflammation Elevated D-dimer History of chronic sinus issues History of diverticulitis History of cholecystitis GI Prophylaxis: Protonix DVT Prophylaxis: Lovenox FULL CODE Plan: Continue to closely monitor in the ICU and pulmonary following. patient is on Nimbex and sedated on fentanyl and propofol. Pulminary supervisor rubber covering following closely. Patient on IV cefepime and white blood count is WNL today. Patient is maintained on lovenox twice daily, vitamin, and zinc supplements. Baricitinib has been discontinued. Patient continues on vent settings of 70% FI02 and peep of 15. Chest x-ray today shows worsening on the left. Prognosis remains guarded. Objective - Vital Signs Vital signs: Vital Signs Temp 98.8 F 08/13/21 04:00 Pulse 84 08/13/21 07:00 Resp 30 H 08/13/21 07:00 BP 131/67 08/13/21 07:00 Pulse Ox 92 L 08/13/21 07:00 Intake & Output 08/12/21 08/13/21 08/13/21 18:59 06:59 18:59 Intake Total 2041.289 933 43 Output Total 1065 1000 125 Balance 976.289 -67 -82 Weight 117 kg Intake: IV 515 220 20 0.9 515 220 20 Intake, IV Titration 1017.289 400 Amount Cefepime 2 gm In Sodium 100 Chloride 0.9% 100 ml @ 25 mls/hr IVPB Q12HR [facility] Rx #:[id number] Cisatracurium 200 mg In 110.376 Sodium Chloride 0.9% 180 ml @ 1 MCG/KG/MIN 7.008 mls/hr IV .Q24H [facility] Rx#: [id number] fentaNYL (PF) 2,500 mcg 447.831 In Sodium Chloride 0.9% 200 ml @ 0.5 MCG/KG/HR 5. 84 mls/hr IV .Q24H [facility] Rx #:[id number] propofoL 1,000 mg In 459.082 300 Empty Bag 1 bag @ Titrate IV .Q0M [facility] Rx#: [id number] Tube Feeding 299 253 23 Other 210 60 Output: Urine 1065 1000 125 Other: Voiding Method Indwelling Catheter Indwelling Catheter ABP, PAP, CO, CI - Last Documented Arterial Blood Pressure 113/56 - Labs CBC & Chem 7: 08/13/21 04:55 08/13/21 04:55 Labs: Abnormal Lab Results - Last 24 Hours (Table) 08/12/21 08/12/21 08/12/21 Range/Units 12:14 17:44 23:25 RBC (4.30-5.90) m/uL Hgb (13.0-17.5) gm/dL Hct (39.0-53.0) % Lymphocytes # (1.0-4.8) k/uL ABG pH (7.35-7.45) ABG pCO2 (35-45) mmHg ABG pO2 (83-108) mmHg ABG HCO3 (21-25) mmol/L ABG Total CO2 (19-24) mmol/L Chloride (98-107) mmol/L BUN (9-20) mg/dL Glucose (74-99) mg/dL POC Glucose (mg/dL) 123 H 127 H 147 H (75-99) mg/dL ALT (4-49) U/L Total Protein (6.3-8.2) g/dL Albumin (3.5-5.0) g/dL 08/12/21 08/13/21 08/13/21 Range/Units 23:34 04:55 04:55 RBC 3.74 L (4.30-5.90) m/uL Hgb 11.5 L (13.0-17.5) gm/dL Hct 36.0 L (39.0-53.0) % Lymphocytes # 0.4 L (1.0-4.8) k/uL ABG pH (7.35-7.45) ABG pCO2 (35-45) mmHg ABG pO2 (83-108) mmHg ABG HCO3 (21-25) mmol/L ABG Total CO2 (19-24) mmol/L Chloride 112 H (98-107) mmol/L BUN 36 H (9-20) mg/dL Glucose 146 H (74-99) mg/dL POC Glucose (mg/dL) 158 H (75-99) mg/dL ALT 83 H (4-49) U/L Total Protein 5.9 L (6.3-8.2) g/dL Albumin 2.5 L (3.5-5.0) g/dL 08/13/21 08/13/21 Range/Units 05:51 06:40 RBC (4.30-5.90) m/uL Hgb (13.0-17.5) gm/dL Hct (39.0-53.0) % Lymphocytes # (1.0-4.8) k/uL ABG pH 7.28 L (7.35-7.45) ABG pCO2 64 H (35-45) mmHg ABG pO2 73 L (83-108) mmHg ABG HCO3 30 H (21-25) mmol/L ABG Total CO2 32 H (19-24) mmol/L Chloride (98-107) mmol/L BUN (9-20) mg/dL Glucose (74-99) mg/dL POC Glucose (mg/dL) 146 H (75-99) mg/dL ALT (4-49) U/L Total Protein (6.3-8.2) g/dL Albumin (3.5-5.0) g/dL Microbiology - Last 24 Hours (Table) 08/12/21 09:24 Blood Culture Gram Stain - Preliminary Blood 08/12/21 09:24 Blood Culture - Final Blood
[2021-08-13 23:43] LABS: Glucose,Whole Blood 131 mg/dL (75-99)
[2021-08-14] MEDS: fentaNYL (PF) 2,500 MCG in SODIUM CHLORIDE 0.9% 200 ML IV SCH ×3 (03:29→20:18)
[2021-08-14] MEDS: ARTIFICIAL TEARS-HYPROMELLOSE DROPS 15 ML BTL BOTH EYES SCH ×4 (05:32→15:23)
[2021-08-14 05:41] LABS: Glucose,Whole Blood 136 mg/dL (75-99)
[2021-08-14 05:51] LABS: ABG Base Excess 8.4 mmol/L; ABG HCO3 35 mmol/L (21-25); ABG Oxygen Saturation 92.5 % (94-97); ABG PO2 65 mmHg (83-108); ABG TCO2 37 mmol/L (19-24); Allen Test Performed? Yes
[2021-08-14 05:53] LABS: ABG PCO2 71 mmHg (35-45)
[2021-08-14 05:57] LABS: Basophils % (A) 0 %; Eosinophils % (A) 0 %; HCT 35.7 % (39.0-53.0); HGB 11.2 gm/dL (13.0-17.5); Hypochromasia Slight; Lymphocytes # (A) 0.3 k/uL (1.0-4.8); Lymphocytes % (A) 5 %; MCH 30.7 pg (25.0-35.0); MCHC 31.3 g/dL (31.0-37.0); Mean Platelet Volume 8.4; Monocytes # (A) 0.3 k/uL (0-1.0); Monocytes % (A) 4 %; Neutrophils # (A) 6.2 k/uL (1.3-7.7); Neutrophils % (A) 89 %; Platelet Count 243 k/uL (150-450); RBC 3.64 m/uL (4.30-5.90); RDW 12.8 % (11.5-15.5)
[2021-08-14 06:09] LABS: ALT 71 U/L (4-49); AST 34 U/L (17-59); African American GFR (CKD) >90 (>60 ml/min/1.73 sqM); Albumin 2.5 g/dL (3.5-5.0); Alkaline Phosphatase 101 U/L (38-126); Anion Gap 2 mmol/L; Blood Urea Nitrogen 44 mg/dL (9-20); Calcium 8.7 mg/dL (8.4-10.2); Carbon Dioxide 32 mmol/L (22-30); Chloride 109 mmol/L (98-107); Glucose 145 mg/dL (74-99); Non-African American GFR(CKD) >90 (>60 ml/min/1.73 sqM); Potassium 4.9 mmol/L (3.5-5.1); Sodium 143 mmol/L (137-145); Total Bilirubin 0.5 mg/dL (0.2-1.3)
[2021-08-14] MEDS: INSULIN ASPART (NovoLOG) 100 UNIT/ML VIAL SQ SCH ×3 (06:13→18:17)
--- NOTE | 2021-08-14 07:18 | XR ---
EXAMINATION TYPE: XR chest 1V portable DATE OF EXAM: 08/14/2021 COMPARISON: 08/13/2021 HISTORY: SOB, Follow Up FINDINGS: Indwelling tubes and catheters are unchanged. Diffuse bilateral infiltrates and pleural effusions persist unchanged. Stable appearance of the cardio-mediastinal structures at this time. Pleural effusion unchanged. IMPRESSION: 1. Stable portable chest. Clinical correlation and follow up until resolution is recommended.
[2021-08-14] MEDS: ALBUTEROL HFA INHALER INHALATION SCH ×4 (07:39→19:19)
--- NOTE | 2021-08-14 09:30 | P.PN ---
Subjective Progress Note Date: 08/14/21 Principal diagnosis: COVID-19 pneumonia 51-year-old male, who seen in the emergency department, in room 3. He apparently has a history of a hearing deficit, sinus issues, and diverticular disease. The patient has not been feeling well for at least 8 days. The patient is unfortunately on vaccinated. He did test positive for coronavirus infection, and appears to have coronavirus associated pneumonia. The patient is on 15 L high flow nasal O2 and not getting any IV fluids. He is a very poor historian, but apparently he's been complaining of progressive shortness of audra th, and painful cough. He denies any fever or chills. No chest pain or chest discomfort. Again, it was very difficult getting any history from this gentleman. He apparently is a lifelong nonsmoker. He appears quite short of breath. Based on his history, we believe he is a good candidate for Lovenox, Decadron, vitamins, and MARYSOL. White count 5.5, with a normal hemoglobin, and hematocrit. Platelet count a little low at 133,000. Coagulation studies are normal. There is no d-dimer, and it was ordered. Sodium 137, potassium 3.6, chlorides 105, CO2 19, anion gap 13, BUN 23, with a creatinine of 1.16. AST 275, ALT 192, alkaline phosphatase 214. LDH 1508. C-reactive protein is 6.9. Coronavirus testing was positive on August 06. Chest x-ray shows low lung volumes, with bilateral diffuse interstitial infiltrates. The abnormalities are greater on the left lung than on the right. The patient is seen today 08/08/2021 in follow-up in the intensive care unit. He was brought down from the regular floor earlier this morning with worsening shortness of breath and oxygen desaturations. He is now on the AirVo at 55 L and 93% FiO2 plus a nonrebreather mask. He is pronating himself in bed. He is currently oxygenating at 90%. He remains on Decadron, Lovenox, Baricitinib and vitamin supplements. White count 7.6. Hemoglobin 15.4. Lymphocytes 0.7. Sodium 142. Potassium 3.9. Creatinine 0.79. AST 191. ALT 141. Alk phos 159. The patient is seen today 08/09/2021 in follow-up in the intensive care unit. His condition had to deteriorate. He was unable to tolerate BiPAP. Was initially still on AirVo at 60 L/m and 90% FiO2 plus a nonrebreather mask. 0.9 normal saline at 130 ML's per hour. Precedex 0.8 mg/kg per hour. His oxygen saturations were decreasing and his respiratory rate was increasing. He subsequently required intubation and mechanical ventilatory support today. He was intubated per [facility]. On the mechanical ventilator with current settings assist control mode at a rate of 30, tidal volume 450, FiO2 100% and a PEEP of 10. He is sedated with propofol. A left-sided subclavian triple-lumen catheter was placed. A right radial arterial line was placed. The patient is currently hypertensive and may require clevidipine drip. Oxygen saturations have improved. Arterial blood gases are pending. WBC 6.3. Hemoglobin 15.3. Platelets 169. Lymphocytes 0.6. Sodium 140. Potassium 3.9. Bicarb 21. BUN 25. Creatinine 0.76. AST 167. ALT 135. He remains on Decadron, Lovenox, Baricitinib and vitamin supplements. The patient is seen today 08/10/2021 in follow-up in the intensive care unit. He remains intubated and on mechanical ventilator. Current settings are assist- control mode at a rate of 30, tidal volume 450, FiO2 50% and a PEEP of 15. Morning blood gases revealed a PaO2 of 95, pCO2 46, pH 7.34. He remains sedated on propofol 50 mcg/kg/m, paralyzed Nimbex at 2 mcg/kg/m. 0.9 normal saline at 130 ML's per hour. He is being nourished with vital 1.2 at 20 ML's per hour, awaiting dietary accommodations for goal. Chest x-ray is revealing bilateral interstitial and airspace opacities consistent with COVID-19 pneumonia. No p neumothorax or large effusions. White count 10.8. Hemoglobin 14.7. Sodium 141. Potassium 4.2. Creatinine 0.72. Glucose 109. AST 176. ALT 184. Alk phos 156. He is continued on Baricitinib, Decadron, Lovenox, vitamin supplements. 51-year-old male patient currently intubated on a mechanical ventilator due to COVID-19 related to pneumonia with secondary respiratory failure. The patient is non-vaccinated for COVID-19. The patient was sick approximately 10 days prior to him coming into the hospital. He did test positive for COVID-19. Initially he was hypoxic and he was on high flow oxygen at 15 L. The patient was started on a combination of treatment including Decadron, Baricitinib, Lovenox for DVT prophylaxis and multivitamins. LDH level was quite elevated at time of admission and was 1508 with a CRP of 6.9. The chest x-ray shows smaller lung volumes, diffuse bilateral pulmonary infiltrates. Subsequently, the patient was brought into the ICU where the patient was placed on high flow oxygen plus a nonrebreather facemask and the patient was also using high flow. The patient was kept on the same treatment and ultimately the patient had to be intubated and 08/09/2021 where the patient was also placed on a mechanical ventilator. This morning, the patient is an assist-control mode of mechanical ventilation at the rate of 30 with a tidal volume of 450 and FiO2 of 50% with a PEEP of 15. The patient is on propofol running at 65 mcg/kg per minute and the patient is also Nimbex at 1.5 mcg/kg per minute. The chest x-ray from today was reviewed and compared to the one that was done yesterday. ET tube is in a good location. The patient continues to have diffuse bilateral pulmonary infiltrates consistent with COVID 19 related pneumonia and infiltrates more in the lung bases more so on the right. ET tube is in a good location. The patient has a triple lumen catheter in the left subclavian vein. There may be some limited improvement in the infiltration of the left lung compared to the earlier chest x-ray. Meanwhile, the blood gases showed a pH of 7.32 with a pCO2 of 53 and pO2 of 66. Inflammatory markers shows an LDH level of 1001 on a seen which is obv iously improved compared to a few days back and the CRP level is down to 16.6. D-dimer is at 13.4 and the patient Hb +9.7 with hemoglobin of 13.7. The patient remains on Lovenox 40 mg subcu for DVT prophylaxis. The patient is on a combination of Decadron on Baricitinib per protocol. The patient is started on enteral feeding for nutritional support, the patient is currently at the rate of 20 mL an hour vital AF On today's evaluation of 08/12/2021, seeing the patient for a follow-up. The patient this morning is on a combination of sedation and paralysis. Note that the paralytic agents had to be restarted yesterday as the patient was unable to breathe comfortably once of Nimbex. This morning, the patient remains sedated and the patient is currently on propofol running at 60 mcg/kg per minute and the patient is also on fentanyl at 3 mcg/kg/h. The patient is also Nimbex running at 1.5 mcg/kg per minute. The patient is adequately sedated and paralyzed this point in time. The patient remains on a mechanical ventilator. The patient is currently on assist control mode with a tidal volume of 450, FiO2 of 80%, PEEP of 15 and the rate of 30. The patient had a follow-up blood gases today that showed a pH of 7.27 with a pCO2 of 64 and pO2 of 71. The peak airway pressure is 32. This is slightly higher compared to yesterday. The chest x-ray from today is showing bilateral pulmonary infiltrates consistent with COVID 19 related pneumonia. ET tube is in a good location. No major interval change in terms of the chest x-ray findings compared to yesterday. The patient remains on a combination of Decadron and Baricitinib per protocol. The patient is also on Lovenox for DVT prophylaxis. In terms of the inflammatory markers, the patient's had elevated levels yesterday and follow-up levels are still pending from today. Meanwhile, the patient has spiked a temperature of 102.7. He was having episodes of fever earlier. Off course this is a concern under the chest x-ray findings is also getting worse and there is always a concern of a superinfection. For that reason, I'm going to suggest. The Baricitinib for now and check a progesterone level and cover this patient with empiric antibiotics. Meanwhile, the patient remains on Decadron. The patient is hemodynamically stable. The patient is on no pressors. The white cell count is slightly higher today at 12.5. The net fluid balance over the past 24 hours has been also +2.2 L in the patient's weight has been gradually going up and it's up by at least 4 kg over the past 48 hours. 08/13/2021, the patient remains sedated and paralyzed on a mechanical ventilator for COVID 19 related pneumonia. This morning he is on a propofol at 60 mg/kg per minute and fentanyl is also at 2 mcg/kg/h. Nimbex is running at 1.5 mg/kg/m. On a mechanical ventilator, assist control mode volume cycle with a tidal volume of 450 with an FiO2 of 80% and PEEP of 15 and a respiratory rate of 30. He is currently on Decadron. Baricitinib was discontinued yesterday due to concern of superinfection. The patient was also started on enteric antibiotic coverage and IV cefepime. Sepsis workup was also initiated. In terms of his vascular status, the pH today is at 7.28 with a pCO2 of 64 and pO2 of 73. Chest x-ray from today showing bilateral pulmonary infiltrates. I would state infiltration last in the lung bases compared to yesterday. ET tube is high in the trachea and Wiseman first and by another 2 cm. OG tube is also in place. The patient is currently afebrile. His white cell count today that 8.4 which is improved compared to yesterday. He remains on IV cefepime. Sputum Gram stain and cultures showing gram-positive cocci. Blood cultures still pending. The overall fluid balance over the past 24 hours has been in the order of +900 mL. Urine output is adequate for now. The patient remains on enteral feeding for nutritional support and the patient is receiving vital AF at the rate of 20 disease an hour which is currently at goal. The peak airway pressure is approximately 30 cm of water the study, pressure of 20 on today's evaluation. ET tube was adjusted at the bedside. He was pushed by around 2 cm. The air leak that was noted earlier has completely subsided. The patient is seen today 08/14/2021 and follow-up in the intensive care unit. He remains intubated, sedated, paralyzed and on the mechanical ventilator. Current settings are assist-control mode at a rate of 30, tidal volume 400, FiO2 70% and a PEEP of 15. Morning blood gases reveal PO2 65, pCO2 71, pH 7.30. X- ray continues to show bilateral pulmonary infiltrates. He remains on propofol at 75 mcg/kg/m, fentanyl at 3 mcg/kg/h, Nimbex at 1.5 mcg/kg/m. He is being nourished with vital AF at 28 mL per hour which is goal. He was given a trial off the paralytics yesterday. He becomes very hypertensive, respiratory rate up in the 40s and asynchronous with the mechanical ventilator. White count 7.0. Hemoglobin 11.2. Lymphocytes 0.3 sodium 143. Potassium 4.9. Bicarb 32. Creatinine 0.94. Glucose 145. AST 34. ALT 71. Blood cultures are positive for Staphylococcus aureus. He remains on cefepime. He remains in a negative balance currently at 2.4 L. He remains on IV Lasix in the form of 20 mg IV every 12 hours. Objective - Vital Signs Vital signs: Vital Signs Temp 98.1 F 08/14/21 04:00 Pulse 83 08/14/21 07:00 Resp 30 H 08/14/21 07:00 BP 131/67 08/14/21 07:00 Pulse Ox 88 L 08/14/21 07:00 Intake & Output 08/13/21 08/14/21 08/14/21 18:59 06:59 18:59 Intake Total 8394.583 0475.429 108.328 Output Total 3000 1890 75 Balance -1969.256 -439.571 33.328 Weight 117 kg 118 kg Intake: IV 240 240 20 0.9 240 240 20 Intake, IV Titration 767.744 900.429 68.328 Amount Cefepime 2 gm In Sodium 100 Chloride 0.9% 100 ml @ 25 mls/hr IVPB Q12HR [facility] Rx #:[id number] Cisatracurium 200 mg In 200 Sodium Chloride 0.9% 180 ml @ 1 MCG/KG/MIN 7.008 mls/hr IV .Q24H [facility] Rx#: [id number] fentaNYL (PF) 2,500 mcg 180.845 319.155 In Sodium Chloride 0.9% 200 ml @ 0.5 MCG/KG/HR 5. 84 mls/hr IV .Q24H [facility] Rx #:[id number] propofoL 1,000 mg In 386.899 481.274 68.328 Empty Bag 1 bag @ Titrate IV .Q0M [facility] Rx#: [id number] Tube Feeding 23 220 20 Other 90 Output: Urine 2700 1890 75 Stool 300 Other: Voiding Method Indwelling Catheter Indwelling Catheter ABP, PAP, CO, CI - Last Documented Arterial Blood Pressure 129/61 - Exam GENERAL EXAM: Intubated, sedated and paralyzed 51-year-old gentleman, currently on a ventilator on 70% FiO2 and a PEEP of 15. O2 saturation 90% HEAD: Normocephalic. EYES: Sluggish reaction of pupils, equal size. NOSE: Clear with pink turbinates. THROAT: Oral endotracheal and gastric tube secured in place. No erythema or exudates. NECK: No masses, no JVD. CHEST: No chest wall deformity. LUNGS: Equal air entry with coarse crackles in the bilateral bases. CVS: S1 and S2 normal with no audible murmur, regular rhythm. ABDOMEN: No hepatosplenomegaly, normal bowel sounds, no guarding or rigidity. SPINE: No scoliosis or deformity SKIN: No rashes CENTRAL NERVOUS SYSTEM: Sedated and paralyzed, tone is normal in all 4 extremities. EXTREMITIES: There is trace peripheral edema. No clubbing, no cyanosis. Peripheral pulses are intact. - Labs CBC & Chem 7: 08/14/21 05:15 08/14/21 05:15 Labs: Abnormal Lab Results - Last 24 Hours (Table) 08/13/21 08/13/21 08/13/21 Range/Units 12:08 17:38 23:41 RBC (4.30-5.90) m/uL Hgb (13.0-17.5) gm/dL Hct (39.0-53.0) % Lymphocytes # (1.0-4.8) k/uL ABG pH (7.35-7.45) ABG pCO2 (35-45) mmHg ABG pO2 (83-108) mmHg ABG HCO3 (21-25) mmol/L ABG Total CO2 (19-24) mmol/L ABG O2 Saturation (94-97) % Chloride (98-107) mmol/L Carbon Dioxide (22-30) mmol/L BUN (9-20) mg/dL Glucose (74-99) mg/dL POC Glucose (mg/dL) 149 H 155 H 131 H (75-99) mg/dL ALT (4-49) U/L Total Protein (6.3-8.2) g/dL Albumin (3.5-5.0) g/dL 08/14/21 08/14/21 08/14/21 Range/Units 05:15 05:15 05:40 RBC 3.64 L (4.30-5.90) m/uL Hgb 11.2 L (13.0-17.5) gm/dL Hct 35.7 L (39.0-53.0) % Lymphocytes # 0.3 L (1.0-4.8) k/uL ABG pH (7.35-7.45) ABG pCO2 (35-45) mmHg ABG pO2 (83-108) mmHg ABG HCO3 (21-25) mmol/L ABG Total CO2 (19-24) mmol/L ABG O2 Saturation (94-97) % Chloride 109 H (98-107) mmol/L Carbon Dioxide 32 H (22-30) mmol/L BUN 44 H (9-20) mg/dL Glucose 145 H (74-99) mg/dL POC Glucose (mg/dL) 136 H (75-99) mg/dL ALT 71 H (4-49) U/L Total Protein 6.0 L (6.3-8.2) g/dL Albumin 2.5 L (3.5-5.0) g/dL 08/14/21 Range/Units 05:48 RBC (4.30-5.90) m/uL Hgb (13.0-17.5) gm/dL Hct (39.0-53.0) % Lymphocytes # (1.0-4.8) k/uL ABG pH 7.30 L (7.35-7.45) ABG pCO2 71 H* (35-45) mmHg ABG pO2 65 L (83-108) mmHg ABG HCO3 35 H (21-25) mmol/L ABG Total CO2 37 H (19-24) mmol/L ABG O2 Saturation 92.5 L (94-97) % Chloride (98-107) mmol/L Carbon Dioxide (22-30) mmol/L BUN (9-20) mg/dL Glucose (74-99) mg/dL POC Glucose (mg/dL) (75-99) mg/dL ALT (4-49) U/L Total Protein (6.3-8.2) g/dL Albumin (3.5-5.0) g/dL Microbiology - Last 24 Hours (Table) 08/12/21 09:24 Blood Culture Gram Stain - Preliminary Blood Blood Culture - Preliminary Staphylococcus aureus 08/12/21 09:24 Blood Culture - Final Blood Assessment and Plan Assessment: 1 Acute hypoxemic respiratory failure secondary to COVID-19 pneumonia. Not vaccinated. Initiated on Baricitinib, Decadron, Lovenox. Transferred to the ICU on 08/08/2021. Subsequently required intubation and mechanical ventilatory support on 08/09/2021. He has failed trials off paralytics. He becomes quite hypertensive and tachypneic. He is still requiring FiO2 of 70% and a PEEP of 15. 2 The patient does have blood cultures positive for Staphylococcus aureus. His Baricitinib was discontinued. He is currently on cefepime 3 Elevated inflammatory markers secondary to above 4 Hearing disorder 5 Hiatal hernia 6 History of chronic sinus disease 7 History of varicose veins Plan: The patient was seen and evaluated Chest x-ray, ABGs and labs reviewed Remains on 70% FiO2 with a PEEP of 15 We'll try to wean down the PEEP as tolerated Advanced the endotracheal tube 1 cm If leak continues we'll replace the endotracheal tube Check a pro-calcitonin Continue cefepime for now, follow-up blood cultures and sputum culture pending Remains sedated, paralyzed He has failed trials off the paralytics and becomes quite hypertensive and t achypneic Continue tube feedings for nutritional support Continue Lovenox, Decadron Prone if possible Prognosis is guarded Will most likely require tracheostomy and PEG tube placements Follow-up chest x-ray, ABG and labs in a.m. We will continue to follow and make further recommendations based on his clinical status Critical care time 36 minutes I, the cosigning physician, performed a history & physical examination of the patient. Lungs sounds are with coarse crackles in the bilateral bases. Maintaining O2 saturations in the 90s on 70% FiO2 and a PEEP of 15 via the mechanical ventilator.. I discussed the assessment and plan of care with my nurse practitioner, Digna Fontaine. I attest to the above note as dictated by her.
[2021-08-14] MEDS: ASCORBIC ACID 500 MG TAB PO SCH (10:09)
[2021-08-14] MEDS: ENOXAPARIN 40 MG/0.4 ML SYRINGE SQ SCH (10:10)
[2021-08-14] MEDS: CHOLECALCIFEROL 25 MCG (1000 IU) TABLET PO SCH (10:10)
[2021-08-14] MEDS: FUROSEMIDE 10 MG/ML 2 ML VIAL IV SCH (10:10)
[2021-08-14] MEDS: CHLORHEXIDINE GLUCONATE 15 ML CUP MUCOUS MEM SCH (10:10)
[2021-08-14] MEDS: DEXAMETHASONE SOD PHOSPHATE 10 MG/ML 1 ML VIAL IVP SCH (10:10)
[2021-08-14] MEDS: ZINC SULFATE 220 MG CAP PO SCH (10:11)
[2021-08-14] MEDS: CEFEPIME 2 GM in SODIUM CHLORIDE 0.9% 100 ML IVPB SCH ×2 (10:12→18:16)
[2021-08-14 11:48] LABS: Glucose,Whole Blood 139 mg/dL (75-99)
--- NOTE | 2021-08-14 15:15 | P.PN ---
Subjective Progress Note Date: 08/14/21 Acute hypoxic respiratory failure secondary to COVID-19 pneumonia Elevated liver enzymes due to systemic inflammation 51-year-old male who presents to the with symptoms of shortness of breath and cough ongoing since last Wednesday. Patient states that Wednesday he started feeling short of breath, Wednesday his symptoms worsened and then on Wednesday he said that he began to feel the worst. He is having difficulty catching his breath and attributed this to his chronic sinus problems that he has. On Wednesday he went to the [facility] and was given some medication for his sinuses but did not help him, so he came to the ER. Patient was positive for Covid in the [facility]. He is not vaccinated. Home medications include zinc, vitamin D3, Singulair, Flonase, albuterol inhaler, and ibuprofen. Past medical history significant for sinus issues ongoing, diverticulitis, hernia, cholecystectomy, hard of hearing. Patient is a never smoker, reports occasional alcohol use nothing daily, no drug use. Chest x-ray in the EC shows diffuse bilateral interstitial edema and/or infiltrates left greater than right. Labs today show a white count of 5.5, platelet 133, sodium 137, potassium 3.6, mag 1.7, lactic aci d 1.2. Vitals show a temp of 98.7, heart rate 92, blood pressure 147/90 on 15L HF, 15L NRB. Discussed with patient the next step would be BiPAP and possibly intubation. Patient is very claustrophobic and is having difficulty even with the nonrebreather. 08/08/2021 Patient is seen and evaluated in room at bedside; reports worsening breathing and has been desaturating down to low 80s; pulmonary service on board and recommending patient be transferred to ICU Vital signs reviewed temperature 98.0 pulse 87 respiration 26 and blood pressure 137 with 89 Lab review shows diffuse he 7.6, hemoglobin 15.4 and platelet count of 171, sodium 142, potassium 3.9, BUN/creatinine of 23/0.7; d-dimer of 0.78 We will continue to titrate FiO2; self-propelling is encouraged; patient remains on Baricitinib, Lovenox, Decadron for Covid 19 protocol 08/09/2021 Patient seen for follow-up in ICU; nursing staff patient desaturated. In the day and was placed on BiPAP; patient was unable to tolerate BiPAP and oxygen saturation continued to drop with worsening respiratory rate; patient was subsequently intubated and mechanically ventilated Vital signs review shows temperature 97.8, pulse 68, respiration 45 and blood pressure of 118/70 Laboratory; WBC 6.3. Hemoglobin 15.3. Platelets 169. Lymphocytes 0.6. Sodium 140. Potassium 3.9. Bicarb 21. BUN 25. Creatinine 0.76. AST 167. ALT 135. He remains on Decadron, Lovenox, Baricitinib and vitamin supplements. 08/10/2021 Patient remains in ICU and remains intubated and mechanically ventilated; remains on sedation with propofol and Nimbex blood gases from this morning revealed PaO2 of 95, pCO2 46, pH 7.34. Chest x- ray is revealing bilateral interstitial and airspace opacities consistent with COVID-19 pneumonia. No pneumothorax or large effusions. White count 10.8. Hemoglobin 14.7. Sodium 141. Potassium 4.2. Creatinine 0.72. Glucose 109. AST 176. ALT 184. Alk phos 156. He is continued on Baricitinib, Decadron, Lovenox, vitamin supplements. Initiated tube feedings for nutritional support; Continue Baricitinib, Lovenox, Decadron Prone if possible Prognosis is guarded 08/11/2021 Patient is seen in follow up this morning and continues to be on mechanical ventilation and pulmonary general car supervisor yard following closely. Patient respiratory status worsening and current settings of 50% FI02 and a peep of 15. Patient continues on IV dexamethasone, lovenox, vitamin and zinc supplements. D dimer today is 13.46, inflammatory markers elevated. Slight worsening noted on the chest xray this morning. Patient is also receiving Baricitinib. 08/12/2021 Patient is seen in follow-up today continues to be in the ICU being closely monitored. Patient continues on mechanical vent and Nimbex has been resumed and patient is also maintained on propofol and fentanyl for sedation. Patient respiratory status worsening and current settings are 80% FiO2 with a PEEP of 1 5. Patient started on IV cefepime with a mildly elevated white blood count and baricitinib has been discontinued. Patient continues on IV dexamethasone along with Lovenox twice daily vitamin and zinc supplements and will continue. 08/13/2021 Patient is seen in follow up today in the ICU and continues with sedation and mechanical ventilation. Continued on covid supplements and dexamethasone, lo venox, and IV cefepime. Pulmonary following. sputum culture ordered. Blood culture preliminary showing staph aureus and will repeat. WBC is 8.4, Afebrile. Chest xray shows bibasilar infiltrated worsening of the left. ET tube could be advanced 4cm. 08/14/2021 Patient is seen and evaluated and follow-up continues to be in the ICU on mechanical ventilation intubated and sedated. Patient is also maintained on IV cefepime and awaiting repeat blood cultures as preliminary showed Staphylococcus aureus. Sputum culture is pending at this time. Patient continues on Nimbex as well along with IV dexamethasone, Lovenox twice a day, IV Lasix along with propofol. Chest x-ray shows stable with continued pleural effusion and diffuse bilateral infiltrates. Labs: White blood count is 7.0, hemoglobin is 11.2, platelets are 243, sodium is 143, potassium 4.9, BUN 44, creatinine 0.94 Review of systems: unable to obtain as patient is intubated and sedated Medications have been reviewed. Active Medications Acetaminophen (Acetaminophen Tab 325 Mg Tab) 650 mg PO Q6HR PRN PRN Reason: Mild Pain or Fever > 100.5 Last Admin: 08/12/21 04:32 Dose: 650 mg Documented by: Albuterol Sulfate (Albuterol Hfa Inhaler) 2 puff INHALATION RT-QID PRN PRN Reason: Shortness Of Breath Or Wheezing Albuterol Sulfate (Albuterol Hfa Inhaler) 2 puff INHALATION RT-QID [facility] Last Admin: 08/14/21 11:33 Dose: 2 puff Documented by: Artificial Tears (Artificial Tears-Hypromellose Drops 15 Ml Btl) 1 drops BOTH EYES Q4H [facility] Last Admin: 08/14/21 11:41 Dose: 1 drops Documented by: Ascorbic Acid (Ascorbic Acid 500 Mg Tab) 1,000 mg PO DAILY [facility] Last Admin: 08/14/21 10:09 Dose: 1,000 mg Documented by: Chlorhexidine Gluconate (Chlorhexidine Gluconate 15 Ml Cup) 15 ml MUCOUS MEM BID [facility] Last Admin: 08/14/21 10:10 Dose: 15 ml Documented by: Cholecalciferol (Cholecalciferol 25 Mcg (1000 Iu) Tablet) 125 mcg PO DAILY [facility] Last Admin: 08/14/21 10:10 Dose: 125 mcg Documented by: Dexamethasone Sodium Phosphate (Dexamethasone Sod Phosphate 10 Mg/Ml 1 Ml Vial) 6 mg IVP DAILY [facility] Last Admin: 08/14/21 10:10 Dose: 6 mg Documented by: Enoxaparin Sodium (Enoxaparin 40 Mg/0.4 Ml Syringe) 40 mg SQ BID [facility] Last Admin: 08/14/21 10:10 Dose: 40 mg Documented by: Furosemide (Furosemide 10 Mg/Ml 2 Ml Vial) 20 mg IV Q12HR [facility] Last Admin: 08/14/21 10:10 Dose: 20 mg Documented by: Hydromorphone HCl (Hydromorphone 1 Mg/Ml 1 Ml Syringe) 1 mg IVP Q2HR PRN PRN Reason: Pain Last Admin: 08/12/21 06:45 Dose: 1 mg Documented by: Sodium Chloride (Saline 0.9%) 1,000 mls @ 50 mls/hr IV .Q20H [facility] Last Admin: 08/13/21 23:51 Dose: 50 mls/hr Documented by: Propofol 1,000 mg/ IV Solution 100 mls @ 0 mls/hr IV .Q0M [facility]; Protocol Last Admin: 08/14/21 07:08 Dose: 75 mcg/kg/min, 52.56 mls/hr Documented by: Fentanyl Citrate 2,500 mcg/ (Sodium Chloride) 250 mls @ 5.84 mls/hr IV .Q24H [facility]; Protocol Last Admin: 08/14/21 11:42 Dose: 3 mcg/kg/hr, 35.04 mls/hr Documented by: Cisatracurium Besylate 200 mg/ (Sodium Chloride) 200 mls @ 7.008 mls/hr IV .Q24H [facility]; Protocol Last Admin: 08/13/21 08:56 Dose: 1.5 mcg/kg/min, 10.512 mls/hr Documented by: Cefepime HCl 2 gm/ Sodium (Chloride) 100 mls @ 25 mls/hr IVPB Q8H [facility] Ibuprofen (Ibuprofen 400 Mg Tab) 400 mg PO Q6HR PRN PRN Reason: Mild Pain or Fever > 100.5 Insulin Aspart (Insulin Aspart (Novolog) 100 Unit/Ml Vial) 0 unit SQ Q6H [facility]; Protocol Last Admin: 08/14/21 06:13 Dose: 1 unit Documented by: Lorazepam (Lorazepam 2 Mg/Ml Inj) 0.5 mg IV Q6HR PRN PRN Reason: Anxiety Last Admin: 08/07/21 21:04 Dose: 0.5 mg Documented by: Naloxone HCl (Naloxone 0.4 Mg/Ml 1 Ml Vial) 0.2 mg IV Q2M PRN PRN Reason: Opioid Reversal Ondansetron HCl (Ondansetron 4 Mg/2 Ml Vial) 4 mg IVP Q8HR PRN PRN Reason: Nausea And Vomiting Zinc Sulfate (Zinc Sulfate 220 Mg Cap) 220 mg PO DAILY [facility] Last Admin: 08/14/21 10:11 Dose: 220 mg Documented by: Physical exam: GENERAL: The patient is currently intubated and sedated. HEENT: Pupils are round and equally reacting to light. CARDIOVASCULAR: S1 and S2 present. No murmurs, rubs, or gallops. PULMONARY: Diminished breath sounds bilaterally with coarse scattered rhonchi and some crackles noted ABDOMEN: Soft, nontender, non-distended, normoactive bowel sounds. No palpable organomegaly. Obese. MUSCULOSKELETAL: No joint swelling or deformity. EXTREMITIES: No cyanosis, clubbing, or pedal edema. NEUROLOGICAL: Gross neurological examination did not reveal any focal deficits. SKIN: No rashes. Assessment: Acute hypoxic respiratory failure secondary to COVID-19 pneumonia requiring mechanical ventilation Elevated liver enzymes due to systemic inflammation Positive blood culture showing staph aureus and will repeat blood cultures Elevated D-dimer History of chronic sinus issues History of diverticulitis History of cholecystitis GI Prophylaxis: Protonix DVT Prophylaxis: Lovenox FULL CODE Plan: Continue to closely monitor in the ICU and pulmonary following. patient continues on Nimbex and sedated on fentanyl and propofol. Patient with a ttempted weaning trials although unsuccessful as patient becomes extremely tachypneic hypertensive. Pulmonary general car supervisor yard following closely. Patient on IV cefepime and repeat blood cultures and sputum cultures pending. Patient is maintained on lovenox twice daily, vitamin, and zinc supplements. Baricitinib has been discontinued. Patient continues on vent settings of 70% FI02 and peep of 15. Chest x-ray today shows stable bilateral infiltrates with pleural effusions. Will repeat labs and continue to monitor closely. Discussion is being had about possible trach and PEG tube placement. Prognosis remains guarded. Objective - Vital Signs Vital signs: Vital Signs Temp 98.1 F 08/14/21 04:00 Pulse 83 08/14/21 07:00 Resp 30 H 08/14/21 07:00 BP 131/67 08/14/21 07:00 Pulse Ox 88 L 08/14/21 07:00 Intake & Output 08/13/21 08/14/21 08/14/21 18:59 06:59 18:59 Intake Total 6750.659 9617.429 108.328 Output Total 3000 1890 75 Balance -1969.256 -439.571 33.328 Weight 117 kg 118 kg Intake: IV 240 240 20 0.9 240 240 20 Intake, IV Titration 767.744 900.429 68.328 Amount Cefepime 2 gm In Sodium 100 Chloride 0.9% 100 ml @ 25 mls/hr IVPB Q12HR [facility] Rx #:[id number] Cisatracurium 200 mg In 200 Sodium Chloride 0.9% 180 ml @ 1 MCG/KG/MIN 7.008 mls/hr IV .Q24H [facility] Rx#: [id number] fentaNYL (PF) 2,500 mcg 180.845 319.155 In Sodium Chloride 0.9% 200 ml @ 0.5 MCG/KG/HR 5. 84 mls/hr IV .Q24H [facility] Rx #:[id number] propofoL 1,000 mg In 386.899 481.274 68.328 Empty Bag 1 bag @ Titrate IV .Q0M [facility] Rx#: [id number] Tube Feeding 23 220 20 Other 90 Output: Urine 2700 1890 75 Stool 300 Other: Voiding Method Indwelling Catheter Indwelling Catheter ABP, PAP, CO, CI - Last Documented Arterial Blood Pressure 129/61 - Labs CBC & Chem 7: 08/14/21 05:15 08/14/21 05:15 Labs: Abnormal Lab Results - Last 24 Hours (Table) 08/13/21 08/13/21 08/13/21 Range/Units 12:08 17:38 23:41 RBC (4.30-5.90) m/uL Hgb (13.0-17.5) gm/dL Hct (39.0-53.0) % Lymphocytes # (1.0-4.8) k/uL ABG pH (7.35-7.45) ABG pCO2 (35-45) mmHg ABG pO2 (83-108) mmHg ABG HCO3 (21-25) mmol/L ABG Total CO2 (19-24) mmol/L ABG O2 Saturation (94-97) % Chloride (98-107) mmol/L Carbon Dioxide (22-30) mmol/L BUN (9-20) mg/dL Glucose (74-99) mg/dL POC Glucose (mg/dL) 149 H 155 H 131 H (75-99) mg/dL ALT (4-49) U/L Total Protein (6.3-8.2) g/dL Albumin (3.5-5.0) g/dL 08/14/21 08/14/21 08/14/21 Range/Units 05:15 05:15 05:40 RBC 3.64 L (4.30-5.90) m/uL Hgb 11.2 L (13.0-17.5) gm/dL Hct 35.7 L (39.0-53.0) % Lymphocytes # 0.3 L (1.0-4.8) k/uL ABG pH (7.35-7.45) ABG pCO2 (35-45) mmHg ABG pO2 (83-108) mmHg ABG HCO3 (21-25) mmol/L ABG Total CO2 (19-24) mmol/L ABG O2 Saturation (94-97) % Chloride 109 H (98-107) mmol/L Carbon Dioxide 32 H (22-30) mmol/L BUN 44 H (9-20) mg/dL Glucose 145 H (74-99) mg/dL POC Glucose (mg/dL) 136 H (75-99) mg/dL ALT 71 H (4-49) U/L Total Protein 6.0 L (6.3-8.2) g/dL Albumin 2.5 L (3.5-5.0) g/dL 08/14/21 Range/Units 05:48 RBC (4.30-5.90) m/uL Hgb (13.0-17.5) gm/dL Hct (39.0-53.0) % Lymphocytes # (1.0-4.8) k/uL ABG pH 7.30 L (7.35-7.45) ABG pCO2 71 H* (35-45) mmHg ABG pO2 65 L (83-108) mmHg ABG HCO3 35 H (21-25) mmol/L ABG Total CO2 37 H (19-24) mmol/L ABG O2 Saturation 92.5 L (94-97) % Chloride (98-107) mmol/L Carbon Dioxide (22-30) mmol/L BUN (9-20) mg/dL Glucose (74-99) mg/dL POC Glucose (mg/dL) (75-99) mg/dL ALT (4-49) U/L Total Protein (6.3-8.2) g/dL Albumin (3.5-5.0) g/dL Microbiology - Last 24 Hours (Table) 08/12/21 09:24 Blood Culture Gram Stain - Preliminary Blood Blood Culture - Preliminary Staphylococcus aureus 08/12/21 09:24 Blood Culture - Final Blood
[2021-08-14 17:50] LABS: Glucose,Whole Blood 137 mg/dL (75-99)
[2021-08-14] MEDS: CISATRACURIUM 200 MG in SODIUM CHLORIDE 0.9% 180 ML IV SCH (22:26)
[2021-08-14 23:36] LABS: Glucose,Whole Blood 121 mg/dL (75-99)
[2021-08-15] MEDS: SODIUM CHLORIDE 0.9% 1,000 ML IV SCH ×2 (00:15→14:38)
[2021-08-15] MEDS: ARTIFICIAL TEARS-HYPROMELLOSE DROPS 15 ML BTL BOTH EYES SCH ×7 (00:16→19:56)
[2021-08-15] MEDS: CHLORHEXIDINE GLUCONATE 15 ML CUP MUCOUS MEM SCH ×3 (00:16→19:56)
[2021-08-15] MEDS: ENOXAPARIN 40 MG/0.4 ML SYRINGE SQ SCH ×3 (00:16→19:56)
[2021-08-15] MEDS: FUROSEMIDE 10 MG/ML 2 ML VIAL IV SCH ×2 (00:16→08:32)
[2021-08-15] MEDS: INSULIN ASPART (NovoLOG) 100 UNIT/ML VIAL SQ SCH ×4 (00:18→18:22)
[2021-08-15] MEDS: CEFEPIME 2 GM in SODIUM CHLORIDE 0.9% 100 ML IVPB SCH ×3 (03:10→18:22)
[2021-08-15] MEDS: fentaNYL (PF) 2,500 MCG in SODIUM CHLORIDE 0.9% 200 ML IV SCH ×3 (03:11→19:14)
[2021-08-15] MEDS: HYDROmorphone 1 MG/ML 1 ML SYRINGE IVP PRN (05:30)
[2021-08-15 05:44] LABS: Glucose,Whole Blood 121 mg/dL (75-99)
[2021-08-15 06:07] LABS: ABG HCO3 39 mmol/L (21-25); ABG Oxygen Saturation 85.5 % (94-97); ABG PH 7.31 (7.35-7.45); ABG TCO2 42 mmol/L (19-24); Allen Test Performed? Yes
[2021-08-15 06:39] LABS: ABG PCO2 79 mmHg (35-45)
[2021-08-15 06:40] LABS: ABG PO2 53 mmHg (83-108)
--- NOTE | 2021-08-15 06:45 | XR ---
EXAMINATION TYPE: XR chest 1V portable DATE OF EXAM: 08/15/2021 CLINICAL HISTORY: Difficulty breathing progress study. TECHNIQUE: Single AP portable semiupright view of the chest is obtained. COMPARISON: Chest x-ray from one day earlier and older studies FINDINGS: The entire left lung base not included on current study. Stable endotracheal and orogastric tubes. Stable left subclavian central venous catheter. Persistent bilateral fairly confluent opacities . Suspect small to tiny bilateral pleural effusions. Cardiac silhouette size stable and within normal limits. Osseous structures are intact. IMPRESSION: Bilateral confluent opacities consistent with covid-19 infection and/or ARDS. No significant change f rom one day earlier.
[2021-08-15] MEDS: ALBUTEROL HFA INHALER INHALATION SCH ×4 (07:54→20:31)
[2021-08-15] MEDS: DEXAMETHASONE SOD PHOSPHATE 10 MG/ML 1 ML VIAL IVP SCH (08:32)
[2021-08-15] MEDS: CHOLECALCIFEROL 25 MCG (1000 IU) TABLET PO SCH (08:33)
[2021-08-15] MEDS: ACETAMINOPHEN TAB 325 MG TAB PO PRN ×2 (08:35→20:30)
[2021-08-15] MEDS: ASCORBIC ACID 500 MG TAB PO SCH (08:35)
[2021-08-15] MEDS: ZINC SULFATE 220 MG CAP PO SCH (08:35)
--- NOTE | 2021-08-15 08:48 | P.PN ---
Subjective Progress Note Date: 08/15/21 51-year-old male, who seen in the emergency department, in room 3. He apparently has a history of a hearing deficit, sinus issues, and diverticular disease. The patient has not been feeling well for at least 8 days. The patient is unfortunately on vaccinated. He did test positive for coronavirus infection, and appears to have coronavirus associated pneumonia. The patient is on 15 L high flow nasal O2 and not getting any IV fluids. He is a very poor historian, but apparently he's been complaining of progressive shortness of breath, and painful cough. He denies any fever or chills. No chest pain or chest discomfort. Again, it was very difficult getting any history from this gentleman. He apparently is a lifelong nonsmoker. He appears quite short of breath. Based on his history, we believe he is a good candidate for Lovenox, Decadron, vitamins, and MARYSOL. White count 5.5, with a normal hemoglobin, and hematocrit. Platelet count a little low at 133,000. Coagulation studies are no rmal. There is no d-dimer, and it was ordered. Sodium 137, potassium 3.6, chlorides 105, CO2 19, anion gap 13, BUN 23, with a creatinine of 1.16. AST 275, ALT 192, alkaline phosphatase 214. LDH 1508. C-reactive protein is 6.9. Coronavirus testing was positive on August 06. Chest x-ray shows low lung volumes, with bilateral diffuse interstitial infiltrates. The abnormalities are greater on the left lung than on the right. The patient is seen today 08/08/2021 in follow-up in the intensive care unit. He was brought down from the regular floor earlier this morning with worsening shortness of breath and oxygen desaturations. He is now on the AirVo at 55 L and 93% FiO2 plus a nonrebreather mask. He is pronating himself in bed. He is currently oxygenating at 90%. He remains on Decadron, Lovenox, Baricitinib and vitamin supplements. White count 7.6. Hemoglobin 15.4. Lymphocytes 0.7. Sodium 142. Potassium 3.9. Creatinine 0.79. AST 191. ALT 141. Alk phos 159. The patient is seen today 08/09/2021 in follow-up in the intensive care unit. His condition had to deteriorate. He was unable to tolerate BiPAP. Was initially still on AirVo at 60 L/m and 90% FiO2 plus a nonrebreather mask. 0.9 normal saline at 130 ML's per hour. Precedex 0.8 mg/kg per hour. His oxygen saturations were decreasing and his respiratory rate was increasing. He subsequently required intubation and mechanical ventilatory support today. He was intubated per EMERGENCY PHYSICIAN. On the mechanical ventilator with current settings assist control mode at a rate of 30, tidal volume 450, FiO2 100% and a PEEP of 10. He is sedated with propofol. A left-sided subclavian triple-lumen catheter was placed. A right radial arterial line was placed. The patient is currently hypertensive and may require clevidipine drip. Oxygen saturations have improved. Arterial blood gases are pending. WBC 6.3. Hemoglobin 15.3. Platelets 169. Lymphocytes 0.6. Sodium 140. Potassium 3.9. Bicarb 21. BUN 25. Creatinine 0.76. AST 167. ALT 135. He remains on Decadron, Lovenox, Baricitinib and vitamin supplements. The patient is seen today 08/10/2021 in follow-up in the intensive care unit. He remains intubated and on mechanical ventilator. Current settings are assist- control mode at a rate of 30, tidal volume 450, FiO2 50% and a PEEP of 15. Morning blood gases revealed a PaO2 of 95, pCO2 46, pH 7.34. He remains sedated on propofol 50 mcg/kg/m, paralyzed Nimbex at 2 mcg/kg/m. 0.9 normal saline at 130 ML's per hour. He is being nourished with vital 1.2 at 20 ML's per hour, awaiting dietary accommodations for goal. Chest x-ray is revealing bilateral interstitial and airspace opacities consistent with COVID-19 pneumonia. No pneumothorax or large effusions. White count 10.8. Hemoglobin 14.7. Sodium 141. Potassium 4.2. Creatinine 0.72. Glucose 109. AST 176. ALT 184. Alk phos 156. He is continued on Baricitinib, Decadron, Lovenox, vitamin supplements. 51-year-old male patient currently intubated on a mechanical ventilator due to COVID-19 related to pneumonia with secondary respiratory failure. The patient is non-vaccinated for COVID-19. The patient was sick approximately 10 days prior to him coming into the hospital. He did test positive for COVID-19. Initially he was hypoxic and he was on high flow oxygen at 15 L. The patient was started on a combination of treatment including Decadron, Baricitinib, Lovenox for DVT prophylaxis and multivitamins. LDH level was quite elevated at time of admission and was 1508 with a CRP of 6.9. The chest x-ray shows smaller lung volumes, diffuse bilateral pulmonary infiltrates. Subsequently, the patient was brought into the ICU where the patient was placed on high flow oxygen plus a nonrebreather facemask and the patient was also using high flow. The patient was kept on the same treatment and ultimately the patient had to be intubated and 08/09/2021 where the patient was also placed on a mechanical ventilator. This morning, the patient is an assist-control mode of mechanical ventilation at the rate of 30 with a tidal volume of 450 and FiO2 of 50% with a PEEP of 15. The patient is on propofol running at 65 mcg/kg per minute and the patient is also Nimbex at 1.5 mcg/kg per minute. The chest x-ray from today was reviewed and compared to the one that was done yesterday. ET tube is in a good location. The patient continues to have diffuse bilateral pulmonary infiltrates consistent with COVID 19 related pneumonia and infiltrates more in the lung bases more so on the right. ET tube is in a good location. The patient has a triple lumen catheter in the left subclavian vein. There may be some limited improvement in the infiltration of the left lung compared to the earlier chest x-ray. Meanwhile, the blood gases showed a pH of 7.32 with a pCO2 of 53 and pO2 of 66. Inflammatory markers shows an LDH level of 1001 on a seen which is obviously improved compared to a few days back and the CRP level is down to 16.6. D-dimer is at 13.4 and the patient Hb +9.7 with hemoglobin of 13.7. The patient remains on Lovenox 40 mg subcu for DVT prophylaxis. The patient is on a combination of Decadron on Baricitinib per protocol. The patient is started on enteral feeding for nutritional support, the patient is currently at the rate of 20 mL an hour vital AF On today's evaluation of 08/12/2021, seeing the patient for a follow-up. The patient this morning is on a combination of sedation and paralysis. Note that the paralytic agents had to be restarted yesterday as the patient was unable to breathe comfortably once of Nimbex. This morning, the patient remains sedated and the patient is currently on propofol running at 60 mcg/kg per minute and the patient is also on fentanyl at 3 mcg/kg/h. The patient is also Nimbex running at 1.5 mcg/kg per minute. The patient is adequately sedated and paralyzed this point in time. The patient remains on a mechanical ventilator. The patient is currently on assist control mode with a tidal volume of 450, FiO2 of 80%, PEEP of 15 and the rate of 30. The patient had a follow-up blood gases today that showed a pH of 7.27 with a pCO2 of 64 and pO2 of 71. The peak airway pressure is 32. This is slightly higher compared to yesterday. The chest x-ray from today is showing bilateral pulmonary infiltrates consistent with COVID 19 related pneumonia. ET tube is in a good location. No major interval change in terms of the chest x-ray findings compared to yesterday. The patient remains on a combination of Decadron and Baricitinib per protocol. The patient is also on Lovenox for DVT prophylaxis. In terms of the inflammatory markers, the patient's had elevated levels yesterday and follow-up levels are still pending from today. Meanwhile, the patient has spiked a temperature of 102.7. He was having episodes of fever earlier. Off course this is a concern under the chest x-ray findings is also getting worse and there is always a concern of a superinfection. For that reason, I'm going to suggest. The Baricitinib for now and check a progesterone level and cover this patient with empiric antibiotics. Meanwhile, the patient remains on Decadron. The patient is hemodynamically stable. The patient is on no pressors. The white cell count is slightly higher today at 12.5. The net fluid balance over the past 24 hours has been also +2.2 L in the patient's weight has been gradually going up and it's up by at least 4 kg over the past 48 hours. 08/13/2021, the patient remains sedated and paralyzed on a mechanical ventilator for COVID 19 related pneumonia. This morning he is on a propofol at 60 mg/kg per minute and fentanyl is also at 2 mcg/kg/h. Nimbex is running at 1.5 mg/kg/m. On a mechanical ventilator, assist control mode volume cycle with a tidal volume of 450 with an FiO2 of 80% and PEEP of 15 and a respiratory rate of 30. He is currently on Decadron. Baricitinib was discontinued yesterday due to concern of superinfection. The patient was also started on enteric antibiotic coverage and IV cefepime. Sepsis workup was also initiated. In terms of his vascular status, the pH today is at 7.28 with a pCO2 of 64 and pO2 of 73. Chest x-ray from today showing bilateral pulmonary infiltrates. I would state infiltration last in the lung bases compared to yesterday. ET tube is high in the trachea and Alli first and by another 2 cm. OG tube is also in place. The patient is currently afebrile. His white cell count today that 8.4 which is improved compared to yesterday. He remains on IV cefepime. Sputum Gram stain and cultures showing gram-positive cocci. Blood cultures still pending. The overall fluid balance over the past 24 hours has been in the order of +900 mL. Urine output is adequate for now. The patient remains on enteral feeding for nutritional support and the patient is receiving vital AF at the rate of 20 disease an hour which is currently at goal. The peak airway pressure is approximately 30 cm of water the study, pressure of 20 on today's evaluation. ET tube was adjusted at the bedside. He was pushed by around 2 cm. The air leak that was noted earlier has completely subsided. The patient is seen today 08/14/2021 and follow-up in the intensive care unit. He remains intubated, sedated, paralyzed and on the mechanical ventilator. Current settings are assist-control mode at a rate of 30, tidal volume 400, FiO2 70% and a PEEP of 15. Morning blood gases reveal PO2 65, pCO2 71, pH 7.30. X- ray continues to show bilateral pulmonary infiltrates. He remains on propofol at 75 mcg/kg/m, fentanyl at 3 mcg/kg/h, Nimbex at 1.5 mcg/kg/m. He is being nourished with vital AF at 28 mL per hour which is goal. He was given a trial off the paralytics yesterday. He becomes very hypertensive, respiratory rate up in the 40s and asynchronous with the mechanical ventilator. White count 7.0. Hemoglobin 11.2. Lymphocytes 0.3 sodium 143. Potassium 4.9. Bicarb 32. Creatinine 0.94. Glucose 145. AST 34. ALT 71. Blood cultures are positive for Staphylococcus aureus. He remains on cefepime. He remains in a negative balance currently at 2.4 L. He remains on IV Lasix in the form of 20 mg IV every 12 hours. 08/15/2021, remains sedated and paralyzed. The patient currently on propofol running at 75 mcg/kg per minute and the patient is also Nimbex and 1.5 mcg/kg per minute. We'll try to hold the fentanyl for now and reevaluate his condition. Otherwise, is an assist-control mode. He remains on a mechanical ventilator with a rate of 30, FiO2 of 70%, PEEP of 15 and a tidal volume of 400. Peak airway pressures are 32. Static pressures around 30. Blood gases from today showed a pH of 7.31 with a pCO2 79 and pO2 of 73. The chest x-ray from today shows stable bilateral pulmonary infiltrates, essentially unchanged compared to yesterday. The patient remains on Decadron. He has been adequately diurese over the past 24 hours and the patient remains in a negative fluid balance and he has produced excellent amount of urine output. The patient remains hemodynamically stable on no pressors. He is receiving enteral feeding for nutritional support. Sputum culture was negative. Blood culture was positive for staph aureus, possibly an MSSA and the patient is currently on IV cefepime. There is receiving 40 mg of subcu Lasix every 12 hours for DVT prophylaxis. D-dimer currently is not checking this needs to be followed up by that his most recent d-dimer was from 08/11/2021 and the level was high at that point at 13.4. He is receiving enteral feeding for nutritional support and the patient is currently on vital AF. Unfortunately, not involving the progress of his on this patient over the past 24 hours. Remains on a mechanical ventilator secondary to COVID 19 related pneumonia. Remains on sedation and paralysis. Continues to receive low tidal volume mechanical ventilation with permissive hypercapnia. Objective - Vital Signs Vital signs: Vital Signs Temp 98.8 F 08/15/21 04:00 Pulse 105 H 08/15/21 07:00 Resp 30 H 08/15/21 07:00 BP 131/67 08/15/21 02:00 Pulse Ox 84 L 08/15/21 07:00 Intake & Output 08/14/21 08/15/21 08/15/21 18:59 06:59 18:59 Intake Total 3296.548 7022.192 48 Output Total 2825 2550 120 Balance -1796.672 -1150.808 -72 Intake: IV 240 220 20 0.9 240 220 20 Intake, IV Titration 768.328 691.192 Amount Sodium Chloride 0.9% 1, 50 000 ml @ 50 mls/hr IV . Q20H [facility] Rx#:[id number] fentaNYL (PF) 2,500 mcg 500 241.192 In Sodium Chloride 0.9% 200 ml @ 0.5 MCG/KG/HR 5. 84 mls/hr IV .Q24H [facility] Rx #:[id number] propofoL 1,000 mg In 268.328 400 Empty Bag 1 bag @ Titrate IV .Q0M [facility] Rx#: [id number] Tube Feeding 20 308 28 Other 180 Output: Urine 2525 2550 120 Stool 300 Other: Voiding Method Indwelling Catheter Indwelling Catheter # Voids 1 ABP, PAP, CO, CI - Last Documented Arterial Blood Pressure 172/64 - Exam GENERAL EXAM: Intubated, sedated and paralyzed 51-year-old gentleman, currently on a ventilator on 80% FiO2 and a PEEP of 15. HEAD: Normocephalic. EYES: Normal reaction of pupils, equal size. NOSE: Clear with pink turbinates. THROAT: Oral endotracheal and gastric tube secured in place. No erythema or exudates. NECK: No masses, no JVD. CHEST: No chest wall deformity. LUNGS: Equal air entry with coarse crackles in the bilateral bases. CVS: S1 and S2 normal with no audible murmur, regular rhythm. ABDOMEN: No hepatosplenomegaly, normal bowel sounds, no guarding or rigidity. SPINE: No scoliosis or deformity SKIN: No rashes CENTRAL NERVOUS SYSTEM: Sedated and paralyzed, tone is normal in all 4 extremities. EXTREMITIES: There is trace peripheral edema. No clubbing, no cyanosis. Peripheral pulses are intact. - Labs CBC & Chem 7: 08/14/21 05:15 08/14/21 05:15 Labs: Abnormal Lab Results - Last 24 Hours (Table) 08/14/21 08/14/21 08/14/21 Range/Units 11:46 17:49 23:34 ABG pH (7.35-7.45) ABG pCO2 (35-45) mmHg ABG pO2 (83-108) mmHg ABG HCO3 (21-25) mmol/L ABG Total CO2 (19-24) mmol/L ABG O2 Saturation (94-97) % POC Glucose (mg/dL) 139 H 137 H 121 H (75-99) mg/dL 08/15/21 08/15/21 Range/Units 05:42 06:03 ABG pH 7.31 L (7.35-7.45) ABG pCO2 79 H* (35-45) mmHg ABG pO2 53 L* (83-108) mmHg ABG HCO3 39 H (21-25) mmol/L ABG Total CO2 42 H (19-24) mmol/L ABG O2 Saturation 85.5 L (94-97) % POC Glucose (mg/dL) 121 H (75-99) mg/dL Microbiology - Last 24 Hours (Table) 08/12/21 09:24 Blood Culture Gram Stain - Preliminary Blood Blood Culture - Preliminary Staphylococcus aureus 08/14/21 03:49 Sputum Culture - Preliminary Sputum Assessment and Plan Plan: 1 Acute hypoxemic respiratory failure secondary to COVID-19 pneumonia. Not vaccinated. Initiated on Baricitinib, Decadron, Lovenox. Transferred to the ICU on 08/08/2021. Subsequently required intubation and mechanical ventilatory support on 08/09/2021. The patient currently being mechanically ventilated. Chest x-ray was noted. Blood gas was noted. Patient is covered with a c ombination of Decadron on Baricitinib and the patient is also on Lovenox for the prophylaxis. Upon subsequent follow-up, the patient was taken off the Baricitinib as the patient developed a staph aureus bacteremia/sepsis. The patient is currently on Decadron. The patient remains on Lovenox. The patient is also covered with broad-spectrum antibiotics with IV cefepime. Hemodynamically stable. Over the past 24 hours, this he received adequate diuresis. 2 staph aureus septicemia likely of a pulmonary source. Sputum cultures still pending. The patient is currently on IV cefepime. This is likely an MSSA. The patient is currently afebrile. The patient is hemodynamically stable and is not requiring any pressors. Chest x-ray remains unchanged and is consistent with diffuse bilateral pulmonary infiltrates consistent with COVID 19 related pneumonia with possible superinfection. 3 Elevated inflammatory markers secondary to above 4 Hearing disorder 5 Hiatal hernia 6 History of chronic sinus disease 7 History of varicose veins Plan: Continue ventilator support, and put the patient on a PEEP of 16 with an FiO2 of 80% and monitor the oxygenation. His pO2 was low this morning and his gradually improving with some increase in the PEEP.. He was intubated on . Check sputum Gram stain and culture , results are still pending and the patient's blood cultures positive for staph aureus Discontinue Baricitinib Cover the patient IV cefepime 2 g every 12 hours Obtain blood cultures and these are pending Monitor fever pattern , currently afebrile Keep the patient on a combination of sadation and paralytics. Discontinue the fentanyl for now. IV fluids to KVO Hold Lasix Enteral feeding for nutritional support Recheck markers and generally improving including LDH, d-dimer remains elevated and the patient remains on Lovenox for DVT prophylaxis We will continue to follow and make further recommendations based on his clinical status, and continue enteral feeding for nutritional support, condition remains extremity critical. We'll continue to follow make further recommendations based on his progress. Critically care evaluation, more than 30 minutes. Time with Patient: Greater than 30
[2021-08-15] MEDS ORDERED: hydrALAZINE HCL 20 MG/ML 1 ML VIAL IVP PRN (10:57)
[2021-08-15 11:42] LABS: Glucose,Whole Blood 159 mg/dL (75-99)
[2021-08-15 11:50] VITALS: BMI 34.3
--- NOTE | 2021-08-15 15:02 | P.PN ---
Subjective Progress Note Date: 08/15/21 Acute hypoxic respiratory failure secondary to COVID-19 pneumonia Elevated liver enzymes due to systemic inflammation 51-year-old male who presents to the with symptoms of shortness of breath and cough ongoing since last Wednesday. Patient states that Wednesday he started feeling short of breath, Wednesday his symptoms worsened and then on Wednesday he said that he began to feel the worst. He is having difficulty catching his breath and attributed this to his chronic sinus problems that he has. On Wednesday he went to the [facility] and was given some medication for his sinuses but did not help him, so he came to the ER. Patient was positive for Covid in the [facility]. He is not vaccinated. Home medications include zinc, vitamin D3, Singulair, Flonase, albuterol inhaler, and ibuprofen. Past medical history significant for sinus issues ongoing, diverticulitis, hernia, cholecystectomy, hard of hearing. Patient is a never smoker, reports occasional alcohol use nothing daily, no drug use. Chest x-ray in the [facility] shows diffuse bilateral interstitial edema and/or infiltrates left greater than right. Labs today show a white count of 5.5, platelet 133, sodium 137, potassium 3.6, mag 1.7, lactic aci d 1.2. Vitals show a temp of 98.7, heart rate 92, blood pressure 147/90 on 15L HF, 15L NRB. Discussed with patient the next step would be BiPAP and possibly intubation. Patient is very claustrophobic and is having difficulty even with the nonrebreather. 08/08/2021 Patient is seen and evaluated in room at bedside; reports worsening breathing and has been desaturating down to low 80s; pulmonary service on board and recommending patient be transferred to ICU Vital signs reviewed temperature 98.0 pulse 87 respiration 26 and blood pressure 137 with 89 Lab review shows diffuse he 7.6, hemoglobin 15.4 and platelet count of 171, sodium 142, potassium 3.9, BUN/creatinine of 23/0.7; d-dimer of 0.78 We will continue to titrate FiO2; self-propelling is encouraged; patient remains on Baricitinib, Lovenox, Decadron for Covid 19 protocol 08/09/2021 Patient seen for follow-up in ICU; nursing staff patient desaturated. In the day and was placed on BiPAP; patient was unable to tolerate BiPAP and oxygen saturation continued to drop with worsening respiratory rate; patient was subsequently intubated and mechanically ventilated Vital signs review shows temperature 97.8, pulse 68, respiration 45 and blood pressure of 118/70 Laboratory; WBC 6.3. Hemoglobin 15.3. Platelets 169. Lymphocytes 0.6. Sodium 140. Potassium 3.9. Bicarb 21. BUN 25. Creatinine 0.76. AST 167. ALT 135. He remains on Decadron, Lovenox, Baricitinib and vitamin supplements. 08/10/2021 Patient remains in ICU and remains intubated and mechanically ventilated; remains on sedation with propofol and Nimbex blood gases from this morning revealed PaO2 of 95, pCO2 46, pH 7.34. Chest x- ray is revealing bilateral interstitial and airspace opacities consistent with COVID-19 pneumonia. No pneumothorax or large effusions. White count 10.8. Hemoglobin 14.7. Sodium 141. Potassium 4.2. Creatinine 0.72. Glucose 109. AST 176. ALT 184. Alk phos 156. He is continued on Baricitinib, Decadron, Lovenox, vitamin supplements. Initiated tube feedings for nutritional support; Continue Baricitinib, Lovenox, Decadron Prone if possible Prognosis is guarded 08/11/2021 Patient is seen in follow up this morning and continues to be on mechanical ventilation and pulmonary lathe operator contact lens following closely. Patient respiratory status worsening and current settings of 50% FI02 and a peep of 15. Patient continues on IV dexamethasone, lovenox, vitamin and zinc supplements. D dimer today is 13.46, inflammatory markers elevated. Slight worsening noted on the chest xray this morning. Patient is also receiving Baricitinib. 08/12/2021 Patient is seen in follow-up today continues to be in the ICU being closely monitored. Patient continues on mechanical vent and Nimbex has been resumed and patient is also maintained on propofol and fentanyl for sedation. Patient respiratory status worsening and current settings are 80% FiO2 with a PEEP of 1 5. Patient started on IV cefepime with a mildly elevated white blood count and baricitinib has been discontinued. Patient continues on IV dexamethasone along with Lovenox twice daily vitamin and zinc supplements and will continue. 08/13/2021 Patient is seen in follow up today in the ICU and continues with sedation and mechanical ventilation. Continued on covid supplements and dexamethasone, lo venox, and IV cefepime. Pulmonary following. sputum culture ordered. Blood culture preliminary showing staph aureus and will repeat. WBC is 8.4, Afebrile. Chest xray shows bibasilar infiltrated worsening of the left. ET tube could be advanced 4cm. 08/14/2021 Patient is seen and evaluated and follow-up continues to be in the ICU on mechanical ventilation intubated and sedated. Patient is also maintained on IV cefepime and awaiting repeat blood cultures as preliminary showed Staphylococcus aureus. Sputum culture is pending at this time. Patient continues on Nimbex as well along with IV dexamethasone, Lovenox twice a day, IV Lasix along with propofol. Chest x-ray shows stable with continued pleural effusion and diffuse bilateral infiltrates. 08/15/2021 Patient is seen and examined and follow-up this morning continues to be in the ICU being closely monitored. Patient remains on mechanical ventilation, intubated and sedated and continues to be tachypneic and tachycardic. FiO2 increased to 80% patient is developing fever. Patient is maintained on IV cefepime and blood cultures showing staph aureus and gram stain preliminary sputum culture showing presumptive staph aureus. Patient is maintained on propofol and fentanyl for sedation. Patient continues on NIMBEX as well. Dilia ent receiving IV hydralazine as needed for elevated blood pressures. Patient was receiving IV Lasix and has diuresed and was discontinued. Repeat labs for today pending. Review of systems: unable to obtain as patient is intubated and sedated Medications have been reviewed. Active Medications Acetaminophen (Acetaminophen Tab 325 Mg Tab) 650 mg PO Q6HR PRN PRN Reason: Mild Pain or Fever > 100.5 Last Admin: 08/15/21 08:35 Dose: 650 mg Documented by: Albuterol Sulfate (Albuterol Hfa Inhaler) 2 puff INHALATION RT-QID PRN PRN Reason: Shortness Of Breath Or Wheezing Albuterol Sulfate (Albuterol Hfa Inhaler) 2 puff INHALATION RT-QID [facility] Last Admin: 08/15/21 12:14 Dose: 2 puff Documented by: Artificial Tears (Artificial Tears-Hypromellose Drops 15 Ml Btl) 1 drops BOTH EYES Q4H [facility] Last Admin: 08/15/21 12:54 Dose: 1 drops Documented by: Ascorbic Acid (Ascorbic Acid 500 Mg Tab) 1,000 mg PO DAILY [facility] Last Admin: 08/15/21 08:35 Dose: 1,000 mg Documented by: Chlorhexidine Gluconate (Chlorhexidine Gluconate 15 Ml Cup) 15 ml MUCOUS MEM BID [facility] Last Admin: 08/15/21 08:32 Dose: 15 ml Documented by: Cholecalciferol (Cholecalciferol 25 Mcg (1000 Iu) Tablet) 125 mcg PO DAILY [facility] Last Admin: 08/15/21 08:33 Dose: 125 mcg Documented by: Dexamethasone Sodium Phosphate (Dexamethasone Sod Phosphate 10 Mg/Ml 1 Ml Vial) 6 mg IVP DAILY [facility] Last Admin: 08/15/21 08:32 Dose: 6 mg Documented by: Enoxaparin Sodium (Enoxaparin 40 Mg/0.4 Ml Syringe) 40 mg SQ BID [facility] Last Admin: 08/15/21 08:35 Dose: 40 mg Documented by: Hydralazine HCl (Hydralazine Hcl 20 Mg/Ml 1 Ml Vial) 10 mg IVP Q4HR PRN PRN Reason: Blood Pressure - High Last Admin: 08/15/21 11:11 Dose: 10 mg Documented by: Hydromorphone HCl (Hydromorphone 1 Mg/Ml 1 Ml Syringe) 1 mg IVP Q2HR PRN PRN Reason: Pain Last Admin: 08/15/21 05:30 Dose: 1 mg Documented by: Sodium Chloride (Saline 0.9%) 1,000 mls @ 50 mls/hr IV .Q20H [facility] Last Admin: 08/15/21 00:15 Dose: Not Given Documented by: Propofol 1,000 mg/ IV Solution 100 mls @ 0 mls/hr IV .Q0M [facility]; Protocol Last Admin: 08/15/21 12:56 Dose: 75 mcg/kg/min, 52.56 mls/hr Documented by: Fentanyl Citrate 2,500 mcg/ (Sodium Chloride) 250 mls @ 5.84 mls/hr IV .Q24H [facility]; Protocol Last Admin: 08/15/21 11:53 Dose: 3 mcg/kg/hr, 35.04 mls/hr Documented by: Cisatracurium Besylate 200 mg/ (Sodium Chloride) 200 mls @ 7.008 mls/hr IV .Q24H [facility]; Protocol Last Admin: 08/14/21 22:26 Dose: 1.5 mcg/kg/min, 10.512 mls/hr Documented by: Cefepime HCl 2 gm/ Sodium (Chloride) 100 mls @ 25 mls/hr IVPB Q8H [facility] Last Admin: 08/15/21 08:32 Dose: 25 mls/hr Documented by: Ibuprofen (Ibuprofen 400 Mg Tab) 400 mg PO Q6HR PRN PRN Reason: Mild Pain or Fever > 100.5 Insulin Aspart (Insulin Aspart (Novolog) 100 Unit/Ml Vial) 0 unit SQ Q6H [facility]; Protocol Last Admin: 08/15/21 12:54 Dose: 3 unit Documented by: Lorazepam (Lorazepam 2 Mg/Ml Inj) 0.5 mg IV Q6HR PRN PRN Reason: Anxiety Last Admin: 08/07/21 21:04 Dose: 0.5 mg Documented by: Naloxone HCl (Naloxone 0.4 Mg/Ml 1 Ml Vial) 0.2 mg IV Q2M PRN PRN Reason: Opioid Reversal Ondansetron HCl (Ondansetron 4 Mg/2 Ml Vial) 4 mg IVP Q8HR PRN PRN Reason: Nausea And Vomiting Zinc Sulfate (Zinc Sulfate 220 Mg Cap) 220 mg PO DAILY [facility] Last Admin: 08/15/21 08:35 Dose: 220 mg Documented by: Physical exam: GENERAL: The patient is currently intubated and sedated. HEENT: Pupils are round and equally reacting to light. CARDIOVASCULAR: S1 and S2 present. No murmurs, rubs, or gallops. Tachycardic PULMONARY: Diminished breath sounds bilaterally with coarse scattered rhonchi and some crackles at the bases noted ABDOMEN: Soft, nontender, non-distended, normoactive bowel sounds. No palpable organomegaly. Obese. MUSCULOSKELETAL: No joint swelling or deformity. EXTREMITIES: No cyanosis, clubbing, or pedal edema. NEUROLOGICAL: Intubated and sedated. SKIN: No rashes. Assessment: Acute hypoxic respiratory failure secondary to COVID-19 pneumonia requiring mechanical ventilation Elevated liver enzymes due to systemic inflammatory response, slowly trending down Positive blood culture showing staph aureus and repeat blood cultures pending, sputum culture showing presumptive staph aureus maintained on IV cefepime Elevated D-dimer, repeat d-dimer pending and patient is maintained on subcutaneous Lovenox twice daily Mild calorie malnutrition secondary to being on mechanical vent, patient receiving tube feedings History of chronic sinus issues History of diverticulitis History of cholecystitis GI Prophylaxis: Protonix DVT Prophylaxis: Lovenox FULL CODE Plan: Continue to closely monitor in the ICU and pulmonary following. patient co ntinues on Nimbex and sedated on fentanyl and propofol. IV hydralazine as needed for elevated pressure. Patient with attempted weaning trials although unsuccessful as patient becomes extremely tachypneic and hypertensive. Pulmonary lathe operator contact lens following closely. ABG worsened today and is currently a pH of 7.31, pCO2 79, pO2 53, bicarb 39, total CO2 42, oxygen saturation 85.5. FiO2 increased to 80% with a PEEP of 15. Patient on IV cefepime and repeat blood cultures and sputum cultures showing staph aureus. Patient having some fevers today per nursing staff. Repeat labs from this morning are pending. Patient is maintained on lovenox twice daily, vitamin, and zinc supplements. Baricitinib has been discontinued. Chest x-ray today shows bilateral continued opacification consistent with COVID-19 infection and/or ards with no significant change from previous. Will repeat labs and continue to monitor closely. Discussion is being had about possible trach and PEG tube placement. Prognosis remains extremely guarded. Objective - Vital Signs Vital signs: Vital Signs Temp 98.8 F 08/15/21 04:00 Pulse 105 H 08/15/21 07:00 Resp 30 H 08/15/21 07:00 BP 131/67 08/15/21 02:00 Pulse Ox 84 L 08/15/21 07:00 Intake & Output 08/14/21 08/15/21 08/15/21 18:59 06:59 18:59 Intake Total 0189.882 6748.192 48 Output Total 2825 2550 120 Balance -1796.672 -1050.808 -72 Intake: IV 240 220 20 0.9 240 220 20 Intake, IV Titration 768.328 791.192 Amount Sodium Chloride 0.9% 1, 50 000 ml @ 50 mls/hr IV . Q20H [facility] Rx#:[id number] fentaNYL (PF) 2,500 mcg 500 241.192 In Sodium Chloride 0.9% 200 ml @ 0.5 MCG/KG/HR 5. 84 mls/hr IV .Q24H [facility] Rx #:[id number] propofoL 1,000 mg In 268.328 500 Empty Bag 1 bag @ Titrate IV .Q0M [facility] Rx#: [id number] Tube Feeding 20 308 28 Other 180 Output: Urine 2525 2550 120 Stool 300 Other: Voiding Method Indwelling Catheter Indwelling Catheter # Voids 1 ABP, PAP, CO, CI - Last Documented Arterial Blood Pressure 172/64 - Labs CBC & Chem 7: 08/14/21 05:15 08/14/21 05:15 Labs: Abnormal Lab Results - Last 24 Hours (Table) 08/14/21 08/14/21 08/14/21 Range/Units 05:15 11:46 17:49 ABG pH (7.35-7.45) ABG pCO2 (35-45) mmHg ABG pO2 (83-108) mmHg ABG HCO3 (21-25) mmol/L ABG Total CO2 (19-24) mmol/L ABG O2 Saturation (94-97) % POC Glucose (mg/dL) 139 H 137 H (75-99) mg/dL Procalcitonin 0.79 H (0.02-0.09) ng/mL 08/14/21 08/15/21 08/15/21 Range/Units 23:34 05:42 06:03 ABG pH 7.31 L (7.35-7.45) ABG pCO2 79 H* (35-45) mmHg ABG pO2 53 L* (83-108) mmHg ABG HCO3 39 H (21-25) mmol/L ABG Total CO2 42 H (19-24) mmol/L ABG O2 Saturation 85.5 L (94-97) % POC Glucose (mg/dL) 121 H 121 H (75-99) mg/dL Procalcitonin (0.02-0.09) ng/mL Microbiology - Last 24 Hours (Table) 08/14/21 03:49 Gram Stain - Preliminary Sputum Sputum Culture - Preliminary 08/12/21 09:24 Blood Culture Gram Stain - Preliminary Blood Blood Culture - Preliminary Staphylococcus aureus
[2021-08-15 17:41] LABS: Glucose,Whole Blood 132 mg/dL (75-99)
[2021-08-16] MEDS: INSULIN ASPART (NovoLOG) 100 UNIT/ML VIAL SQ SCH ×4 (01:00→18:20)
[2021-08-16 01:02] LABS: Glucose,Whole Blood 118 mg/dL (75-99)
[2021-08-16] MEDS: CEFEPIME 2 GM in SODIUM CHLORIDE 0.9% 100 ML IVPB SCH ×3 (01:09→17:23)
[2021-08-16] MEDS: ARTIFICIAL TEARS-HYPROMELLOSE DROPS 15 ML BTL BOTH EYES SCH ×7 (01:09→23:41)
[2021-08-16] MEDS: ACETAMINOPHEN TAB 325 MG TAB PO PRN (02:36)
[2021-08-16] MEDS: fentaNYL (PF) 2,500 MCG in SODIUM CHLORIDE 0.9% 200 ML IV SCH ×3 (02:37→17:22)
[2021-08-16 03:39] LABS: Basophils % (A) 0 %; Eosinophils % (A) 0 %; HCT 38.5 % (39.0-53.0); HGB 11.8 gm/dL (13.0-17.5); Hypochromasia Slight; Lymphocytes # (A) 0.5 k/uL (1.0-4.8); Lymphocytes % (A) 3 %; MCH 29.8 pg (25.0-35.0); MCHC 30.6 g/dL (31.0-37.0); MCV 97.3 fL (80.0-100.0); Mean Platelet Volume 8.4; Monocytes # (A) 0.7 k/uL (0-1.0); Monocytes % (A) 5 %; Neutrophils % (A) 91 %; Platelet Count 296 k/uL (150-450); RBC 3.96 m/uL (4.30-5.90); RDW 12.5 % (11.5-15.5); WBC 14.4 k/uL (3.8-10.6)
[2021-08-16 03:51] LABS: ALT 66 U/L (4-49); AST 51 U/L (17-59); African American GFR (CKD) >90 (>60 ml/min/1.73 sqM); Albumin 2.7 g/dL (3.5-5.0); Alkaline Phosphatase 119 U/L (38-126); Anion Gap 2 mmol/L; Blood Urea Nitrogen 42 mg/dL (9-20); Calcium 8.7 mg/dL (8.4-10.2); Carbon Dioxide 40 mmol/L (22-30); Chloride 105 mmol/L (98-107); Glucose 127 mg/dL (74-99); LDH 687 U/L (313-618); Non-African American GFR(CKD) >90 (>60 ml/min/1.73 sqM); Potassium 4.3 mmol/L (3.5-5.1); Sodium 147 mmol/L (137-145); Total Bilirubin 0.8 mg/dL (0.2-1.3); Total Protein 6.8 g/dL (6.3-8.2)
[2021-08-16 04:11] LABS: C Reactive Protein 23.9 mg/dL (<1.0)
[2021-08-16] MEDS: CISATRACURIUM 200 MG in SODIUM CHLORIDE 0.9% 180 ML IV SCH ×2 (04:34→21:16)
[2021-08-16 05:49] LABS: ABG Base Excess 14.6 mmol/L; ABG Oxygen Saturation 89.1 % (94-97); ABG PH 7.26 (7.35-7.45); ABG PO2 63 mmHg (83-108); ABG TCO2 45 mmol/L (19-24); Allen Test Performed? Yes
[2021-08-16 05:53] LABS: ABG PCO2 94 mmHg (35-45)
[2021-08-16 05:54] LABS: ABG HCO3 42 mmol/L (21-25)
[2021-08-16] MEDS: ENOXAPARIN 40 MG/0.4 ML SYRINGE SQ SCH ×2 (08:22→21:08)
[2021-08-16] MEDS: DEXAMETHASONE SOD PHOSPHATE 10 MG/ML 1 ML VIAL IVP SCH (08:23)
[2021-08-16] MEDS: CHOLECALCIFEROL 25 MCG (1000 IU) TABLET PO SCH (08:23)
[2021-08-16] MEDS: ASCORBIC ACID 500 MG TAB PO SCH (08:23)
[2021-08-16] MEDS: ZINC SULFATE 220 MG CAP PO SCH (08:23)
[2021-08-16] MEDS: CHLORHEXIDINE GLUCONATE 15 ML CUP MUCOUS MEM SCH ×2 (08:23→21:08)
[2021-08-16] MEDS: ALBUTEROL HFA INHALER INHALATION SCH ×4 (08:25→19:42)
--- NOTE | 2021-08-16 09:11 | P.PN ---
Subjective Progress Note Date: 08/16/21 51-year-old male, who seen in the emergency department, in room 3. He apparently has a history of a hearing deficit, sinus issues, and diverticular disease. The patient has not been feeling well for at least 8 days. The patient is unfortunately on vaccinated. He did test positive for coronavirus infection, and appears to have coronavirus associated pneumonia. The patient is on 15 L high flow nasal O2 and not getting any IV fluids. He is a very poor historian, but apparently he's been complaining of progressive shortness of breath, and painful cough. He denies any fever or chills. No chest pain or chest discomfort. Again, it was very difficult getting any history from this gentleman. He apparently is a lifelong nonsmoker. He appears quite short of breath. Based on his history, we believe he is a good candidate for Lovenox, Decadron, vitamins, and MARYOSL. White count 5.5, with a normal hemoglobin, and hematocrit. Platelet count a little low at 133,000. Coagulation studies are no rmal. There is no d-dimer, and it was ordered. Sodium 137, potassium 3.6, chlorides 105, CO2 19, anion gap 13, BUN 23, with a creatinine of 1.16. AST 275, ALT 192, alkaline phosphatase 214. LDH 1508. C-reactive protein is 6.9. Coronavirus testing was positive on August 06. Chest x-ray shows low lung volumes, with bilateral diffuse interstitial infiltrates. The abnormalities are greater on the left lung than on the right. The patient is seen today 08/08/2021 in follow-up in the intensive care unit. He was brought down from the regular floor earlier this morning with worsening shortness of breath and oxygen desaturations. He is now on the AirVo at 55 L and 93% FiO2 plus a nonrebreather mask. He is pronating himself in bed. He is currently oxygenating at 90%. He remains on Decadron, Lovenox, Baricitinib and vitamin supplements. White count 7.6. Hemoglobin 15.4. Lymphocytes 0.7. Sodium 142. Potassium 3.9. Creatinine 0.79. AST 191. ALT 141. Alk phos 159. The patient is seen today 08/09/2021 in follow-up in the intensive care unit. His condition had to deteriorate. He was unable to tolerate BiPAP. Was initially still on AirVo at 60 L/m and 90% FiO2 plus a nonrebreather mask. 0.9 normal saline at 130 ML's per hour. Precedex 0.8 mg/kg per hour. His oxygen saturations were decreasing and his respiratory rate was increasing. He subsequently required intubation and mechanical ventilatory support today. He was intubated per [employer]. On the mechanical ventilator with current settings assist control mode at a rate of 30, tidal volume 450, FiO2 100% and a PEEP of 10. He is sedated with propofol. A left-sided subclavian triple-lumen catheter was placed. A right radial arterial line was placed. The patient is currently hypertensive and may require clevidipine drip. Oxygen saturations have improved. Arterial blood gases are pending. WBC 6.3. Hemoglobin 15.3. Platelets 169. Lymphocytes 0.6. Sodium 140. Potassium 3.9. Bicarb 21. BUN 25. Creatinine 0.76. AST 167. ALT 135. He remains on Decadron, Lovenox, Baricitinib and vitamin supplements. The patient is seen today 08/10/2021 in follow-up in the intensive care unit. He remains intubated and on mechanical ventilator. Current settings are assist- control mode at a rate of 30, tidal volume 450, FiO2 50% and a PEEP of 15. Morning blood gases revealed a PaO2 of 95, pCO2 46, pH 7.34. He remains sedated on propofol 50 mcg/kg/m, paralyzed Nimbex at 2 mcg/kg/m. 0.9 normal saline at 130 ML's per hour. He is being nourished with vital 1.2 at 20 ML's per hour, awaiting dietary accommodations for goal. Chest x-ray is revealing bilateral interstitial and airspace opacities consistent with COVID-19 pneumonia. No pneumothorax or large effusions. White count 10.8. Hemoglobin 14.7. Sodium 141. Potassium 4.2. Creatinine 0.72. Glucose 109. AST 176. ALT 184. Alk phos 156. He is continued on Baricitinib, Decadron, Lovenox, vitamin supplements. 51-year-old male patient currently intubated on a mechanical ventilator due to COVID-19 related to pneumonia with secondary respiratory failure. The patient is non-vaccinated for COVID-19. The patient was sick approximately 10 days prior to him coming into the hospital. He did test positive for COVID-19. Initially he was hypoxic and he was on high flow oxygen at 15 L. The patient was started on a combination of treatment including Decadron, Baricitinib, Lovenox for DVT prophylaxis and multivitamins. LDH level was quite elevated at time of admission and was 1508 with a CRP of 6.9. The chest x-ray shows smaller lung volumes, diffuse bilateral pulmonary infiltrates. Subsequently, the patient was brought into the ICU where the patient was placed on high flow oxygen plus a nonrebreather facemask and the patient was also using high flow. The patient was kept on the same treatment and ultimately the patient had to be intubated and 08/09/2021 where the patient was also placed on a mechanical ventilator. This morning, the patient is an assist-control mode of mechanical ventilation at the rate of 30 with a tidal volume of 450 and FiO2 of 50% with a PEEP of 15. The patient is on propofol running at 65 mcg/kg per minute and the patient is also Nimbex at 1.5 mcg/kg per minute. The chest x-ray from today was reviewed and compared to the one that was done yesterday. ET tube is in a good location. The patient continues to have diffuse bilateral pulmonary infiltrates consistent with COVID 19 related pneumonia and infiltrates more in the lung bases more so on the right. ET tube is in a good location. The patient has a triple lumen catheter in the left subclavian vein. There may be some limited improvement in the infiltration of the left lung compared to the earlier chest x-ray. Meanwhile, the blood gases showed a pH of 7.32 with a pCO2 of 53 and pO2 of 66. Inflammatory markers shows an LDH level of 1001 on a seen which is obviously improved compared to a few days back and the CRP level is down to 16.6. D-dimer is at 13.4 and the patient Hb +9.7 with hemoglobin of 13.7. The patient remains on Lovenox 40 mg subcu for DVT prophylaxis. The patient is on a combination of Decadron on Baricitinib per protocol. The patient is started on enteral feeding for nutritional support, the patient is currently at the rate of 20 mL an hour vital AF On today's evaluation of 08/12/2021, seeing the patient for a follow-up. The patient this morning is on a combination of sedation and paralysis. Note that the paralytic agents had to be restarted yesterday as the patient was unable to breathe comfortably once of Nimbex. This morning, the patient remains sedated and the patient is currently on propofol running at 60 mcg/kg per minute and the patient is also on fentanyl at 3 mcg/kg/h. The patient is also Nimbex running at 1.5 mcg/kg per minute. The patient is adequately sedated and paralyzed this point in time. The patient remains on a mechanical ventilator. The patient is currently on assist control mode with a tidal volume of 450, FiO2 of 80%, PEEP of 15 and the rate of 30. The patient had a follow-up blood gases today that showed a pH of 7.27 with a pCO2 of 64 and pO2 of 71. The peak airway pressure is 32. This is slightly higher compared to yesterday. The chest x-ray from today is showing bilateral pulmonary infiltrates consistent with COVID 19 related pneumonia. ET tube is in a good location. No major interval change in terms of the chest x-ray findings compared to yesterday. The patient remains on a combination of Decadron and Baricitinib per protocol. The patient is also on Lovenox for DVT prophylaxis. In terms of the inflammatory markers, the patient's had elevated levels yesterday and follow-up levels are still pending from today. Meanwhile, the patient has spiked a temperature of 102.7. He was having episodes of fever earlier. Off course this is a concern under the chest x-ray findings is also getting worse and there is always a concern of a superinfection. For that reason, I'm going to suggest. The Baricitinib for now and check a progesterone level and cover this patient with empiric antibiotics. Meanwhile, the patient remains on Decadron. The patient is hemodynamically stable. The patient is on no pressors. The white cell count is slightly higher today at 12.5. The net fluid balance over the past 24 hours has been also +2.2 L in the patient's weight has been gradually going up and it's up by at least 4 kg over the past 48 hours. 08/13/2021, the patient remains sedated and paralyzed on a mechanical ventilator for COVID 19 related pneumonia. This morning he is on a propofol at 60 mg/kg per minute and fentanyl is also at 2 mcg/kg/h. Nimbex is running at 1.5 mg/kg/m. On a mechanical ventilator, assist control mode volume cycle with a tidal volume of 450 with an FiO2 of 80% and PEEP of 15 and a respiratory rate of 30. He is currently on Decadron. Baricitinib was discontinued yesterday due to concern of superinfection. The patient was also started on enteric antibiotic coverage and IV cefepime. Sepsis workup was also initiated. In terms of his vascular status, the pH today is at 7.28 with a pCO2 of 64 and pO2 of 73. Chest x-ray from today showing bilateral pulmonary infiltrates. I would state infiltration last in the lung bases compared to yesterday. ET tube is high in the trachea and Alli first and by another 2 cm. OG tube is also in place. The patient is currently afebrile. His white cell count today that 8.4 which is improved compared to yesterday. He remains on IV cefepime. Sputum Gram stain and cultures showing gram-positive cocci. Blood cultures still pending. The overall fluid balance over the past 24 hours has been in the order of +900 mL. Urine output is adequate for now. The patient remains on enteral feeding for nutritional support and the patient is receiving vital AF at the rate of 20 disease an hour which is currently at goal. The peak airway pressure is approximately 30 cm of water the study, pressure of 20 on today's evaluation. ET tube was adjusted at the bedside. He was pushed by around 2 cm. The air leak that was noted earlier has completely subsided. The patient is seen today 08/14/2021 and follow-up in the intensive care unit. He remains intubated, sedated, paralyzed and on the mechanical ventilator. Current settings are assist-control mode at a rate of 30, tidal volume 400, FiO2 70% and a PEEP of 15. Morning blood gases reveal PO2 65, pCO2 71, pH 7.30. X- ray continues to show bilateral pulmonary infiltrates. He remains on propofol at 75 mcg/kg/m, fentanyl at 3 mcg/kg/h, Nimbex at 1.5 mcg/kg/m. He is being nourished with vital AF at 28 mL per hour which is goal. He was given a trial off the paralytics yesterday. He becomes very hypertensive, respiratory rate up in the 40s and asynchronous with the mechanical ventilator. White count 7.0. Hemoglobin 11.2. Lymphocytes 0.3 sodium 143. Potassium 4.9. Bicarb 32. Creatinine 0.94. Glucose 145. AST 34. ALT 71. Blood cultures are positive for Staphylococcus aureus. He remains on cefepime. He remains in a negative balance currently at 2.4 L. He remains on IV Lasix in the form of 20 mg IV every 12 hours. 08/15/2021, remains sedated and paralyzed. The patient currently on propofol running at 75 mcg/kg per minute and the patient is also Nimbex and 1.5 mcg/kg per minute. We'll try to hold the fentanyl for now and reevaluate his condition. Otherwise, is an assist-control mode. He remains on a mechanical ventilator with a rate of 30, FiO2 of 70%, PEEP of 15 and a tidal volume of 400. Peak airway pressures are 32. Static pressures around 30. Blood gases from today showed a pH of 7.31 with a pCO2 79 and pO2 of 73. The chest x-ray from today shows stable bilateral pulmonary infiltrates, essentially unchanged compared to yesterday. The patient remains on Decadron. He has been adequately diurese over the past 24 hours and the patient remains in a negative fluid balance and he has produced excellent amount of urine output. The patient remains hemodynamically stable on no pressors. He is receiving enteral feeding for nutritional support. Sputum culture was negative. Blood culture was positive for staph aureus, possibly an MSSA and the patient is currently on IV cefepime. There is receiving 40 mg of subcu Lasix every 12 hours for DVT prophylaxis. D-dimer currently is not checking this needs to be followed up by that his most recent d-dimer was from 08/11/2021 and the level was high at that point at 13.4. He is receiving enteral feeding for nutritional support and the patient is currently on vital AF. Unfortunately, not involving the progress of his on this patient over the past 24 hours. Remains on a mechanical ventilator secondary to COVID 19 related pneumonia. Remains on sedation and paralysis. Continues to receive low tidal volume mechanical ventilation with permissive hypercapnia. 08/16/2021, the patient is essentially unchanged compared to yesterday. He remains sedated with a combination of propofol and fentanyl which are essentially running at same doses and the propofol is running at 75 mg/kg per minute and the patient is also on fentanyl at 3 mcg/kg/h. The patient is also Nimbex at 3 mcg/kg per minute. Remains on a mechanical ventilator. Blood gases from today shows a pH of 7.26 with a pCO2 of 94 and a pO2 of 63. He is on assist control mode at the rate of 30, FiO2 is at 100%, PEEP is currently at Nemesio burkett with a tidal volume of 400. The peak airway pressure is around 34 with a static pressure of 32. Chest x-ray is pending from today. Hemodynamically, doing well. Note that the patient had a staph aureus pneumonia with activity anemia and the patient remains on IV cefepime. He is afebrile for now. Hemodynamically stable. In terms of his blood work and inflammatory markers, the patient has an LDH level of 687 and a CRP of 23.9 and a d-dimer level of 6.16. D-dimer level is improved compared to earlier values. Meanwhile, the white cell count today is at 14.4 with a hemoglobin of 11.8 and the plated count of 296. The renal function is stable. Sodium is at 147. BUN is 42 with a cre atinine of 0.8. The patient is receiving enteral feeding for nutritional support. The patient is currently on vital AF at the rate of 10 mL an hour. He may benefit from free water flushes knowing that his sodium level is also elevated. IV fluids are currently at 20 mL an hour and the patient's fluid balance over the past 24 hours have been in the order of -3.8 L. Note that the patient is currently off diuretics been no significant third spacing or edema on examination. Objective - Vital Signs Vital signs: Vital Signs Temp 99.3 F 08/16/21 08:00 Pulse 112 H 08/16/21 08:00 Resp 30 H 08/16/21 08:00 BP 159/76 08/16/21 04:00 Pulse Ox 87 L 08/16/21 08:00 Intake & Output 08/15/21 08/16/21 08/16/21 18:59 06:59 18:59 Intake Total 905.6 1702.652 220 Output Total 4420 2000 200 Balance -3514.4 -297.348 20 Weight 118 kg Intake: IV 240 260 40 0.9 240 260 40 Intake, IV Titration 637.6 1142.652 100 Amount Cisatracurium 200 mg In 200 Sodium Chloride 0.9% 180 ml @ 1 MCG/KG/MIN 7.008 mls/hr IV .Q24H [facility] Rx#: [id number] fentaNYL (PF) 2,500 mcg 250 500 In Sodium Chloride 0.9% 200 ml @ 0.5 MCG/KG/HR 5. 84 mls/hr IV .Q24H [facility] Rx #:[id number] propofoL 1,000 mg In 387.6 442.652 100 Empty Bag 1 bag @ Titrate IV .Q0M [facility] Rx#: [id number] Tube Feeding 28 120 20 Other 180 60 Output: Urine 4120 2000 200 Stool 300 Other: Voiding Method Indwelling Catheter Indwelling Catheter ABP, PAP, CO, CI - Last Documented Arterial Blood Pressure 147/58 - Exam GENERAL EXAM: Intubated, sedated and paralyzed 51-year-old gentleman, currently on a ventilator on 80% FiO2 and a PEEP of 16 HEAD: Normocephalic. EYES: Normal reaction of pupils, equal size. NOSE: Clear with pink turbinates. THROAT: Oral endotracheal and gastric tube secured in place. No erythema or exudates. NECK: No masses, no JVD. CHEST: No chest wall deformity. LUNGS: Equal air entry with coarse crackles in the bilateral bases. CVS: S1 and S2 normal with no audible murmur, regular rhythm. ABDOMEN: No hepatosplenomegaly, normal bowel sounds, no guarding or rigidity. SPINE: No scoliosis or deformity SKIN: No rashes CENTRAL NERVOUS SYSTEM: Sedated and paralyzed, tone is normal in all 4 extremities. EXTREMITIES: There is trace peripheral edema. No clubbing, no cyanosis. Peripheral pulses are intact. - Labs CBC & Chem 7: 08/16/21 03:25 08/16/21 03:25 Labs: Abnormal Lab Results - Last 24 Hours (Table) 08/15/21 08/15/21 08/16/21 Range/Units 11:41 17:39 01:00 WBC (3.8-10.6) k/uL RBC (4.30-5.90) m/uL Hgb (13.0-17.5) gm/dL Hct (39.0-53.0) % MCHC (31.0-37.0) g/dL Neutrophils # (1.3-7.7) k/uL Lymphocytes # (1.0-4.8) k/uL D-Dimer (<0.60) mg/L FEU ABG pH (7.35-7.45) ABG pCO2 (35-45) mmHg ABG pO2 (83-108) mmHg ABG HCO3 (21-25) mmol/L ABG Total CO2 (19-24) mmol/L ABG O2 Saturation (94-97) % Sodium (137-145) mmol/L Carbon Dioxide (22-30) mmol/L BUN (9-20) mg/dL Glucose (74-99) mg/dL POC Glucose (mg/dL) 159 H 132 H 118 H (75-99) mg/dL ALT (4-49) U/L Lactate Dehydrogenase (313-618) U/L C-Reactive Protein (<1.0) mg/dL Albumin (3.5-5.0) g/dL 08/16/21 08/16/21 08/16/21 Range/Units 03:25 03:25 03:25 WBC 14.4 H (3.8-10.6) k/uL RBC 3.96 L (4.30-5.90) m/uL Hgb 11.8 L (13.0-17.5) gm/dL Hct 38.5 L (39.0-53.0) % MCHC 30.6 L (31.0-37.0) g/dL Neutrophils # 13.0 H (1.3-7.7) k/uL Lymphocytes # 0.5 L (1.0-4.8) k/uL D-Dimer 6.16 H (<0.60) mg/L FEU ABG pH (7.35-7.45) ABG pCO2 (35-45) mmHg ABG pO2 (83-108) mmHg ABG HCO3 (21-25) mmol/L ABG Total CO2 (19-24) mmol/L ABG O2 Saturation (94-97) % Sodium 147 H (137-145) mmol/L Carbon Dioxide 40 H (22-30) mmol/L BUN 42 H (9-20) mg/dL Glucose 127 H (74-99) mg/dL POC Glucose (mg/dL) (75-99) mg/dL ALT 66 H (4-49) U/L Lactate Dehydrogenase 687 H (313-618) U/L C-Reactive Protein 23.9 H (<1.0) mg/dL Albumin 2.7 L (3.5-5.0) g/dL 08/16/21 Range/Units 05:43 WBC (3.8-10.6) k/uL RBC (4.30-5.90) m/uL Hgb (13.0-17.5) gm/dL Hct (39.0-53.0) % MCHC (31.0-37.0) g/dL Neutrophils # (1.3-7.7) k/uL Lymphocytes # (1.0-4.8) k/uL D-Dimer (<0.60) mg/L FEU ABG pH 7.26 L (7.35-7.45) ABG pCO2 94 H* (35-45) mmHg ABG pO2 63 L (83-108) mmHg ABG HCO3 42 H* (21-25) mmol/L ABG Total CO2 45 H (19-24) mmol/L ABG O2 Saturation 89.1 L (94-97) % Sodium (137-145) mmol/L Carbon Dioxide (22-30) mmol/L BUN (9-20) mg/dL Glucose (74-99) mg/dL POC Glucose (mg/dL) (75-99) mg/dL ALT (4-49) U/L Lactate Dehydrogenase (313-618) U/L C-Reactive Protein (<1.0) mg/dL Albumin (3.5-5.0) g/dL Microbiology - Last 24 Hours (Table) 08/12/21 09:24 Blood Culture Gram Stain - Final Blood Blood Culture - Final Staphylococcus aureus 08/14/21 03:49 Gram Stain - Preliminary Sputum Sputum Culture - Preliminary Presumptive Staph aureus Assessment and Plan Plan: 1 Acute hypoxemic respiratory failure secondary to COVID-19 pneumonia. Not vaccinated. Initiated on Baricitinib, Decadron, Lovenox. Transferred to the ICU on 08/08/2021. Subsequently required intubation and mechanical ventilatory support on 08/09/2021. The patient currently being mechanically ventilated. Chest x-ray was noted. Blood gas was noted. Patient is covered with a combination of Decadron on Baricitinib and the patient is also on Lovenox for the prophylaxis. Upon subsequent follow-up, the patient was taken off the Baricitinib as the patient developed a staph aureus bacteremia/sepsis. The patient is currently on Decadron. The patient remains on Lovenox. The patient is also covered with broad-spectrum antibiotics with IV cefepime. Hemodynamically stable. No significant changes in the blood gases or overall pulmonary mechanics. Peak and static pressure continues to be elevated and the patient is still allowing permissive hypercapnia. Oxygenation is borderline and he may benefit from mild increase the PEEP in an attempt to lower down the FiO2. Follow-up chest x-ray is pending for now. 2 hospital-acquired versus ventilator acquired pneumonia with staph aureus as the patient also had staph aureus septicemia likely of a pulmonary source. Sputum cultures still pending. The patient is currently on IV cefepime. This is likely an MSSA. The patient is currently afebrile. The patient is hemodynamically stable and is not requiring any pressors. Chest x-ray remains unchanged and is consistent with diffuse bilateral pulmonary infiltrates consistent with COVID 19 related pneumonia with possible superinfection. The patient is currently on IV cefepime. The patient is doing well. Hemodynamically stable. 3 Elevated inflammatory markers secondary to above 4 Hearing disorder 5 Hiatal hernia 6 History of chronic sinus disease 7 History of varicose veins Plan: Continue ventilator support, and increase the PEEP up to 18 and attempt to wean down the FiO2 if possible as long as his saturation remains above 92%. Keep low tidal volume. Didn't permissive hypercapnia. Repeat chest x-ray.. Continue IV cefepime regarding staph aureus pneumonia bacteremia. Keep the Baricitinib on hold Monitor white cell count Monitor fever pattern , currently afebrile Keep the patient on a combination of sadation and paralytics. IV fluids to KVO Hold Lasix Enteral feeding for nutritional support Add free water supplements. NG and autograft to 250 mL every 4 hours Recheck markers and generally improving including LDH, d-dimer remains elevated and the patient remains on Lovenox for DVT prophylaxis We will continue to follow and make further recommendations based on his clinical status, and continue enteral feeding for nutritional support, condition remains extremity critical. We'll continue to follow make further recommendations based on his progress. Critically care evaluation, more than 30 minutes. Time with Patient: Greater than 30
--- NOTE | 2021-08-16 11:16 | XR ---
EXAMINATION TYPE: XR chest 1V portable DATE OF EXAM: 08/16/2021 COMPARISON: 08/15/21 HISTORY: covid TECHNIQUE: Single frontal view of the chest is obtained. FINDINGS: There is no change in the diffuse opacity. No pleural effusion, or pneumothorax seen. The cardiac silhouette size is within normal limits. The osseous structures are intact. ET tube, NG tu be ,central catheter unchanged IMPRESSION: No change in the acute bilateral infiltrates.
[2021-08-16 11:44] LABS: Glucose,Whole Blood 119 mg/dL (75-99)
[2021-08-16] MEDS: SODIUM CHLORIDE 0.9% 1,000 ML IV SCH (12:13)
--- NOTE | 2021-08-16 13:35 | P.PN ---
Subjective Progress Note Date: 08/16/21 Acute hypoxic respiratory failure secondary to COVID-19 pneumonia Elevated liver enzymes due to systemic inflammation 51-year-old male who presents to the with symptoms of shortness of breath and cough ongoing since last Wednesday. Patient states that Wednesday he started feeling short of breath, Wednesday his symptoms worsened and then on Wednesday he said that he began to feel the worst. He is having difficulty catching his breath and attributed this to his chronic sinus problems that he has. On Wednesday he went to the [facility] and was given some medication for his sinuses but did not help him, so he came to the ER. Patient was positive for Covid in the [facility]. He is not vaccinated. Home medications include zinc, vitamin D3, Singulair, Flonase, albuterol inhaler, and ibuprofen. Past medical history significant for sinus issues ongoing, diverticulitis, hernia, cholecystectomy, hard of hearing. Patient is a never smoker, reports occasional alcohol use nothing daily, no drug use. Chest x-ray in the shows diffuse bilateral interstitial edema and/or infiltrates left greater than right. Labs today show a white count of 5.5, platelet 133, sodium 137, potassium 3.6, mag 1.7, lactic acid 1.2. Vitals show a temp of 98.7, heart rate 92, blood pressure 147/90 on 15L HF, 15L NRB. Discussed with patient the next step would be BiPAP and possibly intubation. Patient is very claustrophobic and is having difficulty even with the nonrebreather. 08/08/2021 Patient is seen and evaluated in room at bedside; reports worsening breathing and has been desaturating down to low 80s; pulmonary service on board and recommending patient be transferred to ICU Vital signs reviewed temperature 98.0 pulse 87 respiration 26 and blood pressure 137 with 89 Lab review shows diffuse he 7.6, hemoglobin 15.4 and platelet count of 171, sodium 142, potassium 3.9, BUN/creatinine of 23/0.7; d-dimer of 0.78 We will continue to titrate FiO2; self-propelling is encouraged; patient remains on Baricitinib, Lovenox, Decadron for Covid 19 protocol 08/09/2021 Patient seen for follow-up in ICU; nursing staff patient desaturated. In the day and was placed on BiPAP; patient was unable to tolerate BiPAP and oxygen saturation continued to drop with worsening respiratory rate; patient was subsequently intubated and mechanically ventilated Vital signs review shows temperature 97.8, pulse 68, respiration 45 and blood pressure of 118/70 Laboratory; WBC 6.3. Hemoglobin 15.3. Platelets 169. Lymphocytes 0.6. Sodium 140. Potassium 3.9. Bicarb 21. BUN 25. Creatinine 0.76. AST 167. ALT 135. He remains on Decadron, Lovenox, Baricitinib and vitamin supplements. 08/10/2021 Patient remains in ICU and remains intubated and mechanically ventilated; remains on sedation with propofol and Nimbex blood gases from this morning revealed PaO2 of 95, pCO2 46, pH 7.34. Chest x- ray is revealing bilateral interstitial and airspace opacities consistent with COVID-19 pneumonia. No pneumothorax or large effusions. White count 10.8. Hemoglobin 14.7. Sodium 141. Potassium 4.2. Creatinine 0.72. Glucose 109. AST 176. ALT 184. Alk phos 156. He is continued on Baricitinib, Decadron, Lovenox, vitamin supplements. Initiated tube feedings for nutritional support; Continue Baricitinib, Lovenox, Decadron Prone if possible Prognosis is guarded 08/11/2021 Patient is seen in follow up this morning and continues to be on mechanical ventilation and pulmonary supervisor painting department following closely. Patient respiratory status worsening and current settings of 50% FI02 and a peep of 15. Patient continues on IV dexamethasone, lovenox, vitamin and zinc supplements. D dimer today is 13.46, inflammatory markers elevated. Slight worsening noted on the chest xray this morning. Patient is also receiving Baricitinib. 08/12/2021 Patient is seen in follow-up today continues to be in the ICU being closely monitored. Patient continues on mechanical vent and Nimbex has been resumed and patient is also maintained on propofol and fentanyl for sedation. Patient respiratory status worsening and current settings are 80% FiO2 with a PEEP of 15 . Patient started on IV cefepime with a mildly elevated white blood count and baricitinib has been discontinued. Patient continues on IV dexamethasone along with Lovenox twice daily vitamin and zinc supplements and will continue. 08/13/2021 Patient is seen in follow up today in the ICU and continues with sedation and mechanical ventilation. Continued on covid supplements and dexamethasone, saul enox, and IV cefepime. Pulmonary following. sputum culture ordered. Blood culture preliminary showing staph aureus and will repeat. WBC is 8.4, Afebrile. Chest xray shows bibasilar infiltrated worsening of the left. ET tube could be advanced 4cm. 08/14/2021 Patient is seen and evaluated and follow-up continues to be in the ICU on mechanical ventilation intubated and sedated. Patient is also maintained on IV cefepime and awaiting repeat blood cultures as preliminary showed Staphylococcus aureus. Sputum culture is pending at this time. Patient continues on Nimbex as well along with IV dexamethasone, Lovenox twice a day, IV Lasix along with propofol. Chest x-ray shows stable with continued pleural effusion and diffuse bilateral infiltrates. 08/15/2021 Patient is seen and examined and follow-up this morning continues to be in the ICU being closely monitored. Patient remains on mechanical ventilation, intubated and sedated and continues to be tachypneic and tachycardic. FiO2 increased to 80% patient is developing fever. Patient is maintained on IV cefepime and blood cultures showing staph aureus and gram stain preliminary sputum culture showing presumptive staph aureus. Patient is maintained on propofol and fentanyl for sedation. Patient continues on NIMBEX as well. Patie nt receiving IV hydralazine as needed for elevated blood pressures. Patient was receiving IV Lasix and has diuresed and was discontinued. Repeat labs for today pending. 08/16/2021 Patient evaluated today in the ICU. He continues on mechanical ventilation, today the PEEP was increased 18 and FiO2 decreased to 90 per RN Patient had positive blood cultures taken on 08/12 that showed staph aureus, and sputum culture which is positive for presumptive staph aureus, preliminary still pending. Repeat blood cultures were ordered on 08/13/2021, however they were never drawn. We did order a stat blood culture to repeat today. Additional labs include a white count of 14.4, hemoglobin 11.8, platelet 296, d-dimer today 6.16, sodium 147, potassium 4.3, chloride 105, CO2 40, BUN 42, creatinine 0.89, sugars are in the 110s, ALT 66, LDH 687, CRP 23.9. Vital signs today show temperature 98.1, heart rate 101, respiratory rate 30, blood pressure 150/67 and his oxygen saturation is 87%. Last bowel movement on August 13. He is on IV cefepime, IV Decadron, NIMBEX, fentanyl, propofol. Followed closely by supervisor painting department/emergency worker. Review of systems: unable to obtain as patient is intubated and sedated Medications have been reviewed. Physical exam: GENERAL: The patient is currently intubated and sedated. HEENT: Pupils are round and equally reacting to light. CARDIOVASCULAR: S1 and S2 present. No murmurs, rubs, or gallops. Tachycardic PULMONARY: Diminished breath sounds bilaterally with coarse scattered rhonchi and some crackles at the bases noted ABDOMEN: Soft, nontender, non-distended, hypoactive bowel sounds. No palpable organomegaly. Obese. MUSCULOSKELETAL: No joint swelling or deformity. EXTREMITIES: No cyanosis, clubbing, or pedal edema. NEUROLOGICAL: Intubated and sedated. SKIN: No rashes. Assessment: Acute hypoxic respiratory failure secondary to COVID-19 pneumonia requiring mechanical ventilation Pneumonia with sepsis, cultures positive for staph aureus, hospital acquired vs ventilator acquired Elevated liver enzymes due to systemic inflammatory response, slowly trending down Positive blood culture showing staph aureus and repeat blood cultures pending, sputum culture showing presumptive staph aureus maintained on IV cefepime Hyperkalemia Elevated D-dimer, on SubCu lovenox Mild calorie malnutrition secondary to being on mechanical vent, patient rece iving tube feedings History of chronic sinus issues History of diverticulitis History of cholecystitis GI Prophylaxis: Protonix DVT Prophylaxis: Lovenox FULL CODE Plan: Continue Lovenox, Zinc, Vitamins, MARYSOL discontinued Continue IV Cefepime to cover for staph aureus Repeat cultures are ordered today Free water with PEG tube feedings Continue all other supportive care Repeat labs tomorrow, monitor sodium level Prognosis remains guarded for this patient Objective - Vital Signs Vital signs: Vital Signs Temp 99.3 F 08/16/21 08:00 Pulse 112 H 08/16/21 08:00 Resp 30 H 08/16/21 08:00 BP 159/76 08/16/21 04:00 Pulse Ox 87 L 08/16/21 08:00 Intake & Output 08/15/21 08/16/21 08/16/21 18:59 06:59 18:59 Intake Total 905.6 1702.652 220 Output Total 4420 2000 200 Balance -3514.4 -297.348 20 Weight 118 kg Intake: IV 240 260 40 0.9 240 260 40 Intake, IV Titration 637.6 1142.652 100 Amount Cisatracurium 200 mg In 200 Sodium Chloride 0.9% 180 ml @ 1 MCG/KG/MIN 7.008 mls/hr IV .Q24H [facility] Rx#: [id number] fentaNYL (PF) 2,500 mcg 250 500 In Sodium Chloride 0.9% 200 ml @ 0.5 MCG/KG/HR 5. 84 mls/hr IV .Q24H [facility] Rx #:[id number] propofoL 1,000 mg In 387.6 442.652 100 Empty Bag 1 bag @ Titrate IV .Q0M [facility] Rx#: [id number] Tube Feeding 28 120 20 Other 180 60 Output: Urine 4120 2000 200 Stool 300 Other: Voiding Method Indwelling Catheter Indwelling Catheter ABP, PAP, CO, CI - Last Documented Arterial Blood Pressure 147/58 - Labs CBC & Chem 7: 08/16/21 03:25 08/16/21 03:25 Labs: Abnormal Lab Results - Last 24 Hours (Table) 08/15/21 08/15/21 08/16/21 Range/Units 11:41 17:39 01:00 WBC (3.8-10.6) k/uL RBC (4.30-5.90) m/uL Hgb (13.0-17.5) gm/dL Hct (39.0-53.0) % MCHC (31.0-37.0) g/dL Neutrophils # (1.3-7.7) k/uL Lymphocytes # (1.0-4.8) k/uL D-Dimer (<0.60) mg/L FEU ABG pH (7.35-7.45) ABG pCO2 (35-45) mmHg ABG pO2 (83-108) mmHg ABG HCO3 (21-25) mmol/L ABG Total CO2 (19-24) mmol/L ABG O2 Saturation (94-97) % Sodium (137-145) mmol/L Carbon Dioxide (22-30) mmol/L BUN (9-20) mg/dL Glucose (74-99) mg/dL POC Glucose (mg/dL) 159 H 132 H 118 H (75-99) mg/dL ALT (4-49) U/L Lactate Dehydrogenase (313-618) U/L C-Reactive Protein (<1.0) mg/dL Albumin (3.5-5.0) g/dL 08/16/21 08/16/21 08/16/21 Range/Units 03:25 03:25 03:25 WBC 14.4 H (3.8-10.6) k/uL RBC 3.96 L (4.30-5.90) m/uL Hgb 11.8 L (13.0-17.5) gm/dL Hct 38.5 L (39.0-53.0) % MCHC 30.6 L (31.0-37.0) g/dL Neutrophils # 13.0 H (1.3-7.7) k/uL Lymphocytes # 0.5 L (1.0-4.8) k/uL D-Dimer 6.16 H (<0.60) mg/L FEU ABG pH (7.35-7.45) ABG pCO2 (35-45) mmHg ABG pO2 (83-108) mmHg ABG HCO3 (21-25) mmol/L ABG Total CO2 (19-24) mmol/L ABG O2 Saturation (94-97) % Sodium 147 H (137-145) mmol/L Carbon Dioxide 40 H (22-30) mmol/L BUN 42 H (9-20) mg/dL Glucose 127 H (74-99) mg/dL POC Glucose (mg/dL) (75-99) mg/dL ALT 66 H (4-49) U/L Lactate Dehydrogenase 687 H (313-618) U/L C-Reactive Protein 23.9 H (<1.0) mg/dL Albumin 2.7 L (3.5-5.0) g/dL 08/16/21 Range/Units 05:43 WBC (3.8-10.6) k/uL RBC (4.30-5.90) m/uL Hgb (13.0-17.5) gm/dL Hct (39.0-53.0) % MCHC (31.0-37.0) g/dL Neutrophils # (1.3-7.7) k/uL Lymphocytes # (1.0-4.8) k/uL D-Dimer (<0.60) mg/L FEU ABG pH 7.26 L (7.35-7.45) ABG pCO2 94 H* (35-45) mmHg ABG pO2 63 L (83-108) mmHg ABG HCO3 42 H* (21-25) mmol/L ABG Total CO2 45 H (19-24) mmol/L ABG O2 Saturation 89.1 L (94-97) % Sodium (137-145) mmol/L Carbon Dioxide (22-30) mmol/L BUN (9-20) mg/dL Glucose (74-99) mg/dL POC Glucose (mg/dL) (75-99) mg/dL ALT (4-49) U/L Lactate Dehydrogenase (313-618) U/L C-Reactive Protein (<1.0) mg/dL Albumin (3.5-5.0) g/dL Microbiology - Last 24 Hours (Table) 08/12/21 09:24 Blood Culture Gram Stain - Final Blood Blood Culture - Final Staphylococcus aureus 08/14/21 03:49 Gram Stain - Preliminary Sputum Sputum Culture - Preliminary Presumptive Staph aureus
[2021-08-16 18:17] LABS: Glucose,Whole Blood 114 mg/dL (75-99)
[2021-08-16 23:37] LABS: Glucose,Whole Blood 109 mg/dL (75-99)
[2021-08-16 23:45] LABS: Glucose,Whole Blood 108 mg/dL (75-99)
[2021-08-17] MEDS: INSULIN ASPART (NovoLOG) 100 UNIT/ML VIAL SQ SCH ×4 (00:32→18:11)
[2021-08-17] MEDS: fentaNYL (PF) 2,500 MCG in SODIUM CHLORIDE 0.9% 200 ML IV SCH ×4 (01:23→23:22)
[2021-08-17] MEDS: CEFEPIME 2 GM in SODIUM CHLORIDE 0.9% 100 ML IVPB SCH ×3 (01:47→18:20)
[2021-08-17 04:32] LABS: Basophils # (A) 0.1 k/uL (0-0.2); Basophils % (A) 0 %; Eosinophils # (A) 0.1 k/uL (0-0.7); Eosinophils % (A) 0 %; HCT 38.1 % (39.0-53.0); HGB 11.9 gm/dL (13.0-17.5); Hypochromasia Marked; Lymphocytes # (A) 0.4 k/uL (1.0-4.8); Lymphocytes % (A) 3 %; MCH 31.1 pg (25.0-35.0); MCHC 31.2 g/dL (31.0-37.0); MCV 99.6 fL (80.0-100.0); Mean Platelet Volume 8.2; Monocytes # (A) 0.5 k/uL (0-1.0); Monocytes % (A) 3 %; Neutrophils # (A) 13.3 k/uL (1.3-7.7); Neutrophils % (A) 93 %; Platelet Count 295 k/uL (150-450); RBC 3.82 m/uL (4.30-5.90); RDW 12.5 % (11.5-15.5); WBC 14.4 k/uL (3.8-10.6)
[2021-08-17 04:43] LABS: Albumin 2.6 g/dL (3.5-5.0); Calcium 8.8 mg/dL (8.4-10.2); Potassium 4.9 mmol/L (3.5-5.1); Total Bilirubin 0.8 mg/dL (0.2-1.3); Total Protein 6.6 g/dL (6.3-8.2)
[2021-08-17] MEDS: ARTIFICIAL TEARS-HYPROMELLOSE DROPS 15 ML BTL BOTH EYES SCH ×6 (05:13→23:50)
[2021-08-17 05:19] LABS: Glucose,Whole Blood 133 mg/dL (75-99)
[2021-08-17 05:22] LABS: ABG Base Excess 9.3 mmol/L; ABG HCO3 37 mmol/L (21-25); ABG PO2 64 mmHg (83-108); ABG TCO2 40 mmol/L (19-24); Allen Test Performed? Yes
[2021-08-17 05:25] LABS: ABG PCO2 97 mmHg (35-45); ABG PH 7.19 (7.35-7.45)
[2021-08-17] MEDS: ALBUTEROL HFA INHALER INHALATION SCH ×4 (08:14→19:50)
[2021-08-17] MEDS: CISATRACURIUM 200 MG in SODIUM CHLORIDE 0.9% 180 ML IV SCH ×2 (08:18→12:45)
[2021-08-17] MEDS: ENOXAPARIN 40 MG/0.4 ML SYRINGE SQ SCH ×2 (08:23→20:00)
[2021-08-17] MEDS: ASCORBIC ACID 500 MG TAB PO SCH (08:23)
[2021-08-17] MEDS: CHLORHEXIDINE GLUCONATE 15 ML CUP MUCOUS MEM SCH ×2 (08:24→20:00)
[2021-08-17] MEDS: DEXAMETHASONE SOD PHOSPHATE 10 MG/ML 1 ML VIAL IVP SCH (08:24)
[2021-08-17] MEDS: CHOLECALCIFEROL 25 MCG (1000 IU) TABLET PO SCH (08:24)
[2021-08-17] MEDS: SODIUM CHLORIDE 0.9% 1,000 ML IV SCH (08:24)
[2021-08-17] MEDS: ZINC SULFATE 220 MG CAP PO SCH (08:24)
[2021-08-17] MEDS ORDERED: SODIUM CHLORIDE 0.9% 2,000 ML IV ONE (09:03)
--- NOTE | 2021-08-17 09:06 | P.PN ---
Subjective Progress Note Date: 08/17/21 51-year-old male, who seen in the emergency department, in room 3. He apparently has a history of a hearing deficit, sinus issues, and diverticular disease. The patient has not been feeling well for at least 8 days. The patient is unfortunately on vaccinated. He did test positive for coronavirus infection, and appears to have coronavirus associated pneumonia. The patient is on 15 L high flow nasal O2 and not getting any IV fluids. He is a very poor historian, but apparently he's been complaining of progressive shortness of breath, and painful cough. He denies any fever or chills. No chest pain or chest discomfort. Again, it was very difficult getting any history from this gentleman. He apparently is a lifelong nonsmoker. He appears quite short of breath. Based on his history, we believe he is a good candidate for Lovenox, Decadron, vitamins, and MARYSOL. White count 5.5, with a normal hemoglobin, and hematocrit. Platelet count a little low at 133,000. Coagulation studies are no rmal. There is no d-dimer, and it was ordered. Sodium 137, potassium 3.6, chlorides 105, CO2 19, anion gap 13, BUN 23, with a creatinine of 1.16. AST 275, ALT 192, alkaline phosphatase 214. LDH 1508. C-reactive protein is 6.9. Coronavirus testing was positive on August 06. Chest x-ray shows low lung volumes, with bilateral diffuse interstitial infiltrates. The abnormalities are greater on the left lung than on the right. The patient is seen today 08/08/2021 in follow-up in the intensive care unit. He was brought down from the regular floor earlier this morning with worsening shortness of breath and oxygen desaturations. He is now on the AirVo at 55 L and 93% FiO2 plus a nonrebreather mask. He is pronating himself in bed. He is currently oxygenating at 90%. He remains on Decadron, Lovenox, Baricitinib and vitamin supplements. White count 7.6. Hemoglobin 15.4. Lymphocytes 0.7. Sodium 142. Potassium 3.9. Creatinine 0.79. AST 191. ALT 141. Alk phos 159. The patient is seen today 08/09/2021 in follow-up in the intensive care unit. His condition had to deteriorate. He was unable to tolerate BiPAP. Was initially still on AirVo at 60 L/m and 90% FiO2 plus a nonrebreather mask. 0.9 normal saline at 130 ML's per hour. Precedex 0.8 mg/kg per hour. His oxygen saturations were decreasing and his respiratory rate was increasing. He subsequently required intubation and mechanical ventilatory support today. He was intubated per MANAGER STATISTICAL. On the mechanical ventilator with current settings assist control mode at a rate of 30, tidal volume 450, FiO2 100% and a PEEP of 10. He is sedated with propofol. A left-sided subclavian triple-lumen catheter was placed. A right radial arterial line was placed. The patient is currently hypertensive and may require clevidipine drip. Oxygen saturations have improved. Arterial blood gases are pending. WBC 6.3. Hemoglobin 15.3. Platelets 169. Lymphocytes 0.6. Sodium 140. Potassium 3.9. Bicarb 21. BUN 25. Creatinine 0.76. AST 167. ALT 135. He remains on Decadron, Lovenox, Baricitinib and vitamin supplements. The patient is seen today 08/10/2021 in follow-up in the intensive care unit. He remains intubated and on mechanical ventilator. Current settings are assist- control mode at a rate of 30, tidal volume 450, FiO2 50% and a PEEP of 15. Morning blood gases revealed a PaO2 of 95, pCO2 46, pH 7.34. He remains sedated on propofol 50 mcg/kg/m, paralyzed Nimbex at 2 mcg/kg/m. 0.9 normal saline at 130 ML's per hour. He is being nourished with vital 1.2 at 20 ML's per hour, awaiting dietary accommodations for goal. Chest x-ray is revealing bilateral interstitial and airspace opacities consistent with COVID-19 pneumonia. No pneumothorax or large effusions. White count 10.8. Hemoglobin 14.7. Sodium 141. Potassium 4.2. Creatinine 0.72. Glucose 109. AST 176. ALT 184. Alk phos 156. He is continued on Baricitinib, Decadron, Lovenox, vitamin supplements. 51-year-old male patient currently intubated on a mechanical ventilator due to COVID-19 related to pneumonia with secondary respiratory failure. The patient is non-vaccinated for COVID-19. The patient was sick approximately 10 days prior to him coming into the hospital. He did test positive for COVID-19. Initially he was hypoxic and he was on high flow oxygen at 15 L. The patient was started on a combination of treatment including Decadron, Baricitinib, Lovenox for DVT prophylaxis and multivitamins. LDH level was quite elevated at time of admission and was 1508 with a CRP of 6.9. The chest x-ray shows smaller lung volumes, diffuse bilateral pulmonary infiltrates. Subsequently, the patient was brought into the ICU where the patient was placed on high flow oxygen plus a nonrebreather facemask and the patient was also using high flow. The patient was kept on the same treatment and ultimately the patient had to be intubated and 08/09/2021 where the patient was also placed on a mechanical ventilator. This morning, the patient is an assist-control mode of mechanical ventilation at the rate of 30 with a tidal volume of 450 and FiO2 of 50% with a PEEP of 15. The patient is on propofol running at 65 mcg/kg per minute and the patient is also Nimbex at 1.5 mcg/kg per minute. The chest x-ray from today was reviewed and compared to the one that was done yesterday. ET tube is in a good location. The patient continues to have diffuse bilateral pulmonary infiltrates consistent with COVID 19 related pneumonia and infiltrates more in the lung bases more so on the right. ET tube is in a good location. The patient has a triple lumen catheter in the left subclavian vein. There may be some limited improvement in the infiltration of the left lung compared to the earlier chest x-ray. Meanwhile, the blood gases showed a pH of 7.32 with a pCO2 of 53 and pO2 of 66. Inflammatory markers shows an LDH level of 1001 on a seen which is obviously improved compared to a few days back and the CRP level is down to 16.6. D-dimer is at 13.4 and the patient Hb +9.7 with hemoglobin of 13.7. The patient remains on Lovenox 40 mg subcu for DVT prophylaxis. The patient is on a combination of Decadron on Baricitinib per protocol. The patient is started on enteral feeding for nutritional support, the patient is currently at the rate of 20 mL an hour vital AF On today's evaluation of 08/12/2021, seeing the patient for a follow-up. The patient this morning is on a combination of sedation and paralysis. Note that the paralytic agents had to be restarted yesterday as the patient was unable to breathe comfortably once of Nimbex. This morning, the patient remains sedated and the patient is currently on propofol running at 60 mcg/kg per minute and the patient is also on fentanyl at 3 mcg/kg/h. The patient is also Nimbex running at 1.5 mcg/kg per minute. The patient is adequately sedated and paralyzed this point in time. The patient remains on a mechanical ventilator. The patient is currently on assist control mode with a tidal volume of 450, FiO2 of 80%, PEEP of 15 and the rate of 30. The patient had a follow-up blood gases today that showed a pH of 7.27 with a pCO2 of 64 and pO2 of 71. The peak airway pressure is 32. This is slightly higher compared to yesterday. The chest x-ray from today is showing bilateral pulmonary infiltrates consistent with COVID 19 related pneumonia. ET tube is in a good location. No major interval change in terms of the chest x-ray findings compared to yesterday. The patient remains on a combination of Decadron and Baricitinib per protocol. The patient is also on Lovenox for DVT prophylaxis. In terms of the inflammatory markers, the patient's had elevated levels yesterday and follow-up levels are still pending from today. Meanwhile, the patient has spiked a temperature of 102.7. He was having episodes of fever earlier. Off course this is a concern under the chest x-ray findings is also getting worse and there is always a concern of a superinfection. For that reason, I'm going to suggest. The Baricitinib for now and check a progesterone level and cover this patient with empiric antibiotics. Meanwhile, the patient remains on Decadron. The patient is hemodynamically stable. The patient is on no pressors. The white cell count is slightly higher today at 12.5. The net fluid balance over the past 24 hours has been also +2.2 L in the patient's weight has been gradually going up and it's up by at least 4 kg over the past 48 hours. 08/13/2021, the patient remains sedated and paralyzed on a mechanical ventilator for COVID 19 related pneumonia. This morning he is on a propofol at 60 mg/kg per minute and fentanyl is also at 2 mcg/kg/h. Nimbex is running at 1.5 mg/kg/m. On a mechanical ventilator, assist control mode volume cycle with a tidal volume of 450 with an FiO2 of 80% and PEEP of 15 and a respiratory rate of 30. He is currently on Decadron. Baricitinib was discontinued yesterday due to concern of superinfection. The patient was also started on enteric antibiotic coverage and IV cefepime. Sepsis workup was also initiated. In terms of his vascular status, the pH today is at 7.28 with a pCO2 of 64 and pO2 of 73. Chest x-ray from today showing bilateral pulmonary infiltrates. I would state infiltration last in the lung bases compared to yesterday. ET tube is high in the trachea and Alli first and by another 2 cm. OG tube is also in place. The patient is currently afebrile. His white cell count today that 8.4 which is improved compared to yesterday. He remains on IV cefepime. Sputum Gram stain and cultures showing gram-positive cocci. Blood cultures still pending. The overall fluid balance over the past 24 hours has been in the order of +900 mL. Urine output is adequate for now. The patient remains on enteral feeding for nutritional support and the patient is receiving vital AF at the rate of 20 disease an hour which is currently at goal. The peak airway pressure is approximately 30 cm of water the study, pressure of 20 on today's evaluation. ET tube was adjusted at the bedside. He was pushed by around 2 cm. The air leak that was noted earlier has completely subsided. The patient is seen today 08/14/2021 and follow-up in the intensive care unit. He remains intubated, sedated, paralyzed and on the mechanical ventilator. Current settings are assist-control mode at a rate of 30, tidal volume 400, FiO2 70% and a PEEP of 15. Morning blood gases reveal PO2 65, pCO2 71, pH 7.30. X- ray continues to show bilateral pulmonary infiltrates. He remains on propofol at 75 mcg/kg/m, fentanyl at 3 mcg/kg/h, Nimbex at 1.5 mcg/kg/m. He is being nourished with vital AF at 28 mL per hour which is goal. He was given a trial off the paralytics yesterday. He becomes very hypertensive, respiratory rate up in the 40s and asynchronous with the mechanical ventilator. White count 7.0. Hemoglobin 11.2. Lymphocytes 0.3 sodium 143. Potassium 4.9. Bicarb 32. Creatinine 0.94. Glucose 145. AST 34. ALT 71. Blood cultures are positive for Staphylococcus aureus. He remains on cefepime. He remains in a negative balance currently at 2.4 L. He remains on IV Lasix in the form of 20 mg IV every 12 hours. 08/15/2021, remains sedated and paralyzed. The patient currently on propofol running at 75 mcg/kg per minute and the patient is also Nimbex and 1.5 mcg/kg per minute. We'll try to hold the fentanyl for now and reevaluate his condition. Otherwise, is an assist-control mode. He remains on a mechanical ventilator with a rate of 30, FiO2 of 70%, PEEP of 15 and a tidal volume of 400. Peak airway pressures are 32. Static pressures around 30. Blood gases from today showed a pH of 7.31 with a pCO2 79 and pO2 of 73. The chest x-ray from today shows stable bilateral pulmonary infiltrates, essentially unchanged compared to yesterday. The patient remains on Decadron. He has been adequately diurese over the past 24 hours and the patient remains in a negative fluid balance and he has produced excellent amount of urine output. The patient remains hemodynamically stable on no pressors. He is receiving enteral feeding for nutritional support. Sputum culture was negative. Blood culture was positive for staph aureus, possibly an MSSA and the patient is currently on IV cefepime. There is receiving 40 mg of subcu Lasix every 12 hours for DVT prophylaxis. D-dimer currently is not checking this needs to be followed up by that his most recent d-dimer was from 08/11/2021 and the level was high at that point at 13.4. He is receiving enteral feeding for nutritional support and the patient is currently on vital AF. Unfortunately, not involving the progress of his on this patient over the past 24 hours. Remains on a mechanical ventilator secondary to COVID 19 related pneumonia. Remains on sedation and paralysis. Continues to receive low tidal volume mechanical ventilation with permissive hypercapnia. 08/16/2021, the patient is essentially unchanged compared to yesterday. He remains sedated with a combination of propofol and fentanyl which are essentially running at same doses and the propofol is running at 75 mg/kg per minute and the patient is also on fentanyl at 3 mcg/kg/h. The patient is also Nimbex at 3 mcg/kg per minute. Remains on a mechanical ventilator. Blood gases from today shows a pH of 7.26 with a pCO2 of 94 and a pO2 of 63. He is on assist control mode at the rate of 30, FiO2 is at 100%, PEEP is currently at Nemesio burkett with a tidal volume of 400. The peak airway pressure is around 34 with a static pressure of 32. Chest x-ray is pending from today. Hemodynamically, doing well. Note that the patient had a staph aureus pneumonia with activity anemia and the patient remains on IV cefepime. He is afebrile for now. Hemodynamically stable. In terms of his blood work and inflammatory markers, the patient has an LDH level of 687 and a CRP of 23.9 and a d-dimer level of 6.16. D-dimer level is improved compared to earlier values. Meanwhile, the white cell count today is at 14.4 with a hemoglobin of 11.8 and the plated count of 296. The renal function is stable. Sodium is at 147. BUN is 42 with a cre atinine of 0.8. The patient is receiving enteral feeding for nutritional support. The patient is currently on vital AF at the rate of 10 mL an hour. He may benefit from free water flushes knowing that his sodium level is also elevated. IV fluids are currently at 20 mL an hour and the patient's fluid balance over the past 24 hours have been in the order of -3.8 L. Note that the patient is currently off diuretics been no significant third spacing or edema on examination. 08/17/2021 the patient's condition is still critical as the patient is being treated for COVID 19 related pneumonia, ARDS, superinfection with MSSA pneumonia and sepsis. This morning, the patient is having issues with his oxygenation. Overnight, be became more hypoxic and I had to change his PEEP and is currently up to 22, with a tidal volume of 400, FiO2 of 100% a rate of 30. Peak airway pressures 46. Static pressure is 43. The blood periods from today is showing permissive hypercapnia. His pH was at 7.19 with a pCO2 of 97 and a pO2 of 64. The patient remains on a combination of sedation including propofol running at 75 mcg/kg per minute, he is also on fentanyl at 3 mcg/kg/h and Nimbex is running at 1.5 mcg/kg per minute. He is quite sedated as a mechanical ventilator. Based on today's blood gases, increased respiratory rate up to 34 and also contemplating to put this patient on ismael position. Meanwhile, the patient is still on antibiotics. The patient remains on IV cefepime regarding MSSA pn eumonia and bacteremia. His fluid balance over the past 24 hours has been in the order of -3.8 L. The patient's blood work from today shows a white cell count of 14.4 with a hemoglobin of 11.9, d-dimer is at 5.6, inflammatory markers included an LDH of 687 from yesterday, CRP of 23.9. His sodium level is at 146 and the patient is also had a powered an acute kidney injury with a BUN of 62 and a creatinine of 1.7. Potassium level is at 4.9. He is receiving enteral feeding for nutritional support and the patient is on vital AF. The patient was also given free water supplements through his OG regarding his hyper and she may yesterday. Objective - Vital Signs Vital signs: Vital Signs Temp 97.5 F L 08/17/21 08:00 Pulse 93 08/17/21 08:00 Resp 30 H 08/17/21 08:00 BP 159/76 08/16/21 04:00 Pulse Ox 89 L 08/17/21 08:00 Intake & Output 08/16/21 08/17/21 08/17/21 18:59 06:59 18:59 Intake Total 1782.36 1821.632 696.59 Output Total 1200 780 85 Balance 582.36 1041.632 611.59 Intake: IV 220 240 60 0.9 220 240 60 Intake, IV Titration 892.36 711.632 356.59 Amount Cisatracurium 200 mg In 200 2.336 114.23 Sodium Chloride 0.9% 180 ml @ 1 MCG/KG/MIN 7.008 mls/hr IV .Q24H [facility] Rx#: [id number] fentaNYL (PF) 2,500 mcg 492.36 250 242.36 In Sodium Chloride 0.9% 200 ml @ 0.5 MCG/KG/HR 5. 84 mls/hr IV .Q24H [facility] Rx #:[id number] propofoL 1,000 mg In 200 459.296 Empty Bag 1 bag @ Titrate IV .Q0M [facility] Rx#: [id number] Tube Feeding 110 120 30 Other 560 750 250 Output: Urine 1200 780 85 Other: Voiding Method Indwelling Catheter Indwelling Catheter ABP, PAP, CO, CI - Last Documented Arterial Blood Pressure 126/59 - Exam GENERAL EXAM: Intubated, sedated and paralyzed 51-year-old gentleman, currently on a ventilator on 100% FiO2 and a PEEP of 22 HEAD: Normocephalic. EYES: Normal reaction of pupils, equal size. NOSE: Clear with pink turbinates. THROAT: Oral endotracheal and gastric tube secured in place. No erythema or exudates. NECK: No masses, no JVD. CHEST: No chest wall deformity. LUNGS: Equal air entry with coarse crackles in the bilateral bases. CVS: S1 and S2 normal with no audible murmur, regular rhythm. ABDOMEN: No hepatosplenomegaly, normal bowel sounds, no guarding or rigidity. SPINE: No scoliosis or deformity SKIN: No rashes CENTRAL NERVOUS SYSTEM: Sedated and paralyzed, tone is normal in all 4 extremities. EXTREMITIES: There is trace peripheral edema. No clubbing, no cyanosis. Peripheral pulses are intact. - Labs CBC & Chem 7: 08/17/21 04:00 08/17/21 04:00 Labs: Abnormal Lab Results - Last 24 Hours (Table) 08/16/21 08/16/21 08/16/21 Range/Units 11:42 18:16 23:35 WBC (3.8-10.6) k/uL RBC (4.30-5.90) m/uL Hgb (13.0-17.5) gm/dL Hct (39.0-53.0) % Neutrophils # (1.3-7.7) k/uL Lymphocytes # (1.0-4.8) k/uL D-Dimer (<0.60) mg/L FEU ABG pH (7.35-7.45) ABG pCO2 (35-45) mmHg ABG pO2 (83-108) mmHg ABG HCO3 (21-25) mmol/L ABG Total CO2 (19-24) mmol/L ABG O2 Saturation (94-97) % Sodium (137-145) mmol/L Carbon Dioxide (22-30) mmol/L BUN (9-20) mg/dL Creatinine (0.66-1.25) mg/dL Glucose (74-99) mg/dL POC Glucose (mg/dL) 119 H 114 H 109 H (75-99) mg/dL ALT (4-49) U/L Albumin (3.5-5.0) g/dL 08/16/21 08/17/21 08/17/21 Range/Units 23:43 04:00 04:00 WBC 14.4 H (3.8-10.6) k/uL RBC 3.82 L (4.30-5.90) m/uL Hgb 11.9 L (13.0-17.5) gm/dL Hct 38.1 L (39.0-53.0) % Neutrophils # 13.3 H (1.3-7.7) k/uL Lymphocytes # 0.4 L (1.0-4.8) k/uL D-Dimer 5.60 H (<0.60) mg/L FEU ABG pH (7.35-7.45) ABG pCO2 (35-45) mmHg ABG pO2 (83-108) mmHg ABG HCO3 (21-25) mmol/L ABG Total CO2 (19-24) mmol/L ABG O2 Saturation (94-97) % Sodium (137-145) mmol/L Carbon Dioxide (22-30) mmol/L BUN (9-20) mg/dL Creatinine (0.66-1.25) mg/dL Glucose (74-99) mg/dL POC Glucose (mg/dL) 108 H (75-99) mg/dL ALT (4-49) U/L Albumin (3.5-5.0) g/dL 08/17/21 08/17/21 08/17/21 Range/Units 04:00 05:17 05:17 WBC (3.8-10.6) k/uL RBC (4.30-5.90) m/uL Hgb (13.0-17.5) gm/dL Hct (39.0-53.0) % Neutrophils # (1.3-7.7) k/uL Lymphocytes # (1.0-4.8) k/uL D-Dimer (<0.60) mg/L FEU ABG pH 7.19 L* (7.35-7.45) ABG pCO2 97 H* (35-45) mmHg ABG pO2 64 L (83-108) mmHg ABG HCO3 37 H (21-25) mmol/L ABG Total CO2 40 H (19-24) mmol/L ABG O2 Saturation 90.0 L (94-97) % Sodium 146 H (137-145) mmol/L Carbon Dioxide 37 H (22-30) mmol/L BUN 62 H (9-20) mg/dL Creatinine 1.71 H (0.66-1.25) mg/dL Glucose 136 H (74-99) mg/dL POC Glucose (mg/dL) 133 H (75-99) mg/dL ALT 63 H (4-49) U/L Albumin 2.6 L (3.5-5.0) g/dL Microbiology - Last 24 Hours (Table) 08/14/21 03:49 Gram Stain - Final Sputum Sputum Culture - Final Staphylococcus aureus Assessment and Plan Plan: 1 Acute hypoxemic respiratory failure secondary to COVID-19 pneumonia. Not vaccinated. Initiated on Baricitinib, Decadron, Lovenox. Transferred to the [facility] on 08/08/2021. Subsequently required intubation and mechanical ventilatory support on 08/09/2021. The patient currently being mechanically ventilated. Chest x-ray was noted. Blood gas was noted. Patient is covered with a combination of Decadron on Baricitinib and the patient is also on Lovenox for the prophylaxis. Upon subsequent follow-up, the patient was taken off the Baricitinib as the patient developed a staph aureus bacteremia/sepsis. The patient is currently on Decadron. The patient remains on Lovenox. The patient is also covered with broad-spectrum antibiotics with IV cefepime. Hemodynamically stable. No significant changes in the blood gases or overall pulmonary mechanics. Peak and static pressure continues to be elevated and the patient is still allowing permissive hypercapnia. Oxygenation is borderline there is interval worsening in his oxygenation. Today's evaluation, the patient has a PEEP of 22 with an FiO2 of 100%. There is still allowing permissive hypercapnia. Chest x-rays to follow. Contemplating homebody positioning on this patient is able to tolerate. 2 hospital-acquired versus ventilator acquired pneumonia with staph aureus as the patient also had staph aureus septicemia likely of a pulmonary source. Sputum cultures still pending. The patient is currently on IV cefepime. This is likely an MSSA. The patient is currently afebrile. The patient is hemodynamically stable and is not requiring any pressors. Chest x-ray remains unchanged and is consistent with diffuse bilateral pulmonary infiltrates consistent with COVID 19 related pneumonia with possible superinfection. The patient is currently on IV cefepime. The patient is doing well. Hemodynamically stable. 3 Elevated inflammatory markers secondary to above 4 Hearing disorder 5 Hiatal hernia 6 History of chronic sinus disease 7 History of varicose veins 8 acute kidney injury, creatinine currently is up to 1.7 9 mild hyponatremia Plan: Continue ventilator support, and increase the PEEP up 22 and FiO2 is at 100%. Tidal volumes of 400. Allow permissive hypercapnia. Phone the patient at a later stage to allow some improvement in his oxygenation. Continue IV cefepime regarding staph aureus pneumonia bacteremia. She is having an acute kidney injury. I will give him a total of 2 L of IV fluids knowing that he has been significant negative fluid balance over the past 24 hours. Keep the Baricitinib on hold Monitor white cell count Monitor fever pattern , currently afebrile Keep the patient on a combination of sadation and paralytics. IV fluids to KVO Hold Lasix Enteral feeding for nutritional support Free water through the OG 250 mL every 4 hours Recheck markers and generally improving including LDH, d-dimer remains elevated and the patient remains on Lovenox for DVT prophylaxis Repeat chest x-ray We will continue to follow and make further recommendations based on his clinical status, and continue enteral feeding for nutritional support, condition remains extremity critical. We'll continue to follow make further recommendations based on his progress. Poor prognosis based on above-mentioned comorbidities. Critically care evaluation, more than 30 minutes. Time with Patient: Greater than 30
--- NOTE | 2021-08-17 09:38 | XR ---
EXAMINATION TYPE: XR chest 1V portable DATE OF EXAM: 08/17/2021 COMPARISON: 08/16/2021 HISTORY: Covid pneumonia TECHNIQUE: Single frontal view of the chest is obtained. FINDINGS: There has been no change in the position of the left PICC line, ET tube or NG tube. There are diffuse interstitial opacities and small air space opacities throughout both lungs. There m ay be slight interval worsening in the left lung laterally. The right lung infiltrates are unchanged. The osseous structures are intact. IMPRESSION: Diffuse lung infiltrates slightly worse within the left lung when compared to previous
[2021-08-17 11:53] LABS: Glucose,Whole Blood 122 mg/dL (75-99)
--- NOTE | 2021-08-17 13:07 | P.PN ---
Subjective Progress Note Date: 08/17/21 Acute hypoxic respiratory failure secondary to COVID-19 pneumonia Elevated liver enzymes due to systemic inflammation 51-year-old male who presents to the with symptoms of shortness of breath and cough ongoing since last Wednesday. Patient states that Wednesday he started feeling short of breath, Wednesday his symptoms worsened and then on Wednesday he said that he began to feel the worst. He is having difficulty catching his breath and attributed this to his chronic sinus problems that he has. On Wednesday he went to the [facility] and was given some medication for his sinuses but did not help him, so he came to the ER. Patient was positive for Covid in the EC. He is not vaccinated. Home medications include zinc, vitamin D3, Singulair, Flonase, albuterol inhaler, and ibuprofen. Past medical history significant for sinus issues ongoing, diverticulitis, hernia, cholecystectomy, hard of hearing. Patient is a never smoker, reports occasional alcohol use nothing daily, no drug use. Chest x-ray in the shows diffuse bilateral interstitial edema and/or infiltrates left greater than right. Labs today show a white count of 5.5, platelet 133, sodium 137, potassium 3.6, mag 1.7, lactic acid 1.2. Vitals show a temp of 98.7, heart rate 92, blood pressure 147/90 on 15L HF, 15L NRB. Discussed with patient the next step would be BiPAP and possibly intubation. Patient is very claustrophobic and is having difficulty even with the nonrebreather. 08/08/2021 Patient is seen and evaluated in room at bedside; reports worsening breathing and has been desaturating down to low 80s; pulmonary service on board and recommending patient be transferred to ICU Vital signs reviewed temperature 98.0 pulse 87 respiration 26 and blood pressure 137 with 89 Lab review shows diffuse he 7.6, hemoglobin 15.4 and platelet count of 171, sodium 142, potassium 3.9, BUN/creatinine of 23/0.7; d-dimer of 0.78 We will continue to titrate FiO2; self-propelling is encouraged; patient remains on Baricitinib, Lovenox, Decadron for Covid 19 protocol 08/09/2021 Patient seen for follow-up in ICU; nursing staff patient desaturated. In the day and was placed on BiPAP; patient was unable to tolerate BiPAP and oxygen saturation continued to drop with worsening respiratory rate; patient was subsequently intubated and mechanically ventilated Vital signs review shows temperature 97.8, pulse 68, respiration 45 and blood pressure of 118/70 Laboratory; WBC 6.3. Hemoglobin 15.3. Platelets 169. Lymphocytes 0.6. Sodium 140. Potassium 3.9. Bicarb 21. BUN 25. Creatinine 0.76. AST 167. ALT 135. He remains on Decadron, Lovenox, Baricitinib and vitamin supplements. 08/10/2021 Patient remains in ICU and remains intubated and mechanically ventilated; remains on sedation with propofol and Nimbex blood gases from this morning revealed PaO2 of 95, pCO2 46, pH 7.34. Chest x- ray is revealing bilateral interstitial and airspace opacities consistent with COVID-19 pneumonia. No pneumothorax or large effusions. White count 10.8. Hemoglobin 14.7. Sodium 141. Potassium 4.2. Creatinine 0.72. Glucose 109. AST 176. ALT 184. Alk phos 156. He is continued on Baricitinib, Decadron, Lovenox, vitamin supplements. Initiated tube feedings for nutritional support; Continue Baricitinib, Lovenox, Decadron Prone if possible Prognosis is guarded 08/11/2021 Patient is seen in follow up this morning and continues to be on mechanical ventilation and pulmonary psychiatry adult physician following closely. Patient respiratory status worsening and current settings of 50% FI02 and a peep of 15. Patient continues on IV dexamethasone, lovenox, vitamin and zinc supplements. D dimer today is 13.46, inflammatory markers elevated. Slight worsening noted on the chest xray this morning. Patient is also receiving Baricitinib. 08/12/2021 Patient is seen in follow-up today continues to be in the ICU being closely monitored. Patient continues on mechanical vent and Nimbex has been resumed and patient is also maintained on propofol and fentanyl for sedation. Patient respiratory status worsening and current settings are 80% FiO2 with a PEEP of 15 . Patient started on IV cefepime with a mildly elevated white blood count and baricitinib has been discontinued. Patient continues on IV dexamethasone along with Lovenox twice daily vitamin and zinc supplements and will continue. 08/13/2021 Patient is seen in follow up today in the ICU and continues with sedation and mechanical ventilation. Continued on covid supplements and dexamethasone, saul enox, and IV cefepime. Pulmonary following. sputum culture ordered. Blood culture preliminary showing staph aureus and will repeat. WBC is 8.4, Afebrile. Chest xray shows bibasilar infiltrated worsening of the left. ET tube could be advanced 4cm. 08/14/2021 Patient is seen and evaluated and follow-up continues to be in the ICU on mechanical ventilation intubated and sedated. Patient is also maintained on IV cefepime and awaiting repeat blood cultures as preliminary showed Staphylococcus aureus. Sputum culture is pending at this time. Patient continues on Nimbex as well along with IV dexamethasone, Lovenox twice a day, IV Lasix along with propofol. Chest x-ray shows stable with continued pleural effusion and diffuse bilateral infiltrates. 08/15/2021 Patient is seen and examined and follow-up this morning continues to be in the ICU being closely monitored. Patient remains on mechanical ventilation, intubated and sedated and continues to be tachypneic and tachycardic. FiO2 increased to 80% patient is developing fever. Patient is maintained on IV cefepime and blood cultures showing staph aureus and gram stain preliminary sputum culture showing presumptive staph aureus. Patient is maintained on propofol and fentanyl for sedation. Patient continues on NIMBEX as well. Patient receiving IV hydralazine as needed for elevated blood pressures. Hi nielsen was receiving IV Lasix and has diuresed and was discontinued. Repeat labs for today pending. 08/16/2021 Patient evaluated today in the ICU. He continues on mechanical ventilation, today the PEEP was increased 18 and FiO2 decreased to 90 per RN Patient had positive blood cultures taken on 08/12 that showed staph aureus, and sputum culture which is positive for presumptive staph aureus, preliminary still pending. Repeat blood cultures were ordered on 08/13/2021, however they were never drawn. We did order a stat blood culture to repeat today. Additional labs include a white count of 14.4, hemoglobin 11.8, platelet 296, d-dimer today 6.16, sodium 147, potassium 4.3, chloride 105, CO2 40, BUN 42, creatinine 0.89, sugars are in the 110s, ALT 66, LDH 687, CRP 23.9. Vital signs today show temperature 98.1, heart rate 101, respiratory rate 30, blood pressure 150/67 and his oxygen saturation is 87%. Last bowel movement on August 13. He is on IV cefepime, IV Decadron, NIMBEX, fentanyl, propofol. Followed closely by psychiatry adult physician/student development advisor. 08/17/2021 Patient in the ICU, FiO2 is back up to 100%. Temp 97.5, heart rate 80, respi rations 34, blood pressure 116/53 and his oxygen saturation is 88%. Blood gases today are slightly worsening, pH 7.19, pCO2 97, p02, 64, pHCO3 37, Total CO2 40, O2 saturation 90. Sodium 146, potassium 4.9, chloride 104, CO2 37, BUN 62, creatinine 1.71. Sugars run 120s, AST 51, ALT 63. There are no inflammatory marker levels for today. Sputum cultures finalized for staph aureus, repeat blood cultures are pending. He has free water through his PEG tube. He is a being followed closely by intensive care/pulmonary services. Per RN the plan today is to prone the patient. Prognosis is extremely guarded for this patient. Review of systems: unable to obtain as patient is intubated and sedated Medications have been reviewed. Physical exam: GENERAL: The patient is currently intubated and sedated. HEENT: Pupils are round and equally reacting to light. CARDIOVASCULAR: S1 and S2 present. No murmurs, rubs, or gallops. Tachycardic PULMONARY: Diminished breath sounds bilaterally with coarse scattered rhonchi and some crackles at the bases noted ABDOMEN: Distended, tympanic, hypoactive bowel sounds. No palpable organomegaly. Obese. MUSCULOSKELETAL: No joint swelling or deformity. EXTREMITIES: No cyanosis, clubbing, or pedal edema. NEUROLOGICAL: Intubated and sedated. SKIN: No rashes. Assessment: Acute hypoxic respiratory failure secondary to COVID-19 pneumonia requiring mec hanical ventilation Pneumonia with sepsis, cultures positive for staph aureus, hospital acquired vs ventilator acquired Elevated liver enzymes due to systemic inflammatory response, slowly trending d own Positive blood culture showing staph aureus and repeat blood cultures pending, on IV cefepime Hyperkalemia Hyponatremia Elevated D-dimer, on SubCu lovenox Mild calorie malnutrition secondary to being on mechanical vent, patient receiving tube feedings History of chronic sinus issues History of diverticulitis History of cholecystitis GI Prophylaxis: Protonix DVT Prophylaxis: Lovenox FULL CODE Plan: Continue Lovenox, Zinc, Vitamins. Continue IV Cefepime to cover for staph aureus Repeat cultures pending Continue free water with PEG tube feedings Continue all other supportive care Repeat labs tomorrow, monitor sodium level Prognosis remains guarded for this patient Objective - Vital Signs Vital signs: Vital Signs Temp 97.5 F L 08/17/21 08:00 Pulse 81 08/17/21 11:00 Resp 34 H 08/17/21 11:00 BP 159/76 08/16/21 04:00 Pulse Ox 89 L 08/17/21 11:00 Intake & Output 08/16/21 08/17/21 08/17/21 18:59 06:59 18:59 Intake Total 1782.36 1821.632 696.59 Output Total 1200 780 85 Balance 582.36 1041.632 611.59 Intake: IV 220 240 60 0.9 220 240 60 Intake, IV Titration 892.36 711.632 356.59 Amount Cisatracurium 200 mg In 200 2.336 114.23 Sodium Chloride 0.9% 180 ml @ 1 MCG/KG/MIN 7.008 mls/hr IV .Q24H [facility] Rx#: [id number] fentaNYL (PF) 2,500 mcg 492.36 250 242.36 In Sodium Chloride 0.9% 200 ml @ 0.5 MCG/KG/HR 5. 84 mls/hr IV .Q24H [facility] Rx #:[id number] propofoL 1,000 mg In 200 459.296 Empty Bag 1 bag @ Titrate IV .Q0M [facility] Rx#: [id number] Tube Feeding 110 120 30 Other 560 750 250 Output: Urine 1200 780 85 Other: Voiding Method Indwelling Catheter Indwelling Catheter Indwelling Catheter ABP, PAP, CO, CI - Last Documented Arterial Blood Pressure 117/52 - Labs CBC & Chem 7: 08/17/21 04:00 08/17/21 04:00 Labs: Abnormal Lab Results - Last 24 Hours (Table) 08/16/21 08/16/21 08/16/21 Range/Units 11:42 18:16 23:35 WBC (3.8-10.6) k/uL RBC (4.30-5.90) m/uL Hgb (13.0-17.5) gm/dL Hct (39.0-53.0) % Neutrophils # (1.3-7.7) k/uL Lymphocytes # (1.0-4.8) k/uL D-Dimer (<0.60) mg/L FEU ABG pH (7.35-7.45) ABG pCO2 (35-45) mmHg ABG pO2 (83-108) mmHg ABG HCO3 (21-25) mmol/L ABG Total CO2 (19-24) mmol/L ABG O2 Saturation (94-97) % Sodium (137-145) mmol/L Carbon Dioxide (22-30) mmol/L BUN (9-20) mg/dL Creatinine (0.66-1.25) mg/dL Glucose (74-99) mg/dL POC Glucose (mg/dL) 119 H 114 H 109 H (75-99) mg/dL ALT (4-49) U/L Albumin (3.5-5.0) g/dL 08/16/21 08/17/21 08/17/21 Range/Units 23:43 04:00 04:00 WBC 14.4 H (3.8-10.6) k/uL RBC 3.82 L (4.30-5.90) m/uL Hgb 11.9 L (13.0-17.5) gm/dL Hct 38.1 L (39.0-53.0) % Neutrophils # 13.3 H (1.3-7.7) k/uL Lymphocytes # 0.4 L (1.0-4.8) k/uL D-Dimer 5.60 H (<0.60) mg/L FEU ABG pH (7.35-7.45) ABG pCO2 (35-45) mmHg ABG pO2 (83-108) mmHg ABG HCO3 (21-25) mmol/L ABG Total CO2 (19-24) mmol/L ABG O2 Saturation (94-97) % Sodium (137-145) mmol/L Carbon Dioxide (22-30) mmol/L BUN (9-20) mg/dL Creatinine (0.66-1.25) mg/dL Glucose (74-99) mg/dL POC Glucose (mg/dL) 108 H (75-99) mg/dL ALT (4-49) U/L Albumin (3.5-5.0) g/dL 08/17/21 08/17/21 08/17/21 Range/Units 04:00 05:17 05:17 WBC (3.8-10.6) k/uL RBC (4.30-5.90) m/uL Hgb (13.0-17.5) gm/dL Hct (39.0-53.0) % Neutrophils # (1.3-7.7) k/uL Lymphocytes # (1.0-4.8) k/uL D-Dimer (<0.60) mg/L FEU ABG pH 7.19 L* (7.35-7.45) ABG pCO2 97 H* (35-45) mmHg ABG pO2 64 L (83-108) mmHg ABG HCO3 37 H (21-25) mmol/L ABG Total CO2 40 H (19-24) mmol/L ABG O2 Saturation 90.0 L (94-97) % Sodium 146 H (137-145) mmol/L Carbon Dioxide 37 H (22-30) mmol/L BUN 62 H (9-20) mg/dL Creatinine 1.71 H (0.66-1.25) mg/dL Glucose 136 H (74-99) mg/dL POC Glucose (mg/dL) 133 H (75-99) mg/dL ALT 63 H (4-49) U/L Albumin 2.6 L (3.5-5.0) g/dL Microbiology - Last 24 Hours (Table) 08/14/21 03:49 Gram Stain - Final Sputum Sputum Culture - Final Staphylococcus aureus
[2021-08-17] MEDS ORDERED: FUROSEMIDE 10 MG/ML 4 ML VIAL IV STA (13:50)
[2021-08-17 17:57] LABS: Glucose,Whole Blood 131 mg/dL (75-99)
[2021-08-17 21:58] LABS: Calcium 8.2 mg/dL (8.4-10.2); Potassium 5.4 mmol/L (3.5-5.1)
[2021-08-17] MEDS ORDERED: FUROSEMIDE 10 MG/ML 10 ML VIAL IV STA (23:18)
[2021-08-18 00:03] LABS: Glucose,Whole Blood 120 mg/dL (75-99)
[2021-08-18] MEDS: INSULIN ASPART (NovoLOG) 100 UNIT/ML VIAL SQ SCH ×5 (00:05→23:39)
[2021-08-18] MEDS: CEFEPIME 2 GM in SODIUM CHLORIDE 0.9% 100 ML IVPB SCH ×2 (02:10→09:56)
[2021-08-18] MEDS: ARTIFICIAL TEARS-HYPROMELLOSE DROPS 15 ML BTL BOTH EYES SCH ×6 (05:05→23:38)
[2021-08-18 05:29] LABS: Basophils % (A) 0 %; Eosinophils % (A) 0 %; HCT 36.3 % (39.0-53.0); HGB 11.3 gm/dL (13.0-17.5); Hypochromasia Moderate; Lymphocytes # (A) 0.5 k/uL (1.0-4.8); Lymphocytes % (A) 4 %; MCH 30.9 pg (25.0-35.0); MCHC 31.1 g/dL (31.0-37.0); MCV 99.3 fL (80.0-100.0); Mean Platelet Volume 8.6; Monocytes # (A) 0.4 k/uL (0-1.0); Monocytes % (A) 3 %; Neutrophils # (A) 10.8 k/uL (1.3-7.7); Neutrophils % (A) 92 %; Platelet Count 297 k/uL (150-450); RBC 3.66 m/uL (4.30-5.90); RDW 12.9 % (11.5-15.5); WBC 11.7 k/uL (3.8-10.6)
[2021-08-18 05:49] LABS: Albumin 2.6 g/dL (3.5-5.0); Calcium 8.1 mg/dL (8.4-10.2); Potassium 5.1 mmol/L (3.5-5.1); Total Bilirubin 0.6 mg/dL (0.2-1.3); Total Protein 6.6 g/dL (6.3-8.2)
[2021-08-18 05:59] LABS: ABG HCO3 30 mmol/L (21-25); ABG Oxygen Saturation 89.6 % (94-97); ABG PO2 63 mmHg (83-108); ABG TCO2 32 mmol/L (19-24)
[2021-08-18] MEDS: fentaNYL (PF) 2,500 MCG in SODIUM CHLORIDE 0.9% 200 ML IV SCH ×3 (06:15→20:32)
[2021-08-18] MEDS: CISATRACURIUM 200 MG in SODIUM CHLORIDE 0.9% 180 ML IV SCH (06:15)
[2021-08-18 06:16] LABS: ABG PH 7.16 (7.35-7.45)
[2021-08-18 06:17] LABS: ABG PCO2 84 mmHg (35-45); Allen Test Performed? No
[2021-08-18] MEDS: SODIUM CHLORIDE 0.9% 1,000 ML IV SCH ×2 (06:19→23:00)
--- NOTE | 2021-08-18 07:27 | XR ---
EXAMINATION TYPE: XR chest 1V portable DATE OF EXAM: 08/18/2021 COMPARISON: 08/17/2021 HISTORY: SOB, Follow Up FINDINGS: Indwelling tubes and catheters are unchanged. Scattered bilateral airspace and reticular infiltrates persist bilaterally with the progression noted at the right lower lobe. Small right-sided effusion is also suspected. Stable appearance of the cardio-mediastinal structures at this time. IMPRESSION: 1. Scattered bilateral airspace and reticular infiltrates persist bilaterally with the progression n oted at the right lower lobe. Small right-sided effusion is also suspected.
[2021-08-18 07:49] LABS: C Reactive Protein 37.1 mg/dL (<1.0)
[2021-08-18] MEDS: ALBUTEROL HFA INHALER INHALATION SCH ×4 (08:06→20:24)
[2021-08-18] MEDS: CHLORHEXIDINE GLUCONATE 15 ML CUP MUCOUS MEM SCH ×2 (08:24→20:28)
[2021-08-18] MEDS: DEXAMETHASONE SOD PHOSPHATE 10 MG/ML 1 ML VIAL IVP SCH ×2 (08:24→20:28)
[2021-08-18] MEDS: LACTULOSE 20 GM/30 ML CUP PO SCH (08:25)
[2021-08-18] MEDS: ZINC SULFATE 220 MG CAP PO SCH (08:25)
[2021-08-18] MEDS: CHOLECALCIFEROL 25 MCG (1000 IU) TABLET PO SCH (08:25)
[2021-08-18] MEDS: ENOXAPARIN 40 MG/0.4 ML SYRINGE SQ SCH ×2 (08:25→20:28)
[2021-08-18] MEDS: ASCORBIC ACID 500 MG TAB PO SCH (08:25)
--- NOTE | 2021-08-18 09:57 | P.NPCON ---
History of Present Illness - Reason for Consult acute renal failure - History of Present Illness Reason for consultation: Acute kidney injury History of present illness: Patient is a 51-year-old male seen in consultation for acute kidney injury. Patient presented to the hospital on 08/06/2021 due to not feeling well. He required high flow oxygen on admission and was subsequently intubated. Patient's baseline creatinine is near 1 and is up to 3.43 today. He did receive 100 mg of IV Lasix yesterday with minimal response and urine output. Patient remains oliguric. Currently not on any vasopressors. He is receiving tube feeds. He is intubated. He's being treated for COVID-19 pneumonia and is also on antibiotics for staph pneumonia. Patient's blood culture was also positive for staph aureus. He is currently on 100% FiO2. Most recent blood pressure 115/55. I do see Motrin and his home medication list. Unsure as to how much he was taking prior to admission. Vital signs are stable. HEENT: Intubated. LUNGS: Breath sounds decreased. HEART: Tachycardic. ABDOMEN: Soft, no distention. EXTREMITITES: No edema. Past Medical History Past Medical History: Hearing Disorder / Deafness, Musculoskeletal Disorder Additional Past Medical History / Comment(s): Sinus issues. Hx diverticulitis; Hiatal hernia. Pain in knees, hx injuries. Varicose veins. History of Any Multi-Drug Resistant Organisms: None Reported Past Surgical History: Cholecystectomy, Orthopedic Surgery Additional Past Surgical History / Comment(s): Rt Elbow dislocation procedure. Left foot surgery. Colonoscopy. Past Anesthesia/Blood Transfusion Reactions: No Reported Reaction Additional Past Anesthesia/Blood Transfusion Reaction / Comment(s): never had a blood transfusion Past Psychological History: No Psychological Hx Reported Smoking Status: Never smoker Past Alcohol Use History: Occasional Past Drug Use History: None Reported - Past Family History Mother Family Medical History: No Reported History Medications and Allergies Home Medications Medication Instructions Recorded Confirmed Type Ibuprofen [Motrin Ib] 800 mg PO Q8H PRN 01/25/20 08/06/21 History Albuterol Sulfate [Ventolin HFA] 1 - 2 puff INHALATION RT-Q6H PRN 08/06/21 08/06/21 History Cholecalciferol [Vitamin D3 (25 50 mcg PO DAILY 08/06/21 08/06/21 History Mcg = 1000 Iu)] Fluticasone Nasal Faber [Flonase 1 spray EA NOSTRIL DAILY 08/06/21 08/06/21 History Nasal Faber] Montelukast [Singulair] 10 mg PO DAILY 08/06/21 08/06/21 History Zinc 50 mg PO DAILY 08/06/21 08/06/21 History Allergies Allergy/AdvReac Type Severity Reaction Status Date / Time morphine Allergy Itching Verified 01/25/20 11:14 Physical Exam Vitals: Vital Signs Temp Pulse Pulse Resp BP Pulse Ox 08/18/21 09:00 112 H 34 H 88 L 08/18/21 08:00 98.5 F 108 H 34 H 88 L 08/18/21 07:00 106 H 34 H 87 L 08/18/21 06:00 105 H 34 H 88 L 08/18/21 05:00 101 H 34 H 86 L 08/18/21 04:00 98.4 F 97 104 H 34 H 86 L 08/18/21 03:00 98 34 H 88 L 08/18/21 02:00 96 34 H 87 L 08/18/21 01:00 93 34 H 87 L 08/18/21 00:00 97.1 F L 93 34 H 88 L 08/17/21 23:52 96 34 H 08/17/21 23:00 92 34 H 87 L 08/17/21 22:00 93 34 H 88 L 08/17/21 21:00 93 34 H 87 L 08/17/21 20:00 97.4 F L 90 34 H 121/64 87 L 08/17/21 19:54 92 34 H 08/17/21 19:00 91 34 H 88 L 08/17/21 18:00 90 34 H 88 L 08/17/21 17:00 90 34 H 90 L 08/17/21 16:00 97.5 F L 87 34 H 88 L 08/17/21 15:00 87 34 H 87 L 08/17/21 14:00 85 34 H 87 L 08/17/21 13:00 84 34 H 87 L 08/17/21 12:00 97.5 F L 80 34 H 88 L 08/17/21 11:00 81 34 H 89 L 08/17/21 10:00 86 34 H 86 L Intake and Output 08/17/21 08/18/21 08/18/21 22:59 06:59 14:59 Intake Total 4442.987 5782.592 490 Output Total 20 20 25 Balance 8117.404 4476.592 465 Intake: IV 400 400 50 0.9 400 400 50 Intake, IV Titration 793.528 691.592 100 Amount Cisatracurium 200 mg In 183.96 Sodium Chloride 0.9% 180 ml @ 1 MCG/KG/MIN 7.008 mls/hr IV .Q24H [facility] Rx#: [id number] Sodium Chloride 0.9% 1, 100 000 ml @ 50 mls/hr IV . Q20H [facility] Rx#:[id number] fentaNYL (PF) 2,500 mcg 493.528 241.192 In Sodium Chloride 0.9% 200 ml @ 0.5 MCG/KG/HR 5. 84 mls/hr IV .Q24H [facility] Rx #:[id number] propofoL 1,000 mg In 300 266.440 Empty Bag 1 bag @ Titrate IV .Q0M [facility] Rx#: [id number] Tube Feeding 80 80 30 Other 500 500 310 Output: Urine 20 20 25 Other: Voiding Method Indwelling Catheter Indwelling Catheter ABP, PAP, CO, CI - Last 8 Hours Arterial Blood Pressure 115/55 Arterial Blood Pressure 108/49 Arterial Blood Pressure 105/49 Arterial Blood Pressure 106/49 Arterial Blood Pressure 108/49 Arterial Blood Pressure 107/49 Arterial Blood Pressure 107/50 Arterial Blood Pressure 109/50 Results - Lab Results Most recent lab results ABG pH 7.16 (7.35-7.45) L* 08/18/21 05:22 ABG pCO2 84 mmHg (35-45) H* 08/18/21 05:22 ABG pO2 63 mmHg (83-108) L 08/18/21 05:22 ABG HCO3 30 mmol/L (21-25) H 08/18/21 05:22 ABG O2 Saturation 89.6 % (94-97) L 08/18/21 05:22 Calcium 8.1 mg/dL (8.4-10.2) L 08/18/21 05:14 Phosphorus 2.4 mg/dL (2.5-4.5) L 08/07/21 15:33 Magnesium 1.9 mg/dL (1.6-2.3) 08/07/21 15:33 08/18/21 05:14 08/18/21 05:14 Assessment and Plan Plan: Assessment: 1. Acute kidney injury secondary to ATN secondary to severe sepsis. Baseline creatinine near 1 and is up to 3.43 today. Oliguric. Diuretic unresponsive. 2. Acute hypoxic respiratory failure. 3. COVID-19 pneumonia. 4. Staph bacteremia and pneumonia. On antibiotics. Plan: Maintain tube feeds. Wean FiO2. Due to worsening renal function and oliguria, initiated renal replacement therapy. Vascular surgery to place dialysis catheter. Plan for first treatment of hemodialysis today and second treatment tomorrow. Status post 100 mg IV Lasix given August 17 with no response and urine output. Continue to monitor. Check phosphorus level. Thank you for the consultation. I will continue to follow the patient with you during her hospital stay.
[2021-08-18 11:52] LABS: Glucose,Whole Blood 113 mg/dL (75-99)
--- NOTE | 2021-08-18 12:44 | P.PN ---
Subjective Progress Note Date: 08/18/21 Principal diagnosis: Acute hypoxic respiratory failure secondary to COVID-19 pneumonia 08/16/2021, the patient is essentially unchanged compared to yesterday. He remains sedated with a combination of propofol and fentanyl which are essentially running at same doses and the propofol is running at 75 mg/kg per minute and the patient is also on fentanyl at 3 mcg/kg/h. The patient is also Nimbex at 3 mcg/kg per minute. Remains on a mechanical ventilator. Blood gases from today shows a pH of 7.26 with a pCO2 of 94 and a pO2 of 63. He is on assist control mode at the rate of 30, FiO2 is at 100%, PEEP is currently at Samantha with a tidal volume of 400. The peak airway pressure is around 34 with a static pressure of 32. Chest x-ray is pending from today. Hemodynamically, doing well. Note that the patient had a staph aureus pneumonia with activity anemia and the patient remains on IV cefepime. He is afebrile for now. Hemodynamically stable. In terms of his blood work and inflammatory markers, the patient has an LDH level of 687 and a CRP of 23.9 and a d-dimer level of 6.16. D-dimer level is improved compared to earlier values. Meanwhile, the white cell count today is at 14.4 with a hemoglobin of 11.8 and the plated count of 296. The renal function is stable. Sodium is at 147. BUN is 42 with a creatinine of 0.8. The patient is receiving enteral feeding for nutritional support. The patient is currently on vital AF at the rate of 10 mL an hour. He may benefit from free water flushes knowing that his sodium level is also elevated. IV fluids are currently at 20 mL an hour and the patient's fluid balance over the past 24 hours have been in the order of -3.8 L. Note that the patient is currently off diuretics been no significant third spacing or edema on examination. 08/17/2021 the patient's condition is still critical as the patient is being treated for COVID 19 related pneumonia, ARDS, superinfection with MSSA pneumonia and sepsis. This morning, the patient is having issues with his oxygenation. Overnight, be became more hypoxic and I had to change his PEEP and is currently up to 22, with a tidal volume of 400, FiO2 of 100% a rate of 30. Peak airway pressures 46. Static pressure is 43. The blood periods from today is showing permissive hypercapnia. His pH was at 7.19 with a pCO2 of 97 and a pO2 of 64. The patient remains on a combination of sedation including propofol running at 75 mcg/kg per minute, he is also on fentanyl at 3 mcg/kg/h and Nimbex is running at 1.5 mcg/kg per minute. He is quite sedated as a mechanical ventilator. Based on today's blood gases, increased respiratory rate up to 34 and also contemplating to put this patient on ismael position. Meanwhile, the patient is still on antibiotics. The patient remains on IV cefepime regarding MSSA pneumonia and bacteremia. His fluid balance over the past 24 hours has been in the order of -3.8 L. The patient's blood work from today shows a white cell count of 14.4 with a hemoglobin of 11.9, d-dimer is at 5.6, inflammatory markers included an LDH of 687 from yesterday, CRP of 23.9. His sodium level is at 146 and the patient is also had a powered an acute kidney injury with a BUN of 62 and a creatinine of 1.7. Potassium level is at 4.9. He is receiving enteral feeding for nutritional support and the patient is on vital AF. The patient was also given free water supplements through his OG regarding his hyper and she may yesterday. Patient was reevaluated today on 08/18/2021, remains in the ICU intubated and mechanically ventilated. Patient is on assist control rate of 34 tidal volume 400 FiO2 is 100% PEEP is 22. ABG remains marginal with a pO2 of 63 pCO2 of 84 pH of 7.16. Patient is to be started on hemodialysis today. His peak airway pressure is 43 plateau pressure is 36. He is on Decadron which I increased to 6 mg IV push twice a day. Patient is on fentanyl at 3 mcg/kg/h propofol at 75 mcg/kg/h Nimbex at 1.5 mcg/kg/h and he is also on 0.9 normal saline at 50 mL per hour. His sputum cultures and blood cultures are positive for staph aureus, however this is MSSA, patient is on cefepime. WBC count is 11.7 hemoglobin is 11.3. Electrolytes are normal BUN is 88 creatinine 3.43, hence hemodialysis will be started on this patient Objective - Vital Signs Vital signs: Vital Signs Temp 98.5 F 08/18/21 12:00 Pulse 112 H 08/18/21 12:00 Resp 34 H 08/18/21 12:00 BP 121/64 08/17/21 20:00 Pulse Ox 88 L 08/18/21 12:00 Intake & Output 08/17/21 08/18/21 08/18/21 18:59 06:59 18:59 Intake Total 2366.896 2511.592 1120 Output Total 175 20 35 Balance 2191.896 2491.592 1085 Weight 118 kg Intake: IV 450 600 50 0.9 450 600 50 Intake, IV Titration 5654.880 4416.592 450 Amount Cefepime 2 gm In Sodium 100 Chloride 0.9% 100 ml @ 25 mls/hr IVPB Q8H [facility] Rx#: [id number] Cisatracurium 200 mg In 161.008 183.96 Sodium Chloride 0.9% 180 ml @ 1 MCG/KG/MIN 7.008 mls/hr IV .Q24H [facility] Rx#: [id number] Sodium Chloride 0.9% 1, 250 000 ml @ 50 mls/hr IV . Q20H [facility] Rx#:[id number] fentaNYL (PF) 2,500 mcg 485.888 491.192 In Sodium Chloride 0.9% 200 ml @ 0.5 MCG/KG/HR 5. 84 mls/hr IV .Q24H [facility] Rx #:[id number] propofoL 1,000 mg In 400 366.440 100 Empty Bag 1 bag @ Titrate IV .Q0M [facility] Rx#: [id number] Tube Feeding 120 120 60 Other 750 750 560 Output: Urine 175 20 35 Other: Voiding Method Indwelling Catheter Indwelling Catheter Indwelling Catheter ABP, PAP, CO, CI - Last Documented Arterial Blood Pressure 114/54 - Exam GENERAL EXAM: Revealed a 51-year-old white male intubated, and mechanically ventilated, sedated, and paralyzed. HEAD: Normocephalic. Atraumatic. EENT: PERRLA, EOMI, nonicteric, no neck masses, no JVD, no stridor. CHEST: No chest wall deformity. Her metrical chest expansion. LUNGS: Basilar crackles, no wheezing noted. CVS: Normal S1 and S2, no S3 gallop. No murmur. ABDOMEN: Thin and soft nontender no megaly no rebound no guarding.. SPINE: No scoliosis or deformity SKIN: No rashes CENTRAL NERVOUS SYSTEM: Sedated and paralyzed, not assess. EXTREMITIES: There is trace peripheral edema. No clubbing, no cyanosis. Peripheral pulses are intact. Psychiatric: Could not assess. - Labs CBC & Chem 7: 08/18/21 05:14 08/18/21 05:14 Labs: Abnormal Lab Results - Last 24 Hours (Table) 08/17/21 08/17/21 08/18/21 Range/Units 17:56 21:25 00:01 WBC (3.8-10.6) k/uL RBC (4.30-5.90) m/uL Hgb (13.0-17.5) gm/dL Hct (39.0-53.0) % Neutrophils # (1.3-7.7) k/uL Lymphocytes # (1.0-4.8) k/uL D-Dimer (<0.60) mg/L FEU ABG pH (7.35-7.45) ABG pCO2 (35-45) mmHg ABG pO2 (83-108) mmHg ABG HCO3 (21-25) mmol/L ABG Total CO2 (19-24) mmol/L ABG O2 Saturation (94-97) % Potassium 5.4 H (3.5-5.1) mmol/L Carbon Dioxide 31 H (22-30) mmol/L BUN 83 H (9-20) mg/dL Creatinine 2.70 H (0.66-1.25) mg/dL Glucose 126 H (74-99) mg/dL POC Glucose (mg/dL) 131 H 120 H (75-99) mg/dL Calcium 8.2 L (8.4-10.2) mg/dL ALT (4-49) U/L Lactate Dehydrogenase (313-618) U/L C-Reactive Protein (<1.0) mg/dL Albumin (3.5-5.0) g/dL 08/18/21 08/18/21 08/18/21 Range/Units 05:14 05:14 05:14 WBC 11.7 H (3.8-10.6) k/uL RBC 3.66 L (4.30-5.90) m/uL Hgb 11.3 L (13.0-17.5) gm/dL Hct 36.3 L (39.0-53.0) % Neutrophils # 10.8 H (1.3-7.7) k/uL Lymphocytes # 0.5 L (1.0-4.8) k/uL D-Dimer 4.65 H (<0.60) mg/L FEU ABG pH (7.35-7.45) ABG pCO2 (35-45) mmHg ABG pO2 (83-108) mmHg ABG HCO3 (21-25) mmol/L ABG Total CO2 (19-24) mmol/L ABG O2 Saturation (94-97) % Potassium (3.5-5.1) mmol/L Carbon Dioxide (22-30) mmol/L BUN 88 H (9-20) mg/dL Creatinine 3.43 H (0.66-1.25) mg/dL Glucose 108 H (74-99) mg/dL POC Glucose (mg/dL) (75-99) mg/dL Calcium 8.1 L (8.4-10.2) mg/dL ALT 58 H (4-49) U/L Lactate Dehydrogenase 812 H (313-618) U/L C-Reactive Protein 37.1 H (<1.0) mg/dL Albumin 2.6 L (3.5-5.0) g/dL 08/18/21 08/18/21 Range/Units 05:22 11:49 WBC (3.8-10.6) k/uL RBC (4.30-5.90) m/uL Hgb (13.0-17.5) gm/dL Hct (39.0-53.0) % Neutrophils # (1.3-7.7) k/uL Lymphocytes # (1.0-4.8) k/uL D-Dimer (<0.60) mg/L FEU ABG pH 7.16 L* (7.35-7.45) ABG pCO2 84 H* (35-45) mmHg ABG pO2 63 L (83-108) mmHg ABG HCO3 30 H (21-25) mmol/L ABG Total CO2 32 H (19-24) mmol/L ABG O2 Saturation 89.6 L (94-97) % Potassium (3.5-5.1) mmol/L Carbon Dioxide (22-30) mmol/L BUN (9-20) mg/dL Creatinine (0.66-1.25) mg/dL Glucose (74-99) mg/dL POC Glucose (mg/dL) 113 H (75-99) mg/dL Calcium (8.4-10.2) mg/dL ALT (4-49) U/L Lactate Dehydrogenase (313-618) U/L C-Reactive Protein (<1.0) mg/dL Albumin (3.5-5.0) g/dL Microbiology - Last 24 Hours (Table) 08/16/21 13:55 Blood Culture - Preliminary Blood No Growth after 24 hours Assessment and Plan Assessment: Impression: Acute hypoxic respiratory failure secondary to COVID-19 pneumonia patient was transferred to the ICU on 08/08, intubated 08/09 remains intubated and m echanically ventilated. Does not seem to be showing much improvement. Suspect MSSA pneumonia in addition to his COVID-19 pneumonia remains on cefepime. Elevated inflammatory markers secondary to above History of chronic sinus disease. Acute renal failure secondary to COVID-19 infection, patient will require hemodialysis. History of hiatal hernia. ARDS secondary to COVID-19 pneumonia. Recommendation: Continue ventilatory support. Patient is on relatively high FiO2 and high PEEP. Continue antibiotics/cefepime. And consulted infectious disease. Continue to hold baricitinib Agree with hemodialysis today. Continue sedation and paralysis and continue high PEEP, patient may at very high risk of developing pneumothorax Continue enteral feeding Continue free water and continue to monitor electrolytes including sodium and potassium. Continue GI prophylaxis and DVT prophylaxis. Patient is obviously extremely critically ill, and prognosis is extremely poor Will discuss with family his overall condition, and update the family on his status. Again I believe the prognosis is extremely poor, Critical care time is over 30 minutes Time with Patient: Greater than 30
--- NOTE | 2021-08-18 13:10 | P.GSCN ---
History of Present Illness Consult date: 08/18/21 Reason for Consult: acute kidney injury, need HD catheter placement Requesting physician: Delonte Hannah History of present illness: This 51-year-old male who came in on 08/06/2021 platelets of overall not feeling well. He required high flow oxygen on admission and was subsequently intubated. He was diagnosed and is currently being treated for COVID-19 pneumonia. Patient was seen by nephrology for acute kidney injury and now requiring dialysis. Vascular surgery was consulted for temporary hemodialysis catheter placement. Today's labs WBC 11.7 hemoglobin 11.3 platelet count 297 BUN 88 creatinine 3.43. He is currently on Lovenox. Review of Systems ROS unobtainable: due to endotracheal tube Past Medical History Past Medical History: Hearing Disorder / Deafness, Musculoskeletal Disorder Additional Past Medical History / Comment(s): Sinus issues. Hx diverticulitis; Hiatal hernia. Pain in knees, hx injuries. Varicose veins. History of Any Multi-Drug Resistant Organisms: None Reported Past Surgical History: Cholecystectomy, Orthopedic Surgery Additional Past Surgical History / Comment(s): Rt Elbow dislocation procedure. Left foot surgery. Colonoscopy. Past Anesthesia/Blood Transfusion Reactions: No Reported Reaction Additional Past Anesthesia/Blood Transfusion Reaction / Comm: never had a blood transfusion Past Psychological History: No Psychological Hx Reported Smoking Status: Never smoker Past Alcohol Use History: Occasional Past Drug Use History: None Reported - Past Family History Mother Family Medical History: No Reported History Medications and Allergies Home Medications Medication Instructions Recorded Confirmed Type Ibuprofen [Motrin Ib] 800 mg PO Q8H PRN 01/25/20 08/06/21 History Albuterol Sulfate [Ventolin HFA] 1 - 2 puff INHALATION RT-Q6H PRN 08/06/21 08/06/21 History Cholecalciferol [Vitamin D3 (25 50 mcg PO DAILY 08/06/21 08/06/21 History Mcg = 1000 Iu)] Fluticasone Nasal [place] [Flonase 1 spray EA NOSTRIL DAILY 08/06/21 08/06/21 History Nasal [place]] Montelukast [Singulair] 10 mg PO DAILY 08/06/21 08/06/21 History Zinc 50 mg PO DAILY 08/06/21 08/06/21 History Allergies Allergy/AdvReac Type Severity Reaction Status Date / Time morphine Allergy Itching Verified 01/25/20 11:14 Surgical - Exam Vital Signs Temp Pulse Resp BP Pulse Ox 99.3 F 131 H 28 H 130/74 82 L 08/06/21 22:11 08/06/21 22:11 08/06/21 22:11 08/06/21 22:11 08/06/21 22:11 GENERAL: Patient is sedated and intubated. LUNGS: Chest with equal expansion, mechanical ventilation. HEART: Regular rate and rhythm. ABDOMEN: Soft nondistended. NEUROLOGICAL: Sedated and intubated. Results - Labs 08/18/21 05:14 08/18/21 05:14 Abnormal Lab Results - Last 24 Hours (Table) 08/17/21 08/17/21 08/17/21 Range/Units 11:50 17:56 21:25 WBC (3.8-10.6) k/uL RBC (4.30-5.90) m/uL Hgb (13.0-17.5) gm/dL Hct (39.0-53.0) % Neutrophils # (1.3-7.7) k/uL Lymphocytes # (1.0-4.8) k/uL D-Dimer (<0.60) mg/L FEU ABG pH (7.35-7.45) ABG pCO2 (35-45) mmHg ABG pO2 (83-108) mmHg ABG HCO3 (21-25) mmol/L ABG Total CO2 (19-24) mmol/L ABG O2 Saturation (94-97) % Potassium 5.4 H (3.5-5.1) mmol/L Carbon Dioxide 31 H (22-30) mmol/L BUN 83 H (9-20) mg/dL Creatinine 2.70 H (0.66-1.25) mg/dL Glucose 126 H (74-99) mg/dL POC Glucose (mg/dL) 122 H 131 H (75-99) mg/dL Calcium 8.2 L (8.4-10.2) mg/dL ALT (4-49) U/L Lactate Dehydrogenase (313-618) U/L C-Reactive Protein (<1.0) mg/dL Albumin (3.5-5.0) g/dL 08/18/21 08/18/21 08/18/21 Range/Units 00:01 05:14 05:14 WBC 11.7 H (3.8-10.6) k/uL RBC 3.66 L (4.30-5.90) m/uL Hgb 11.3 L (13.0-17.5) gm/dL Hct 36.3 L (39.0-53.0) % Neutrophils # 10.8 H (1.3-7.7) k/uL Lymphocytes # 0.5 L (1.0-4.8) k/uL D-Dimer (<0.60) mg/L FEU ABG pH (7.35-7.45) ABG pCO2 (35-45) mmHg ABG pO2 (83-108) mmHg ABG HCO3 (21-25) mmol/L ABG Total CO2 (19-24) mmol/L ABG O2 Saturation (94-97) % Potassium (3.5-5.1) mmol/L Carbon Dioxide (22-30) mmol/L BUN 88 H (9-20) mg/dL Creatinine 3.43 H (0.66-1.25) mg/dL Glucose 108 H (74-99) mg/dL POC Glucose (mg/dL) 120 H (75-99) mg/dL Calcium 8.1 L (8.4-10.2) mg/dL ALT 58 H (4-49) U/L Lactate Dehydrogenase 812 H (313-618) U/L C-Reactive Protein 37.1 H (<1.0) mg/dL Albumin 2.6 L (3.5-5.0) g/dL 08/18/21 08/18/21 Range/Units 05:14 05:22 WBC (3.8-10.6) k/uL RBC (4.30-5.90) m/uL Hgb (13.0-17.5) gm/dL Hct (39.0-53.0) % Neutrophils # (1.3-7.7) k/uL Lymphocytes # (1.0-4.8) k/uL D-Dimer 4.65 H (<0.60) mg/L FEU ABG pH 7.16 L* (7.35-7.45) ABG pCO2 84 H* (35-45) mmHg ABG pO2 63 L (83-108) mmHg ABG HCO3 30 H (21-25) mmol/L ABG Total CO2 32 H (19-24) mmol/L ABG O2 Saturation 89.6 L (94-97) % Potassium (3.5-5.1) mmol/L Carbon Dioxide (22-30) mmol/L BUN (9-20) mg/dL Creatinine (0.66-1.25) mg/dL Glucose (74-99) mg/dL POC Glucose (mg/dL) (75-99) mg/dL Calcium (8.4-10.2) mg/dL ALT (4-49) U/L Lactate Dehydrogenase (313-618) U/L C-Reactive Protein (<1.0) mg/dL Albumin (3.5-5.0) g/dL Microbiology - Last 24 Hours (Table) 08/16/21 13:55 Blood Culture - Preliminary Blood No Growth after 24 hours Diabetes panel 08/17/21 08/18/21 Range/Units 21:25 05:14 Sodium 145 144 (137-145) mmol/L Potassium 5.4 H 5.1 (3.5-5.1) mmol/L Chloride 105 105 (98-107) mmol/L Carbon Dioxide 31 H 28 (22-30) mmol/L BUN 83 H 88 H (9-20) mg/dL Creatinine 2.70 H 3.43 H (0.66-1.25) mg/dL Glucose 126 H 108 H (74-99) mg/dL Calcium 8.2 L 8.1 L (8.4-10.2) mg/dL AST 46 (17-59) U/L ALT 58 H (4-49) U/L Alkaline Phosphatase 117 (38-126) U/L Total Protein 6.6 (6.3-8.2) g/dL Albumin 2.6 L (3.5-5.0) g/dL Calcium panel 08/17/21 08/18/21 Range/Units 21:25 05:14 Calcium 8.2 L 8.1 L (8.4-10.2) mg/dL Albumin 2.6 L (3.5-5.0) g/dL Pituitary panel 08/17/21 08/18/21 Range/Units 21:25 05:14 Sodium 145 144 (137-145) mmol/L Potassium 5.4 H 5.1 (3.5-5.1) mmol/L Chloride 105 105 (98-107) mmol/L Carbon Dioxide 31 H 28 (22-30) mmol/L BUN 83 H 88 H (9-20) mg/dL Creatinine 2.70 H 3.43 H (0.66-1.25) mg/dL Glucose 126 H 108 H (74-99) mg/dL Calcium 8.2 L 8.1 L (8.4-10.2) mg/dL Adrenal panel 08/17/21 08/18/21 Range/Units 21:25 05:14 Sodium 145 144 (137-145) mmol/L Potassium 5.4 H 5.1 (3.5-5.1) mmol/L Chloride 105 105 (98-107) mmol/L Carbon Dioxide 31 H 28 (22-30) mmol/L BUN 83 H 88 H (9-20) mg/dL Creatinine 2.70 H 3.43 H (0.66-1.25) mg/dL Glucose 126 H 108 H (74-99) mg/dL Calcium 8.2 L 8.1 L (8.4-10.2) mg/dL Total Bilirubin 0.6 (0.2-1.3) mg/dL AST 46 (17-59) U/L ALT 58 H (4-49) U/L Alkaline Phosphatase 117 (38-126) U/L Total Protein 6.6 (6.3-8.2) g/dL Albumin 2.6 L (3.5-5.0) g/dL Assessment and Plan Assessment: 1. Acute kidney injury requiring dialysis 2. Acute hypoxic respiratory failure secondary to COVID-19 pneumonia Plan: 1. Plan for bedside temporary femoral vein HD catheter placement 2. Hemodialysis per recommendations from nephrology Thank you for this consultation and allowing us take part in the plan of care of your patient during his hospital stay. The impression and plan of care has been dictated as directed. I performed a history and examination of this patient, discussed the same with the dictator. I agree with the dictator's note ,documented as a scribe. Any additional findings or plans will be noted.
--- NOTE | 2021-08-18 15:20 | P.PN ---
Subjective Progress Note Date: 08/18/21 Acute hypoxic respiratory failure secondary to COVID-19 pneumonia Elevated liver enzymes due to systemic inflammation 51-year-old male who presents to the with symptoms of shortness of breath and cough ongoing since last Wednesday. Patient states that Wednesday he started feeling short of breath, Wednesday his symptoms worsened and then on Wednesday he said that he began to feel the worst. He is having difficulty catching his breath and attributed this to his chronic sinus problems that he has. On Wednesday he went to the [facility] and was given some medication for his sinuses but did not help him, so he came to the ER. Patient was positive for Covid in the EC. He is not vaccinated. Home medications include zinc, vitamin D3, Singulair, Flonase, albuterol inhaler, and ibuprofen. Past medical history significant for sinus issues ongoing, diverticulitis, hernia, cholecystectomy, hard of hearing. Patient is a never smoker, reports occasional alcohol use nothing daily, no drug use. Chest x-ray in the EC shows diffuse bilateral interstitial edema and/or infiltrates left greater than right. Labs today show a white count of 5.5, platelet 133, sodium 137, potassium 3.6, mag 1.7, lactic aci d 1.2. Vitals show a temp of 98.7, heart rate 92, blood pressure 147/90 on 15L HF, 15L NRB. Discussed with patient the next step would be BiPAP and possibly intubation. Patient is very claustrophobic and is having difficulty even with the nonrebreather. 08/08/2021 Patient is seen and evaluated in room at bedside; reports worsening breathing and has been desaturating down to low 80s; pulmonary service on board and recommending patient be transferred to ICU Vital signs reviewed temperature 98.0 pulse 87 respiration 26 and blood pressure 137 with 89 Lab review shows diffuse he 7.6, hemoglobin 15.4 and platelet count of 171, sodium 142, potassium 3.9, BUN/creatinine of 23/0.7; d-dimer of 0.78 We will continue to titrate FiO2; self-propelling is encouraged; patient remains on Baricitinib, Lovenox, Decadron for Covid 19 protocol 08/09/2021 Patient seen for follow-up in ICU; nursing staff patient desaturated. In the day and was placed on BiPAP; patient was unable to tolerate BiPAP and oxygen saturation continued to drop with worsening respiratory rate; patient was subsequently intubated and mechanically ventilated Vital signs review shows temperature 97.8, pulse 68, respiration 45 and blood pressure of 118/70 Laboratory; WBC 6.3. Hemoglobin 15.3. Platelets 169. Lymphocytes 0.6. Sodium 140. Potassium 3.9. Bicarb 21. BUN 25. Creatinine 0.76. AST 167. ALT 135. He remains on Decadron, Lovenox, Baricitinib and vitamin supplements. 08/10/2021 Patient remains in ICU and remains intubated and mechanically ventilated; remains on sedation with propofol and Nimbex blood gases from this morning revealed PaO2 of 95, pCO2 46, pH 7.34. Chest x- ray is revealing bilateral interstitial and airspace opacities consistent with COVID-19 pneumonia. No pneumothorax or large effusions. White count 10.8. Hemoglobin 14.7. Sodium 141. Potassium 4.2. Creatinine 0.72. Glucose 109. AST 176. ALT 184. Alk phos 156. He is continued on Baricitinib, Decadron, Lovenox, vitamin supplements. Initiated tube feedings for nutritional support; Continue Baricitinib, Lovenox, Decadron Prone if possible Prognosis is guarded 08/11/2021 Patient is seen in follow up this morning and continues to be on mechanical ventilation and pulmonary engraver flatware following closely. Patient respiratory status worsening and current settings of 50% FI02 and a peep of 15. Patient continues on IV dexamethasone, lovenox, vitamin and zinc supplements. D dimer today is 13.46, inflammatory markers elevated. Slight worsening noted on the chest xray this morning. Patient is also receiving Baricitinib. 08/12/2021 Patient is seen in follow-up today continues to be in the ICU being closely monitored. Patient continues on mechanical vent and Nimbex has been resumed and patient is also maintained on propofol and fentanyl for sedation. Patient respiratory status worsening and current settings are 80% FiO2 with a PEEP of 1 5. Patient started on IV cefepime with a mildly elevated white blood count and baricitinib has been discontinued. Patient continues on IV dexamethasone along with Lovenox twice daily vitamin and zinc supplements and will continue. 08/13/2021 Patient is seen in follow up today in the ICU and continues with sedation and mechanical ventilation. Continued on covid supplements and dexamethasone, lo venox, and IV cefepime. Pulmonary following. sputum culture ordered. Blood culture preliminary showing staph aureus and will repeat. WBC is 8.4, Afebrile. Chest xray shows bibasilar infiltrated worsening of the left. ET tube could be advanced 4cm. 08/14/2021 Patient is seen and evaluated and follow-up continues to be in the ICU on mechanical ventilation intubated and sedated. Patient is also maintained on IV cefepime and awaiting repeat blood cultures as preliminary showed Staphylococcus aureus. Sputum culture is pending at this time. Patient continues on Nimbex as well along with IV dexamethasone, Lovenox twice a day, IV Lasix along with propofol. Chest x-ray shows stable with continued pleural effusion and diffuse bilateral infiltrates. 08/15/2021 Patient is seen and examined and follow-up this morning continues to be in the ICU being closely monitored. Patient remains on mechanical ventilation, intubated and sedated and continues to be tachypneic and tachycardic. FiO2 increased to 80% patient is developing fever. Patient is maintained on IV cefepime and blood cultures showing staph aureus and gram stain preliminary sputum culture showing presumptive staph aureus. Patient is maintained on propofol and fentanyl for sedation. Patient continues on NIMBEX as well. Dilia ent receiving IV hydralazine as needed for elevated blood pressures. Patient was receiving IV Lasix and has diuresed and was discontinued. Repeat labs for today pending. 08/16/2021 Patient evaluated today in the ICU. He continues on mechanical ventilation, today the PEEP was increased 18 and FiO2 decreased to 90 per RN Patient had positive blood cultures taken on 08/12 that showed staph aureus, and sputum culture which is positive for presumptive staph aureus, preliminary still pending. Repeat blood cultures were ordered on 08/13/2021, however they were never drawn. We did order a stat blood culture to repeat today. Additional labs include a white count of 14.4, hemoglobin 11.8, platelet 296, d-dimer today 6.16, sodium 147, potassium 4.3, chloride 105, CO2 40, BUN 42, creatinine 0.89, sugars are in the 110s, ALT 66, LDH 687, CRP 23.9. Vital signs today show temperature 98.1, heart rate 101, respiratory rate 30, blood pressure 150/67 and his oxygen saturation is 87%. Last bowel movement on August 13. He is on IV cefepime, IV Decadron, NIMBEX, fentanyl, propofol. Followed closely by engraver flatware/tour counselor. 08/17/2021 Patient in the ICU, FiO2 is back up to 100%. Temp 97.5, heart rate 80, respirations 34, blood pressure 116/53 and his oxygen saturation is 88%. Blood gases today are slightly worsening, pH 7.19, pCO2 97, p02, 64, pHCO3 37, Total CO2 40, O2 saturation 90. Sodium 146, potassium 4.9, chloride 104, CO2 37, BUN 62, creatinine 1.71. Sugars run 120s, AST 51, ALT 63. There are no inflammatory marker levels for today. Sputum cultures finalized for staph aureus, repeat blood cultures are pending. He has free water through his PEG tube. He is a being followed closely by intensive care/pulmonary services. Per RN the plan today is to prone the patient. Prognosis is extremely guarded for this patient. 08/18/2021 Patient is seen in follow-up continues to be in the ICU and nephrology now following the patient has been started on hemodialysis with a surgical consultation to get an emergent dialysis catheter placed as patient's kidney functions are worsening and patient will be started on hemodialysis today after the placement of the catheter. Pulmonary also following closely and patient co ntinues to be intubated and sedated on multiple drips including Nimbex him IV cefepime, propofol and fentanyl and will continue. Review of systems: unable to obtain as patient is intubated and sedated Medications have been reviewed. Active Medications Acetaminophen (Acetaminophen Tab 325 Mg Tab) 650 mg PO Q6HR PRN PRN Reason: Mild Pain or Fever > 100.5 Last Admin: 08/16/21 02:36 Dose: 650 mg Documented by: Albuterol Sulfate (Albuterol Hfa Inhaler) 2 puff INHALATION RT-QID PRN PRN Reason: Shortness Of Breath Or Wheezing Albuterol Sulfate (Albuterol Hfa Inhaler) 2 puff INHALATION RT-QID [facility] Last Admin: 08/18/21 11:20 Dose: 2 puff Documented by: Artificial Tears (Artificial Tears-Hypromellose Drops 15 Ml Btl) 1 drops BOTH EYES Q4H [facility] Last Admin: 08/18/21 12:08 Dose: 1 drops Documented by: Ascorbic Acid (Ascorbic Acid 500 Mg Tab) 1,000 mg PO DAILY [facility] Last Admin: 08/18/21 08:25 Dose: 1,000 mg Documented by: Chlorhexidine Gluconate (Chlorhexidine Gluconate 15 Ml Cup) 15 ml MUCOUS MEM BID [facility] Last Admin: 08/18/21 08:24 Dose: 15 ml Documented by: Cholecalciferol (Cholecalciferol 25 Mcg (1000 Iu) Tablet) 125 mcg PO DAILY [facility] Last Admin: 08/18/21 08:25 Dose: 125 mcg Documented by: Dexamethasone Sodium Phosphate (Dexamethasone Sod Phosphate 10 Mg/Ml 1 Ml Vial) 6 mg IVP BID [facility] Enoxaparin Sodium (Enoxaparin 40 Mg/0.4 Ml Syringe) 40 mg SQ BID [facility] Last Admin: 08/18/21 08:25 Dose: 40 mg Documented by: Hydralazine HCl (Hydralazine Hcl 20 Mg/Ml 1 Ml Vial) 10 mg IVP Q4HR PRN PRN Reason: Blood Pressure - High Last Admin: 08/15/21 11:11 Dose: 10 mg Documented by: Sodium Chloride (Saline 0.9%) 1,000 mls @ 50 mls/hr IV .Q20H [facility] Last Admin: 08/18/21 06:19 Dose: 50 mls/hr Documented by: Propofol 1,000 mg/ IV Solution 100 mls @ 0 mls/hr IV .Q0M [facility]; Protocol Last Admin: 08/18/21 14:33 Dose: 75 mcg/kg/min, 52.56 mls/hr Documented by: Fentanyl Citrate 2,500 mcg/ (Sodium Chloride) 250 mls @ 5.84 mls/hr IV .Q24H [facility]; Protocol Last Admin: 08/18/21 13:40 Dose: 3 mcg/kg/hr, 35.04 mls/hr Documented by: Cisatracurium Besylate 200 mg/ (Sodium Chloride) 200 mls @ 7.008 mls/hr IV .Q24H [facility]; Protocol Last Admin: 08/18/21 06:15 Dose: 1.5 mcg/kg/min, 10.512 mls/hr Documented by: Cefepime HCl 1 gm/ Sodium (Chloride) 50 mls @ 12.5 mls/hr IVPB Q12H [facility] Ibuprofen (Ibuprofen 400 Mg Tab) 400 mg PO Q6HR PRN PRN Reason: Mild Pain or Fever > 100.5 Insulin Aspart (Insulin Aspart (Novolog) 100 Unit/Ml Vial) 0 unit SQ Q6H [facility]; Protocol Last Admin: 08/18/21 11:52 Dose: Not Given Documented by: Lactulose (Lactulose 20 Gm/30 Ml Cup) 20 gm PO DAILY [facility] Last Admin: 08/18/21 08:25 Dose: 20 gm Documented by: Zinc Sulfate (Zinc Sulfate 220 Mg Cap) 220 mg PO DAILY [facility] Last Admin: 08/18/21 08:25 Dose: 220 mg Documented by: Physical exam: GENERAL: The patient is currently intubated and sedated. HEENT: Pupils are round and equally reacting to light. CARDIOVASCULAR: S1 and S2 present. No murmurs, rubs, or gallops. Tachycardic PULMONARY: Diminished breath sounds bilaterally with coarse scattered rhonchi and some crackles at the bases noted ABDOMEN: Soft, nontender, non-distended, normoactive bowel sounds. No palpable organomegaly. Obese. MUSCULOSKELETAL: No joint swelling or deformity. EXTREMITIES: No cyanosis, clubbing, or pedal edema. NEUROLOGICAL: Intubated and sedated. SKIN: No rashes. Assessment: Acute hypoxic respiratory failure secondary to COVID-19 pneumonia requiring mechanical ventilation Pneumonia with sepsis with cultures positive for staph aureus, hospital-acquired versus ventilator acquired, continued on IV cefepime Elevated liver enzymes due to systemic inflammatory response, slowly trending down Positive blood culture showing staph aureus and repeat blood cultures pending, sputum culture showing presumptive staph aureus maintained on IV cefepime Elevated D-dimer, repeat d-dimer pending and patient is maintained on subcutaneous Lovenox twice daily Mild calorie malnutrition secondary to being on mechanical vent, patient receiving tube feedings History of chronic sinus issues History of diverticulitis History of cholecystitis GI Prophylaxis: Protonix DVT Prophylaxis: Lovenox FULL CODE Plan: Continue to closely monitor in the ICU and pulmonary following. patient continues on Nimbex and sedated on fentanyl and propofol. IV hydralazine as needed for elevated pressure. Nephrology consulted for worsening knee functions along with vascular surgery and patient will have dialysis catheter placed and will start hemodialysis today. Multiple medical consultations following and patient continues to be in critical condition. Patient is currently full CODE STATUS and will need to discuss with family about overall prognosis as is his extremely poor and guarded at this time. Patient is maintained on lovenox twice daily, vitamin, and zinc supplements. Patient also continues on IV cefepime is sputum cultures and blood culture showing staph aureus and most recent repeat blood cultures have been negative.. Chest x-ray today shows bilateral scattered airspace and reticular infiltrates persist bilaterally with the progression of the right lower lobe and small right-sided pleural effusion also suspected. Will repeat labs and continue to monitor closely. Prognosis remains extremely guarded. Objective - Vital Signs Vital signs: Vital Signs Temp 98.5 F 08/18/21 08:00 Pulse 112 H 08/18/21 09:00 Resp 34 H 08/18/21 09:00 BP 121/64 08/17/21 20:00 Pulse Ox 88 L 08/18/21 09:00 Intake & Output 08/17/21 08/18/21 08/18/21 18:59 06:59 18:59 Intake Total 2366.896 2511.592 370 Output Total 175 20 25 Balance 2191.896 2491.592 345 Intake: IV 450 600 50 0.9 450 600 50 Intake, IV Titration 9928.563 4046.592 50 Amount Cisatracurium 200 mg In 161.008 183.96 Sodium Chloride 0.9% 180 ml @ 1 MCG/KG/MIN 7.008 mls/hr IV .Q24H [facility] Rx#: [id number] Sodium Chloride 0.9% 1, 50 000 ml @ 50 mls/hr IV . Q20H [facility] Rx#:[id number] fentaNYL (PF) 2,500 mcg 485.888 491.192 In Sodium Chloride 0.9% 200 ml @ 0.5 MCG/KG/HR 5. 84 mls/hr IV .Q24H [facility] Rx #:[id number] propofoL 1,000 mg In 400 366.440 Empty Bag 1 bag @ Titrate IV .Q0M [facility] Rx#: [id number] Tube Feeding 120 120 20 Other 750 750 250 Output: Urine 175 20 25 Other: Voiding Method Indwelling Catheter Indwelling Catheter ABP, PAP, CO, CI - Last Documented Arterial Blood Pressure 115/55 - Labs CBC & Chem 7: 08/18/21 05:14 08/18/21 05:14 Labs: Abnormal Lab Results - Last 24 Hours (Table) 08/17/21 08/17/21 08/17/21 Range/Units 11:50 17:56 21:25 WBC (3.8-10.6) k/uL RBC (4.30-5.90) m/uL Hgb (13.0-17.5) gm/dL Hct (39.0-53.0) % Neutrophils # (1.3-7.7) k/uL Lymphocytes # (1.0-4.8) k/uL D-Dimer (<0.60) mg/L FEU ABG pH (7.35-7.45) ABG pCO2 (35-45) mmHg ABG pO2 (83-108) mmHg ABG HCO3 (21-25) mmol/L ABG Total CO2 (19-24) mmol/L ABG O2 Saturation (94-97) % Potassium 5.4 H (3.5-5.1) mmol/L Carbon Dioxide 31 H (22-30) mmol/L BUN 83 H (9-20) mg/dL Creatinine 2.70 H (0.66-1.25) mg/dL Glucose 126 H (74-99) mg/dL POC Glucose (mg/dL) 122 H 131 H (75-99) mg/dL Calcium 8.2 L (8.4-10.2) mg/dL ALT (4-49) U/L Lactate Dehydrogenase (313-618) U/L C-Reactive Protein (<1.0) mg/dL Albumin (3.5-5.0) g/dL 08/18/21 08/18/21 08/18/21 Range/Units 00:01 05:14 05:14 WBC 11.7 H (3.8-10.6) k/uL RBC 3.66 L (4.30-5.90) m/uL Hgb 11.3 L (13.0-17.5) gm/dL Hct 36.3 L (39.0-53.0) % Neutrophils # 10.8 H (1.3-7.7) k/uL Lymphocytes # 0.5 L (1.0-4.8) k/uL D-Dimer (<0.60) mg/L FEU ABG pH (7.35-7.45) ABG pCO2 (35-45) mmHg ABG pO2 (83-108) mmHg ABG HCO3 (21-25) mmol/L ABG Total CO2 (19-24) mmol/L ABG O2 Saturation (94-97) % Potassium (3.5-5.1) mmol/L Carbon Dioxide (22-30) mmol/L BUN 88 H (9-20) mg/dL Creatinine 3.43 H (0.66-1.25) mg/dL Glucose 108 H (74-99) mg/dL POC Glucose (mg/dL) 120 H (75-99) mg/dL Calcium 8.1 L (8.4-10.2) mg/dL ALT 58 H (4-49) U/L Lactate Dehydrogenase 812 H (313-618) U/L C-Reactive Protein 37.1 H (<1.0) mg/dL Albumin 2.6 L (3.5-5.0) g/dL 08/18/21 08/18/21 Range/Units 05:14 05:22 WBC (3.8-10.6) k/uL RBC (4.30-5.90) m/uL Hgb (13.0-17.5) gm/dL Hct (39.0-53.0) % Neutrophils # (1.3-7.7) k/uL Lymphocytes # (1.0-4.8) k/uL D-Dimer 4.65 H (<0.60) mg/L FEU ABG pH 7.16 L* (7.35-7.45) ABG pCO2 84 H* (35-45) mmHg ABG pO2 63 L (83-108) mmHg ABG HCO3 30 H (21-25) mmol/L ABG Total CO2 32 H (19-24) mmol/L ABG O2 Saturation 89.6 L (94-97) % Potassium (3.5-5.1) mmol/L Carbon Dioxide (22-30) mmol/L BUN (9-20) mg/dL Creatinine (0.66-1.25) mg/dL Glucose (74-99) mg/dL POC Glucose (mg/dL) (75-99) mg/dL Calcium (8.4-10.2) mg/dL ALT (4-49) U/L Lactate Dehydrogenase (313-618) U/L C-Reactive Protein (<1.0) mg/dL Albumin (3.5-5.0) g/dL Microbiology - Last 24 Hours (Table) 08/16/21 13:55 Blood Culture - Preliminary Blood No Growth after 24 hours
[2021-08-18 15:26] LABS: Hepatitis B Surface AB- Quant 3.5 mIU/mL; Hepatitis B Surface Antibody Nonreactive (Nonreactive); Hepatitis B Surface Antigen Nonreactive (Nonreactive)
--- NOTE | 2021-08-18 16:44 | P.PCN ---
Description of Procedure: DATE OF SERVICE: 08/18/2021. SURGEON: Alfredo Mckeon PREOPERATIVE DIAGNOSIS: Acute renal failure. POSTOPERATIVE DIAGNOSIS: Same. OPERATION: Ultrasound guided right common femoral vein temporary dialysis catheter placement. ANESTHESIA: Local ESTIMATED BLOOD LOSS: Less than 5 mL SPECIMENS REMOVED: None COMPLICATIONS: None After written informed consent was obtained and all risks, benefits, competitions were described the procedure was performed at bedside. Utilizing ultrasound the right common femoral vein was visualized and shown to be patent without any thrombus. Utilizing a multipurpose needle the right common femoral vein was accessed. Dark nonpulsatile blood flow was visualized. Guidewire was placed and needle was removed. Serial dilation was then performed and a 20 cm curved Mahurkar dialysis catheter was then guided over the guidewire. Guidewire was then removed and ports were assessed for patency. All ports were easily flushed and hep-locked. The catheter was then sutured in place with nylon suture. The area was then cleansed and dressings were placed. Patient tolerated procedure well.
[2021-08-18 18:23] LABS: Glucose,Whole Blood 130 mg/dL (75-99)
[2021-08-18] MEDS: CEFEPIME 1 GM in SODIUM CHLORIDE 0.9% 50 ML IVPB SCH (23:00)
[2021-08-18 23:38] LABS: Glucose,Whole Blood 125 mg/dL (75-99)
[2021-08-19] MEDS: CISATRACURIUM 200 MG in SODIUM CHLORIDE 0.9% 180 ML IV SCH ×2 (00:04→17:37)
--- NOTE | 2021-08-19 01:31 | XR ---
EXAMINATION TYPE: XR chest 1V DATE OF EXAM: 08/19/2021 COMPARISON: 08/18/2021 HISTORY: Short of breath TECHNIQUE: FINDINGS: Endotracheal tube is 5.5 cm from the autumn. There is left subclavian catheter with tip in the superior vena cava. There is moderate pulmonary interstitial and airspace edema. Heart size is no rmal. There is nasogastric tube in the stomach. IMPRESSION: Extensive pulmonary infiltrates with right pleural effusion. This could relate to RDS. No significant change compared to yesterday.
[2021-08-19] MEDS: fentaNYL (PF) 2,500 MCG in SODIUM CHLORIDE 0.9% 200 ML IV SCH ×3 (04:04→19:56)
[2021-08-19] MEDS: ARTIFICIAL TEARS-HYPROMELLOSE DROPS 15 ML BTL BOTH EYES SCH ×5 (04:06→19:55)
[2021-08-19 04:43] LABS: Basophils % (A) 0 %; Eosinophils % (A) 0 %; HCT 34.6 % (39.0-53.0); HGB 11.1 gm/dL (13.0-17.5); Hypochromasia Moderate; Lymphocytes # (A) 0.5 k/uL (1.0-4.8); Lymphocytes % (A) 3 %; MCH 31.8 pg (25.0-35.0); MCHC 31.9 g/dL (31.0-37.0); MCV 99.7 fL (80.0-100.0); Mean Platelet Volume 8.7; Monocytes # (A) 0.6 k/uL (0-1.0); Monocytes % (A) 3 %; Neutrophils # (A) 15.8 k/uL (1.3-7.7); Neutrophils % (A) 92 %; Platelet Count 373 k/uL (150-450); RBC 3.47 m/uL (4.30-5.90); RDW 12.8 % (11.5-15.5); WBC 17.1 k/uL (3.8-10.6)
[2021-08-19 05:01] LABS: Albumin 2.8 g/dL (3.5-5.0); Calcium 7.9 mg/dL (8.4-10.2); Total Bilirubin 0.8 mg/dL (0.2-1.3); Total Protein 6.9 g/dL (6.3-8.2)
[2021-08-19 05:12] LABS: Phosphorus 11.2 mg/dL (2.5-4.5); Potassium 6.1 mmol/L (3.5-5.1)
[2021-08-19 05:13] LABS: C Reactive Protein 21.1 mg/dL (<1.0)
[2021-08-19] MEDS: INSULIN ASPART (NovoLOG) 100 UNIT/ML VIAL SQ SCH ×4 (06:00→22:58)
[2021-08-19 06:10] LABS: Glucose,Whole Blood 136 mg/dL (75-99)
[2021-08-19 06:11] LABS: ABG Base Excess -3.6 mmol/L; ABG HCO3 27 mmol/L (21-25); ABG Oxygen Saturation 79.5 % (94-97); ABG TCO2 31 mmol/L (19-24); Allen Test Performed? Yes
[2021-08-19 06:16] LABS: ABG PCO2 105 mmHg (35-45); ABG PH 7.02 (7.35-7.45); ABG PO2 53 mmHg (83-108)
[2021-08-19] MEDS ORDERED: INSULIN REGULAR 100 UNIT/ML VIAL (IV) IV ONE (06:17)
[2021-08-19] MEDS ORDERED: DEXTROSE 50% SYRINGE 50 ML IVP STA (06:17)
[2021-08-19] MEDS ORDERED: SODIUM BICARB 8.4% 50 ML SYR (1 MEQ/ML) IV STA ×2 (06:17→06:40)
[2021-08-19] MEDS ORDERED: CALCIUM GLUCONATE 1 GM in SODIUM CHLORIDE 0.9% 100 ML IVPB ONE (06:30)
[2021-08-19] MEDS: ALBUTEROL HFA INHALER INHALATION SCH ×4 (07:07→21:18)
[2021-08-19] MEDS: DEXTROSE 5% IN WATER 1,000 ML with SODIUM BICARB (1 MEQ/ML) 150 ML IV SCH ×2 (07:45→18:00)
[2021-08-19] MEDS: CHLORHEXIDINE GLUCONATE 15 ML CUP MUCOUS MEM SCH ×2 (08:15→19:55)
[2021-08-19] MEDS: CHOLECALCIFEROL 25 MCG (1000 IU) TABLET PO SCH (08:15)
[2021-08-19] MEDS: ENOXAPARIN 40 MG/0.4 ML SYRINGE SQ SCH ×2 (08:15→19:55)
[2021-08-19] MEDS: DEXAMETHASONE SOD PHOSPHATE 10 MG/ML 1 ML VIAL IVP SCH ×2 (08:15→19:55)
[2021-08-19] MEDS: ASCORBIC ACID 500 MG TAB PO SCH (08:15)
[2021-08-19] MEDS: ZINC SULFATE 220 MG CAP PO SCH (08:15)
[2021-08-19] MEDS: LACTULOSE 20 GM/30 ML CUP PO SCH (08:16)
--- NOTE | 2021-08-19 08:23 | P.CONS ---
History of Present Illness - Reason for Consult Consult date: 08/18/21 covid/sepsis Requesting physician: Charisse Blackburn - Chief Complaint shortness of breath x days - History of Present Illness History of present illness : Patient is 51-year-old male presenting to the hospital about 2 weeks ago for increasing shortness of breath and this patient symptom was going on for about 8 days before presentation the hospital patient was diagnosed with a COVID-19 pneumonia and was on high flow oxygen patient has been treated with Lovenox Decadron and baricitinab patient did have persistent respiratory failure and has been on the vent patient during this hospital stay as fever initially however the patient has been spiking fever here in the bed more persistent fever around August 15 and patient did have a sputum culture obtained on August 14 and the blood cultures done on August 12 has been positive for MSSA blood culture repeat on 08 16 has been negative patient has been treated with cefepime 1 g every 12 hours dose has been adjusted to his kidney function patient also have a renal failure requiring dialysis catheter placement and for dialysis infectious disease was consulted for further management of antibiotic therapy in this patient in full-blown respiratory failure he is on 100% FiO2 and is satting around 89 to 90% per discussion with the nursing staff no significant purulent secretion through the ET diarrhea and no other changes has been reported most information has been obtained from review the chart as the patient is currently sedated on the [facility] Review of system: Positive point has been mentioned in HPI complete review could not be obtained because of underlying mental status Past medical history : Reviewed, documented below Past surgical history : Reviewed, documented below Social history: Reviewed, documented below Medications: Reviewed, as documented below EXAMINATION: Vital sigans= Reviewed and documented below GENERAL DESCRIPTION: Middle-aged male intubated on the [facility] no tachypnea or accessory muscle of respiration use. HEENT: Shows Pallor , no scleral icterus. Oral mucous membrane is dry. NECK: Trachea central, no thyromegaly. LUNGS: Unlabored breathing. Decrease intensity of breath sounds. No wheeze or crackle. HEART: S1, S2, regular rate and rhythm. ABDOMEN: Soft, no tenderness , guarding or rigidity EXTREMITIES: No edema of feet. SKIN: No rash, no masses palpable. NEUROLOGICAL: The patient is sedated on the [facility] LABS AND RADIOLOGY: Reviewed results see below Assessment : Patient with acute respiratory failure which is multifactorial in this patient with initial diagnosis of COVID-19 pneumonia in this patient has failed to respond to the treatment and now with component of secondary bacterial pneumonia both the blood and sputum has been positive for MSSA those culture obtained about 6 days ago patient now with worsening respiratory failure requiring 100% FiO2 and also renal failure for the dialysis has been consulted overall very poor prognosis at this moment Plan: 1-patient to continue with cefepime 1 g every 12 hour should provide coverage for his MSSA pneumonia and bacteremia repeat blood cultures already negative We will follow on clinical condition and cultures to further adjust medication if needed Thank you for this consultation we will follow the patient along with you Past Medical History Past Medical History: Hearing Disorder / Deafness, Musculoskeletal Disorder Additional Past Medical History / Comment(s): Sinus issues. Hx diverticulitis; Hiatal hernia. Pain in knees, hx injuries. Varicose veins. History of Any Multi-Drug Resistant Organisms: None Reported Past Surgical History: Cholecystectomy, Orthopedic Surgery Additional Past Surgical History / Comment(s): Rt Elbow dislocation procedure. Left foot surgery. Colonoscopy. Past Anesthesia/Blood Transfusion Reactions: No Reported Reaction Additional Past Anesthesia/Blood Transfusion Reaction / Comm: never had a blood transfusion Past Psychological History: No Psychological Hx Reported Smoking Status: Never smoker Past Alcohol Use History: Occasional Past Drug Use History: None Reported - Past Family History Mother Family Medical History: No Reported History Medications and Allergies Home Medications Medication Instructions Recorded Confirmed Type Ibuprofen [Motrin Ib] 800 mg PO Q8H PRN 01/25/20 08/06/21 History Albuterol Sulfate [Ventolin HFA] 1 - 2 puff INHALATION RT-Q6H PRN 08/06/21 08/06/21 History Cholecalciferol [Vitamin D3 (25 50 mcg PO DAILY 08/06/21 08/06/21 History Mcg = 1000 Iu)] Fluticasone Nasal [place] [Flonase 1 spray EA NOSTRIL DAILY 08/06/21 08/06/21 History Nasal [place]] Montelukast [Singulair] 10 mg PO DAILY 08/06/21 08/06/21 History Zinc 50 mg PO DAILY 08/06/21 08/06/21 History Allergies Allergy/AdvReac Type Severity Reaction Status Date / Time morphine Allergy Itching Verified 01/25/20 11:14 Physical Exam Vitals: Vital Signs Temp Pulse Pulse Resp BP BP Pulse Ox 08/18/21 16:45 98.6 F 105 H 34 H 98/52 08/18/21 16:00 98.1 F 105 H 34 H 88 L 08/18/21 15:00 106 H 34 H 88 L 08/18/21 14:00 110 H 17 88 L 08/18/21 13:00 112 H 34 H 88 L 08/18/21 12:00 98.5 F 112 H 34 H 88 L 08/18/21 11:00 112 H 34 H 88 L 08/18/21 10:00 111 H 34 H 88 L 08/18/21 09:00 112 H 34 H 88 L 08/18/21 08:00 98.5 F 108 H 34 H 88 L 08/18/21 07:00 106 H 34 H 87 L 08/18/21 06:00 105 H 34 H 88 L 08/18/21 05:00 101 H 34 H 86 L 08/18/21 04:00 98.4 F 97 104 H 34 H 86 L 08/18/21 03:00 98 34 H 88 L 08/18/21 02:00 96 34 H 87 L 08/18/21 01:00 93 34 H 87 L 08/18/21 00:00 97.1 F L 93 34 H 88 L 08/17/21 23:52 96 34 H 08/17/21 23:00 92 34 H 87 L 08/17/21 22:00 93 34 H 88 L 08/17/21 21:00 93 34 H 87 L 08/17/21 20:00 97.4 F L 90 34 H 121/64 87 L 08/17/21 19:54 92 34 H 08/17/21 19:00 91 34 H 88 L 08/17/21 18:00 90 34 H 88 L 08/17/21 17:00 90 34 H 90 L Intake and Output 08/18/21 08/18/21 08/18/21 06:59 14:59 22:59 Intake Total 9020.483 6613 470 Output Total 20 35 0 Balance 0269.861 5631 470 Intake: IV 400 50 0.9 400 50 Intake, IV Titration 522.116 6008 200 Amount Cefepime 2 gm In Sodium 100 Chloride 0.9% 100 ml @ 25 mls/hr IVPB Q8H [facility] Rx#: [id number] Cisatracurium 200 mg In 183.96 Sodium Chloride 0.9% 180 ml @ 1 MCG/KG/MIN 7.008 mls/hr IV .Q24H [facility] Rx#: [id number] Sodium Chloride 0.9% 1, 350 100 000 ml @ 50 mls/hr IV . Q20H [facility] Rx#:[id number] fentaNYL (PF) 2,500 mcg 241.192 250 In Sodium Chloride 0.9% 200 ml @ 0.5 MCG/KG/HR 5. 84 mls/hr IV .Q24H [facility] Rx #:[id number] propofoL 1,000 mg In 266.440 300 100 Empty Bag 1 bag @ Titrate IV .Q0M [facility] Rx#: [id number] Tube Feeding 80 90 20 Other 500 560 250 Output: Urine 20 35 0 Hemodialysis 0 Other: Voiding Method Indwelling Catheter Indwelling Catheter Weight 118 kg ABP, PAP, CO, CI - Last 8 Hours Arterial Blood Pressure 96/50 Arterial Blood Pressure 103/52 Arterial Blood Pressure 111/56 Arterial Blood Pressure 113/54 Arterial Blood Pressure 114/54 Arterial Blood Pressure 117/56 Arterial Blood Pressure 117/56 Arterial Blood Pressure 115/55 Results CBC & Chem 7: 08/19/21 04:14 08/19/21 04:14 Labs: Abnormal Lab Results - Last 24 Hours (Table) 08/17/21 08/17/21 08/18/21 Range/Units 17:56 21:25 00:01 WBC (3.8-10.6) k/uL RBC (4.30-5.90) m/uL Hgb (13.0-17.5) gm/dL Hct (39.0-53.0) % Neutrophils # (1.3-7.7) k/uL Lymphocytes # (1.0-4.8) k/uL D-Dimer (<0.60) mg/L FEU ABG pH (7.35-7.45) ABG pCO2 (35-45) mmHg ABG pO2 (83-108) mmHg ABG HCO3 (21-25) mmol/L ABG Total CO2 (19-24) mmol/L ABG O2 Saturation (94-97) % Potassium 5.4 H (3.5-5.1) mmol/L Carbon Dioxide 31 H (22-30) mmol/L BUN 83 H (9-20) mg/dL Creatinine 2.70 H (0.66-1.25) mg/dL Glucose 126 H (74-99) mg/dL POC Glucose (mg/dL) 131 H 120 H (75-99) mg/dL Calcium 8.2 L (8.4-10.2) mg/dL ALT (4-49) U/L Lactate Dehydrogenase (313-618) U/L C-Reactive Protein (<1.0) mg/dL Albumin (3.5-5.0) g/dL 08/18/21 08/18/21 08/18/21 Range/Units 05:14 05:14 05:14 WBC 11.7 H (3.8-10.6) k/uL RBC 3.66 L (4.30-5.90) m/uL Hgb 11.3 L (13.0-17.5) gm/dL Hct 36.3 L (39.0-53.0) % Neutrophils # 10.8 H (1.3-7.7) k/uL Lymphocytes # 0.5 L (1.0-4.8) k/uL D-Dimer 4.65 H (<0.60) mg/L FEU ABG pH (7.35-7.45) ABG pCO2 (35-45) mmHg ABG pO2 (83-108) mmHg ABG HCO3 (21-25) mmol/L ABG Total CO2 (19-24) mmol/L ABG O2 Saturation (94-97) % Potassium (3.5-5.1) mmol/L Carbon Dioxide (22-30) mmol/L BUN 88 H (9-20) mg/dL Creatinine 3.43 H (0.66-1.25) mg/dL Glucose 108 H (74-99) mg/dL POC Glucose (mg/dL) (75-99) mg/dL Calcium 8.1 L (8.4-10.2) mg/dL ALT 58 H (4-49) U/L Lactate Dehydrogenase 812 H (313-618) U/L C-Reactive Protein 37.1 H (<1.0) mg/dL Albumin 2.6 L (3.5-5.0) g/dL 08/18/21 08/18/21 Range/Units 05:22 11:49 WBC (3.8-10.6) k/uL RBC (4.30-5.90) m/uL Hgb (13.0-17.5) gm/dL Hct (39.0-53.0) % Neutrophils # (1.3-7.7) k/uL Lymphocytes # (1.0-4.8) k/uL D-Dimer (<0.60) mg/L FEU ABG pH 7.16 L* (7.35-7.45) ABG pCO2 84 H* (35-45) mmHg ABG pO2 63 L (83-108) mmHg ABG HCO3 30 H (21-25) mmol/L ABG Total CO2 32 H (19-24) mmol/L ABG O2 Saturation 89.6 L (94-97) % Potassium (3.5-5.1) mmol/L Carbon Dioxide (22-30) mmol/L BUN (9-20) mg/dL Creatinine (0.66-1.25) mg/dL Glucose (74-99) mg/dL POC Glucose (mg/dL) 113 H (75-99) mg/dL Calcium (8.4-10.2) mg/dL ALT (4-49) U/L Lactate Dehydrogenase (313-618) U/L C-Reactive Protein (<1.0) mg/dL Albumin (3.5-5.0) g/dL Microbiology - Last 24 Hours (Table) 08/16/21 13:55 Blood Culture - Preliminary Blood No Growth after 48 hours
--- NOTE | 2021-08-19 09:03 | P.PN ---
Subjective Patient is seen in follow for acute kidney injury. Started on hemodialysis 08/18/2021. Potassium 6.1 this morning. Intubated. Oliguric Tube feeds held due to high residuals. Currently not on vasopressors. Vital signs - blood pressure in the lower side. General: Intubated. HEART: Tachycardic. Exam discussed with the nurse. Objective - Vital Signs Vital signs: Vital Signs Temp 97.8 F 08/19/21 08:00 Pulse 108 H 08/19/21 08:00 Resp 34 H 08/19/21 08:00 BP 103/48 08/19/21 08:00 Pulse Ox 78 L 08/19/21 08:00 Intake & Output 08/18/21 08/19/21 08/19/21 18:59 06:59 18:59 Intake Total 2400 2152.505 260 Output Total 45 0 0 Balance 2355 2152.505 260 Weight 118 kg 121.1 kg Intake: IV 50 0.9 50 Intake, IV Titration 1400 1872.505 200 Amount Cefepime 2 gm In Sodium 100 Chloride 0.9% 100 ml @ 25 mls/hr IVPB Q8H [facility] Rx#: [id number] Cisatracurium 200 mg In 187.289 Sodium Chloride 0.9% 180 ml @ 1 MCG/KG/MIN 7.008 mls/hr IV .Q24H [facility] Rx#: [id number] Dextrose 5% in Water 1, 100 000 ml @ 100 mls/hr IV . [id number] [facility] with Sodium Bicarb (1 Meq/ml) 150 ml Rx#:[id number] Sodium Chloride 0.9% 1, 550 600 100 000 ml @ 50 mls/hr IV . Q20H [facility] Rx#:[id number] fentaNYL (PF) 2,500 mcg 250 490.608 In Sodium Chloride 0.9% 200 ml @ 0.5 MCG/KG/HR 5. 84 mls/hr IV .Q24H [facility] Rx #:[id number] propofoL 1,000 mg In 500 594.608 Empty Bag 1 bag @ Titrate IV .Q0M [facility] Rx#: [id number] Tube Feeding 140 30 Other 810 250 60 Output: Urine 45 0 0 Hemodialysis 0 Other: Voiding Method Indwelling Catheter Indwelling Catheter # Bowel Movements 1 ABP, PAP, CO, CI - Last Documented Arterial Blood Pressure 75/42 - Labs CBC & Chem 7: 08/19/21 04:14 08/19/21 04:14 Labs: Abnormal Lab Results - Last 24 Hours (Table) 08/18/21 08/18/21 08/18/21 Range/Units 11:49 18:21 23:37 WBC (3.8-10.6) k/uL RBC (4.30-5.90) m/uL Hgb (13.0-17.5) gm/dL Hct (39.0-53.0) % Neutrophils # (1.3-7.7) k/uL Lymphocytes # (1.0-4.8) k/uL D-Dimer (<0.60) mg/L FEU ABG pH (7.35-7.45) ABG pCO2 (35-45) mmHg ABG pO2 (83-108) mmHg ABG HCO3 (21-25) mmol/L ABG Total CO2 (19-24) mmol/L ABG O2 Saturation (94-97) % Potassium (3.5-5.1) mmol/L BUN (9-20) mg/dL Creatinine (0.66-1.25) mg/dL Glucose (74-99) mg/dL POC Glucose (mg/dL) 113 H 130 H 125 H (75-99) mg/dL Calcium (8.4-10.2) mg/dL Phosphorus (2.5-4.5) mg/dL AST (17-59) U/L ALT (4-49) U/L Alkaline Phosphatase (38-126) U/L Lactate Dehydrogenase (313-618) U/L C-Reactive Protein (<1.0) mg/dL Albumin (3.5-5.0) g/dL 08/19/21 08/19/21 08/19/21 Range/Units 04:14 04:14 04:14 WBC 17.1 H (3.8-10.6) k/uL RBC 3.47 L (4.30-5.90) m/uL Hgb 11.1 L (13.0-17.5) gm/dL Hct 34.6 L (39.0-53.0) % Neutrophils # 15.8 H (1.3-7.7) k/uL Lymphocytes # 0.5 L (1.0-4.8) k/uL D-Dimer 5.37 H (<0.60) mg/L FEU ABG pH (7.35-7.45) ABG pCO2 (35-45) mmHg ABG pO2 (83-108) mmHg ABG HCO3 (21-25) mmol/L ABG Total CO2 (19-24) mmol/L ABG O2 Saturation (94-97) % Potassium 6.1 H* (3.5-5.1) mmol/L BUN 86 H (9-20) mg/dL Creatinine 4.66 H (0.66-1.25) mg/dL Glucose 133 H (74-99) mg/dL POC Glucose (mg/dL) (75-99) mg/dL Calcium 7.9 L (8.4-10.2) mg/dL Phosphorus 11.2 H* (2.5-4.5) mg/dL AST 61 H (17-59) U/L ALT 62 H (4-49) U/L Alkaline Phosphatase 164 H (38-126) U/L Lactate Dehydrogenase 1053 H (313-618) U/L C-Reactive Protein 21.1 H (<1.0) mg/dL Albumin 2.8 L (3.5-5.0) g/dL 08/19/21 08/19/21 Range/Units 05:57 06:07 WBC (3.8-10.6) k/uL RBC (4.30-5.90) m/uL Hgb (13.0-17.5) gm/dL Hct (39.0-53.0) % Neutrophils # (1.3-7.7) k/uL Lymphocytes # (1.0-4.8) k/uL D-Dimer (<0.60) mg/L FEU ABG pH 7.02 L* (7.35-7.45) ABG pCO2 105 H* (35-45) mmHg ABG pO2 53 L* (83-108) mmHg ABG HCO3 27 H (21-25) mmol/L ABG Total CO2 31 H (19-24) mmol/L ABG O2 Saturation 79.5 L (94-97) % Potassium (3.5-5.1) mmol/L BUN (9-20) mg/dL Creatinine (0.66-1.25) mg/dL Glucose (74-99) mg/dL POC Glucose (mg/dL) 136 H (75-99) mg/dL Calcium (8.4-10.2) mg/dL Phosphorus (2.5-4.5) mg/dL AST (17-59) U/L ALT (4-49) U/L Alkaline Phosphatase (38-126) U/L Lactate Dehydrogenase (313-618) U/L C-Reactive Protein (<1.0) mg/dL Albumin (3.5-5.0) g/dL Microbiology - Last 24 Hours (Table) 08/16/21 13:55 Blood Culture - Preliminary Blood No Growth after 48 hours Assessment and Plan Plan: Assessment: 1. Acute kidney injury secondary to ATN secondary to severe sepsis. Oliguric. Started on hemodialysis August 18. Baseline creatinine near 1. Diuretic unresponsive. 2. Acute hypoxic respiratory failure. 3. COVID-19 pneumonia. 4. Staph bacteremia and pneumonia. On antibiotics. 5. Hyperkalemia secondary to acute kidney injury and acidosis. 6. Hyperphosphatemia secondary to acute kidney injury. Plan: Second treatment of hemodialysis today. Third treatment tomorrow. Patient received IV calcium, IV insulin with D50 and sodium bicarb IV push this morning. Currently on bicarb drip. Wean FiO2. Status post 100 mg IV Lasix given August 17 with no response and urine output. Add PhosLo. Continue to monitor renal function and urine output. Repeat potassium level 2 hours after dialysis.
[2021-08-19] MEDS ORDERED: NOREPINEPHRINE 8 MG in SODIUM CHLORIDE 0.9% 250 ML IV SCH (09:30)
[2021-08-19] MEDS: CEFEPIME 1 GM in SODIUM CHLORIDE 0.9% 50 ML IVPB SCH ×2 (10:33→21:00)
--- NOTE | 2021-08-19 11:12 | P.PN ---
Subjective Progress Note Date: 08/19/21 The patient is seen in in the ICU. He remains sedated and intubated. He is status post temporary right common femoral vein dialysis catheter placement yesterday He did undergo dialysis treatment yesterday without any reported difficulty. Discussing with his nurse he is not doing as well through the night with oxygen saturation dropping into the 70s. Objective - Vital Signs Vital signs: Vital Signs Temp 97.8 F 08/19/21 08:00 Pulse 108 H 08/19/21 08:00 Resp 34 H 08/19/21 08:00 BP 103/48 08/19/21 08:00 Pulse Ox 78 L 08/19/21 08:00 Intake & Output 08/18/21 08/19/21 08/19/21 18:59 06:59 18:59 Intake Total 2400 2152.505 260 Output Total 45 0 0 Balance 2355 2152.505 260 Weight 118 kg 121.1 kg Intake: IV 50 0.9 50 Intake, IV Titration 1400 1872.505 200 Amount Cefepime 2 gm In Sodium 100 Chloride 0.9% 100 ml @ 25 mls/hr IVPB Q8H [facility] Rx#: [id number] Cisatracurium 200 mg In 187.289 Sodium Chloride 0.9% 180 ml @ 1 MCG/KG/MIN 7.008 mls/hr IV .Q24H [facility] Rx#: [id number] Dextrose 5% in Water 1, 100 000 ml @ 100 mls/hr IV . [id number] [facility] with Sodium Bicarb (1 Meq/ml) 150 ml Rx#:[id number] Sodium Chloride 0.9% 1, 550 600 100 000 ml @ 50 mls/hr IV . Q20H [facility] Rx#:[id number] fentaNYL (PF) 2,500 mcg 250 490.608 In Sodium Chloride 0.9% 200 ml @ 0.5 MCG/KG/HR 5. 84 mls/hr IV .Q24H [facility] Rx #:[id number] propofoL 1,000 mg In 500 594.608 Empty Bag 1 bag @ Titrate IV .Q0M [facility] Rx#: [id number] Tube Feeding 140 30 Other 810 250 60 Output: Urine 45 0 0 Hemodialysis 0 Other: Voiding Method Indwelling Catheter Indwelling Catheter # Bowel Movements 1 ABP, PAP, CO, CI - Last Documented Arterial Blood Pressure 75/42 - Exam General appearance: The patient is sedated and intubated. HET: Head is normocephalic and atraumatic. Neck: Supple without lymphadenopathy. Trachea midline. Extremities: Normal skin color and turgor. Right groin with tunneled catheter intact.urological: No focal deficits. Strength and sensation are grossly intact. - Labs CBC & Chem 7: 08/19/21 04:14 08/19/21 04:14 Labs: Abnormal Lab Results - Last 24 Hours (Table) 08/18/21 08/18/21 08/18/21 Range/Units 11:49 18:21 23:37 WBC (3.8-10.6) k/uL RBC (4.30-5.90) m/uL Hgb (13.0-17.5) gm/dL Hct (39.0-53.0) % Neutrophils # (1.3-7.7) k/uL Lymphocytes # (1.0-4.8) k/uL D-Dimer (<0.60) mg/L FEU ABG pH (7.35-7.45) ABG pCO2 (35-45) mmHg ABG pO2 (83-108) mmHg ABG HCO3 (21-25) mmol/L ABG Total CO2 (19-24) mmol/L ABG O2 Saturation (94-97) % Potassium (3.5-5.1) mmol/L BUN (9-20) mg/dL Creatinine (0.66-1.25) mg/dL Glucose (74-99) mg/dL POC Glucose (mg/dL) 113 H 130 H 125 H (75-99) mg/dL Calcium (8.4-10.2) mg/dL Phosphorus (2.5-4.5) mg/dL AST (17-59) U/L ALT (4-49) U/L Alkaline Phosphatase (38-126) U/L Lactate Dehydrogenase (313-618) U/L C-Reactive Protein (<1.0) mg/dL Albumin (3.5-5.0) g/dL 08/19/21 08/19/21 08/19/21 Range/Units 04:14 04:14 04:14 WBC 17.1 H (3.8-10.6) k/uL RBC 3.47 L (4.30-5.90) m/uL Hgb 11.1 L (13.0-17.5) gm/dL Hct 34.6 L (39.0-53.0) % Neutrophils # 15.8 H (1.3-7.7) k/uL Lymphocytes # 0.5 L (1.0-4.8) k/uL D-Dimer 5.37 H (<0.60) mg/L FEU ABG pH (7.35-7.45) ABG pCO2 (35-45) mmHg ABG pO2 (83-108) mmHg ABG HCO3 (21-25) mmol/L ABG Total CO2 (19-24) mmol/L ABG O2 Saturation (94-97) % Potassium 6.1 H* (3.5-5.1) mmol/L BUN 86 H (9-20) mg/dL Creatinine 4.66 H (0.66-1.25) mg/dL Glucose 133 H (74-99) mg/dL POC Glucose (mg/dL) (75-99) mg/dL Calcium 7.9 L (8.4-10.2) mg/dL Phosphorus 11.2 H* (2.5-4.5) mg/dL AST 61 H (17-59) U/L ALT 62 H (4-49) U/L Alkaline Phosphatase 164 H (38-126) U/L Lactate Dehydrogenase 1053 H (313-618) U/L C-Reactive Protein 21.1 H (<1.0) mg/dL Albumin 2.8 L (3.5-5.0) g/dL 08/19/21 08/19/21 Range/Units 05:57 06:07 WBC (3.8-10.6) k/uL RBC (4.30-5.90) m/uL Hgb (13.0-17.5) gm/dL Hct (39.0-53.0) % Neutrophils # (1.3-7.7) k/uL Lymphocytes # (1.0-4.8) k/uL D-Dimer (<0.60) mg/L FEU ABG pH 7.02 L* (7.35-7.45) ABG pCO2 105 H* (35-45) mmHg ABG pO2 53 L* (83-108) mmHg ABG HCO3 27 H (21-25) mmol/L ABG Total CO2 31 H (19-24) mmol/L ABG O2 Saturation 79.5 L (94-97) % Potassium (3.5-5.1) mmol/L BUN (9-20) mg/dL Creatinine (0.66-1.25) mg/dL Glucose (74-99) mg/dL POC Glucose (mg/dL) 136 H (75-99) mg/dL Calcium (8.4-10.2) mg/dL Phosphorus (2.5-4.5) mg/dL AST (17-59) U/L ALT (4-49) U/L Alkaline Phosphatase (38-126) U/L Lactate Dehydrogenase (313-618) U/L C-Reactive Protein (<1.0) mg/dL Albumin (3.5-5.0) g/dL Microbiology - Last 24 Hours (Table) 08/16/21 13:55 Blood Culture - Preliminary Blood No Growth after 48 hours Assessment and Plan Assessment: 1. Right common femoral vein temporary dialysis catheter placement 2. Acute kidney injury requiring dialysis 3. Acute hypoxic respiratory failure secondary to COVID-19 pneumonia Plan: 1. Continue symptomatic and supportive care 2. Continue dialysis per recommendations from nephrology 3. Vascular surgery will be on standby. Please do not hesitate to call us back for any further needs including permacath if needed The impression and plan of care has been dictated as directed. Dr. Mckeon I performed a history and examination of this patient, discussed the same with the dictator. I agree with the dictator's note ,documented as a scribe. Any additional findings or plans will be noted.
[2021-08-19 12:10] LABS: Glucose,Whole Blood 173 mg/dL (75-99)
[2021-08-19] MEDS: CALCIUM ACETATE 667 MG TAB PO SCH ×2 (12:37→17:21)
--- NOTE | 2021-08-19 13:20 | PN ---
PROGRESS NOTE DATE OF SERVICE: 08/19/2021 REASON FOR FOLLOWUP: Pneumonia. INTERVAL HISTORY: Patient is afebrile. The patient is currently hypertensive requiring pressor support. Scheduled to undergo dialysis. The patient is on 100% FiO2 sating only 79% per the nursing staff and family is on the way to say final goodbye and possible plan for Hospice later this afternoon. PHYSICAL EXAMINATION: Blood pressure 92/52 with a pulse of 107, temperature 98. He is sating 99% on 100% FIO2. General description is a middle-aged male intubated on the vent. Respiratory system: Unlabored breathing, decreased intensity in breath sounds in the base, with no wheeze. Heart S1, S2. Regular rate and rhythm. Abdomen: Soft, distended. No guarding. No rigidity. LABS: Hemoglobin 11.1, hematocrit 17.1, creatinine 4.63. DIAGNOSTIC IMPRESSION AND PLAN: Patient with multi-system failure in this patient with COVID-19 pneumonia concern for possible secondary bacterial pneumonia. Sputum and blood cultures with MSSA. The patient also has renal failure and overall poor prognosis for possible hospice which would be appropriate. He is covered with cefepime. Questions and concerns were answered. MMODL / IJN: [id number] /
--- NOTE | 2021-08-19 14:22 | P.PN ---
Subjective Progress Note Date: 08/19/21 Principal diagnosis: Acute hypoxic respiratory failure secondary to COVID-19 pneumonia 08/16/2021, the patient is essentially unchanged compared to yesterday. He remains sedated with a combination of propofol and fentanyl which are essentially running at same doses and the propofol is running at 75 mg/kg per minute and the patient is also on fentanyl at 3 mcg/kg/h. The patient is also Nimbex at 3 mcg/kg per minute. Remains on a mechanical ventilator. Blood gases from today shows a pH of 7.26 with a pCO2 of 94 and a pO2 of 63. He is on assist control mode at the rate of 30, FiO2 is at 100%, PEEP is currently at Samantha with a tidal volume of 400. The peak airway pressure is around 34 with a static pressure of 32. Chest x-ray is pending from today. Hemodynamically, doing well. Note that the patient had a staph aureus pneumonia with activity anemia and the patient remains on IV cefepime. He is afebrile for now. Hemodynamically stable. In terms of his blood work and inflammatory markers, the patient has an LDH level of 687 and a CRP of 23.9 and a d-dimer level of 6.16. D-dimer level is improved compared to earlier values. Meanwhile, the white cell count today is at 14.4 with a hemoglobin of 11.8 and the plated count of 296. The renal function is stable. Sodium is at 147. BUN is 42 with a creatinine of 0.8. The patient is receiving enteral feeding for nutritional support. The patient is currently on vital AF at the rate of 10 mL an hour. He may benefit from free water flushes knowing that his sodium level is also elevated. IV fluids are currently at 20 mL an hour and the patient's fluid balance over the past 24 hours have been in the order of -3.8 L. Note that the patient is currently off diuretics been no significant third spacing or edema on examination. 08/17/2021 the patient's condition is still critical as the patient is being treated for COVID 19 related pneumonia, ARDS, superinfection with MSSA pneumonia and sepsis. This morning, the patient is having issues with his oxygenation. Overnight, be became more hypoxic and I had to change his PEEP and is currently up to 22, with a tidal volume of 400, FiO2 of 100% a rate of 30. Peak airway pressures 46. Static pressure is 43. The blood periods from today is showing permissive hypercapnia. His pH was at 7.19 with a pCO2 of 97 and a pO2 of 64. The patient remains on a combination of sedation including propofol running at 75 mcg/kg per minute, he is also on fentanyl at 3 mcg/kg/h and Nimbex is running at 1.5 mcg/kg per minute. He is quite sedated as a mechanical ventilator. Based on today's blood gases, increased respiratory rate up to 34 and also contemplating to put this patient on ismael position. Meanwhile, the patient is still on antibiotics. The patient remains on IV cefepime regarding MSSA pneumonia and bacteremia. His fluid balance over the past 24 hours has been in the order of -3.8 L. The patient's blood work from today shows a white cell count of 14.4 with a hemoglobin of 11.9, d-dimer is at 5.6, inflammatory markers included an LDH of 687 from yesterday, CRP of 23.9. His sodium level is at 146 and the patient is also had a powered an acute kidney injury with a BUN of 62 and a creatinine of 1.7. Potassium level is at 4.9. He is receiving enteral feeding for nutritional support and the patient is on vital AF. The patient was also given free water supplements through his OG regarding his hyper and she may yesterday. Patient was reevaluated today on 08/18/2021, remains in the ICU intubated and mechanically ventilated. Patient is on assist control rate of 34 tidal volume 400 FiO2 is 100% PEEP is 22. ABG remains marginal with a pO2 of 63 pCO2 of 84 pH of 7.16. Patient is to be started on hemodialysis today. His peak airway pressure is 43 plateau pressure is 36. He is on Decadron which I increased to 6 mg IV push twice a day. Patient is on fentanyl at 3 mcg/kg/h propofol at 75 mcg/kg/h Nimbex at 1.5 mcg/kg/h and he is also on 0.9 normal saline at 50 mL per hour. His sputum cultures and blood cultures are positive for staph aureus, however this is MSSA, patient is on cefepime. WBC count is 11.7 hemoglobin is 11.3. Electrolytes are normal BUN is 88 creatinine 3.43, hence hemodialysis will be started on this patient Reevaluated today on 08/19/2021, remains in the ICU intubated and mechanically ventilated. Patient is on assist control rate of 34 tidal volume 400 FiO2 100% PEEP of 22. ABG showed a O2 of 53 pCO2 of 105 pH of 7.12. Renal profile is also abnormal with BUN of 86 creatinine 4.66. Potassium is 6.1, hence the patient is now on bicarb drip to correct his respiratory acidosis, and to hopef ully control hyperkalemia. Patient is on IV fluid in the form of 0.9 normal saline at 50 mL/h propofol at 75 fentanyl at 3 mcg/kg/h, and Nimbex at 1.5 mcg/kg/m. Today family was updated on his condition, discussed his condition with the , and explained to her that the patient is extremely ill, and prognosis is extremely poor. She is already aware that the patient has very poor prognosis. And she will discuss it with the rest of her family members. Chest x-ray continues to show extensive pulmonary infiltrates with right pleural effusion. Objective - Vital Signs Vital signs: Vital Signs Temp 98.2 F 08/19/21 12:00 Pulse 108 H 08/19/21 14:00 Resp 34 H 08/19/21 14:00 BP 104/49 08/19/21 14:00 Pulse Ox 77 L 08/19/21 14:00 Intake & Output 08/18/21 08/19/21 08/19/21 18:59 06:59 18:59 Intake Total 2400 2152.505 1645.419 Output Total 45 0 0 Balance 2355 2152.505 1645.419 Weight 118 kg 121.1 kg Intake: IV 50 30 0.9 50 30 Intake, IV Titration 1400 8889.451 2493.419 Amount Cefepime 1 gm In Sodium 50 Chloride 0.9% 50 ml @ 12. 5 mls/hr IVPB Q12H [facility] Rx #:[id number] Cefepime 2 gm In Sodium 100 Chloride 0.9% 100 ml @ 25 mls/hr IVPB Q8H [facility] Rx#: [id number] Cisatracurium 200 mg In 187.289 Sodium Chloride 0.9% 180 ml @ 1 MCG/KG/MIN 7.008 mls/hr IV .Q24H [facility] Rx#: [id number] Dextrose 5% in Water 1, 700 000 ml @ 100 mls/hr IV . [id number] [facility] with Sodium Bicarb (1 Meq/ml) 150 ml Rx#:[id number] Norepinephrine 8 mg In 5.467 Sodium Chloride 0.9% 250 ml @ 0.05 MCG/KG/MIN 11. 716 mls/hr IV .Q22H2M [facility] Rx#:[id number] Sodium Chloride 0.9% 1, 550 600 250 000 ml @ 50 mls/hr IV . Q20H [facility] Rx#:[id number] fentaNYL (PF) 2,500 mcg 250 490.608 249.952 In Sodium Chloride 0.9% 200 ml @ 0.5 MCG/KG/HR 5. 84 mls/hr IV .Q24H [facility] Rx #:[id number] propofoL 1,000 mg In 500 594.608 300 Empty Bag 1 bag @ Titrate IV .Q0M [facility] Rx#: [id number] Tube Feeding 140 30 0 Other 810 250 60 Output: Urine 45 0 0 Hemodialysis 0 Other: Voiding Method Indwelling Catheter Indwelling Catheter Indwelling Catheter # Bowel Movements 1 ABP, PAP, CO, CI - Last Documented Arterial Blood Pressure 77/44 - Exam GENERAL EXAM: Revealed a 51-year-old white male intubated, and mechanically ventilated, sedated, and paralyzed. HEAD: Normocephalic. Atraumatic. EENT: PERRLA, EOMI, nonicteric, no neck masses, no JVD, no stridor. CHEST: Symmetrical chest expansion. LUNGS: Basilar crackles, no wheezing noted. CVS: Normal S1 and S2, no S3 gallop. No murmur. ABDOMEN: Obese, soft nontender no megaly no rebound no guarding.. SPINE: No scoliosis or deformity SKIN: No rashes CENTRAL NERVOUS SYSTEM: Sedated and paralyzed, not assess. EXTREMITIES: There is trace peripheral edema. No clubbing, no cyanosis. Peripheral pulses are intact. Psychiatric: Could not assess. - Labs CBC & Chem 7: 08/19/21 04:14 08/19/21 04:14 Labs: Abnormal Lab Results - Last 24 Hours (Table) 08/18/21 08/18/21 08/19/21 Range/Units 18:21 23:37 04:14 WBC (3.8-10.6) k/uL RBC (4.30-5.90) m/uL Hgb (13.0-17.5) gm/dL Hct (39.0-53.0) % Neutrophils # (1.3-7.7) k/uL Lymphocytes # (1.0-4.8) k/uL D-Dimer (<0.60) mg/L FEU ABG pH (7.35-7.45) ABG pCO2 (35-45) mmHg ABG pO2 (83-108) mmHg ABG HCO3 (21-25) mmol/L ABG Total CO2 (19-24) mmol/L ABG O2 Saturation (94-97) % Potassium 6.1 H* (3.5-5.1) mmol/L BUN 86 H (9-20) mg/dL Creatinine 4.66 H (0.66-1.25) mg/dL Glucose 133 H (74-99) mg/dL POC Glucose (mg/dL) 130 H 125 H (75-99) mg/dL Calcium 7.9 L (8.4-10.2) mg/dL Phosphorus 11.2 H* (2.5-4.5) mg/dL AST 61 H (17-59) U/L ALT 62 H (4-49) U/L Alkaline Phosphatase 164 H (38-126) U/L Lactate Dehydrogenase 1053 H (313-618) U/L C-Reactive Protein 21.1 H (<1.0) mg/dL Albumin 2.8 L (3.5-5.0) g/dL 08/19/21 08/19/21 08/19/21 Range/Units 04:14 04:14 05:57 WBC 17.1 H (3.8-10.6) k/uL RBC 3.47 L (4.30-5.90) m/uL Hgb 11.1 L (13.0-17.5) gm/dL Hct 34.6 L (39.0-53.0) % Neutrophils # 15.8 H (1.3-7.7) k/uL Lymphocytes # 0.5 L (1.0-4.8) k/uL D-Dimer 5.37 H (<0.60) mg/L FEU ABG pH (7.35-7.45) ABG pCO2 (35-45) mmHg ABG pO2 (83-108) mmHg ABG HCO3 (21-25) mmol/L ABG Total CO2 (19-24) mmol/L ABG O2 Saturation (94-97) % Potassium (3.5-5.1) mmol/L BUN (9-20) mg/dL Creatinine (0.66-1.25) mg/dL Glucose (74-99) mg/dL POC Glucose (mg/dL) 136 H (75-99) mg/dL Calcium (8.4-10.2) mg/dL Phosphorus (2.5-4.5) mg/dL AST (17-59) U/L ALT (4-49) U/L Alkaline Phosphatase (38-126) U/L Lactate Dehydrogenase (313-618) U/L C-Reactive Protein (<1.0) mg/dL Albumin (3.5-5.0) g/dL 08/19/21 08/19/21 Range/Units 06:07 12:08 WBC (3.8-10.6) k/uL RBC (4.30-5.90) m/uL Hgb (13.0-17.5) gm/dL Hct (39.0-53.0) % Neutrophils # (1.3-7.7) k/uL Lymphocytes # (1.0-4.8) k/uL D-Dimer (<0.60) mg/L FEU ABG pH 7.02 L* (7.35-7.45) ABG pCO2 105 H* (35-45) mmHg ABG pO2 53 L* (83-108) mmHg ABG HCO3 27 H (21-25) mmol/L ABG Total CO2 31 H (19-24) mmol/L ABG O2 Saturation 79.5 L (94-97) % Potassium (3.5-5.1) mmol/L BUN (9-20) mg/dL Creatinine (0.66-1.25) mg/dL Glucose (74-99) mg/dL POC Glucose (mg/dL) 173 H (75-99) mg/dL Calcium (8.4-10.2) mg/dL Phosphorus (2.5-4.5) mg/dL AST (17-59) U/L ALT (4-49) U/L Alkaline Phosphatase (38-126) U/L Lactate Dehydrogenase (313-618) U/L C-Reactive Protein (<1.0) mg/dL Albumin (3.5-5.0) g/dL Microbiology - Last 24 Hours (Table) 08/16/21 13:55 Blood Culture - Preliminary Blood No Growth after 48 hours Assessment and Plan Assessment: Impression: Acute hypoxic respiratory failure secondary to COVID-19 pneumonia patient was transferred to the ICU on 08/08, intubated 08/09 remains intubated and mechanically ventilated. Does not seem to be showing much improvement. Suspect MSSA pneumonia in addition to his COVID-19 pneumonia remains on cefepime. Elevated inflammatory markers secondary to above History of chronic sinus disease. Acute renal failure secondary to COVID-19 infection, patient will require hemodialysis. History of hiatal hernia. ARDS secondary to COVID-19 pneumonia. Recommendation: Continue ventilatory support. Remains on high FiO2 and high PEEP, not improving. Continue antibiotics/cefepime. And consulted infectious disease. Continue to hold baricitinib Agree with hemodialysis today. Sodium bicarb drip was started for his hyperkalemia and low pH. Continue sedation and paralysis and continue high PEEP, patient may at very high risk of developing pneumothorax Continue enteral feeding Continue free water and continue to monitor electrolytes including sodium and potassium. Continue GI prophylaxis and DVT prophylaxis. Patient is obviously extremely critically ill, and prognosis is extremely poor [place] his condition with the over the phone, and updated on his overall status. Made aware that his prognosis is extremely poor. is to decide with her family members about decision regarding CODE STATUS and possibly consider comfort care measures Critical care time is over 30 minutes Time with Patient: Greater than 30
--- NOTE | 2021-08-19 14:25 | P.PN ---
Subjective Progress Note Date: 08/19/21 Acute hypoxic respiratory failure secondary to COVID-19 pneumonia Elevated liver enzymes due to systemic inflammation 51-year-old male who presents to the with symptoms of shortness of breath and cough ongoing since last Wednesday. Patient states that Wednesday he started feeling short of breath, Wednesday his symptoms worsened and then on Wednesday he said that he began to feel the worst. He is having difficulty catching his breath and attributed this to his chronic sinus problems that he has. On Wednesday he went to the [facility] and was given some medication for his sinuses but did not help him, so he came to the ER. Patient was positive for Covid in the EC. He is not vaccinated. Home medications include zinc, vitamin D3, Singulair, Flonase, albuterol inhaler, and ibuprofen. Past medical history significant for sinus issues ongoing, diverticulitis, hernia, cholecystectomy, hard of hearing. Patient is a never smoker, reports occasional alcohol use nothing daily, no drug use. Chest x-ray in the EC shows diffuse bilateral interstitial edema and/or infiltrates left greater than right. Labs today show a white count of 5.5, platelet 133, sodium 137, potassium 3.6, mag 1.7, lactic aci d 1.2. Vitals show a temp of 98.7, heart rate 92, blood pressure 147/90 on 15L HF, 15L NRB. Discussed with patient the next step would be BiPAP and possibly intubation. Patient is very claustrophobic and is having difficulty even with the nonrebreather. 08/08/2021 Patient is seen and evaluated in room at bedside; reports worsening breathing and has been desaturating down to low 80s; pulmonary service on board and recommending patient be transferred to ICU Vital signs reviewed temperature 98.0 pulse 87 respiration 26 and blood pressure 137 with 89 Lab review shows diffuse he 7.6, hemoglobin 15.4 and platelet count of 171, sodium 142, potassium 3.9, BUN/creatinine of 23/0.7; d-dimer of 0.78 We will continue to titrate FiO2; self-propelling is encouraged; patient remains on Baricitinib, Lovenox, Decadron for Covid 19 protocol 08/09/2021 Patient seen for follow-up in ICU; nursing staff patient desaturated. In the day and was placed on BiPAP; patient was unable to tolerate BiPAP and oxygen saturation continued to drop with worsening respiratory rate; patient was subsequently intubated and mechanically ventilated Vital signs review shows temperature 97.8, pulse 68, respiration 45 and blood pressure of 118/70 Laboratory; WBC 6.3. Hemoglobin 15.3. Platelets 169. Lymphocytes 0.6. Sodium 140. Potassium 3.9. Bicarb 21. BUN 25. Creatinine 0.76. AST 167. ALT 135. He remains on Decadron, Lovenox, Baricitinib and vitamin supplements. 08/10/2021 Patient remains in ICU and remains intubated and mechanically ventilated; remains on sedation with propofol and Nimbex blood gases from this morning revealed PaO2 of 95, pCO2 46, pH 7.34. Chest x- ray is revealing bilateral interstitial and airspace opacities consistent with COVID-19 pneumonia. No pneumothorax or large effusions. White count 10.8. Hemoglobin 14.7. Sodium 141. Potassium 4.2. Creatinine 0.72. Glucose 109. AST 176. ALT 184. Alk phos 156. He is continued on Baricitinib, Decadron, Lovenox, vitamin supplements. Initiated tube feedings for nutritional support; Continue Baricitinib, Lovenox, Decadron Prone if possible Prognosis is guarded 08/11/2021 Patient is seen in follow up this morning and continues to be on mechanical ventilation and pulmonary clinical systems analyst following closely. Patient respiratory status worsening and current settings of 50% FI02 and a peep of 15. Patient continues on IV dexamethasone, lovenox, vitamin and zinc supplements. D dimer today is 13.46, inflammatory markers elevated. Slight worsening noted on the chest xray this morning. Patient is also receiving Baricitinib. 08/12/2021 Patient is seen in follow-up today continues to be in the ICU being closely monitored. Patient continues on mechanical vent and Nimbex has been resumed and patient is also maintained on propofol and fentanyl for sedation. Patient respiratory status worsening and current settings are 80% FiO2 with a PEEP of 1 5. Patient started on IV cefepime with a mildly elevated white blood count and baricitinib has been discontinued. Patient continues on IV dexamethasone along with Lovenox twice daily vitamin and zinc supplements and will continue. 08/13/2021 Patient is seen in follow up today in the ICU and continues with sedation and mechanical ventilation. Continued on covid supplements and dexamethasone, lo venox, and IV cefepime. Pulmonary following. sputum culture ordered. Blood culture preliminary showing staph aureus and will repeat. WBC is 8.4, Afebrile. Chest xray shows bibasilar infiltrated worsening of the left. ET tube could be advanced 4cm. 08/14/2021 Patient is seen and evaluated and follow-up continues to be in the ICU on mechanical ventilation intubated and sedated. Patient is also maintained on IV cefepime and awaiting repeat blood cultures as preliminary showed Staphylococcus aureus. Sputum culture is pending at this time. Patient continues on Nimbex as well along with IV dexamethasone, Lovenox twice a day, IV Lasix along with propofol. Chest x-ray shows stable with continued pleural effusion and diffuse bilateral infiltrates. 08/15/2021 Patient is seen and examined and follow-up this morning continues to be in the ICU being closely monitored. Patient remains on mechanical ventilation, intubated and sedated and continues to be tachypneic and tachycardic. FiO2 increased to 80% patient is developing fever. Patient is maintained on IV cefepime and blood cultures showing staph aureus and gram stain preliminary sputum culture showing presumptive staph aureus. Patient is maintained on propofol and fentanyl for sedation. Patient continues on NIMBEX as well. Dilia ent receiving IV hydralazine as needed for elevated blood pressures. Patient was receiving IV Lasix and has diuresed and was discontinued. Repeat labs for today pending. 08/16/2021 Patient evaluated today in the ICU. He continues on mechanical ventilation, today the PEEP was increased 18 and FiO2 decreased to 90 per RN Patient had positive blood cultures taken on 08/12 that showed staph aureus, and sputum culture which is positive for presumptive staph aureus, preliminary still pending. Repeat blood cultures were ordered on 08/13/2021, however they were never drawn. We did order a stat blood culture to repeat today. Additional labs include a white count of 14.4, hemoglobin 11.8, platelet 296, d-dimer today 6.16, sodium 147, potassium 4.3, chloride 105, CO2 40, BUN 42, creatinine 0.89, sugars are in the 110s, ALT 66, LDH 687, CRP 23.9. Vital signs today show temperature 98.1, heart rate 101, respiratory rate 30, blood pressure 150/67 and his oxygen saturation is 87%. Last bowel movement on August 13. He is on IV cefepime, IV Decadron, NIMBEX, fentanyl, propofol. Followed closely by clinical systems analyst/line technician. 08/17/2021 Patient in the ICU, FiO2 is back up to 100%. Temp 97.5, heart rate 80, respirations 34, blood pressure 116/53 and his oxygen saturation is 88%. Blood gases today are slightly worsening, pH 7.19, pCO2 97, p02, 64, pHCO3 37, Total CO2 40, O2 saturation 90. Sodium 146, potassium 4.9, chloride 104, CO2 37, BUN 62, creatinine 1.71. Sugars run 120s, AST 51, ALT 63. There are no inflammatory marker levels for today. Sputum cultures finalized for staph aureus, repeat blood cultures are pending. He has free water through his PEG tube. He is a being followed closely by intensive care/pulmonary services. Per RN the plan today is to prone the patient. Prognosis is extremely guarded for this patient. 08/18/2021 Patient is seen in follow-up continues to be in the ICU and nephrology now following the patient has been started on hemodialysis with a surgical consultation to get an emergent dialysis catheter placed as patient's kidney functions are worsening and patient will be started on hemodialysis today after the placement of the catheter. Pulmonary also following closely and patient co ntinues to be intubated and sedated on multiple drips including Nimbex him IV cefepime, propofol and fentanyl and will continue. 08/19/2021 Patient is seen and evaluated in follow-up this morning continues to be closely monitored in the ICU with an extremely poor and guarded prognosis. Patient has been started on hemodialysis and received yesterday and will continue with daily with nephrology following closely. Patient with an extremely high potassium level of X.1 this morning and given dextrose with calcium and insulin IV and will undergo hemodialysis and repeat labs in the afternoon. Current creatinine today is 4.66. Phosphorus is 11.2 and was started on PhosLo. Patient having high residuals and tube feedings currently on hold. Patient's abdomen taut and extremely distended and tube feeds again are on hold. CRP mildly improved at 21.1 although inflammatory markers continue to be elevated. White Blood count is 17.1 maintained on IV cefepime and infectious disease has been consulted and following . Possibility of ventilator associated pneumonia and also blood cultures on August 12 and sputum cultures on 08 14 showing Staphylococcus aureus with repeat blood cultures being negative for 48 hours. Patient is on ventilator and intubated requiring pressor support and FiO2 is 100% and maintaining oxygen saturations of 77%. Patient is tachycardic and tachypneic on exam. Overall prognosis was discussed with family with possible hospice. Review of systems: unable to obtain as patient is intubated and sedated Medications have been reviewed. Active Medications Acetaminophen (Acetaminophen Tab 325 Mg Tab) 650 mg PO Q6HR PRN PRN Reason: Mild Pain or Fever > 100.5 Last Admin: 08/16/21 02:36 Dose: 650 mg Documented by: Albuterol Sulfate (Albuterol Hfa Inhaler) 2 puff INHALATION RT-QID PRN PRN Reason: Shortness Of Breath Or Wheezing Albuterol Sulfate (Albuterol Hfa Inhaler) 2 puff INHALATION RT-QID [facility] Last Admin: 08/19/21 10:39 Dose: 2 puff Documented by: Artificial Tears (Artificial Tears-Hypromellose Drops 15 Ml Btl) 1 drops BOTH EYES Q4H [facility] Last Admin: 08/19/21 12:36 Dose: 1 drops Documented by: Ascorbic Acid (Ascorbic Acid 500 Mg Tab) 1,000 mg PO DAILY [facility] Last Admin: 08/19/21 08:15 Dose: 1,000 mg Documented by: Calcium Acetate (Calcium Acetate 667 Mg Tab) 667 mg PO TID-W/MEALS [facility] Last Admin: 08/19/21 12:37 Dose: Not Given Documented by: Chlorhexidine Gluconate (Chlorhexidine Gluconate 15 Ml Cup) 15 ml MUCOUS MEM BID [facility] Last Admin: 08/19/21 08:15 Dose: 15 ml Documented by: Cholecalciferol (Cholecalciferol 25 Mcg (1000 Iu) Tablet) 125 mcg PO DAILY [facility] Last Admin: 08/19/21 08:15 Dose: 125 mcg Documented by: Dexamethasone Sodium Phosphate (Dexamethasone Sod Phosphate 10 Mg/Ml 1 Ml Vial) 6 mg IVP BID [facility] Last Admin: 08/19/21 08:15 Dose: 6 mg Documented by: Enoxaparin Sodium (Enoxaparin 40 Mg/0.4 Ml Syringe) 40 mg SQ BID [facility] Last Admin: 08/19/21 08:15 Dose: 40 mg Documented by: Hydralazine HCl (Hydralazine Hcl 20 Mg/Ml 1 Ml Vial) 10 mg IVP Q4HR PRN PRN Reason: Blood Pressure - High Last Admin: 08/15/21 11:11 Dose: 10 mg Documented by: Propofol 1,000 mg/ IV Solution 100 mls @ 0 mls/hr IV .Q0M [facility]; Protocol Last Admin: 08/19/21 13:15 Dose: 75 mcg/kg/min, 52.56 mls/hr Documented by: Fentanyl Citrate 2,500 mcg/ (Sodium Chloride) 250 mls @ 5.84 mls/hr IV .Q24H [facility]; Protocol Last Admin: 08/19/21 11:12 Dose: 3 mcg/kg/hr, 35.04 mls/hr Documented by: Cisatracurium Besylate 200 mg/ (Sodium Chloride) 200 mls @ 7.008 mls/hr IV .Q24H [facility]; Protocol Last Admin: 08/19/21 00:04 Dose: 1.5 mcg/kg/min, 10.512 mls/hr Documented by: Cefepime HCl 1 gm/ Sodium (Chloride) 50 mls @ 12.5 mls/hr IVPB Q12H [facility] Last Admin: 08/19/21 10:33 Dose: 12.5 mls/hr Documented by: Sodium Bicarbonate 150 ml/ (Dextrose/Water) 1,150 mls @ 100 mls/hr IV .[id number] [facility] Last Admin: 08/19/21 07:45 Dose: 100 mls/hr Documented by: Norepinephrine Bitartrate 8 mg (/ Sodium Chloride) 258 mls @ 11.716 mls/hr IV .Q22H2M [facility]; Protocol Last Titration: 08/19/21 12:38 Dose: 0.07 mcg/kg/min, 16.403 mls/hr Documented by: Insulin Aspart (Insulin Aspart (Novolog) 100 Unit/Ml Vial) 0 unit SQ Q6H [facility]; Protocol Last Admin: 08/19/21 12:37 Dose: 4 unit Documented by: Lactulose (Lactulose 20 Gm/30 Ml Cup) 20 gm PO DAILY [facility] Last Admin: 08/19/21 08:16 Dose: Not Given Documented by: Zinc Sulfate (Zinc Sulfate 220 Mg Cap) 220 mg PO DAILY [facility] Last Admin: 08/19/21 08:15 Dose: 220 mg Documented by: Physical exam: GENERAL: The patient is currently intubated and sedated. HEENT: Pupils are round and equally reacting to light. CARDIOVASCULAR: S1 and S2 present. No murmurs, rubs, or gallops. Tachycardic PULMONARY: Diminished breath sounds bilaterally with coarse scattered rhonchi and some crackles at the bases noted ABDOMEN: Taut, nontender,distended, hypoactive bowel sounds. No palpable organomegaly. Obese. MUSCULOSKELETAL: No joint swelling or deformity. EXTREMITIES: No cyanosis, clubbing, or pedal edema. Generalized edema noted throughout NEUROLOGICAL: Intubated and sedated. SKIN: No rashes. Assessment: Acute hypoxic respiratory failure secondary to COVID-19 pneumonia requiring mechanical ventilation Pneumonia with sepsis with cultures positive for staph aureus, ventilator acquired, continued on IV cefepime, infectious disease has been consulted and following Elevated liver enzymes due to systemic inflammatory response, slowly trending down Positive blood culture showing staph aureus and repeat blood cultures pending, sputum culture showing presumptive staph aureus maintained on IV cefepime Elevated D-dimer, repeat d-dimer pending and patient is maintained on subcutaneous Lovenox twice daily Mild calorie malnutrition secondary to being on mechanical vent, patient receiving tube feedings History of chronic sinus issues History of diverticulitis History of cholecystitis GI Prophylaxis: Protonix DVT Prophylaxis: Lovenox FULL CODE Plan: Continue to closely monitor in the ICU and pulmonary following. patient continues on pressor support and sedated on fentanyl and propofol. Patient is currently undergoing daily hemodialysis with nephrology following closely. Potassium elevated at 6.1 and given dextrose with insulin and calcium IV and will require hemodialysis again today. Patient's blood pressures have been on the lower side and on Levophed. Tube feedings are on hold as patient is having high residuals and abdomen more distended and taut. Patient also on sodium bicarb drip along with IV cefepime. Infectious disease was consulted and following. Sputum and blood culture showing staph aureus and repeat blood cu ltures have been negative. Overall prognosis is extremely poor and guarded and family made aware of overall prognosis with possible hospice being considered. Patient is on 100% ventilator support with oxygen saturations in the mid 70%. Chest x-ray today shows extensive pulmonary infiltrates with right pleural effusion this could relate to RDS with no significant change compared to yesterday with moderate pulmonary interstitial and airspace edema. Will continue to monitor closely. Prognosis remains extremely poor and guarded. Objective - Vital Signs Vital signs: Vital Signs Temp 97.8 F 08/19/21 08:00 Pulse 108 H 08/19/21 09:00 Resp 27 H 08/19/21 09:00 BP 96/50 08/19/21 09:00 Pulse Ox 79 L 08/19/21 09:00 Intake & Output 08/18/21 08/19/21 08/19/21 18:59 06:59 18:59 Intake Total 2400 2152.505 510 Output Total 45 0 0 Balance 2355 2152.505 510 Weight 118 kg 121.1 kg Intake: IV 50 0.9 50 Intake, IV Titration 1400 1872.505 450 Amount Cefepime 2 gm In Sodium 100 Chloride 0.9% 100 ml @ 25 mls/hr IVPB Q8H [facility] Rx#: [id number] Cisatracurium 200 mg In 187.289 Sodium Chloride 0.9% 180 ml @ 1 MCG/KG/MIN 7.008 mls/hr IV .Q24H [facility] Rx#: [id number] Dextrose 5% in Water 1, 200 000 ml @ 100 mls/hr IV . [id number] [facility] with Sodium Bicarb (1 Meq/ml) 150 ml Rx#:[id number] Sodium Chloride 0.9% 1, 550 600 150 000 ml @ 50 mls/hr IV . Q20H [facility] Rx#:[id number] fentaNYL (PF) 2,500 mcg 250 490.608 In Sodium Chloride 0.9% 200 ml @ 0.5 MCG/KG/HR 5. 84 mls/hr IV .Q24H [facility] Rx #:[id number] propofoL 1,000 mg In 500 594.608 100 Empty Bag 1 bag @ Titrate IV .Q0M [facility] Rx#: [id number] Tube Feeding 140 30 0 Other 810 250 60 Output: Urine 45 0 0 Hemodialysis 0 Other: Voiding Method Indwelling Catheter Indwelling Catheter Indwelling Catheter # Bowel Movements 1 ABP, PAP, CO, CI - Last Documented Arterial Blood Pressure 80/45 - Labs CBC & Chem 7: 08/19/21 04:14 08/19/21 04:14 Labs: Abnormal Lab Results - Last 24 Hours (Table) 08/18/21 08/18/21 08/18/21 Range/Units 11:49 18:21 23:37 WBC (3.8-10.6) k/uL RBC (4.30-5.90) m/uL Hgb (13.0-17.5) gm/dL Hct (39.0-53.0) % Neutrophils # (1.3-7.7) k/uL Lymphocytes # (1.0-4.8) k/uL D-Dimer (<0.60) mg/L FEU ABG pH (7.35-7.45) ABG pCO2 (35-45) mmHg ABG pO2 (83-108) mmHg ABG HCO3 (21-25) mmol/L ABG Total CO2 (19-24) mmol/L ABG O2 Saturation (94-97) % Potassium (3.5-5.1) mmol/L BUN (9-20) mg/dL Creatinine (0.66-1.25) mg/dL Glucose (74-99) mg/dL POC Glucose (mg/dL) 113 H 130 H 125 H (75-99) mg/dL Calcium (8.4-10.2) mg/dL Phosphorus (2.5-4.5) mg/dL AST (17-59) U/L ALT (4-49) U/L Alkaline Phosphatase (38-126) U/L Lactate Dehydrogenase (313-618) U/L C-Reactive Protein (<1.0) mg/dL Albumin (3.5-5.0) g/dL 08/19/21 08/19/21 08/19/21 Range/Units 04:14 04:14 04:14 WBC 17.1 H (3.8-10.6) k/uL RBC 3.47 L (4.30-5.90) m/uL Hgb 11.1 L (13.0-17.5) gm/dL Hct 34.6 L (39.0-53.0) % Neutrophils # 15.8 H (1.3-7.7) k/uL Lymphocytes # 0.5 L (1.0-4.8) k/uL D-Dimer 5.37 H (<0.60) mg/L FEU ABG pH (7.35-7.45) ABG pCO2 (35-45) mmHg ABG pO2 (83-108) mmHg ABG HCO3 (21-25) mmol/L ABG Total CO2 (19-24) mmol/L ABG O2 Saturation (94-97) % Potassium 6.1 H* (3.5-5.1) mmol/L BUN 86 H (9-20) mg/dL Creatinine 4.66 H (0.66-1.25) mg/dL Glucose 133 H (74-99) mg/dL POC Glucose (mg/dL) (75-99) mg/dL Calcium 7.9 L (8.4-10.2) mg/dL Phosphorus 11.2 H* (2.5-4.5) mg/dL AST 61 H (17-59) U/L ALT 62 H (4-49) U/L Alkaline Phosphatase 164 H (38-126) U/L Lactate Dehydrogenase 1053 H (313-618) U/L C-Reactive Protein 21.1 H (<1.0) mg/dL Albumin 2.8 L (3.5-5.0) g/dL 08/19/21 08/19/21 Range/Units 05:57 06:07 WBC (3.8-10.6) k/uL RBC (4.30-5.90) m/uL Hgb (13.0-17.5) gm/dL Hct (39.0-53.0) % Neutrophils # (1.3-7.7) k/uL Lymphocytes # (1.0-4.8) k/uL D-Dimer (<0.60) mg/L FEU ABG pH 7.02 L* (7.35-7.45) ABG pCO2 105 H* (35-45) mmHg ABG pO2 53 L* (83-108) mmHg ABG HCO3 27 H (21-25) mmol/L ABG Total CO2 31 H (19-24) mmol/L ABG O2 Saturation 79.5 L (94-97) % Potassium (3.5-5.1) mmol/L BUN (9-20) mg/dL Creatinine (0.66-1.25) mg/dL Glucose (74-99) mg/dL POC Glucose (mg/dL) 136 H (75-99) mg/dL Calcium (8.4-10.2) mg/dL Phosphorus (2.5-4.5) mg/dL AST (17-59) U/L ALT (4-49) U/L Alkaline Phosphatase (38-126) U/L Lactate Dehydrogenase (313-618) U/L C-Reactive Protein (<1.0) mg/dL Albumin (3.5-5.0) g/dL Microbiology - Last 24 Hours (Table) 08/16/21 13:55 Blood Culture - Preliminary Blood No Growth after 48 hours
[2021-08-19 17:31] LABS: Glucose,Whole Blood 143 mg/dL (75-99)
[2021-08-19 21:16] VITALS: RESP 34
[2021-08-20 02:16] LABS: Glucose,Whole Blood 116 mg/dL (75-99)
[2021-08-20 02:58] VITALS: TEMP 98.6
[2021-08-20] MEDS: fentaNYL (PF) 2,500 MCG in SODIUM CHLORIDE 0.9% 200 ML IV SCH (03:05)
[2021-08-20] MEDS: ARTIFICIAL TEARS-HYPROMELLOSE DROPS 15 ML BTL BOTH EYES SCH ×2 (03:05→03:55)
[2021-08-20] MEDS ORDERED: LORazepam 2 MG/ML INJ IV PRN (04:20)
[2021-08-20] MEDS ORDERED: MORPHINE SULFATE 4 MG/ML SYRINGE IV PRN (04:20)
[2021-08-20] MEDS ORDERED: MORPHINE SULFATE 2 MG/ML SYRINGE IV PRN (04:20)
[2021-08-20] MEDS ORDERED: SCOPOLAMINE 1.5MG/72HR PATCH TRANSDERM SCH (04:30)
[2021-08-20 04:35] VITALS: BP 98/51; PULSE 68
--- NOTE | 2021-08-21 10:14 | P.DS ---
Providers Date of admission: 08/06/21 23:57 Expected date of discharge: 08/20/21 Attending physician: Ambreen Murray Consults: 08/06/21 23:57 Consult Physician Routine Consulting Provider: Delonte Hannah Consult Reason/Comments: covid Do you want consulting provider notified?: Yes 08/17/21 18:32 Consult Physician Urgent Consulting Provider: Alfredo Mckeon Consult Reason/Comments: HD catheter Do you want consulting provider notified?: Already Contacted 08/17/21 18:33 Consult Physician Urgent Consulting Provider: Kandace Curry Consult Reason/Comments: ATN/possible HD Do you want consulting provider notified?: Yes 08/18/21 09:47 Consult Physician Routine Consulting Provider: Yenni Avila Consult Reason/Comments: covid, sepsis Do you want consulting provider notified?: Yes Primary care physician: Cook Hospital Course: Preliminary cause of COVID-19 pneumonia Final diagnosis Acute hypoxic respiratory failure secondary to COVID-19 pneumonia requiring mechanical ventilation Pneumonia with sepsis with cultures positive for staph aureus, ventilator acquired, continued on IV cefepime, infectious disease has been consulted and following Elevated liver enzymes due to systemic inflammatory response, slowly trending down Positive blood culture showing staph aureus and repeat blood cultures pending, sputum culture showing presumptive staph aureus maintained on IV cefepime Elevated D-dimer, repeat d-dimer pending and patient is maintained on subcutaneous Lovenox twice daily Mild calorie malnutrition secondary to being on mechanical vent, patient receiving tube feedings History of chronic sinus issues History of diverticulitis History of cholecystitis GI Prophylaxis: Protonix DVT Prophylaxis: Lovenox NO CODE Discharge disposition Patient has on 08/20/2021. During the nursing documentation, time of was 0458. Patient was made comfort care with comfort measures only by family on 08/19/2021. Hospital course This is a 51-year-old male who presented to the ER with symptoms of shortness of breath and cough that had been ongoing for about a week and symptoms progressed and having worsening shortness of breath and brought to the ER. Patient had been on some outpatient medications from his primary although continued to be worse. Patient was not vaccinated and was tested positive for Covid in the ER. Patient's breathing continued to worsen requiring intubation and patient was on prolonged mechanical ventilation and continued to deteriorate. Patient ultimately developed multisystem organ failure and required emergent dialysis and continued to worsen and discussion was had with family and patient was made comfort care and ultimately on 08/20/2021 at 0458 per nursing documentation. Please refer to previous dictations for further documentation and HPI Patient Condition at Discharge: Poor Plan - Discharge Summary Discharge Rx Participant: No New Discharge Prescriptions: No Action Ibuprofen [Motrin Ib] 800 mg PO Q8H PRN PRN Reason: Pain Or Fever > 100.5 Zinc 50 mg PO DAILY Cholecalciferol [Vitamin D3 (25 Mcg = 1000 Iu)] 50 mcg PO DAILY Montelukast [Singulair] 10 mg PO DAILY Fluticasone Nasal [place] [Flonase Nasal [place]] 1 spray EA NOSTRIL DAILY Albuterol Sulfate [Ventolin HFA] 1 - 2 puff INHALATION RT-Q6H PRN PRN Reason: Shortness Of Breath Discharge Medication List Ibuprofen [Motrin Ib] 800 mg PO Q8H PRN 01/25/20 [History] Albuterol Sulfate [Ventolin HFA] 1 - 2 puff INHALATION RT-Q6H PRN 08/06/21 [History] Cholecalciferol [Vitamin D3 (25 Mcg = 1000 Iu)] 50 mcg PO DAILY 08/06/21 [History] Fluticasone Nasal [place] [Flonase Nasal [place]] 1 spray EA NOSTRIL DAILY 08/06/21 [History] Montelukast [Singulair] 10 mg PO DAILY 08/06/21 [History] Zinc 50 mg PO DAILY 08/06/21 [History] Follow up Appointment(s)/Referral(s): [facility],Clinic [Primary Care Provider] - 1-2 days Discharge Disposition: - Preliminary Cause of Preliminary Cause of : COVID-19 pneumonia
--- NOTE | 2021-08-27 06:33 | CDI ---
Documentation Clarification Form Date: 08/27/21 From: Darlene Webb Admit Date: 08/06/2021 11:57:00 PM Patient Name: Luis Chao Visit Number: [id number] Discharge Date: 08/20/2021 07:39:00 AM ATTENTION: The Clinical Documentation Specialists (CDI) and [facility] Coding Staff appreciate your assistance in clarifying documentation. Please respond to the clarification below the line at the bottom and electronically sign. The CDI & [facility] Coding staff will review the response and follow-up if needed. Please note: Queries are made part of the Legal Health Record. If you have any questions, please contact the author of this message via ITS. Dr. Ambreen Murray, Your patient has an abnormal lab value: sodium 147 on 08/16 & sodium 146, on 08/17. Please clarify if there is an additional diagnosis and/or clinical significance related to this value. History/Risk Factors: COVID pneumonia, ARDS, MSSA sepsis w septic shock, ATN Clinical indicators: Elevated sodium on 08/16 & 08/17 Treatment: IV Lasix 40 mg stat once Is there an additional diagnosis and/or clinical significance related to the above lab result/information? [ ] Hypernatremia w sodium of 147/146 [ ] No additional diagnosis/Not clinically significant [ ] Other, please specify [ ] Unable to determine NOT My documentation MTDD
== END 2021-08-20 07:39 | disposition expired | DRG 207 ==
LOC: EC 22:09 → 3SCARD 23:57 → 2SICU 08-08 11:48
PROVIDERS: ADMIT Hospitalist; ATTEND Hospitalist
DX: U07.1 COVID-19 (principal); J12.82 Pneumonia due to coronavirus disease 2019; A41.01 Sepsis due to Methicillin susceptible Staphylococcus aureus; R65.20 Severe sepsis without septic shock; N17.0 Acute kidney failure with tubular necrosis; J15.211 Pneumonia due to Methicillin susceptible Staphylococcus aureus; J80 Acute respiratory distress syndrome; E44.1 Mild protein-calorie malnutrition; J90 Pleural effusion, not elsewhere classified; J93.82 Other air leak; E87.2 Acidosis; J44.0 Chronic obstructive pulmonary disease with (acute) lower respiratory infection; Z66 Do not resuscitate; Z51.5 Encounter for palliative care; E83.39 Other disorders of phosphorus metabolism; I10 Essential (primary) hypertension; R74.01 Elevation of levels of liver transaminase levels; E87.5 Hyperkalemia; K44.9 Diaphragmatic hernia without obstruction or gangrene; F40.240 Claustrophobia; I83.90 Asymptomatic varicose veins of unspecified lower extremity; H91.90 Unspecified hearing loss, unspecified ear; Z68.34 Body mass index [BMI] 34.0-34.9, adult; Z79.899 Other long term (current) drug therapy; Z90.49 Acquired absence of other specified parts of digestive tract; Z87.19 Personal history of other diseases of the digestive system; Z87.39 Personal history of other diseases of the musculoskeletal system and connective tissue; Z71.3 Dietary counseling and surveillance; Z98.890 Other specified postprocedural states; Z88.5 Allergy status to narcotic agent; D64.9 Anemia, unspecified
CPT/HCPCS: 36415; 36600; 71045; 80048; 80053; 82728; 82805; 83605; 83615; 83735; 83880; 84100; 84132; 84145; 84484; 85025; 85379; 85610; 85730; 86140; 86704; 86706; 87040; 87070; 87077; 87186; 87205; 87340; 87635; 90935; 93005; 94002; 94003; 94640; 96361; 96374; 96375; 96376; 99291